=== PATIENT | male | born 1960 | race Caucasian/White ===

== ENCOUNTER 2016-04-23 11:10 | Emergency (ER) | payer MEDICAID ==
[2016-04-23 11:23] VITALS: BP 111/86
[2016-04-23] MEDS ORDERED: IPRATROPIUM/ALBUTEROL 0.5-2.5 MG/3 ML AMPUL NEB ONE (11:26)
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
== END 2016-04-23 12:32 | disposition home or self-care (01) ==
LOC: ER 11:10
DX: T20.34XA Burn of third degree of nose (septum), initial encounter (principal); W40.8XXA Explosion of other specified explosive materials, initial encounter; Y93.89 Activity, other specified; J44.9 Chronic obstructive pulmonary disease, unspecified; F17.200 Nicotine dependence, unspecified, uncomplicated; Z99.81 Dependence on supplemental oxygen; Z91.030 Bee allergy status
CPT/HCPCS: 94640; 99283; 71020; J7620

== ENCOUNTER 2016-06-05 09:08 | Day surgery (SDC) | payer MEDICAID ==
[~2016-06-05 09:08] MED LIST: DIPHENHYDRAMINE HCL 50 MG/ML VIAL ONE; EPINEPHRINE INJ 1 MG/10 ML DISP.SYRIN ONE; FENTANYL CITRATE INJ/PF 100 MCG/2 ML AMPUL ONE; FLUMAZENIL INJ 0.5 MG/5 ML VIAL IV ONE; GLUCAGON,HUMAN RECOMB 1 MG INJ ONE; NALOXONE HCL INJ/PF 0.4 MG/1 ML SDV ONE; ONDANSETRON HCL INJ/PF 4 MG/2 ML SDV ONE
[2016-06-05] MEDS: MIDAZOLAM 2 MG/2 ML INJ ONE ×3 (10:12→10:18)
--- NOTE | 2016-06-05 10:32 | Operative Report ---
Operative Report DATE OF SURGERY: 06/05/16 Operative Report: The risks benefits and alternatives of the procedure explained to the patient in detail and informed consent is obtained that GIF Olympus video scope was inserted into the patient's mouth and hypopharynx the esophagus is identified intubated and insufflated the scope was then advanced through the esophagus stomach and duodenum retroflexion maneuver is done the esophagus stomach and first and second portions of the duodenum examined PREOPERATIVE DIAGNOSIS: Dysphagia POSTOPERATIVE DIAGNOSIS: Schatzki's ring status post breakage. Hiatal hernia. Gastritis. No evidence of burn injury noted in the hypopharynx or. in the vallecula area. No apparent abnormal appearing tissue in the area of the vocal cords OPERATION: EGD with biopsy SURGEON: BERNADETTE COOPER ANESTHESIA: Moderate Sedation - 4 mg of Versed, 50 g of fentanyl. Conscious sedation monitoring time 30 minutes. TISSUE REMOVED OR ALTERED: Gastric mucosal specimen obtained COMPLICATIONS: None. ESTIMATED BLOOD LOSS: none. INTRAOPERATIVE FINDINGS: Schatzki's ring status post biopsy to break. Hiatal hernia. Gastritis PROCEDURE: Patient tolerated the procedure well. No immediate postprocedure complications are noted. Patient is discharged in good condition. Discharge date 06/05/2016. Discharge diet: Regular. Discharge activity: Regular. 2-3 week follow-up to discuss findings. Patient is instructed to call the office or proceed to emergency room should there be any further problems or questions. We'll await on biopsies.
[2016-06-05 11:32] VITALS: BP 109/67
== END 2016-06-05 11:33 | disposition home or self-care (01) ==
LOC: END 09:08
PROVIDERS: ATTEND Internal Medicine Gastroenterology
PROC: 0DB68ZX Excision of Stomach, Via Natural or Artificial Opening Endoscopic, Diagnostic (ICD-10-PCS; principal; 2016-06-05 09:30)
DX: K22.2 Esophageal obstruction (principal); K44.9 Diaphragmatic hernia without obstruction or gangrene; K29.50 Unspecified chronic gastritis without bleeding; R13.10 Dysphagia, unspecified; E78.00 Pure hypercholesterolemia, unspecified; E78.5 Hyperlipidemia, unspecified; F17.210 Nicotine dependence, cigarettes, uncomplicated; E07.9 Disorder of thyroid, unspecified; E66.9 Obesity, unspecified; Z68.35 Body mass index [BMI] 35.0-35.9, adult; Z85.21 Personal history of malignant neoplasm of larynx; Z79.51 Long term (current) use of inhaled steroids; Z79.899 Other long term (current) drug therapy
CPT/HCPCS: 43239; 88342 ×2; 88305 ×2; J2250; J3010; J0171; J1200; J1610; J2310; J2405; J3490

== ENCOUNTER → 2016-07-03 | Outpatient (CLI) | payer MEDICAID | LOC: RAD 08:09 | PROVIDERS: ATTEND Specialist | DX: C32.9 Malignant neoplasm of larynx, unspecified (principal) | CPT/HCPCS: 70491; 82565 ==

== ENCOUNTER → 2017-04-30 | Outpatient (CLI) | payer MEDICAID ==
--- NOTE | 2017-04-30 16:41 | RADIOLOGY REPORT (SQ) ---
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 RADIATION DOSE: NA LIMITATIONS: none FINDINGS: LUNGS AND PLEURA: The previously described chronic appearing biapical pleural and parenchy mal scarring appears stable. No acute consolidations or pleural effusions. No pneumothorax is seen. MEDIASTINUM AND HILAR STRUCTURES: No masses or contour abnormalities. HEART AND VASCULAR STRUCTURES: Heart normal size. No evidence for failure. BONES: No acute findings. HARDWARE: None in the chest. OTHER: No other significant finding. IMPRESSION: No significant interval change. No acute findings. Other findings as noted above TECHNICAL DOCUMENTATION: JOB ID: [id number] [employer]- All Rights Reserved Reading location - IP/workstation name: [facility]
== END ==
LOC: RAD 15:48
PROVIDERS: ATTEND Internal Medicine Hematology & Oncology
DX: C32.9 Malignant neoplasm of larynx, unspecified (principal); R07.9 Chest pain, unspecified
CPT/HCPCS: 71046

== ENCOUNTER 2017-11-15 11:13 | Emergency (ER) | payer MEDICAID ==
[2017-11-15 11:29] VITALS: BP 132/69
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
== END 2017-11-15 14:59 | disposition home or self-care (01) ==
LOC: ER 11:13
DX: J42 Unspecified chronic bronchitis (principal); R06.02 Shortness of breath; I50.9 Heart failure, unspecified; I25.10 Atherosclerotic heart disease of native coronary artery without angina pectoris; Z99.81 Dependence on supplemental oxygen; Z91.030 Bee allergy status
CPT/HCPCS: 99284

== ENCOUNTER 2017-11-18 11:23 | Inpatient (IN) | payer MEDICAID ==
[~2017-11-18 11:23] MED LIST changes: -DIPHENHYDRAMINE HCL 50 MG/ML VIAL ONE; -EPINEPHRINE INJ 1 MG/10 ML DISP.SYRIN ONE; -FENTANYL CITRATE INJ/PF 100 MCG/2 ML AMPUL ONE; -FLUMAZENIL INJ 0.5 MG/5 ML VIAL IV ONE; -GLUCAGON,HUMAN RECOMB 1 MG INJ ONE; -NALOXONE HCL INJ/PF 0.4 MG/1 ML SDV ONE; -ONDANSETRON HCL INJ/PF 4 MG/2 ML SDV ONE; +SUCCINYLCHOLINE CHLORIDE INJ 200 MG/10 ML VIAL ONE
[2017-11-18] MEDS ORDERED: METHYLPREDNISOLONE INJ 125 MG/2 ML SDV IV ONE (11:40)
[2017-11-18] MEDS ORDERED: IPRATROPIUM/ALBUTEROL 0.5-2.5 MG/3 ML AMPUL NEB ONE (11:41)
[2017-11-18 11:44] LABS: HEMATOCRIT 40.1 % (37.9-51.0); HEMOGLOBIN 11.8 g/dL (13.5-17.0); MEAN CORPUSCULAR HEMOGLOBIN 23.7 pg (27.0-33.4); MEAN CORPUSCULAR HGB CONC 29.4 g/dL (32.0-36.0); MEAN CORPUSCULAR VOLUME 81 fl (80-97); PLATELET COUNT 249 10^3/uL (150-450); RED BLOOD COUNT 4.97 10^6/uL (4.35-5.55); RED CELL DISTRIBUTION WIDTH 17.6 % (11.5-14.0); WHITE BLOOD COUNT 11.3 10^3/uL (4.0-10.5)
[2017-11-18 12:01] LABS: ALANINE AMINOTRANSFERASE 36 U/L (21-72); ALBUMIN 3.5 g/dL (3.5-5.0); ALKALINE PHOSPHATASE 106 U/L (38-126); ASPARTATE AMINO TRANSFERASE 26 U/L (17-59); BILIRUBIN,DIRECT 0.6 mg/dL (0.0-0.4); BILIRUBIN,TOTAL 0.7 mg/dL (0.2-1.3); BLOOD UREA NITROGEN 33 mg/dL (7-20); CALCIUM 8.8 mg/dL (8.4-10.2); CHLORIDE 99 mmol/L (98-107); CREATINE KINASE 32 U/L (55-170); GLUCOSE 133 mg/dL (75-110); SODIUM 145.1 mmol/L (137-145); TOTAL PROTEIN 7.6 g/dL (6.3-8.2)
[2017-11-18 12:02] LABS: ABSOLUTE LYMPHOCYTES# (MANUAL) 1.5 10^3/uL (0.5-4.7); ABSOLUTE MONOCYTES # (MANUAL) 0.8 10^3/uL (0.1-1.4); ABSOLUTE NEUTROPHILS# (MANUAL) 8.7 10^3/uL (1.7-8.2); BASOPHILS % (MANUAL) 2 % (0-2); EOSINOPHILS % (MANUAL) 1 % (0-6); LYMPHOCYTES % (MANUAL) 13 % (13-45); MONOCYTES % (MANUAL) 7 % (3-13); NUCLEATED RED BLOOD CELLS 3 /100 WBC (0); SEGMENTED NEUTROPHILS % (MAN) 77 % (42-78); TOTAL CELLS COUNTED 100
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
[2017-11-18 12:04] LABS: ANISOCYTOSIS 1+; HYPOCHROMASIA 1+; PLATELET COMMENT ADEQUATE; PLATELET GIANT PRESENT; POIKILOCYTOSIS 1+; POLYCHROMASIA 1+; STOMATOCYTES 1+
[2017-11-18 12:07] LABS: ANION GAP 7 (5-19)
[2017-11-18 12:09] LABS: ARTERIAL BLOOD BASE EXCESS 15.3 mmol/L; ARTERIAL BLOOD HCO3 51.1 mmol/L (20-24); ARTERIAL BLOOD O2 SATURATION 62.5 % (94-98); ARTERIAL BLOOD PO2 47.1 mmHg (80-100); ARTERIAL BLOOD TOTAL CO2 56.2 mmol/L (23-27)
[2017-11-18 12:11] LABS: CARBON DIOXIDE 39 mmol/L (22-30)
[2017-11-18 12:13] LABS: CREATINE KINASE MB 2.27 ng/mL (<4.55)
[2017-11-18 12:14] LABS: TROPONIN I < 0.012 ng/mL
[2017-11-18 12:16] LABS: ARTERIAL BLOOD FIO2 4L
[2017-11-18 12:17] LABS: ARTERIAL BLOOD PCO2 166.1 mmHg (35-45); ARTERIAL BLOOD PH 7.11 (7.35-7.45)
--- NOTE | 2017-11-18 12:24 | RADIOLOGY REPORT (SQ) ---
EXAM DESCRIPTION: CHEST SINGLE VIEW COMPLETED DATE/TIME: 11/18/2017 11:50 am REASON FOR STUDY: sob COMPARISON: Chest films 04/30/2017, 04/23/2016, 01/31/2016 EXAM PARAMETERS: NUMBER OF VIEWS: One view. TECHNIQUE: Single frontal radiographic view of the chest acquired. RADIATION DOSE: NA LIMITATIONS: None. FINDINGS: LUNGS AND PLEURA: Right apical pleural-parenchymal scarring unchanged. Trace right pleural effusion in the lateral costophrenic sulcus. No left pleural effusion. Mild pulmonary vascular prominence without pulmonary edema MEDIASTINUM AND HILAR STRUCTURES: No masses. Contour normal. HEART AND VASCULAR STRUCTURES: Stable cardiomegaly BONES: Old left clavicle and left lower posterior rib fractures HARDWARE: None in the chest. OTHER: No other significant finding. IMPRESSION: Trace right pleural effusion Cardiomegaly TECHNICAL DOCUMENTATION: JOB ID: [id number] [employer]- All Rights Reserved Reading location - IP/workstation name: [email or web address]
[2017-11-18] MEDS ORDERED: ALBUTEROL SULFATE 0.083% NEB 2.5 MG/3 ML AMPUL NEB ONE (12:40)
[2017-11-18 13:21] LABS: ARTERIAL BLOOD BASE EXCESS 10.8 mmol/L; ARTERIAL BLOOD H2CO3 4.39 mmol/L (1.05-1.35); ARTERIAL BLOOD HCO3 45.5 mmol/L (20-24); ARTERIAL BLOOD O2 SATURATION 99.2 % (94-98); ARTERIAL BLOOD PO2 248.2 mmHg (80-100)
[2017-11-18 13:23] LABS: ARTERIAL BLOOD FIO2 80%; ARTERIAL BLOOD PCO2 145.8 mmHg (35-45); ARTERIAL BLOOD PH 7.11 (7.35-7.45)
--- NOTE | 2017-11-18 13:44 | EKG REPORT ---
SEVERITY:- BORDERLINE ECG - SINUS TACHYCARDIA PROBABLE LEFT ATRIAL ABNORMALITY RIGHT AXIS DEVIATION : Confirmed by: Mia Raza MD 18-Nov-2017 13:43:58
[2017-11-18 14:52] LABS: ARTERIAL BLOOD BASE EXCESS 11.1 mmol/L; ARTERIAL BLOOD H2CO3 3.91 mmol/L (1.05-1.35); ARTERIAL BLOOD HCO3 44.6 mmol/L (20-24); ARTERIAL BLOOD O2 SATURATION 91.2 % (94-98); ARTERIAL BLOOD PO2 81.8 mmHg (80-100); ARTERIAL BLOOD TOTAL CO2 48.6 mmol/L (23-27)
[2017-11-18 14:56] LABS: ARTERIAL BLOOD FIO2 60%; ARTERIAL BLOOD PCO2 129.8 mmHg (35-45); ARTERIAL BLOOD PH 7.15 (7.35-7.45)
[2017-11-18 15:53] LABS: APPEARANCE,URINE CLEAR; BILIRUBIN,URINE NEGATIVE (NEGATIVE); COLOR,URINE YELLOW; GLUCOSE, URINE NEGATIVE (NEGATIVE); KETONES,URINE NEGATIVE (NEGATIVE); LEUKOCYTE ESTERASE,URINE NEGATIVE (NEGATIVE); NITRITE,URINE NEGATIVE (NEGATIVE); PROTEIN,URINE 100 mg/dL (NEGATIVE); URINE SPECIFIC GRAVITY 1.019; UROBILINOGEN,URINE NEGATIVE mg/dL (<2.0)
[2017-11-18] MEDS ORDERED: PROPOFOL INJ 200 MG/20 ML VIAL IV ONE (17:21)
[2017-11-18] MEDS ORDERED: SUCCINYLCHOLINE CHLORIDE INJ 200 MG/10 ML VIAL IV ONE (17:22)
[2017-11-18] MEDS ORDERED: PROPOFOL 1,000 MG/100 ML INFUS..BTL IV ONE (17:42)
[2017-11-18] MEDS ORDERED: FENTANYL CITRATE INJ/PF 100 MCG/2 ML AMPUL ONE ×2 (17:42→17:44)
[2017-11-18] MEDS ORDERED: DEXTROSE 50%-WATER 25 GM/50 ML DISP.SYRIN IV PRN ×2 (17:44)
[2017-11-18] MEDS ORDERED: GLUCAGON,HUMAN RECOMB 1 MG INJ SUBCUT PRN (17:44)
[2017-11-18] MEDS ORDERED: ACETAMINOPHEN 325 MG TABLET PO PRN (17:44)
[2017-11-18] MEDS ORDERED: ONDANSETRON 4 MG TAB.RAPDIS PO PRN (17:44)
[2017-11-18] MEDS ORDERED: DEXTROSE 40% GEL 15 GM TUBE PO PRN ×2 (17:44)
[2017-11-18] MEDS ORDERED: PHARMACY COMMUNICATION ORDER MC NR (17:45)
[2017-11-18] MEDS ORDERED: FENTANYL CITRATE INJ/PF 100 MCG/2 ML AMPUL IV ONE (17:46)
[2017-11-18] MEDS ORDERED: PROPOFOL 1,000 MG/100 ML INFUS..BTL IV PRN (17:47)
[2017-11-18] MEDS ORDERED: IPRATROPIUM/ALBUTEROL 0.5-2.5 MG/3 ML AMPUL NEB PRN (18:06)
[2017-11-18] MEDS ORDERED: LEVALBUTEROL HCL NEB 1.25 MG/3 ML AMPUL NEB PRN (18:06)
[2017-11-18] MEDS ORDERED: FENTANYL CITRATE INJ/PF 100 MCG/2 ML AMPUL IV PRN (18:08)
--- NOTE | 2017-11-18 18:15 | RADIOLOGY REPORT (SQ) ---
EXAM DESCRIPTION: CHEST SINGLE VIEW COMPLETED DATE/TIME: 11/18/2017 6:06 pm REASON FOR STUDY: Intubation COMPARISON: 11/18/2017 EXAM PARAMETERS: NUMBER OF VIEWS: One view. TECHNIQUE: Single frontal radiographic view of the chest acquired. RADIATION DOSE: NA LIMITATIONS: None. FINDINGS: LUNGS AND PLEURA: Mild pulmonary edema is now suggested. MEDIASTINUM AND HILAR STRUCTURES: No masses. Contour normal. HEART AND VASCULAR STRUCTURES: Heart size is borderline. BONES: No acute findings. HARDWARE: Endotracheal tube has its tip 5 cm above the efraín. An NG tube extends toward the stomach . The tip of the tube is not seen. OTHER: No other significant finding. IMPRESSION: Cardiomegaly with mild pulmonary edema. Endotracheal tube placement as described. TECHNICAL DOCUMENTATION: JOB ID: [id number] [employer]- All Rights Reserved Reading location - IP/workstation name: [email or web address]
--- NOTE | 2017-11-18 18:16 | RADIOLOGY REPORT (SQ) ---
EXAM DESCRIPTION: KUB/ABDOMEN (SINGLE VIEW) COMPLETED DATE/TIME: 11/18/2017 6:06 pm REASON FOR STUDY: Check Placement of NG Tube COMPARISON: None. NUMBER OF VIEWS: One view. TECHNIQUE: Supine radiographic image of the abdomen acquired. LIMITATIONS: None. FINDINGS: BOWEL GAS PATTERN: There are some gas-filled loops of small bowel on the left side of the abdomen. These are not markedly distended. CALCIFICATIONS: No suspicious calcifications. SOFT TISSUES: No gross mass or suggestion of organomegaly. HARDWARE: An NG tube extends to the body of the stomach along the greater curvature. BONES: No acute fracture. No worrisome bone lesions. OTHER: No other significant finding. IMPRESSION: NG tube as described. TECHNICAL DOCUMENTATION: JOB ID: [id number] [employer]- All Rights Reserved Reading location - IP/workstation name: [email or web address]
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
[2017-11-18] MEDS: IPRATROPIUM/ALBUTEROL 0.5-2.5 MG/3 ML AMPUL NEB SCH (20:09)
[2017-11-18] MEDS: MIDAZOLAM HCL 50 MG/100 ML RTUINJ IV PRN (20:53)
[2017-11-18] MEDS: PROPOFOL 1,000 MG/100 ML INFUS..BTL IV PRN ×2 (20:54→22:09)
[2017-11-18] MEDS: LEVOFLOXACIN 750 MG/D5W RTU 750 MG/150 ML RTUPB IV SCH (21:34)
[2017-11-18] MEDS ORDERED: METHYLPREDNISOLONE INJ 40 MG/1 ML SDV IV SCH (22:00)
[2017-11-18 22:10] LABS: ARTERIAL BLOOD BASE EXCESS 8.9 mmol/L; ARTERIAL BLOOD H2CO3 2.59 mmol/L (1.05-1.35); ARTERIAL BLOOD HCO3 38.6 mmol/L (20-24); ARTERIAL BLOOD O2 SATURATION 87.8 % (94-98); ARTERIAL BLOOD PH 7.27 (7.35-7.45); ARTERIAL BLOOD PO2 63.4 mmHg (80-100); ARTERIAL BLOOD TOTAL CO2 41.2 mmol/L (23-27)
[2017-11-18 22:15] LABS: ARTERIAL BLOOD FIO2 90%
[2017-11-19] MEDS: PROPOFOL 1,000 MG/100 ML INFUS..BTL IV PRN ×11 (00:22→23:45)
[2017-11-19] MEDS: METHYLPREDNISOLONE INJ 40 MG/1 ML SDV IV SCH ×5 (00:22→23:46)
[2017-11-19 00:46] LABS: ARTERIAL BLOOD BASE EXCESS 15.5 mmol/L; ARTERIAL BLOOD H2CO3 2.42 mmol/L (1.05-1.35); ARTERIAL BLOOD HCO3 44.2 mmol/L (20-24); ARTERIAL BLOOD O2 SATURATION 95.1 % (94-98); ARTERIAL BLOOD PH 7.36 (7.35-7.45); ARTERIAL BLOOD PO2 82.5 mmHg (80-100); ARTERIAL BLOOD TOTAL CO2 46.7 mmol/L (23-27)
[2017-11-19 00:51] LABS: ARTERIAL BLOOD FIO2 90%
[2017-11-19 00:52] LABS: ARTERIAL BLOOD PCO2 80.3 mmHg (35-45)
[2017-11-19] MEDS: IPRATROPIUM/ALBUTEROL 0.5-2.5 MG/3 ML AMPUL NEB SCH ×6 (01:50→20:22)
[2017-11-19 04:49] LABS: HEMATOCRIT 34.7 % (37.9-51.0); HEMOGLOBIN 10.5 g/dL (13.5-17.0); MEAN CORPUSCULAR HEMOGLOBIN 23.8 pg (27.0-33.4); MEAN CORPUSCULAR HGB CONC 30.3 g/dL (32.0-36.0); MEAN CORPUSCULAR VOLUME 78 fl (80-97); PLATELET COUNT 213 10^3/uL (150-450); RED BLOOD COUNT 4.42 10^6/uL (4.35-5.55); RED CELL DISTRIBUTION WIDTH 17.8 % (11.5-14.0); WHITE BLOOD COUNT 9.3 10^3/uL (4.0-10.5)
[2017-11-19 05:24] LABS: ABSOLUTE LYMPHOCYTES# (MANUAL) 0.4 10^3/uL (0.5-4.7); ABSOLUTE MONOCYTES # (MANUAL) 0.4 10^3/uL (0.1-1.4); ABSOLUTE NEUTROPHILS# (MANUAL) 8.6 10^3/uL (1.7-8.2); BAND NEUTROPHILS % (MANUAL) 1 % (3-5); BASOPHILS % (MANUAL) 0 % (0-2); EOSINOPHILS % (MANUAL) 0 % (0-6); LYMPHOCYTES % (MANUAL) 4 % (13-45); MONOCYTES % (MANUAL) 4 % (3-13); NUCLEATED RED BLOOD CELLS 2 /100 WBC (0); SEGMENTED NEUTROPHILS % (MAN) 91 % (42-78); TOTAL CELLS COUNTED 100
[2017-11-19 05:26] LABS: ANISOCYTOSIS 1+; HYPOCHROMASIA SLIGHT; PLATELET COMMENT ADEQUATE; POLYCHROMASIA 1+; TARGET CELLS SLIGHT
[2017-11-19] MEDS: MIDAZOLAM HCL 50 MG/100 ML RTUINJ IV PRN ×2 (06:09→15:08)
--- NOTE | 2017-11-19 07:44 | RADIOLOGY REPORT (SQ) ---
EXAM DESCRIPTION: X-ray single view chest CLINICAL HISTORY: 57 years Male, intubation COMPARISON: Prior chest x-ray performed on 11/18/2017. TECHNIQUE: Single portable view of the chest performed on 11/19/2017 at 6:30 AM FINDINGS: The lungs are well expanded. There is persistent airspace disease in the inferior hemithoraces bilaterally which may be due to edema, atelectasis or pneumonia. There is no evidence of a pneumothorax. The cardiac silhouette is stable and top normal in size. The mediastinal contours are normal. No acute osseous abnormality is identified. There appear to be old left-sided rib fractures. No focal soft tissue abnormalities are seen. The endotracheal tube and feeding tube are grossly stable IMPRESSION: Overall, no significant change when compared to the prior study. There is persistent airspace disease in the inferior hemithoraces which may be due to edema, atelectasis or pneumonia.
[2017-11-19 07:45] LABS: ALANINE AMINOTRANSFERASE 32 U/L (21-72); ALBUMIN 2.8 g/dL (3.5-5.0); ALKALINE PHOSPHATASE 87 U/L (38-126); ASPARTATE AMINO TRANSFERASE 16 U/L (17-59); BILIRUBIN,DIRECT 0.6 mg/dL (0.0-0.4); BILIRUBIN,TOTAL 0.7 mg/dL (0.2-1.3); BLOOD UREA NITROGEN 24 mg/dL (7-20); CALCIUM 8.7 mg/dL (8.4-10.2); CARBON DIOXIDE 39 mmol/L (22-30); CHLORIDE 101 mmol/L (98-107); GLUCOSE 135 mg/dL (75-110); POTASSIUM 4.9 mmol/L (3.6-5.0); SODIUM 142.7 mmol/L (137-145)
[2017-11-19 07:46] LABS: ANION GAP 3 (5-19)
[2017-11-19] MEDS: ENOXAPARIN SODIUM INJ 30 MG/0.3 ML DISP.SYRIN SUBCUT SCH (10:18)
[2017-11-19 13:30] LABS: ARTERIAL BLOOD BASE EXCESS 12.3 mmol/L; ARTERIAL BLOOD HCO3 38.3 mmol/L (20-24); ARTERIAL BLOOD O2 SATURATION 97.9 % (94-98); ARTERIAL BLOOD PCO2 56.5 mmHg (35-45); ARTERIAL BLOOD PH 7.45 (7.35-7.45); ARTERIAL BLOOD PO2 105.2 mmHg (80-100)
[2017-11-19 14:05] LABS: ARTERIAL BLOOD FIO2 90%
[2017-11-19] MEDS: LEVOFLOXACIN 750 MG/D5W RTU 750 MG/150 ML RTUPB IV SCH (17:01)
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
[2017-11-20] MEDS: PROPOFOL 1,000 MG/100 ML INFUS..BTL IV PRN ×9 (00:17→22:32)
[2017-11-20] MEDS: IPRATROPIUM/ALBUTEROL 0.5-2.5 MG/3 ML AMPUL NEB SCH ×6 (00:59→20:23)
[2017-11-20] MEDS: MIDAZOLAM HCL 50 MG/100 ML RTUINJ IV PRN ×2 (01:24→10:15)
[2017-11-20 04:21] LABS: HEMATOCRIT 35.4 % (37.9-51.0); HEMOGLOBIN 10.7 g/dL (13.5-17.0); MEAN CORPUSCULAR HEMOGLOBIN 23.6 pg (27.0-33.4); MEAN CORPUSCULAR HGB CONC 30.2 g/dL (32.0-36.0); MEAN CORPUSCULAR VOLUME 78 fl (80-97); PLATELET COUNT 226 10^3/uL (150-450); RED BLOOD COUNT 4.53 10^6/uL (4.35-5.55); WHITE BLOOD COUNT 14.6 10^3/uL (4.0-10.5)
[2017-11-20 05:12] LABS: ALANINE AMINOTRANSFERASE 27 U/L (21-72); ALBUMIN 2.9 g/dL (3.5-5.0); ALKALINE PHOSPHATASE 84 U/L (38-126); ANION GAP 6 (5-19); ASPARTATE AMINO TRANSFERASE 10 U/L (17-59); BILIRUBIN,DIRECT 0.5 mg/dL (0.0-0.4); BILIRUBIN,TOTAL 0.6 mg/dL (0.2-1.3); BLOOD UREA NITROGEN 23 mg/dL (7-20); CALCIUM 9.1 mg/dL (8.4-10.2); CARBON DIOXIDE 36 mmol/L (22-30); CHLORIDE 100 mmol/L (98-107); GLUCOSE 157 mg/dL (75-110); POTASSIUM 4.2 mmol/L (3.6-5.0); SODIUM 142.2 mmol/L (137-145); TOTAL PROTEIN 6.2 g/dL (6.3-8.2)
[2017-11-20] MEDS: METHYLPREDNISOLONE INJ 40 MG/1 ML SDV IV SCH ×3 (05:13→17:26)
[2017-11-20 06:34] LABS: ARTERIAL BLOOD BASE EXCESS 9.9 mmol/L; ARTERIAL BLOOD H2CO3 1.77 mmol/L (1.05-1.35); ARTERIAL BLOOD HCO3 36.4 mmol/L (20-24); ARTERIAL BLOOD O2 SATURATION 96.4 % (94-98); ARTERIAL BLOOD PCO2 58.7 mmHg (35-45); ARTERIAL BLOOD PH 7.41 (7.35-7.45); ARTERIAL BLOOD PO2 86.4 mmHg (80-100); ARTERIAL BLOOD TOTAL CO2 38.2 mmol/L (23-27)
[2017-11-20 06:37] LABS: ARTERIAL BLOOD FIO2 70%
--- NOTE | 2017-11-20 08:31 | RADIOLOGY REPORT (SQ) ---
EXAM DESCRIPTION: CHEST SINGLE VIEW COMPLETED DATE/TIME: 11/20/2017 6:51 am REASON FOR STUDY: resp failure COMPARISON: CT CHEST 01/31/2016 CHEST FILMS 04/23/2016, 11/18/2017, 11/19/2017 EXAM PARAMETERS: NUMBER OF VIEWS: One view. TECHNIQUE: Single frontal radiographic view of the chest acquired. RADIATION DOSE: NA LIMITATIONS: None. FINDINGS: LUNGS AND PLEURA: Minimal bibasilar atelectasis with trace fluid in the lateral costophren ic sulcus. Lungs are otherwise free of focal infiltrates. Upper lobes are hyperlucent from obstructive disease. No pneumothorax. MEDIASTINUM AND HILAR STRUCTURES: No masses. Contour normal. HEART AND VASCULAR STRUCTURES: Stable cardiomegaly BONES: No acute findings. HARDWARE: Endotracheal tube tip 6 cm above the efraín. Nasogastric tube tip and side port below the hemidiaphragms. OTHER: No other significant finding. IMPRESSION: Endotracheal tube, naso gastric tube in good positioning Bibasilar atelectasis with trace right pleural fluid unchanged TECHNICAL DOCUMENTATION: JOB ID: [id number] [employer]- All Rights Reserved Reading location - IP/workstation name: [email or web address]
[2017-11-20] MEDS: ENOXAPARIN SODIUM INJ 30 MG/0.3 ML DISP.SYRIN SUBCUT SCH (10:06)
[2017-11-20] MEDS: LEVOFLOXACIN 750 MG/D5W RTU 750 MG/150 ML RTUPB IV SCH (17:26)
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
[2017-11-20] MEDS ORDERED: METHYLPREDNISOLONE INJ 40 MG/1 ML SDV ONE (23:59)
[2017-11-21] MEDS: IPRATROPIUM/ALBUTEROL 0.5-2.5 MG/3 ML AMPUL NEB SCH ×6 (00:24→20:11)
[2017-11-21] MEDS: PROPOFOL 1,000 MG/100 ML INFUS..BTL IV PRN ×10 (01:08→22:24)
[2017-11-21] MEDS: METHYLPREDNISOLONE INJ 40 MG/1 ML SDV IV SCH ×4 (01:08→18:14)
[2017-11-21] MEDS: MIDAZOLAM HCL 50 MG/100 ML RTUINJ IV PRN ×2 (02:00→10:50)
[2017-11-21 04:07] LABS: HEMATOCRIT 34.9 % (37.9-51.0); HEMOGLOBIN 10.7 g/dL (13.5-17.0); MEAN CORPUSCULAR HEMOGLOBIN 23.7 pg (27.0-33.4); MEAN CORPUSCULAR HGB CONC 30.6 g/dL (32.0-36.0); MEAN CORPUSCULAR VOLUME 78 fl (80-97); PLATELET COUNT 216 10^3/uL (150-450); RED CELL DISTRIBUTION WIDTH 18.2 % (11.5-14.0); WHITE BLOOD COUNT 13.1 10^3/uL (4.0-10.5)
[2017-11-21 04:24] LABS: ALANINE AMINOTRANSFERASE 25 U/L (21-72); ALBUMIN 2.8 g/dL (3.5-5.0); ASPARTATE AMINO TRANSFERASE 19 U/L (17-59); BILIRUBIN,DIRECT 0.6 mg/dL (0.0-0.4); BILIRUBIN,TOTAL 0.6 mg/dL (0.2-1.3); BLOOD UREA NITROGEN 28 mg/dL (7-20); CALCIUM 8.5 mg/dL (8.4-10.2); GLUCOSE 171 mg/dL (75-110); POTASSIUM 4.6 mmol/L (3.6-5.0)
[2017-11-21 04:29] LABS: CARBON DIOXIDE 38 mmol/L (22-30); CHLORIDE 99 mmol/L (98-107); SODIUM 139.5 mmol/L (137-145)
[2017-11-21 04:32] LABS: ANION GAP 2 (5-19)
[2017-11-21 04:34] LABS: ABSOLUTE LYMPHOCYTES# (MANUAL) 0.3 10^3/uL (0.5-4.7); ABSOLUTE MONOCYTES # (MANUAL) 0.9 10^3/uL (0.1-1.4); ABSOLUTE NEUTROPHILS# (MANUAL) 11.9 10^3/uL (1.7-8.2); BASOPHILS % (MANUAL) 0 % (0-2); EOSINOPHILS % (MANUAL) 0 % (0-6); LYMPHOCYTES % (MANUAL) 2 % (13-45); MONOCYTES % (MANUAL) 7 % (3-13); NUCLEATED RED BLOOD CELLS 2 /100 WBC (0); SEGMENTED NEUTROPHILS % (MAN) 91 % (42-78); TOTAL CELLS COUNTED 100; TOXIC GRANULATION SLIGHT; TOXIC VACUOLATION PRESENT
[2017-11-21 04:35] LABS: ANISOCYTOSIS 1+; PLATELET CLUMPS PRESENT; PLATELET COMMENT ADEQUATE; PLATELET LARGE PRESENT; POIKILOCYTOSIS 1+; POLYCHROMASIA SLIGHT; SCHISTOCYTES 1+; STOMATOCYTES 1+
[2017-11-21 06:05] LABS: ARTERIAL BLOOD BASE EXCESS 7.7 mmol/L; ARTERIAL BLOOD H2CO3 1.68 mmol/L (1.05-1.35); ARTERIAL BLOOD O2 SATURATION 95.7 % (94-98); ARTERIAL BLOOD PCO2 55.7 mmHg (35-45); ARTERIAL BLOOD PO2 80.6 mmHg (80-100); ARTERIAL BLOOD TOTAL CO2 35.7 mmol/L (23-27)
[2017-11-21 06:07] LABS: ARTERIAL BLOOD FIO2 60%
[2017-11-21 06:20] LABS: ALKALINE PHOSPHATASE 65 U/L (38-126)
--- NOTE | 2017-11-21 08:17 | RADIOLOGY REPORT (SQ) ---
EXAM DESCRIPTION: CHEST SINGLE VIEW COMPLETED DATE/TIME: 11/21/2017 7:26 am REASON FOR STUDY: resp failure COMPARISON: 11/20/2017. EXAM PARAMETERS: NUMBER OF VIEWS: One view. TECHNIQUE: Single frontal radiographic view of the chest acquired. RADIATION DOSE: NA LIMITATIONS: None. FINDINGS: LUNGS AND PLEURA: Stable mild basilar atelectasis. No large pleural effusion. No pneumot horax. MEDIASTINUM AND HILAR STRUCTURES: No masses. Contour normal. HEART AND VASCULAR STRUCTURES: Heart normal in size. Normal vasculature. BONES: No acute findings. HARDWARE: Stable endotracheal tube. Distal nasogastric tube difficult to visualize. OTHER: No other significant finding. IMPRESSION: STABLE APPEARANCE OF THE CHEST. THE DISTAL PORTION OF THE NASOGASTRIC TUBE IS DIFFICULT TO VISUALIZE. TECHNICAL DOCUMENTATION: JOB ID: [id number] [employer]- All Rights Reserved Reading location - IP/workstation name: [email or web address]
[2017-11-21] MEDS ORDERED: FUROSEMIDE INJ/PF 40 MG/4 ML SDV IV ONE (08:44)
[2017-11-21] MEDS ORDERED: FUROSEMIDE INJ/PF 40 MG/4 ML SDV ONE (09:23)
[2017-11-21] MEDS: ENOXAPARIN SODIUM INJ 30 MG/0.3 ML DISP.SYRIN SUBCUT SCH (09:26)
[2017-11-21] MEDS ORDERED: GUAIFENESIN 600 MG TABLET.SA PO SCH (10:00)
[2017-11-21] MEDS: BUDESONIDE NEB 0.5 MG/2 ML AMPUL NEB SCH ×2 (12:08→20:11)
[2017-11-21] MEDS ORDERED: DEXTROSE 40% GEL 15 GM TUBE PO PRN (12:36)
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
[2017-11-21] MEDS: LEVOFLOXACIN 750 MG/D5W RTU 750 MG/150 ML RTUPB IV SCH (18:14)
[2017-11-22] MEDS: METHYLPREDNISOLONE INJ 40 MG/1 ML SDV IV SCH ×2 (00:23→06:12)
[2017-11-22] MEDS: IPRATROPIUM/ALBUTEROL 0.5-2.5 MG/3 ML AMPUL NEB SCH ×6 (00:24→20:44)
[2017-11-22] MEDS: PROPOFOL 1,000 MG/100 ML INFUS..BTL IV PRN ×9 (00:39→21:17)
[2017-11-22] MEDS: INSULIN LISPRO 100 UNIT/ML 3 ML VIAL SUBCUT PRN ×5 (00:51→23:49)
[2017-11-22 04:34] LABS: HEMATOCRIT 37.6 % (37.9-51.0); HEMOGLOBIN 11.6 g/dL (13.5-17.0); MEAN CORPUSCULAR HEMOGLOBIN 24.1 pg (27.0-33.4); MEAN CORPUSCULAR HGB CONC 30.8 g/dL (32.0-36.0); MEAN CORPUSCULAR VOLUME 78 fl (80-97); PLATELET COUNT 207 10^3/uL (150-450); RED BLOOD COUNT 4.81 10^6/uL (4.35-5.55); RED CELL DISTRIBUTION WIDTH 18.2 % (11.5-14.0); WHITE BLOOD COUNT 9.1 10^3/uL (4.0-10.5)
[2017-11-22 04:43] LABS: BLOOD UREA NITROGEN 29 mg/dL (7-20); CALCIUM 8.7 mg/dL (8.4-10.2); CHLORIDE 96 mmol/L (98-107); GLUCOSE 185 mg/dL (75-110); PHOSPHORUS 3.8 mg/dL (2.5-4.5); POTASSIUM 4.6 mmol/L (3.6-5.0); SODIUM 140.3 mmol/L (137-145)
[2017-11-22 04:51] LABS: ABSOLUTE LYMPHOCYTES# (MANUAL) 0.3 10^3/uL (0.5-4.7); ABSOLUTE MONOCYTES # (MANUAL) 0.4 10^3/uL (0.1-1.4); ABSOLUTE NEUTROPHILS# (MANUAL) 8.5 10^3/uL (1.7-8.2); BASOPHILS % (MANUAL) 0 % (0-2); EOSINOPHILS % (MANUAL) 0 % (0-6); LYMPHOCYTES % (MANUAL) 3 % (13-45); MONOCYTES % (MANUAL) 4 % (3-13); SEGMENTED NEUTROPHILS % (MAN) 93 % (42-78); TOTAL CELLS COUNTED 100
[2017-11-22 04:52] LABS: ANISOCYTOSIS 2+; PLATELET COMMENT ADEQUATE; POLYCHROMASIA 1+
[2017-11-22 05:08] LABS: ANION GAP 3 (5-19)
[2017-11-22 05:11] LABS: CARBON DIOXIDE 41 mmol/L (22-30)
[2017-11-22 06:20] LABS: ARTERIAL BLOOD BASE EXCESS 12.4 mmol/L; ARTERIAL BLOOD H2CO3 1.94 mmol/L (1.05-1.35); ARTERIAL BLOOD HCO3 39.6 mmol/L (20-24); ARTERIAL BLOOD O2 SATURATION 94.3 % (94-98); ARTERIAL BLOOD PCO2 64.6 mmHg (35-45); ARTERIAL BLOOD PH 7.41 (7.35-7.45); ARTERIAL BLOOD PO2 73.3 mmHg (80-100); ARTERIAL BLOOD TOTAL CO2 41.6 mmol/L (23-27)
[2017-11-22 06:21] LABS: ARTERIAL BLOOD FIO2 60%
[2017-11-22] MEDS: MIDAZOLAM HCL 50 MG/100 ML RTUINJ IV PRN ×2 (07:14→21:11)
[2017-11-22] MEDS: BUDESONIDE NEB 0.5 MG/2 ML AMPUL NEB SCH ×2 (08:21→20:44)
--- NOTE | 2017-11-22 08:57 | RADIOLOGY REPORT (SQ) ---
EXAM DESCRIPTION: CHEST SINGLE VIEW COMPLETED DATE/TIME: 11/22/2017 8:17 am REASON FOR STUDY: resp failure COMPARISON: Chest films 11/21/2017, 11/20/2017, 11/18/2017 EXAM PARAMETERS: NUMBER OF VIEWS: One view. TECHNIQUE: Single frontal radiographic view of the chest acquired. RADIATION DOSE: NA LIMITATIONS: None. FINDINGS: LUNGS AND PLEURA: Persistent bibasilar airspace disease likely atelectasis. No pleural effusion or pneumothorax. MEDIASTINUM AND HILAR STRUCTURES: No masses. Contour normal. HEART AND VASCULAR STRUCTURES: Heart normal in size. Normal vasculature. BONES: Old left clavicle fracture HARDWARE: Endotracheal tube tip 5 cm above the efraín. Nasogastric tube tip and side port in the sto mach. OTHER: No other significant finding. IMPRESSION: Persistent bibasilar airspace disease likely atelectasis TECHNICAL DOCUMENTATION: JOB ID: [id number] [employer]- All Rights Reserved Reading location - IP/workstation name: [email or web address]
[2017-11-22] MEDS ORDERED: ACETAMINOPHEN SOLN 325 MG/10.15 ML UDCUP NG PRN (10:50)
[2017-11-22] MEDS: ENOXAPARIN SODIUM INJ 30 MG/0.3 ML DISP.SYRIN SUBCUT SCH (10:52)
[2017-11-22] MEDS ORDERED: ONDANSETRON 4 MG TAB.RAPDIS PO PRN (11:00)
[2017-11-22] MEDS ORDERED: ONDANSETRON 4 MG TAB.RAPDIS NG PRN (11:00)
[2017-11-22] MEDS ORDERED: DEXTROSE 40% GEL 15 GM TUBE NG PRN ×2 (11:00)
--- NOTE | 2017-11-22 13:07 | RADIOLOGY REPORT (SQ) ---
EXAM DESCRIPTION: CTA CHEST COMPLETED DATE/TIME: 11/22/2017 12:54 pm REASON FOR STUDY: eval for PE intubated, respiratory failure COMPARISON: None. TECHNIQUE: CT scan of the chest performed using helical scanning technique with dynamic intravenous contrast injection. Images reviewed with lung, soft tissue and bone windows. Reconstructed coronal and sagittal MPR images reviewed. Additional 3 dimensional post-processing performed to develop Maximal Intensity Projection images (PR P). All images stored on PACS. All CT scanners at this facility use dose modulation, iterative reconstruction, and/or weight based d osing when appropriate to reduce radiation dose to as low as reasonably achievable (ALARA). [facility]: Dose Right [facility]: CareDose [facility]: Dose Right [facility]: Teradose 4D [facility]: DesignFace IT CONTRAST TYPE AND DOSE: contrast/concentration: Isovue 350.00 mg/ml; Total Contrast Delivered: 84.0 ml; Total Saline Delivered: 89.2 ml Contrast bolus optimized for the pulmonary arteries and thoracic aorta. RENAL FUNCTION: GFR > 60. RADIATION DOSE: CT Rad equipment meets quality standard of care and radiation dose reduction techniq ues were employed. CTDIvol: 26.5 - 31.0 mGy. DLP: 1008 mGy-cm. . LIMITATIONS: None. FINDINGS: LUNGS AND PLEURA: Consolidation in the dependent portion of the right and left lower lobe along the posterior costophrenic sulci. Trace right pleural effusion loculated on axial image 98. Biapical pleuroparenchymal scarring is present. No pneumothorax AORTA AND GREAT VESSELS: No aneurysm. Contrast bolus not optimized for the aorta. HEART: Trace pericardial effusion with moderate cardiomegaly. No significant coronary artery calcifi cations PULMONARY ARTERIES: No emboli visualized in the main pulmonary arteries or the segmental branches. HILAR AND MEDIASTINAL STRUCTURES: No identified masses or abnormal nodes. HARDWARE: Endotracheal tube tip midtrachea. Nasogastric tube tip and side port in the stomach. UPPER ABDOMEN: No significant findings. Limited exam. THYROID AND OTHER SOFT TISSUES: No masses. No adenopathy. BONES: No acute or significant finding. 3D MIPS: Confirm above findings. OTHER: No other significant finding. IMPRESSION: Endotracheal tube, nasogastric tube in good positioning. Dependent consolidation in the right and left lower lobes. Trace loculated right pleural effusion in the posterior costophrenic sulci Cardiomegaly COMMENT: Quality ID # [id number]: Final reports with documentation of one or more dose reduction techniques (e.g., Automated exposure control, adjustment of the mA and/or kV according to patient size, use of iterative reconstruction technique) TECHNICAL DOCUMENTATION: JOB ID: [id number] [employer]- All Rights Reserved Reading location - IP/workstation name: [email or web address]
[2017-11-22] MEDS: NICOTINE 21 MG/24 HR PATCH.TD24 TD SCH (13:18)
[2017-11-22] MEDS: METHYLPREDNISOLONE INJ 125 MG/2 ML SDV IV SCH ×3 (13:19→23:50)
[2017-11-22] MEDS ORDERED: FUROSEMIDE INJ/PF 100 MG/10 ML SDV IV ONE (14:00)
--- NOTE | 2017-11-22 14:27 | PDOC CONSULTATION ---
Consultation Consult Date: 11/19/17 Attending physician:: DERRICK CHOWDARY Consult reason:: Acute respiratory failure History of Present Illness Admission Date/PCP: 11/18/17 15:51 TORSTEN ROSS DO History of Present Illness: MARTY SANTOS is a 57 year old male,Chronically hypoxic and status post laryngeal cancer,seen in the ED approximately 72 hours prior to admission for increasing shortness of breath and subsequently treated and released he returned 3 days later after having increasing shortness of breath however he did not wish to return and subsequently presented emergently hypoxic hypercapnic and acidotic he was intubated and is currently in the ICU Past Medical History Cardiac Medical History: Reports: Hyperlipidema Denies: Congestive Heart Failure, Coronary Artery Disease, Myocardial Infarction, Hypertension Pulmonary Medical History: Reports: Bronchitis, Chronic Obstructive Pulmonary Disease (COPD) - has O2 2.5l at night/doesn't always wear, Pneumonia Denies: Asthma, Tuberculosis Neurological Medical History: Denies: Seizures Malignancy Medical History: Reports: Other - 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 Musculoskeltal Medical History: Denies: Arthritis Hematology: Denies: Anemia Past Surgical History Past Surgical History: Reports: Other - Vocal cord biopsy Denies: Pacemaker Social History Information Source: [facility] Records Lives with: Spouse/Significant other Smoking Status: Current Every Day Smoker Hx Recreational Drug Use: No Hx Prescription Drug Abuse: No - Advance Directive Resuscitation Status: Full Code Family History Family History: CAD, COPD Parental Family History Reviewed: No Children Family History Reviewed: No Sibling(s) Family History Reviewed.: No Medication/Allergy Home Medications: Albuterol Sulfate [Proair HFA Inhalation Aerosol 8.5 gm MDI] 2 puff IH Q6HP PRN 11/18/17 Cetirizine HCl [Zyrtec 10 mg Tablet] 10 mg PO DAILY 11/18/17 Fenofibrate 160 mg PO DAILY 11/18/17 Fluticasone Propionate [Flonase Nasal [place] 50 Mcg/[place] 16 gm] 2 spray NASL DAILY 11/18/17 Levothyroxine Sodium [Synthroid 0.05 mg Tablet] 0.05 mg PO Q6AM 11/18/17 Omeprazole 40 mg PO DAILY 11/18/17 Simvastatin [Zocor 40 mg Tablet] 40 mg PO QPM 11/18/17 Tiotropium Br/Olodaterol HCl [Stiolto Respimat Inhal [place]] 2 puff IH DAILY Allergies/Adverse Reactions: bee stings Allergy (Severe, Uncoded 11/15/17 11:15) swelling Review of Systems ROS unobtainable: Due to endotracheal tube Physical Exam Vital Signs: Temp Pulse Resp BP Pulse Ox 99.0 F 99 26 H 119/64 96 11/19/17 10:21 11/19/17 10:21 11/19/17 10:21 11/19/17 10:21 11/19/17 10:21 Intake & Output 11/18/17 11/19/17 11/20/17 06:59 06:59 06:59 Intake Total 599 200 Output Total 1825 125 Balance -1226 75 Weight 92.3 kg General appearance: PRESENT: no acute distress, disheveled, obese, well- developed, well-nourished Head exam: PRESENT: atraumatic, normocephalic Eye exam: PRESENT: conjunctiva pale. ABSENT: nystagmus, periorbital swelling, scleral icterus Mouth exam: PRESENT: dry mucosa, neck supple, tongue midline, other Throat exam: PRESENT: tonsillar exudate Neck exam: ABSENT: carotid bruit - ET tube in place, JVD, lymphadenopathy, thyromegaly, tracheal deviation Respiratory exam: PRESENT: decreased breath sounds, prolonged expiratory phas, rales, rhonchi, unlabored. ABSENT: retraction, stridor Cardiovascular exam: PRESENT: RRR, +S1, +S2, other - subq mass pacemaker r upper ant chest wall Pulses: PRESENT: normal radial pulses GI/Abdominal exam: PRESENT: hypoactive bowel sounds, soft. ABSENT: tenderness Gentrourinary exam: PRESENT: indwelling catheter Extremities exam: PRESENT: pedal edema. ABSENT: clubbing, tenderness Musculoskeletal exam: ABSENT: ambulatory, deformity, dislocation Neurological exam: ABSENT: awake Skin exam: PRESENT: dry, warm Results Laboratory Results: 11/19/17 04:25 11/19/17 04:25 11/18/17 11/19/17 11/19/17 20:25 00:28 04:25 WBC 9.3 RBC 4.42 Hgb 10.5 L Hct 34.7 L MCV 78 L MCH 23.8 L MCHC 30.3 L RDW 17.8 H Plt Count 213 Seg Neutrophils % Not Reportable Lymphocytes % Not Reportable Monocytes % Not Reportable Eosinophils % Not Reportable Basophils % Not Reportable Absolute Neutrophils Not Reportable Absolute Lymphocytes Not Reportable Absolute Monocytes Not Reportable Absolute Eosinophils Not Reportable Absolute Basophils Not Reportable Carbonic Acid 2.59 H 2.42 H HCO3/H2CO3 Ratio 14:1 18:1 ABG pH 7.27 L 7.36 ABG pCO2 86.0 H* 80.3 H* ABG pO2 63.4 L 82.5 ABG HCO3 38.6 H 44.2 H ABG O2 Saturation 87.8 L 95.1 ABG Base Excess 8.9 15.5 FiO2 90% 90% Sodium Potassium Chloride Carbon Dioxide Anion Gap BUN Creatinine Est GFR ( Amer) Est GFR (Non-Af Amer) Glucose Calcium Total Bilirubin AST ALT Alkaline Phosphatase Total Protein Albumin TSH 11/19/17 11/19/17 04:25 04:25 WBC RBC Hgb Hct MCV MCH MCHC RDW Plt Count Seg Neutrophils % Lymphocytes % Monocytes % Eosinophils % Basophils % Absolute Neutrophils Absolute Lymphocytes Absolute Monocytes Absolute Eosinophils Absolute Basophils Carbonic Acid HCO3/H2CO3 Ratio ABG pH ABG pCO2 ABG pO2 ABG HCO3 ABG O2 Saturation ABG Base Excess FiO2 Sodium 142.7 Potassium 4.9 Chloride 101 Carbon Dioxide 39 H Anion Gap 3 L BUN 24 H Creatinine 0.71 Est GFR ( Amer) > 60 Est GFR (Non-Af Amer) > 60 Glucose 135 H Calcium 8.7 Total Bilirubin 0.7 AST 16 L ALT 32 Alkaline Phosphatase 87 Total Protein 6.0 L Albumin 2.8 L TSH 0.72 11/19/17 04:25 NT-Pro-B Natriuret Pep 1940 H Impressions: KUB X-Ray 11/18/17 17:45 IMPRESSION: NG tube as described. Chest X-Ray 11/19/17 05:00 IMPRESSION: Overall, no significant change when compared to the prior study. There is persistent airspace disease in the inferior hemithoraces which may be due to edema, atelectasis or pneumonia. Assessment & Plan - Diagnosis (1) Respiratory failure with hypoxia and hypercapnia Qualifiers: Chronicity: acute on chronic Qualified Code(s): J96.21 - Acute and chronic respiratory failure with hypoxia; J96.22 - Acute and chronic respiratory failure with hypercapnia; J96.22 - Acute and chronic respiratory failure with hypercapnia; J96.22 - Acute and chronic respiratory failure with hypercapnia Is this a current diagnosis for this admission?: Yes Plan: Requiring very high FiO2's spider P per 10 increase PEEP prolonged nighttime depending on airway pressures transfer text (2) COPD (chronic obstructive pulmonary disease) Qualifiers: COPD type: chronic bronchitis Chronic bronchitis type: unspecified Qualified Code(s): J42 - Unspecified chronic bronchitis Is this a current diagnosis for this admission?: Yes Plan: Short acting beta agonist + long-acting beta agonist + long-acting muscarinic agents + inhaled corticosteroids + systemic corticosteroids - Time Total Critical Time (Minutes): 55
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
[2017-11-22] MEDS: LEVOFLOXACIN 750 MG/D5W RTU 750 MG/150 ML RTUPB IV SCH (18:11)
[2017-11-22] MEDS: FENTANYL CITRATE INJ/PF 100 MCG/2 ML AMPUL IV PRN (21:13)
[2017-11-23] MEDS: PROPOFOL 1,000 MG/100 ML INFUS..BTL IV PRN ×9 (00:03→21:40)
[2017-11-23] MEDS: IPRATROPIUM/ALBUTEROL 0.5-2.5 MG/3 ML AMPUL NEB SCH ×6 (00:12→20:42)
[2017-11-23] MEDS: FENTANYL CITRATE INJ/PF 100 MCG/2 ML AMPUL IV PRN (02:57)
[2017-11-23] MEDS: METHYLPREDNISOLONE INJ 125 MG/2 ML SDV IV SCH (05:32)
[2017-11-23] MEDS: INSULIN LISPRO 100 UNIT/ML 3 ML VIAL SUBCUT PRN ×3 (05:40→17:43)
[2017-11-23 06:15] LABS: ARTERIAL BLOOD BASE EXCESS 15.2 mmol/L; ARTERIAL BLOOD H2CO3 1.92 mmol/L (1.05-1.35); ARTERIAL BLOOD HCO3 42.2 mmol/L (20-24); ARTERIAL BLOOD O2 SATURATION 97.3 % (94-98); ARTERIAL BLOOD PCO2 63.7 mmHg (35-45); ARTERIAL BLOOD PH 7.44 (7.35-7.45); ARTERIAL BLOOD PO2 96.2 mmHg (80-100); ARTERIAL BLOOD TOTAL CO2 44.2 mmol/L (23-27)
[2017-11-23 06:16] LABS: ARTERIAL BLOOD FIO2 70%
[2017-11-23 07:20] LABS: HEMATOCRIT 36.4 % (37.9-51.0); HEMOGLOBIN 11.3 g/dL (13.5-17.0); MEAN CORPUSCULAR HEMOGLOBIN 23.8 pg (27.0-33.4); MEAN CORPUSCULAR HGB CONC 31.1 g/dL (32.0-36.0); MEAN CORPUSCULAR VOLUME 77 fl (80-97); PLATELET COUNT 201 10^3/uL (150-450); RED BLOOD COUNT 4.75 10^6/uL (4.35-5.55); RED CELL DISTRIBUTION WIDTH 17.8 % (11.5-14.0); WHITE BLOOD COUNT 9.3 10^3/uL (4.0-10.5)
[2017-11-23 07:40] LABS: ALANINE AMINOTRANSFERASE 29 U/L (21-72); ALBUMIN 2.9 g/dL (3.5-5.0); ALKALINE PHOSPHATASE 57 U/L (38-126); ASPARTATE AMINO TRANSFERASE 43 U/L (17-59); BILIRUBIN,DIRECT 0.6 mg/dL (0.0-0.4); BILIRUBIN,TOTAL 0.7 mg/dL (0.2-1.3); BLOOD UREA NITROGEN 34 mg/dL (7-20); CALCIUM 8.9 mg/dL (8.4-10.2); CHLORIDE 94 mmol/L (98-107); GLUCOSE 232 mg/dL (75-110); POTASSIUM 4.5 mmol/L (3.6-5.0); SODIUM 137.7 mmol/L (137-145); TOTAL PROTEIN 5.9 g/dL (6.3-8.2)
[2017-11-23 07:50] LABS: ANION GAP 2 (5-19); CARBON DIOXIDE 42 mmol/L (22-30)
[2017-11-23] MEDS: BUDESONIDE NEB 0.5 MG/2 ML AMPUL NEB SCH ×2 (08:16→20:42)
[2017-11-23] MEDS ORDERED: CETIRIZINE 10 MG TABLET PO SCH (10:00)
[2017-11-23] MEDS ORDERED: METHYLPREDNISOLONE INJ 125 MG/2 ML SDV IV SCH (10:00)
[2017-11-23] MEDS: NICOTINE 21 MG/24 HR PATCH.TD24 TD SCH (10:44)
[2017-11-23] MEDS: ENOXAPARIN SODIUM INJ 30 MG/0.3 ML DISP.SYRIN SUBCUT SCH (10:44)
[2017-11-23] MEDS: PANTOPRAZOLE SODIUM 40 MG VIAL IV SCH (10:45)
[2017-11-23] MEDS: FLUTICASONE NASAL SPRAY 50 MCG/SPRY 120 SPRAY/16 GM NASL SCH (10:53)
[2017-11-23] MEDS: METHYLPREDNISOLONE INJ 40 MG/1 ML SDV IV SCH ×2 (12:59→17:34)
--- NOTE | 2017-11-23 14:44 | PDOC PROGRESS REPORT ---
Subjective Progress Note for:: 11/20/17 Subjective:: Remains intubated and sedated Reason For Visit: COPD EXACERBATION,ACUTE RESPIRATORY FAILURE Physical Exam Vital Signs: Temp Pulse Resp BP Pulse Ox 100.2 F 98 18 104/55 L 94 11/20/17 08:00 11/20/17 08:35 11/20/17 08:40 11/20/17 08:40 11/20/17 08:40 Intake & Output 11/19/17 11/20/17 11/21/17 06:59 06:59 06:59 Intake Total 599 1324 288 Output Total 1825 960 47 Balance -1226 364 241 Weight 92.3 kg 91.2 kg General appearance: PRESENT: no acute distress, disheveled, well-developed, well -nourished Head exam: PRESENT: atraumatic, normocephalic Eye exam: PRESENT: conjunctiva pale. ABSENT: nystagmus, periorbital swelling, scleral icterus Mouth exam: PRESENT: dry mucosa, neck supple, tongue midline, other - Et tube Neck exam: ABSENT: carotid bruit, JVD, lymphadenopathy, thyromegaly, tracheal deviation, tracheostomy Respiratory exam: PRESENT: decreased breath sounds, prolonged expiratory phas, rales, rhonchi, unlabored. ABSENT: retraction, stridor Cardiovascular exam: PRESENT: RRR, +S1, +S2, tachycardia Pulses: PRESENT: normal radial pulses GI/Abdominal exam: PRESENT: hypoactive bowel sounds, soft. ABSENT: tenderness Gentrourinary exam: PRESENT: indwelling catheter Extremities exam: PRESENT: pedal edema. ABSENT: calf tenderness, clubbing, tenderness, +1 edema, +2 edema Musculoskeletal exam: ABSENT: ambulatory, deformity, dislocation Neurological exam: ABSENT: awake Skin exam: PRESENT: dry, warm Results Laboratory Results: 11/20/17 03:58 11/20/17 03:58 11/19/17 11/20/17 11/20/17 13:11 03:58 03:58 WBC 14.6 H RBC 4.53 Hgb 10.7 L Hct 35.4 L MCV 78 L MCH 23.6 L MCHC 30.2 L RDW 18.0 H Plt Count 226 Carbonic Acid 1.70 H HCO3/H2CO3 Ratio 22:1 ABG pH 7.45 ABG pCO2 56.5 H ABG pO2 105.2 H ABG HCO3 38.3 H ABG O2 Saturation 97.9 ABG Base Excess 12.3 FiO2 90% Sodium 142.2 Potassium 4.2 Chloride 100 Carbon Dioxide 36 H Anion Gap 6 BUN 23 H Creatinine 0.73 Est GFR ( Amer) > 60 Est GFR (Non-Af Amer) > 60 Glucose 157 H Calcium 9.1 Magnesium 1.6 Total Bilirubin 0.6 AST 10 L ALT 27 Alkaline Phosphatase 84 Total Protein 6.2 L Albumin 2.9 L Triglycerides 11/20/17 11/20/17 03:58 05:22 WBC RBC Hgb Hct MCV MCH MCHC RDW Plt Count Carbonic Acid 1.77 H HCO3/H2CO3 Ratio 20:1 ABG pH 7.41 ABG pCO2 58.7 H ABG pO2 86.4 ABG HCO3 36.4 H ABG O2 Saturation 96.4 ABG Base Excess 9.9 FiO2 70% Sodium Potassium Chloride Carbon Dioxide Anion Gap BUN Creatinine Est GFR ( Amer) Est GFR (Non-Af Amer) Glucose Calcium Magnesium Total Bilirubin AST ALT Alkaline Phosphatase Total Protein Albumin Triglycerides 212 H 11/19/17 04:25 NT-Pro-B Natriuret Pep 1940 H Impressions: KUB X-Ray 11/18/17 17:45 IMPRESSION: NG tube as described. Chest X-Ray 11/20/17 06:00 IMPRESSION: Endotracheal tube, naso gastric tube in good positioning Bibasilar atelectasis with trace right pleural fluid unchanged Assessment & Plan - Diagnosis (1) COPD with acute exacerbation Is this a current diagnosis for this admission?: Yes (2) Protein calorie malnutrition Qualifiers: Protein-calorie malnutrition severity: moderate Qualified Code(s): E44.0 - Moderate protein-calorie malnutrition Is this a current diagnosis for this admission?: Yes (3) Respiratory failure with hypoxia and hypercapnia Qualifiers: Chronicity: acute on chronic Qualified Code(s): J96.21 - Acute and chronic respiratory failure with hypoxia; J96.22 - Acute and chronic respiratory failure with hypercapnia; J96.22 - Acute and chronic respiratory failure with hypercapnia; J96.22 - Acute and chronic respiratory failure with hypercapnia Is this a current diagnosis for this admission?: Yes Plan: Requiring very high FiO2's spider P per 10 increase PEEP prolonged nighttime depending on airway pressures transfer text (4) Vocal cord dysfunction Is this a current diagnosis for this admission?: Yes
--- NOTE | 2017-11-23 15:15 | PDOC PROGRESS REPORT ---
Subjective Progress Note for:: 11/21/17 Subjective:: Unchanged continues to require high FiO2's Reason For Visit: COPD EXACERBATION,ACUTE RESPIRATORY FAILURE Physical Exam Vital Signs: Temp Pulse Resp BP Pulse Ox 99.0 F 80 18 115/61 93 11/21/17 08:00 11/21/17 08:22 11/21/17 08:22 11/21/17 08:02 11/21/17 08:22 Intake & Output 11/20/17 11/21/17 11/22/17 06:59 06:59 06:59 Intake Total 1324 1510 74 Output Total 960 1347 125 Balance 364 163 -51 Weight 91.2 kg 89.1 kg Results Laboratory Results: 11/21/17 03:53 11/21/17 03:53 11/21/17 11/21/17 11/21/17 03:53 03:53 05:46 WBC 13.1 H RBC 4.50 Hgb 10.7 L Hct 34.9 L MCV 78 L MCH 23.7 L MCHC 30.6 L RDW 18.2 H Plt Count 216 Seg Neutrophils % Not Reportable Lymphocytes % Not Reportable Monocytes % Not Reportable Eosinophils % Not Reportable Basophils % Not Reportable Absolute Neutrophils Not Reportable Absolute Lymphocytes Not Reportable Absolute Monocytes Not Reportable Absolute Eosinophils Not Reportable Absolute Basophils Not Reportable Carbonic Acid 1.68 H HCO3/H2CO3 Ratio 20:1 ABG pH 7.40 ABG pCO2 55.7 H ABG pO2 80.6 ABG HCO3 34.0 H ABG O2 Saturation 95.7 ABG Base Excess 7.7 FiO2 60% Sodium 139.5 Potassium 4.6 Chloride 99 Carbon Dioxide 38 H Anion Gap 2 L BUN 28 H Creatinine 0.70 Est GFR ( Amer) > 60 Est GFR (Non-Af Amer) > 60 Glucose 171 H Calcium 8.5 Magnesium 1.8 Total Bilirubin 0.6 AST 19 ALT 25 Alkaline Phosphatase 65 Total Protein 6.0 L Albumin 2.8 L 11/19/17 04:25 NT-Pro-B Natriuret Pep 1940 H Impressions: KUB X-Ray 11/18/17 17:45 IMPRESSION: NG tube as described. Chest X-Ray 11/21/17 06:00 IMPRESSION: STABLE APPEARANCE OF THE CHEST. THE DISTAL PORTION OF THE NASOGASTRIC TUBE IS DIFFICULT TO VISUALIZE. Assessment & Plan - Diagnosis (1) COPD with acute exacerbation Is this a current diagnosis for this admission?: Yes Plan: Unchanged (2) Protein calorie malnutrition Qualifiers: Protein-calorie malnutrition severity: moderate Qualified Code(s): E44.0 - Moderate protein-calorie malnutrition Is this a current diagnosis for this admission?: Yes (3) Respiratory failure with hypoxia and hypercapnia Qualifiers: Chronicity: acute on chronic Qualified Code(s): J96.21 - Acute and chronic respiratory failure with hypoxia; J96.22 - Acute and chronic respiratory failure with hypercapnia; J96.22 - Acute and chronic respiratory failure with hypercapnia; J96.22 - Acute and chronic respiratory failure with hypercapnia Is this a current diagnosis for this admission?: Yes Plan: Requiring very high FiO2's spider P per 10 increase PEEP prolonged nighttime depending on airway pressures transfer text - Time Total Critical Time (Minutes): 50
[2017-11-23] MEDS: LEVOFLOXACIN 750 MG/D5W RTU 750 MG/150 ML RTUPB IV SCH (17:34)
[2017-11-23] MEDS ORDERED: SIMVASTATIN 40 MG TABLET PO SCH (18:00)
--- NOTE | 2017-11-23 19:09 | PDOC PROGRESS REPORT ---
Subjective Progress Note for:: 11/23/17 Subjective:: MARTY SANTOS is a 57 year old male with a PMH of COPD on home O2, vocal cord cancer (S/P radiation), polycythemia, 57-57-npqg-year smoking history. The patient presents to [facility] ED for respiratory distress stemming from a COPD exacerbation, ultimately requiring intubation. The patient was seen on morning rounds. He was found resting in bed in the ICU ; found to be alert, awake, responsive to yes or no questions. However, he remains intubated. During the day he is successfully weaned to CPAP settings, but overnight was switched to SIMV and required increased FiO2 to 70%. He denies fever, chills, headache, chest pain, palpitations, abdominal pain, nausea. He does nod yes to back pain and throat discomfort related to ET tube. Unfortunately, no family members were present at this time. No concerns per nursing. Case discussed with Dr. Brunson; pulmonary and ventilator management per his expertise. Reason For Visit: COPD EXACERBATION,ACUTE RESPIRATORY FAILURE Physical Exam Vital Signs: Temp Pulse Resp BP Pulse Ox 97.7 F 71 18 127/70 H 93 11/23/17 18:00 11/23/17 18:00 11/23/17 18:03 11/23/17 18:03 11/23/17 18:03 Intake & Output 11/22/17 11/23/17 11/24/17 06:59 06:59 06:59 Intake Total 2496 2512 1106 Output Total 3480 4115 2135 Balance -984 -1603 -1029 Weight 90.4 kg 88.1 kg General appearance: PRESENT: well-developed, well-nourished Head exam: PRESENT: atraumatic, normocephalic Eye exam: PRESENT: conjunctiva pink, EOMI, PERRLA. ABSENT: scleral icterus Ear exam: PRESENT: normal external ear exam Mouth exam: PRESENT: moist, tongue midline Teeth exam: PRESENT: poor dentation Neck exam: ABSENT: carotid bruit, JVD, lymphadenopathy, thyromegaly Respiratory exam: PRESENT: rhonchi, symmetrical, other - Intubated/Mechanically ventilated. ABSENT: rales, wheezes Cardiovascular exam: PRESENT: RRR. ABSENT: diastolic murmur, rubs, systolic murmur Pulses: PRESENT: normal dorsalis pedis pul Vascular exam: PRESENT: normal capillary refill GI/Abdominal exam: PRESENT: normal bowel sounds, soft, other - OG tube for enteral feedings.. ABSENT: distended, guarding, mass, organolmegaly, rebound, tenderness Rectal exam: PRESENT: deferred Gentrourinary exam: PRESENT: indwelling catheter Extremities exam: PRESENT: pedal edema - trace, other - soft limb restraints. ABSENT: calf tenderness, clubbing Neurological exam: PRESENT: alert, awake, oriented to person, CN II-XII grossly intact, other - Patient is alert and awake; nods head yes or no appropriately to questions. Appears to be fully oriented to place and situation.. ABSENT: motor sensory deficit Skin exam: PRESENT: dry, intact, warm. ABSENT: cyanosis, rash Results Laboratory Results: 11/23/17 07:10 11/23/17 07:10 11/23/17 11/23/17 11/23/17 06:01 07:10 07:10 WBC 9.3 RBC 4.75 Hgb 11.3 L Hct 36.4 L MCV 77 L MCH 23.8 L MCHC 31.1 L RDW 17.8 H Plt Count 201 Carbonic Acid 1.92 H HCO3/H2CO3 Ratio 21:1 ABG pH 7.44 ABG pCO2 63.7 H ABG pO2 96.2 ABG HCO3 42.2 H ABG O2 Saturation 97.3 ABG Base Excess 15.2 FiO2 70% Sodium Potassium Chloride Carbon Dioxide Anion Gap BUN Creatinine Est GFR ( Amer) Est GFR (Non-Af Amer) Glucose Calcium Magnesium Total Bilirubin AST ALT Alkaline Phosphatase Total Protein Albumin Triglycerides 216 H 11/23/17 07:10 WBC RBC Hgb Hct MCV MCH MCHC RDW Plt Count Carbonic Acid HCO3/H2CO3 Ratio ABG pH ABG pCO2 ABG pO2 ABG HCO3 ABG O2 Saturation ABG Base Excess FiO2 Sodium 137.7 Potassium 4.5 Chloride 94 L Carbon Dioxide 42 H* Anion Gap 2 L BUN 34 H Creatinine 0.65 Est GFR ( Amer) > 60 Est GFR (Non-Af Amer) > 60 Glucose 232 H Calcium 8.9 Magnesium 2.1 Total Bilirubin 0.7 AST 43 ALT 29 Alkaline Phosphatase 57 Total Protein 5.9 L Albumin 2.9 L Triglycerides 11/19/17 04:25 NT-Pro-B Natriuret Pep 1940 H Impressions: KUB X-Ray 11/18/17 17:45 IMPRESSION: NG tube as described. Chest/Abdomen CTA 11/22/17 00:00 IMPRESSION: Endotracheal tube, nasogastric tube in good positioning. Dependent consolidation in the right and left lower lobes. Trace loculated right pleural effusion in the posterior costophrenic sulci Cardiomegaly Chest X-Ray 11/22/17 06:00 IMPRESSION: Persistent bibasilar airspace disease likely atelectasis Assessment & Plan - Diagnosis (1) Respiratory failure with hypoxia and hypercapnia Qualifiers: Chronicity: acute on chronic Qualified Code(s): J96.21 - Acute and chronic respiratory failure with hypoxia; J96.22 - Acute and chronic respiratory failure with hypercapnia; J96.22 - Acute and chronic respiratory failure with hypercapnia; J96.22 - Acute and chronic respiratory failure with hypercapnia Is this a current diagnosis for this admission?: Yes Plan: Secondary to COPD exacerbation and ultimately resulting in intubation and mechanical ventilation. Initial ABG showed compensated respiratory acidosis with a PH 7.36, CO2 of 80.3 , Bicarb 44.2. PH 7.36. ABGs have been trended daily; gradual improvement; this morning noted to have a pH of 7.44, PCO2 63.7, and bicarb of 44.2. CXR (11/22/17) demonstrated bibasilar airspace disease; likely atelectasis CTA chest (11/22/17) demonstrated dependent consolidation of right and left lower lobes, and a loculated right pleural effusion The patient has been admitted to the ICU. He is currently intubated and mechanically ventilated; successfully weaned to CPAP during the a.m. He does require SIMV overnight; FiO2 was increased to 70% yesterday. Pulmonary consulted for vent management; discussed with Dr. Brunson today. Low suspicion for infectious process. Pleural effusions are minimal and loculated, likely to be minimal benefit from continued diuresis. Continue scheduled and PRN Duonebs and PRN Xopenex Continue scheduled Solumedrol IV Empiric antibiotic treatment with IV levaquin (day 5) in the setting of severe COPD Mechanical ventilator weaning per ICU protocol. (2) COPD with acute exacerbation Is this a current diagnosis for this admission?: Yes Plan: The patient has a history of home O2 dependent COPD; typically utilizes 2.5 LPM. Continues to smoke daily. Blood cultures have no growth at 5 days. He has been empirically placed on Levaquin for bronchitis in the setting of severe COPD exacerbation. Scheduled DuoNeb and Pulmicort, as needed Xopenex. Scheduled IV Solu-Medrol. Scheduled Robitussin per OG in lieu of Mucinex. Resume home dose Zyrtec and Flonase. Pulmonology consultation. Protonix for PUD prophylaxis. Lovenox for DVT prophylaxis. (3) Protein calorie malnutrition Qualifiers: Protein-calorie malnutrition severity: moderate Qualified Code(s): E44.0 - Moderate protein-calorie malnutrition Is this a current diagnosis for this admission?: Yes Plan: Secondary to intubation. Carton Filling Machine Operator was consulted for TF recommendations: Oxepa 1.5 with a goal of 25mL/hr. START at 15 mL and increase by 10 mL every 12 hour until goal rate is reached. If diprivan rate is decreased then feeding rate will need adjusting also. Two packets of Beneprotein 4 times a day mixed with 100 mL water. (4) Vocal cord dysfunction Is this a current diagnosis for this admission?: Yes Plan: History of vocal cord cancer; s/p radiation therapy >3 years ago. (5) Tobacco dependence Is this a current diagnosis for this admission?: Yes Plan: Continued daily tobacco use. Nicotine replacement therapies have been provided. (6) Hyperlipidemia Is this a current diagnosis for this admission?: Yes Plan: Continue home dose statin therapy. (7) Hypothyroidism Is this a current diagnosis for this admission?: Yes Plan: TSH is acceptable; continue home dose of levothyroxine. - Time Time Spent with patient: 35 or more minutes Medications reviewed and adjusted accordingly: Yes
[2017-11-23 20:20] LABS: APPEARANCE,URINE CLEAR; BILIRUBIN,URINE NEGATIVE (NEGATIVE); COLOR,URINE YELLOW; GLUCOSE, URINE NEGATIVE (NEGATIVE); KETONES,URINE NEGATIVE (NEGATIVE); LEUKOCYTE ESTERASE,URINE NEGATIVE (NEGATIVE); NITRITE,URINE NEGATIVE (NEGATIVE); PROTEIN,URINE NEGATIVE (NEGATIVE)
[2017-11-23] MEDS: GUAIFENESIN SYRP 200 MG/10 ML UDC NG SCH (21:51)
[2017-11-23] MEDS: MIDAZOLAM HCL 50 MG/100 ML RTUINJ IV PRN (21:51)
[2017-11-24] MEDS: PROPOFOL 1,000 MG/100 ML INFUS..BTL IV PRN ×10 (00:06→22:06)
[2017-11-24] MEDS: IPRATROPIUM/ALBUTEROL 0.5-2.5 MG/3 ML AMPUL NEB SCH ×6 (00:20→20:09)
[2017-11-24] MEDS: INSULIN LISPRO 100 UNIT/ML 3 ML VIAL SUBCUT PRN ×4 (01:22→17:23)
[2017-11-24] MEDS: METHYLPREDNISOLONE INJ 40 MG/1 ML SDV IV SCH ×4 (01:22→17:22)
[2017-11-24 04:41] LABS: ABSOLUTE LYMPHOCYTES (AUTO) 0.6 10^3/uL (0.5-4.7); ABSOLUTE MONOCYTES (AUTO) 1.1 10^3/uL (0.1-1.4); ABSOLUTE NEUT (AUTO) 10.9 10^3/uL (1.7-8.2); BASOPHILS % (AUTO) 0.3 % (0-2); EOSINOPHILS % (AUTO) 0.1 % (0-6); HEMATOCRIT 38.1 % (37.9-51.0); HEMOGLOBIN 11.5 g/dL (13.5-17.0); MEAN CORPUSCULAR HEMOGLOBIN 23.2 pg (27.0-33.4); MEAN CORPUSCULAR HGB CONC 30.3 g/dL (32.0-36.0); MEAN CORPUSCULAR VOLUME 77 fl (80-97); MONOCYTES % (AUTO) 8.8 % (3-13); PLATELET COUNT 207 10^3/uL (150-450); RED BLOOD COUNT 4.97 10^6/uL (4.35-5.55); RED CELL DISTRIBUTION WIDTH 18.2 % (11.5-14.0); SEGMENTED NEUTROPHILS % (AUTO) 85.8 % (42-78); TOTAL CELLS COUNTED % (AUTO) 100 %; WHITE BLOOD COUNT 12.7 10^3/uL (4.0-10.5)
[2017-11-24 04:52] LABS: ARTERIAL BLOOD BASE EXCESS 10.8 mmol/L; ARTERIAL BLOOD H2CO3 1.74 mmol/L (1.05-1.35); ARTERIAL BLOOD HCO3 37.2 mmol/L (20-24); ARTERIAL BLOOD PCO2 57.8 mmHg (35-45); ARTERIAL BLOOD PH 7.43 (7.35-7.45); ARTERIAL BLOOD PO2 62.9 mmHg (80-100); ARTERIAL BLOOD TOTAL CO2 38.9 mmol/L (23-27)
[2017-11-24 04:53] LABS: ARTERIAL BLOOD FIO2 60%
[2017-11-24 05:00] LABS: BLOOD UREA NITROGEN 34 mg/dL (7-20); CALCIUM 9.4 mg/dL (8.4-10.2); CARBON DIOXIDE 39 mmol/L (22-30); CHLORIDE 96 mmol/L (98-107); GLUCOSE 160 mg/dL (75-110); POTASSIUM 4.5 mmol/L (3.6-5.0); SODIUM 139.3 mmol/L (137-145)
[2017-11-24 05:01] LABS: ANION GAP 4 (5-19)
[2017-11-24] MEDS: LEVOTHYROXINE SODIUM 0.05 MG TABLET NG SCH (06:20)
--- NOTE | 2017-11-24 06:40 | RADIOLOGY REPORT (SQ) ---
EXAM DESCRIPTION: XR CHEST 1 VIEW COMPLETED DATE/TME: 11/24/2017 06:00 CLINICAL HISTORY: 57 years Male, resp failure COMPARISON: 2 days prior. NUMBER OF VIEWS/TECHNIQUE: 1/AP FINDINGS: Prominent interstitium, mild hazy opacity-effusion of the right lower hemithorax, small left lower retrocardiac opacity, adequate appearing endotracheal tube tip is 6.6 images from the efraín, adequate appearing enteric tube. No pneumothorax. Stable bony thorax. IMPRESSION: No significant change.
[2017-11-24] MEDS: BUDESONIDE NEB 0.5 MG/2 ML AMPUL NEB SCH ×2 (08:06→20:09)
[2017-11-24] MEDS: NICOTINE 21 MG/24 HR PATCH.TD24 TD SCH (09:53)
[2017-11-24] MEDS: CETIRIZINE 10 MG TABLET NG SCH (09:55)
[2017-11-24] MEDS: PANTOPRAZOLE SODIUM 40 MG VIAL IV SCH (09:55)
[2017-11-24] MEDS: ENOXAPARIN SODIUM INJ 30 MG/0.3 ML DISP.SYRIN SUBCUT SCH (09:55)
[2017-11-24] MEDS: GUAIFENESIN SYRP 200 MG/10 ML UDC NG SCH ×4 (09:55→22:11)
[2017-11-24] MEDS: FLUTICASONE NASAL SPRAY 50 MCG/SPRY 120 SPRAY/16 GM NASL SCH (10:00)
[2017-11-24] MEDS: MIDAZOLAM HCL 50 MG/100 ML RTUINJ IV PRN (10:12)
[2017-11-24] MEDS: SIMVASTATIN 40 MG TABLET NG SCH (17:23)
[2017-11-24] MEDS: LEVOFLOXACIN 750 MG/D5W RTU 750 MG/150 ML RTUPB IV SCH (17:24)
--- NOTE | 2017-11-24 18:46 | PDOC PROGRESS REPORT ---
Subjective Progress Note for:: 11/24/17 Subjective:: MARTY SANTOS is a 57 year old male with a PMH of COPD on home O2, vocal cord cancer (S/P radiation), polycythemia, 17-88-gxag-year smoking history. The patient presents to [facility] ED for respiratory distress stemming from a COPD exacerbation, ultimately requiring intubation. The patient was seen on morning rounds; he remains intubated and mechanically ventilated. His sedation has been weaned this morning and he is again alert, awake, and responsive to yes or no questions. Nursing/RT was able to wean his FiO2 slightly yesterday to 55%. ABG demonstrates a mixed respiratory acidosis, metabolic alkalosis today. Remaining labs are unremarkable. He denies fever, chills, headache, chest pain, palpitations, abdominal pain, nausea. Unfortunately, no family members were present at this time. No concerns per nursing. Case discussed with Dr. Brunson again this morning; pulmonary and ventilator management per his expertise. Reason For Visit: COPD EXACERBATION,ACUTE RESPIRATORY FAILURE Physical Exam Vital Signs: Temp Pulse Resp BP Pulse Ox 98.4 F 79 14 110/63 90 L 11/24/17 14:00 11/24/17 17:09 11/24/17 18:03 11/24/17 18:03 11/24/17 18:03 Intake & Output 11/23/17 11/24/17 11/25/17 06:59 06:59 06:59 Intake Total 2512 2497 1210 Output Total 4115 3285 1195 Balance -1603 -788 15 Weight 88.1 kg 88.1 kg General appearance: PRESENT: no acute distress, well-developed, well-nourished Head exam: PRESENT: atraumatic, normocephalic Eye exam: PRESENT: conjunctiva pink, EOMI, PERRLA. ABSENT: scleral icterus Ear exam: PRESENT: normal external ear exam Mouth exam: PRESENT: moist, tongue midline Teeth exam: PRESENT: poor dentation Neck exam: ABSENT: carotid bruit, JVD, lymphadenopathy, thyromegaly Respiratory exam: PRESENT: decreased breath sounds, rhonchi - Improved, symmetrical, other - Intubated/mechanically ventilated. ABSENT: rales, wheezes Cardiovascular exam: PRESENT: RRR. ABSENT: diastolic murmur, rubs, systolic murmur Pulses: PRESENT: normal dorsalis pedis pul Vascular exam: PRESENT: normal capillary refill GI/Abdominal exam: PRESENT: normal bowel sounds, soft. ABSENT: distended, guarding, mass, organolmegaly, rebound, tenderness Rectal exam: PRESENT: deferred Extremities exam: PRESENT: other - Soft limb restraints. ABSENT: calf tenderness, clubbing, pedal edema Neurological exam: PRESENT: alert, awake, oriented to person, CN II-XII grossly intact, other - Contact, nods yes or no appropriately to questions. ABSENT: motor sensory deficit Psychiatric exam: PRESENT: appropriate affect, normal mood. ABSENT: homicidal ideation, suicidal ideation Skin exam: PRESENT: dry, intact, warm. ABSENT: cyanosis, rash Results Laboratory Results: 11/24/17 04:20 11/24/17 04:20 11/23/17 11/24/17 11/24/17 19:15 04:20 04:20 WBC 12.7 H RBC 4.97 Hgb 11.5 L Hct 38.1 MCV 77 L MCH 23.2 L MCHC 30.3 L RDW 18.2 H Plt Count 207 Seg Neutrophils % 85.8 H Lymphocytes % 5.0 L Monocytes % 8.8 Eosinophils % 0.1 Basophils % 0.3 Absolute Neutrophils 10.9 H Absolute Lymphocytes 0.6 Absolute Monocytes 1.1 Absolute Eosinophils 0.0 Absolute Basophils 0.0 Carbonic Acid HCO3/H2CO3 Ratio ABG pH ABG pCO2 ABG pO2 ABG HCO3 ABG O2 Saturation ABG Base Excess FiO2 Sodium 139.3 Potassium 4.5 Chloride 96 L Carbon Dioxide 39 H Anion Gap 4 L BUN 34 H Creatinine 0.67 Est GFR ( Amer) > 60 Est GFR (Non-Af Amer) > 60 Glucose 160 H Calcium 9.4 Magnesium 2.2 Urine Color YELLOW Urine Appearance CLEAR Urine pH 8.0 Ur Specific [place] 1.020 Urine Protein NEGATIVE Urine Glucose (UA) NEGATIVE Urine Ketones NEGATIVE Urine Blood NEGATIVE Urine Nitrite NEGATIVE Ur Leukocyte Esterase NEGATIVE Urine WBC (Auto) 1 Urine RBC (Auto) 1 11/24/17 04:23 WBC RBC Hgb Hct MCV MCH MCHC RDW Plt Count Seg Neutrophils % Lymphocytes % Monocytes % Eosinophils % Basophils % Absolute Neutrophils Absolute Lymphocytes Absolute Monocytes Absolute Eosinophils Absolute Basophils Carbonic Acid 1.74 H HCO3/H2CO3 Ratio 21:1 ABG pH 7.43 ABG pCO2 57.8 H ABG pO2 62.9 L ABG HCO3 37.2 H ABG O2 Saturation 92.0 L ABG Base Excess 10.8 FiO2 60% Sodium Potassium Chloride Carbon Dioxide Anion Gap BUN Creatinine Est GFR ( Amer) Est GFR (Non-Af Amer) Glucose Calcium Magnesium Urine Color Urine Appearance Urine pH Ur Specific [place] Urine Protein Urine Glucose (UA) Urine Ketones Urine Blood Urine Nitrite Ur Leukocyte Esterase Urine WBC (Auto) Urine RBC (Auto) 11/19/17 04:25 NT-Pro-B Natriuret Pep 1940 H Impressions: KUB X-Ray 11/18/17 17:45 IMPRESSION: NG tube as described. Chest/Abdomen CTA 11/22/17 00:00 IMPRESSION: Endotracheal tube, nasogastric tube in good positioning. Dependent consolidation in the right and left lower lobes. Trace loculated right pleural effusion in the posterior costophrenic sulci Cardiomegaly Chest X-Ray 11/24/17 06:00 IMPRESSION: No significant change. Assessment & Plan - Diagnosis (1) Respiratory failure with hypoxia and hypercapnia Qualifiers: Chronicity: acute on chronic Qualified Code(s): J96.21 - Acute and chronic respiratory failure with hypoxia; J96.22 - Acute and chronic respiratory failure with hypercapnia; J96.22 - Acute and chronic respiratory failure with hypercapnia; J96.22 - Acute and chronic respiratory failure with hypercapnia Is this a current diagnosis for this admission?: Yes Plan: Minimal improvement. Secondary to COPD exacerbation and ultimately resulting in intubation and mechanical ventilation. Initial ABG showed compensated respiratory acidosis with a PH 7.36, CO2 of 80.3 , Bicarb 44.2. PH 7.36. ABGs have been trended daily; gradual improvement; this morning noted to have a pH of 7.43, PCO2 57.8, and bicarb of 37.2. CXR (11/22/17) demonstrated bibasilar airspace disease; likely atelectasis Repeat chest x-ray is essentially unchanged. CTA chest (11/22/17) demonstrated dependent consolidation of right and left lower lobes, and a loculated right pleural effusion The patient has been admitted to the ICU. He is currently intubated and mechanically ventilated; successfully weaned to CPAP during the a.m. He does require SIMV overnight; FiO2 has been decreased to 55%. Pulmonary consulted for vent management; discussed with Dr. Curseen today. Low suspicion for infectious process. Pleural effusions are minimal and loculated, likely to be minimal benefit from continued diuresis. We will obtain echocardiogram to assess for CHF is contributing factor. Continue scheduled and PRN Duonebs and PRN Xopenex Continue scheduled Solumedrol IV Empiric antibiotic treatment with IV levaquin (day 6) in the setting of severe COPD Mechanical ventilator weaning per ICU protocol. Protonix for PUD prophylaxis. Lovenox for DVT prophylaxis. (2) COPD with acute exacerbation Is this a current diagnosis for this admission?: Yes Plan: The patient has a history of home O2 dependent COPD; typically utilizes 2.5 LPM. Continues to smoke daily. Blood cultures have no growth at 5 days. He has been empirically placed on Levaquin for bronchitis in the setting of severe COPD exacerbation. Scheduled DuoNeb and Pulmicort, as needed Xopenex. Scheduled IV Solu-Medrol. Scheduled Robitussin per OG in lieu of Mucinex. Resume home dose Zyrtec and Flonase. Pulmonology consultation. (3) Protein calorie malnutrition Qualifiers: Protein-calorie malnutrition severity: moderate Qualified Code(s): E44.0 - Moderate protein-calorie malnutrition Is this a current diagnosis for this admission?: Yes Plan: Secondary to intubation. Oil Spreader Operator was consulted for TF recommendations: Oxepa 1.5 with a goal of 25mL/hr. START at 15 mL and increase by 10 mL every 12 hour until goal rate is reached. If diprivan rate is decreased then feeding rate will need adjusting also. Two packets of Beneprotein 4 times a day mixed with 100 mL water. (4) Vocal cord dysfunction Is this a current diagnosis for this admission?: Yes Plan: History of vocal cord cancer; s/p radiation therapy >3 years ago. (5) Tobacco dependence Is this a current diagnosis for this admission?: Yes Plan: Continued daily tobacco use. Nicotine replacement therapies have been provided. (6) Hyperlipidemia Is this a current diagnosis for this admission?: Yes Plan: Continue home dose statin therapy. (7) Hypothyroidism Is this a current diagnosis for this admission?: Yes Plan: TSH is acceptable; continue home dose of levothyroxine. (8) Anemia Qualifiers: Anemia type: unspecified type Qualified Code(s): D64.9 - Anemia, unspecified Is this a current diagnosis for this admission?: Yes Plan: Microcytic, hypochromic anemia; hemoglobin is stable and trending upwards. We will obtain anemia panel. Will add folate and thiamine supplement; although there is no confirmed EtOH abuse. Will add MVI with iron. - Time Time Spent with patient: 25-34 minutes Medications reviewed and adjusted accordingly: Yes
[2017-11-25] MEDS: INSULIN LISPRO 100 UNIT/ML 3 ML VIAL SUBCUT PRN ×4 (00:07→23:47)
[2017-11-25] MEDS: METHYLPREDNISOLONE INJ 40 MG/1 ML SDV IV SCH ×5 (00:08→23:47)
[2017-11-25] MEDS: IPRATROPIUM/ALBUTEROL 0.5-2.5 MG/3 ML AMPUL NEB SCH ×7 (00:33→23:30)
[2017-11-25] MEDS: PROPOFOL 1,000 MG/100 ML INFUS..BTL IV PRN ×10 (00:53→22:48)
[2017-11-25 05:08] LABS: HEMATOCRIT 38.9 % (37.9-51.0); HEMOGLOBIN 11.9 g/dL (13.5-17.0); MEAN CORPUSCULAR HEMOGLOBIN 23.2 pg (27.0-33.4); MEAN CORPUSCULAR HGB CONC 30.5 g/dL (32.0-36.0); MEAN CORPUSCULAR VOLUME 76 fl (80-97); PLATELET COUNT 194 10^3/uL (150-450); RED BLOOD COUNT 5.11 10^6/uL (4.35-5.55); RED CELL DISTRIBUTION WIDTH 18.6 % (11.5-14.0); RETICULOCYTE COUNT (AUTO) 0.59 % (0.66-2.85); WHITE BLOOD COUNT 11.9 10^3/uL (4.0-10.5)
[2017-11-25 05:21] LABS: ALANINE AMINOTRANSFERASE 41 U/L (21-72); ALKALINE PHOSPHATASE 63 U/L (38-126); ASPARTATE AMINO TRANSFERASE 41 U/L (17-59); BILIRUBIN,DIRECT 0.7 mg/dL (0.0-0.4); BILIRUBIN,TOTAL 0.8 mg/dL (0.2-1.3); BLOOD UREA NITROGEN 37 mg/dL (7-20); GLUCOSE 188 mg/dL (75-110); IRON(TIBC) 119.2 ug/dL (49-181); POTASSIUM 4.4 mmol/L (3.6-5.0)
[2017-11-25 05:27] LABS: CARBON DIOXIDE 37 mmol/L (22-30)
[2017-11-25 05:31] LABS: ABSOLUTE LYMPHOCYTES# (MANUAL) 0.6 10^3/uL (0.5-4.7); ABSOLUTE NEUTROPHILS# (MANUAL) 10.4 10^3/uL (1.7-8.2); ANION GAP 5 (5-19); BASOPHILS % (MANUAL) 0 % (0-2); CHLORIDE 97 mmol/L (98-107); EOSINOPHILS % (MANUAL) 0 % (0-6); LYMPHOCYTES % (MANUAL) 5 % (13-45); MONOCYTES % (MANUAL) 8 % (3-13); SEGMENTED NEUTROPHILS % (MAN) 87 % (42-78); SODIUM 138.5 mmol/L (137-145); TOTAL CELLS COUNTED 100
[2017-11-25 05:32] LABS: ANISOCYTOSIS 2+; PLATELET COMMENT ADEQUATE; PLATELET LARGE PRESENT
[2017-11-25] MEDS: LEVOTHYROXINE SODIUM 0.05 MG TABLET NG SCH (05:56)
[2017-11-25 05:57] LABS: ARTERIAL BLOOD FIO2 60%; ARTERIAL BLOOD PH 7.41 (7.35-7.45); ARTERIAL BLOOD PO2 70.3 mmHg (80-100); ARTERIAL BLOOD TOTAL CO2 34.6 mmol/L (23-27)
[2017-11-25 06:28] LABS: FOLATE 7.14 ng/mL (>2.76)
--- NOTE | 2017-11-25 07:12 | RADIOLOGY REPORT (SQ) ---
EXAM DESCRIPTION: XR CHEST 1 VIEW COMPLETED DATE/TME: 11/25/2017 06:00 CLINICAL HISTORY: 57 years, Male, resp failure COMPARISON: 11/24/2017 NUMBER OF VIEWS: One TECHNIQUE: AP view the chest LIMITATIONS: None. FINDINGS: There are right basilar interstitial opacities. The heart is normal in size. There is no pneumothorax or pleural effusion. The endotracheal and nasogastric tubes remain in place. IMPRESSION: Right basilar interstitial opacities, which may represent atelectasis or pneumonia 2010 [employer]- All Rights Reserved
[2017-11-25] MEDS: BUDESONIDE NEB 0.5 MG/2 ML AMPUL NEB SCH ×2 (08:59→20:26)
[2017-11-25] MEDS: NICOTINE 21 MG/24 HR PATCH.TD24 TD SCH (10:39)
[2017-11-25] MEDS: MIDAZOLAM HCL 50 MG/100 ML RTUINJ IV PRN (10:40)
[2017-11-25] MEDS: GUAIFENESIN SYRP 200 MG/10 ML UDC NG SCH ×4 (10:41→21:47)
[2017-11-25] MEDS: THIAMINE HCL 100 MG TABLET PO SCH (10:42)
[2017-11-25] MEDS: PANTOPRAZOLE SODIUM 40 MG VIAL IV SCH (10:42)
[2017-11-25] MEDS: ENOXAPARIN SODIUM INJ 30 MG/0.3 ML DISP.SYRIN SUBCUT SCH (10:42)
[2017-11-25] MEDS: CETIRIZINE 10 MG TABLET NG SCH (10:42)
[2017-11-25] MEDS: FOLIC ACID 1 MG TABLET PO SCH (10:42)
[2017-11-25] MEDS: FLUTICASONE NASAL SPRAY 50 MCG/SPRY 120 SPRAY/16 GM NASL SCH (11:15)
[2017-11-25] MEDS: MULTIVITAMINS W-IRON TABLET, CHEWABLE PO SCH (11:16)
--- NOTE | 2017-11-25 12:58 | PDOC PROGRESS REPORT ---
Subjective Progress Note for:: 11/25/17 Subjective:: MARTY SANTOS is a 57 year old male with a PMH of COPD on home O2, vocal cord cancer (S/P radiation), polycythemia, 01-26-jclw-year smoking history. The patient presents to [facility] ED for respiratory distress stemming from a COPD exacerbation, ultimately requiring intubation. The patient was seen on morning rounds; he remains intubated and mechanically ventilated. His sedation has been weaned this morning and he is again alert, awake, and responsive to yes or no questions. His ventilator settings remain unchanged; ABG slightly improved but continues to demonstrate a mixed respiratory acidosis, metabolic alkalosis today. Remaining labs are unremarkable. He denies fever, chills, headache, chest pain, palpitations, abdominal pain, nausea. No concerns per nursing. Case discussed with Dr. Brunson this morning; pulmonary and ventilator management per his expertise. Tentatively plans to have patient remain on ventilator over the weekend with extubation Wednesday morning. Possibly bronchoscopy early next week. Reason For Visit: COPD EXACERBATION,ACUTE RESPIRATORY FAILURE Physical Exam Vital Signs: Temp Pulse Resp BP Pulse Ox 98.1 F 80 20 107/64 89 L 11/25/17 05:52 11/25/17 08:59 11/25/17 11:04 11/25/17 11:04 11/25/17 11:04 Intake & Output 11/24/17 11/25/17 11/26/17 06:59 06:59 06:59 Intake Total 2497 2562 364 Output Total 3285 3045 400 Balance -788 -483 -36 Weight 88.1 kg 85.7 kg General appearance: PRESENT: cooperative, well-developed, well-nourished, other - Intubated and mechanically ventilated. Head exam: PRESENT: atraumatic, normocephalic Eye exam: PRESENT: conjunctiva pink, EOMI, PERRLA. ABSENT: scleral icterus Ear exam: PRESENT: normal external ear exam Mouth exam: PRESENT: moist, tongue midline Teeth exam: PRESENT: poor dentation Neck exam: ABSENT: carotid bruit, JVD, lymphadenopathy, thyromegaly Respiratory exam: PRESENT: rhonchi, symmetrical, wheezes, other - Intubated and ventilated. ABSENT: rales Cardiovascular exam: PRESENT: RRR, +S1, +S2. ABSENT: diastolic murmur, rubs, systolic murmur Pulses: PRESENT: normal dorsalis pedis pul Vascular exam: PRESENT: normal capillary refill GI/Abdominal exam: PRESENT: normal bowel sounds, soft. ABSENT: distended, guarding, mass, organolmegaly, rebound, tenderness Rectal exam: PRESENT: deferred Extremities exam: PRESENT: other - Soft restraints. ABSENT: calf tenderness, clubbing, pedal edema, +1 edema Neurological exam: PRESENT: alert, awake, oriented to person, CN II-XII grossly intact, other - Awake, nods yes or no appropriately to questions. Appears to be fully oriented.. ABSENT: motor sensory deficit Psychiatric exam: PRESENT: appropriate affect, normal mood. ABSENT: homicidal ideation, suicidal ideation Skin exam: PRESENT: dry, intact, warm. ABSENT: cyanosis, rash Results Laboratory Results: 11/25/17 04:50 11/25/17 04:50 11/25/17 11/25/17 11/25/17 04:50 04:50 05:45 WBC 11.9 H RBC 5.11 Hgb 11.9 L Hct 38.9 MCV 76 L MCH 23.2 L MCHC 30.5 L RDW 18.6 H Plt Count 194 Seg Neutrophils % Not Reportable Lymphocytes % Not Reportable Monocytes % Not Reportable Eosinophils % Not Reportable Basophils % Not Reportable Absolute Neutrophils Not Reportable Absolute Lymphocytes Not Reportable Absolute Monocytes Not Reportable Absolute Eosinophils Not Reportable Absolute Basophils Not Reportable Retic Count (auto) 0.59 L Absolute Retic 0.030 Carbonic Acid 1.60 H HCO3/H2CO3 Ratio 20:1 ABG pH 7.41 ABG pCO2 53.0 H ABG pO2 70.3 L ABG HCO3 33.0 H ABG O2 Saturation 94.0 ABG Base Excess 7.0 FiO2 60% Sodium 138.5 Potassium 4.4 Chloride 97 L Carbon Dioxide 37 H Anion Gap 5 BUN 37 H Creatinine 0.66 Est GFR ( Amer) > 60 Est GFR (Non-Af Amer) > 60 Glucose 188 H Calcium 9.0 Magnesium 2.3 Iron 119.2 TIBC 372 % Saturation 32 Ferritin 98.10 Total Bilirubin 0.8 AST 41 ALT 41 Alkaline Phosphatase 63 Total Protein 6.0 L Albumin 3.0 L Vitamin B12 434.0 Folate 7.14 11/19/17 11/25/17 04:25 04:50 NT-Pro-B Natriuret Pep 1940 H 335 Impressions: KUB X-Ray 11/18/17 17:45 IMPRESSION: NG tube as described. Chest/Abdomen CTA 11/22/17 00:00 IMPRESSION: Endotracheal tube, nasogastric tube in good positioning. Dependent consolidation in the right and left lower lobes. Trace loculated right pleural effusion in the posterior costophrenic sulci Cardiomegaly Chest X-Ray 11/25/17 06:00 IMPRESSION: Right basilar interstitial opacities, which may represent atelectasis or pneumonia 2010 [employer]- All Rights Reserved Assessment & Plan - Diagnosis (1) Respiratory failure with hypoxia and hypercapnia Qualifiers: Chronicity: acute on chronic Qualified Code(s): J96.21 - Acute and chronic respiratory failure with hypoxia; J96.22 - Acute and chronic respiratory failure with hypercapnia; J96.22 - Acute and chronic respiratory failure with hypercapnia; J96.22 - Acute and chronic respiratory failure with hypercapnia Is this a current diagnosis for this admission?: Yes Plan: Minimal improvement. Secondary to COPD exacerbation and ultimately resulting in intubation and mechanical ventilation. Initial ABG showed compensated respiratory acidosis with a PH 7.36, CO2 of 80.3 , Bicarb 44.2. PH 7.36. ABGs have been trended daily; gradual improvement; this morning noted to have a pH of 7.41, PCO2 53.0, and bicarb of 33.0. CXR (11/22/17) demonstrated bibasilar airspace disease; likely atelectasis Repeat chest x-ray is remains unchanged. CTA chest (11/22/17) demonstrated dependent consolidation of right and left lower lobes, and a loculated right pleural effusion The patient has been admitted to the ICU. He is currently intubated and mechanically ventilated; successfully weaned to CPAP during the a.m. He does require SIMV overnight; FiO2 has been decreased to 55%. Pulmonary consulted for vent management; discussed with Dr. Brunson today. Low suspicion for infectious process; although some possibility of herpetic bronchitis. Therefore, will obtain daily sputum cultures x3 and evaluate HSV PCR. If positive, will empirically begin acyclovir. Pleural effusions are minimal and loculated, likely to be minimal benefit from continued diuresis, therefore has been discontinued. Echocardiogram has been obtained; report pending. Continue scheduled and PRN Duonebs and PRN Xopenex Continue scheduled Solumedrol IV Empiric antibiotic treatment with IV levaquin (day 7) in the setting of severe COPD. We will obtain sputum cultures and repeat blood culture. Mechanical ventilator weaning per ICU protocol. Protonix for PUD prophylaxis. Lovenox for DVT prophylaxis. (2) COPD with acute exacerbation Is this a current diagnosis for this admission?: Yes Plan: The patient has a history of home O2 dependent COPD; typically utilizes 2.5 LPM. Continues to smoke daily. Blood cultures have no growth at 5 days. He has been empirically placed on Levaquin for bronchitis in the setting of severe COPD exacerbation. Scheduled DuoNeb and Pulmicort, as needed Xopenex. Scheduled IV Solu-Medrol. Scheduled Robitussin per OG in lieu of Mucinex. Resume home dose Zyrtec and Flonase. Pulmonology consultation. Remaining plan as above. (3) Protein calorie malnutrition Qualifiers: Protein-calorie malnutrition severity: moderate Qualified Code(s): E44.0 - Moderate protein-calorie malnutrition Is this a current diagnosis for this admission?: Yes Plan: Secondary to intubation. Albumin is gradually trending up. Datastage Consultant was consulted for TF recommendations: Oxepa 1.5 with a goal of 25mL/hr. START at 15 mL and increase by 10 mL every 12 hour until goal rate is reached. If diprivan rate is decreased then feeding rate will need adjusting also. Two packets of Beneprotein 4 times a day mixed with 100 mL water. (4) Vocal cord dysfunction Is this a current diagnosis for this admission?: Yes Plan: History of vocal cord cancer; s/p radiation therapy >3 years ago. (5) Tobacco dependence Is this a current diagnosis for this admission?: Yes Plan: Continued daily tobacco use. Nicotine replacement therapies have been provided. (6) Hyperlipidemia Is this a current diagnosis for this admission?: Yes Plan: Continue home dose statin therapy. (7) Hypothyroidism Is this a current diagnosis for this admission?: Yes Plan: TSH is acceptable; continue home dose of levothyroxine. (8) Anemia Qualifiers: Anemia type: unspecified type Qualified Code(s): D64.9 - Anemia, unspecified Is this a current diagnosis for this admission?: Yes Plan: Microcytic, hypochromic anemia; hemoglobin is stable and trending upwards. Anemia panel is negative; anemia likely secondary to IV fluid resuscitation. Continue folate and thiamine supplement; although there is no confirmed EtOH abuse. Continue MVI with iron. - Time Time Spent with patient: 25-34 minutes Medications reviewed and adjusted accordingly: Yes
--- NOTE | 2017-11-25 17:34 | XCELERA REPORT ---
[address] [address] Transthoracic Echocardiogram Report Name: MARTY SANTOS Age: 57 yrs Gender: Male : 1960 Patient Status: Inpatient Patient Location: ICU^609^A Study Date: 11/25/2017 09:16 AM Height: 67 in Weight: 194 lb BSA: 2.0 m2 Procedure: A two-dimensional transthoracic echocardiogram with color flow and Doppler was performed. Study Quality: Fair. Reason For Study: hypoxia resp failure History: hypoxia resp failure. Ordering Physician: ALYSHA CARLOS Performed By: Arely Bojorquez Interpretation Summary The left ventricle is normal in size. There is normal left ventricular wall thickness. LV EF is > than 65% Left ventricular systolic function is normal. Doppler measurements suggest impaired left ventricular relaxation, which is associated with grade I/IV or mild diastolic dysfunction The left ventricular wall motion is normal. There is no thrombus. The right ventricle is mildly dilated. There is mild right ventricular hypertrophy. The right ventricular systolic function is normal. The left atrial size is normal. There is no evidence of mitral valve prolapse. There is no mitral valve stenosis. No aortic regurgitation is present. There is no tricuspid stenosis. There is mild pulmonary hypertension by echo RVSP is 36 to 41 mm of Hg , with RA mean of 5 to 10. There is no pulmonic valvular regurgitation. There is no pulmonic valvular stenosis. The inferior vena cava appeared normal and decreased > 50% with respiration (RAP 5-10 mmHg) Small pericardial effusion. There are no echocardiographic or Doppler indications for cardiac tamponade MMode/2D Measurements & Calculations RVDd: 3.8 cm LVIDd: 5.2 cm FS: 33.3 % Ao root diam: 2.7 cm IVSd: 1.1 cm LVIDs: 3.5 cm EDV(Teich): 131.4 ml Ao root area: 5.6 cm2 LVPWd: 1.1 cm ESV(Teich): 50.5 ml EF(Teich): 61.6 % Doppler Measurements & Calculations MV E max todd: MV dec slope: Ao V2 max: LV V1 max P.4 cm/sec 449.7 cm/sec2 188.0 cm/sec 9.9 mmHg MV A max todd: MV dec time: 0.22 secAo max PG: LV V1 max: 108.4 cm/sec 14.1 mmHg 157.4 cm/sec MV E/A: 0.93 PA V2 max: TR max todd: 122.1 cm/sec 278.1 cm/sec PA max P.0 mmHg TR max P.9 mmHg Left Ventricle The left ventricle is normal in size. There is normal left ventricular wall thickness. LV EF is > than 65%. Left ventricular systolic function is normal. Doppler measurements suggest impaired left ventricular relaxation, which is associated with grade I/IV or mild diastolic dysfunction. The left ventricular wall motion is normal. There is no thrombus. There is no ventricular septal defect visualized. Right Ventricle The right ventricle is mildly dilated. There is mild right ventricular hypertrophy. The right ventricular systolic function is normal. Atria The right atrium is normal in size. The left atrial size is normal. The interatrial septum is intact with no evidence for an atrial septal defect. Mitral Valve There is no evidence of mitral valve prolapse. There is no vegetation seen on the mitral valve. There is no mitral valve stenosis. There is no mitral regurgitation noted. Aortic Valve There is no aortic valvular vegetation. There is no aortic valve stenosis. No aortic regurgitation is present. Tricuspid Valve There is no tricuspid stenosis. There is a mild amount of tricuspid regurgitation. There is mild pulmonary hypertension by echo. RVSP is 36 to 41 mm of Hg , with RA mean of 5 to 10. Pulmonic Valve There is no pulmonic valvular stenosis. There is no pulmonic valvular regurgitation. Great Vessels The aortic root is normal size. The inferior vena cava appeared normal and decreased > 50% with respiration (RAP 5-10 mmHg). Effusions Small pericardial effusion. There are no echocardiographic or Doppler indications for cardiac tamponade. : ALYSHA CARLOS > Mia Raza
[2017-11-25] MEDS: SIMVASTATIN 40 MG TABLET NG SCH (17:50)
[2017-11-26] MEDS: PROPOFOL 1,000 MG/100 ML INFUS..BTL IV PRN ×3 (01:30→06:09)
[2017-11-26] MEDS: IPRATROPIUM/ALBUTEROL 0.5-2.5 MG/3 ML AMPUL NEB SCH ×5 (04:20→20:29)
[2017-11-26 04:31] LABS: HEMATOCRIT 38.6 % (37.9-51.0); HEMOGLOBIN 11.7 g/dL (13.5-17.0); MEAN CORPUSCULAR HEMOGLOBIN 23.2 pg (27.0-33.4); MEAN CORPUSCULAR HGB CONC 30.3 g/dL (32.0-36.0); MEAN CORPUSCULAR VOLUME 77 fl (80-97); PLATELET COUNT 190 10^3/uL (150-450); RED BLOOD COUNT 5.03 10^6/uL (4.35-5.55); RED CELL DISTRIBUTION WIDTH 18.5 % (11.5-14.0); WHITE BLOOD COUNT 15.5 10^3/uL (4.0-10.5)
[2017-11-26 04:49] LABS: ALANINE AMINOTRANSFERASE 45 U/L (21-72); ALBUMIN 2.9 g/dL (3.5-5.0); ALKALINE PHOSPHATASE 60 U/L (38-126); ANION GAP 7 (5-19); ASPARTATE AMINO TRANSFERASE 28 U/L (17-59); BILIRUBIN,DIRECT 0.5 mg/dL (0.0-0.4); BILIRUBIN,TOTAL 0.8 mg/dL (0.2-1.3); BLOOD UREA NITROGEN 38 mg/dL (7-20); CALCIUM 9.1 mg/dL (8.4-10.2); CARBON DIOXIDE 34 mmol/L (22-30); CHLORIDE 99 mmol/L (98-107); GLUCOSE 173 mg/dL (75-110); PHOSPHORUS 3.9 mg/dL (2.5-4.5); POTASSIUM 4.6 mmol/L (3.6-5.0); TOTAL PROTEIN 5.9 g/dL (6.3-8.2)
[2017-11-26 05:00] LABS: ABSOLUTE LYMPHOCYTES# (MANUAL) 0.8 10^3/uL (0.5-4.7); ABSOLUTE MONOCYTES # (MANUAL) 0.5 10^3/uL (0.1-1.4); ABSOLUTE NEUTROPHILS# (MANUAL) 14.3 10^3/uL (1.7-8.2); BASOPHILS % (MANUAL) 0 % (0-2); EOSINOPHILS % (MANUAL) 0 % (0-6); LYMPHOCYTES % (MANUAL) 5 % (13-45); MONOCYTES % (MANUAL) 3 % (3-13); SEGMENTED NEUTROPHILS % (MAN) 92 % (42-78); TOTAL CELLS COUNTED 100
[2017-11-26 05:02] LABS: ANISOCYTOSIS 1+; PLATELET COMMENT ADEQUATE; POIKILOCYTOSIS 2+; STOMATOCYTES 2+; TEAR DROP CELLS SLIGHT
[2017-11-26] MEDS: METHYLPREDNISOLONE INJ 40 MG/1 ML SDV IV SCH ×4 (06:06→23:25)
[2017-11-26] MEDS: INSULIN LISPRO 100 UNIT/ML 3 ML VIAL SUBCUT PRN ×2 (06:06→12:47)
[2017-11-26] MEDS: LEVOTHYROXINE SODIUM 0.05 MG TABLET NG SCH (06:06)
[2017-11-26] MEDS ORDERED: DEXAMETHASONE SOD PHOSPHATE INJ 4 MG/1 ML VIAL IV ONE (09:01)
[2017-11-26] MEDS ORDERED: DEXAMETHASONE SOD PHOSPHATE INJ 4 MG/1 ML VIAL ONE (09:02)
[2017-11-26] MEDS: BUDESONIDE NEB 0.5 MG/2 ML AMPUL NEB SCH ×2 (09:14→20:29)
[2017-11-26] MEDS: CETIRIZINE 10 MG TABLET NG SCH (09:27)
[2017-11-26] MEDS: GUAIFENESIN SYRP 200 MG/10 ML UDC NG SCH ×4 (09:27→23:22)
[2017-11-26] MEDS: NICOTINE 21 MG/24 HR PATCH.TD24 TD SCH (09:27)
[2017-11-26] MEDS: FOLIC ACID 1 MG TABLET PO SCH (09:27)
[2017-11-26] MEDS: FLUTICASONE NASAL SPRAY 50 MCG/SPRY 120 SPRAY/16 GM NASL SCH (09:27)
[2017-11-26] MEDS: ENOXAPARIN SODIUM INJ 30 MG/0.3 ML DISP.SYRIN SUBCUT SCH (09:28)
[2017-11-26] MEDS: MULTIVITAMINS W-IRON TABLET, CHEWABLE PO SCH (09:28)
[2017-11-26] MEDS: THIAMINE HCL 100 MG TABLET PO SCH (09:31)
[2017-11-26] MEDS ORDERED: DEXAMETHASONE SOD PHOS INJ 10 MG/1 ML VIAL IV ONE (10:00)
[2017-11-26 11:25] LABS: ARTERIAL BLOOD BASE EXCESS 8.6 mmol/L; ARTERIAL BLOOD H2CO3 1.69 mmol/L (1.05-1.35); ARTERIAL BLOOD O2 SATURATION 98.6 % (94-98); ARTERIAL BLOOD PCO2 56.1 mmHg (35-45); ARTERIAL BLOOD PH 7.41 (7.35-7.45); ARTERIAL BLOOD PO2 132.5 mmHg (80-100); ARTERIAL BLOOD TOTAL CO2 36.7 mmol/L (23-27)
[2017-11-26 11:26] LABS: ARTERIAL BLOOD FIO2 80%
[2017-11-26] MEDS: SIMVASTATIN 40 MG TABLET NG SCH (17:24)
--- NOTE | 2017-11-26 18:14 | PDOC PROGRESS REPORT ---
Subjective Progress Note for:: 11/26/17 Subjective:: MARTY SANTOS is a 57 year old male with a PMH of COPD on home O2, vocal cord cancer (S/P radiation), polycythemia, 63-55-fify-year smoking history. The patient presents to [facility] ED for respiratory distress stemming from a COPD exacerbation, ultimately requiring intubation. The patient was seen on morning rounds; he remains intubated and mechanically ventilated. His sedation has been again weaned this morning and he is again alert, awake, and responsive to yes or no questions. He denies fever, chills, headache, chest pain, palpitations, abdominal pain, nausea. No concerns per nursing. Case discussed with Dr. Brunson this morning; plans to extubate today directly to BiPAP. Reason For Visit: COPD EXACERBATION,ACUTE RESPIRATORY FAILURE Physical Exam Vital Signs: Temp Pulse Resp BP Pulse Ox 98.1 F 91 17 124/69 96 11/26/17 06:00 11/26/17 12:58 11/26/17 15:04 11/26/17 15:04 11/26/17 15:04 Intake & Output 11/25/17 11/26/17 11/27/17 06:59 06:59 06:59 Intake Total 2562 2430 299 Output Total 3045 2475 750 Balance -483 -45 -451 Weight 85.7 kg 88.1 kg General appearance: PRESENT: no acute distress, cooperative, well-developed, well-nourished, other - Intubated and mechanically ventilated Head exam: PRESENT: atraumatic, normocephalic Eye exam: PRESENT: conjunctiva pink, EOMI, PERRLA. ABSENT: scleral icterus Ear exam: PRESENT: normal external ear exam Mouth exam: PRESENT: moist, tongue midline Teeth exam: PRESENT: poor dentation Neck exam: ABSENT: carotid bruit, JVD, lymphadenopathy, thyromegaly Respiratory exam: PRESENT: prolonged expiratory phas, rhonchi, symmetrical, other - Intubated and mechanically ventilated. ABSENT: rales, wheezes Cardiovascular exam: PRESENT: RRR, +S1, +S2. ABSENT: diastolic murmur, rubs, systolic murmur Pulses: PRESENT: normal dorsalis pedis pul Vascular exam: PRESENT: normal capillary refill GI/Abdominal exam: PRESENT: normal bowel sounds, soft, other - OG tube. ABSENT : distended, guarding, mass, organolmegaly, rebound, tenderness Rectal exam: PRESENT: deferred Gentrourinary exam: PRESENT: indwelling catheter Extremities exam: PRESENT: other - Soft limb restraints. ABSENT: calf tenderness, clubbing, pedal edema Neurological exam: PRESENT: alert, awake, oriented to person, CN II-XII grossly intact, other - Is awake, nods yes or no appropriately to questions. Appears to be fully oriented. ABSENT: motor sensory deficit Psychiatric exam: PRESENT: appropriate affect, normal mood. ABSENT: homicidal ideation, suicidal ideation Skin exam: PRESENT: dry, intact, warm. ABSENT: cyanosis, rash Results Laboratory Results: 11/26/17 04:17 11/26/17 04:17 11/26/17 11/26/17 11/26/17 04:17 04:17 04:17 WBC 15.5 H RBC 5.03 Hgb 11.7 L Hct 38.6 MCV 77 L MCH 23.2 L MCHC 30.3 L RDW 18.5 H Plt Count 190 Seg Neutrophils % Not Reportable Lymphocytes % Not Reportable Monocytes % Not Reportable Eosinophils % Not Reportable Basophils % Not Reportable Absolute Neutrophils Not Reportable Absolute Lymphocytes Not Reportable Absolute Monocytes Not Reportable Absolute Eosinophils Not Reportable Absolute Basophils Not Reportable Carbonic Acid HCO3/H2CO3 Ratio ABG pH ABG pCO2 ABG pO2 ABG HCO3 ABG O2 Saturation ABG Base Excess FiO2 Sodium 140.0 Potassium 4.6 Chloride 99 Carbon Dioxide 34 H Anion Gap 7 BUN 38 H Creatinine 0.59 Est GFR ( Amer) > 60 Est GFR (Non-Af Amer) > 60 Glucose 173 H Calcium 9.1 Phosphorus 3.9 Magnesium 2.2 Total Bilirubin 0.8 AST 28 ALT 45 Alkaline Phosphatase 60 Total Protein 5.9 L Albumin 2.9 L Triglycerides 213 H 11/26/17 10:50 WBC RBC Hgb Hct MCV MCH MCHC RDW Plt Count Seg Neutrophils % Lymphocytes % Monocytes % Eosinophils % Basophils % Absolute Neutrophils Absolute Lymphocytes Absolute Monocytes Absolute Eosinophils Absolute Basophils Carbonic Acid 1.69 H HCO3/H2CO3 Ratio 20:1 ABG pH 7.41 ABG pCO2 56.1 H ABG pO2 132.5 H ABG HCO3 35.0 H ABG O2 Saturation 98.6 H ABG Base Excess 8.6 FiO2 80% Sodium Potassium Chloride Carbon Dioxide Anion Gap BUN Creatinine Est GFR ( Amer) Est GFR (Non-Af Amer) Glucose Calcium Phosphorus Magnesium Total Bilirubin AST ALT Alkaline Phosphatase Total Protein Albumin Triglycerides 11/19/17 11/25/17 04:25 04:50 NT-Pro-B Natriuret Pep 1940 H 335 Impressions: KUB X-Ray 11/18/17 17:45 IMPRESSION: NG tube as described. Chest/Abdomen CTA 11/22/17 00:00 IMPRESSION: Endotracheal tube, nasogastric tube in good positioning. Dependent consolidation in the right and left lower lobes. Trace loculated right pleural effusion in the posterior costophrenic sulci Cardiomegaly Chest X-Ray 11/25/17 06:00 IMPRESSION: Right basilar interstitial opacities, which may represent atelectasis or pneumonia 2010 [employer]- All Rights Reserved Assessment & Plan - Diagnosis (1) Respiratory failure with hypoxia and hypercapnia Qualifiers: Chronicity: acute on chronic Qualified Code(s): J96.21 - Acute and chronic respiratory failure with hypoxia; J96.22 - Acute and chronic respiratory failure with hypercapnia; J96.22 - Acute and chronic respiratory failure with hypercapnia; J96.22 - Acute and chronic respiratory failure with hypercapnia Is this a current diagnosis for this admission?: Yes Plan: Minimal improvement. Secondary to COPD exacerbation and ultimately resulting in intubation and mechanical ventilation. Initial ABG showed compensated respiratory acidosis with a PH 7.36, CO2 of 80.3 , Bicarb 44.2. PH 7.36. ABGs have been trended daily; gradual improvement; this morning noted to have a pH of 7.41, PCO2 53.0, and bicarb of 33.0. CXR (11/22/17) demonstrated bibasilar airspace disease; likely atelectasis Repeat chest x-ray is remains unchanged. CTA chest (11/22/17) demonstrated dependent consolidation of right and left lower lobes, and a loculated right pleural effusion Will obtain daily sputum cultures x3 and evaluate HSV PCR. If positive, will empirically begin acyclovir. Echocardiogram reveals LVEF greater than 65%, LV systolic function normal, mild diastolic LV dysfunction, mild pulmonary hypertension. The patient has been admitted to the ICU. He is currently intubated and mechanically ventilated; successfully weaned to CPAP during the a.m. He does require SIMV overnight. Pulmonary consulted for vent management; discussed with Dr. Brunson today. Plan to attempt extubation today. Pleural effusions are minimal and loculated, likely to be minimal benefit from continued diuresis, therefore has been discontinued. Continue scheduled and PRN Duonebs and PRN Xopenex Continue scheduled Solumedrol IV Mechanical ventilator weaning per ICU protocol. Protonix for PUD prophylaxis. Lovenox for DVT prophylaxis. (2) COPD with acute exacerbation Is this a current diagnosis for this admission?: Yes Plan: The patient has a history of home O2 dependent COPD; typically utilizes 2.5 LPM. Continues to smoke daily. Blood cultures have no growth at 5 days. He has been empirically placed on Levaquin for bronchitis in the setting of severe COPD exacerbation; has completed full course of therapy. Scheduled DuoNeb and Pulmicort, as needed Xopenex. Scheduled IV Solu-Medrol. Scheduled Robitussin per OG in lieu of Mucinex. Resume home dose Zyrtec and Flonase. Pulmonology consultation. Remaining plan as above. (3) Protein calorie malnutrition Qualifiers: Protein-calorie malnutrition severity: moderate Qualified Code(s): E44.0 - Moderate protein-calorie malnutrition Is this a current diagnosis for this admission?: Yes Plan: Secondary to intubation. Albumin is gradually trending up. Sales Floor Associate was consulted for TF recommendations: Oxepa 1.5 with a goal of 25mL/hr. START at 15 mL and increase by 10 mL every 12 hour until goal rate is reached. If diprivan rate is decreased then feeding rate will need adjusting also. Two packets of Beneprotein 4 times a day mixed with 100 mL water. (4) Vocal cord dysfunction Is this a current diagnosis for this admission?: Yes Plan: History of vocal cord cancer; s/p radiation therapy >3 years ago. (5) Tobacco dependence Is this a current diagnosis for this admission?: Yes Plan: Continued daily tobacco use. Nicotine replacement therapies have been provided. (6) Hyperlipidemia Is this a current diagnosis for this admission?: Yes Plan: Continue home dose statin therapy. (7) Hypothyroidism Is this a current diagnosis for this admission?: Yes Plan: TSH is acceptable; continue home dose of levothyroxine. (8) Anemia Qualifiers: Anemia type: unspecified type Qualified Code(s): D64.9 - Anemia, unspecified Is this a current diagnosis for this admission?: Yes Plan: Microcytic, hypochromic anemia; hemoglobin is stable and trending upwards. Anemia panel is negative; anemia likely secondary to IV fluid resuscitation. Continue folate and thiamine supplement; although there is no confirmed EtOH abuse. Continue MVI with iron. - Time Time Spent with patient: 25-34 minutes Medications reviewed and adjusted accordingly: Yes
[2017-11-27] MEDS ORDERED: IPRATROPIUM/ALBUTEROL 0.5-2.5 MG/3 ML AMPUL NEB ONE (00:03)
[2017-11-27] MEDS: IPRATROPIUM/ALBUTEROL 0.5-2.5 MG/3 ML AMPUL NEB SCH ×6 (00:16→20:23)
[2017-11-27 04:11] LABS: ARTERIAL BLOOD BASE EXCESS 6.6 mmol/L; ARTERIAL BLOOD H2CO3 1.76 mmol/L (1.05-1.35); ARTERIAL BLOOD HCO3 33.5 mmol/L (20-24); ARTERIAL BLOOD O2 SATURATION 95.5 % (94-98); ARTERIAL BLOOD PCO2 58.5 mmHg (35-45); ARTERIAL BLOOD PH 7.38 (7.35-7.45); ARTERIAL BLOOD PO2 81.3 mmHg (80-100); ARTERIAL BLOOD TOTAL CO2 35.3 mmol/L (23-27)
[2017-11-27 04:19] LABS: HEMATOCRIT 39.9 % (37.9-51.0); MEAN CORPUSCULAR HEMOGLOBIN 23.2 pg (27.0-33.4); MEAN CORPUSCULAR HGB CONC 30.1 g/dL (32.0-36.0); MEAN CORPUSCULAR VOLUME 77 fl (80-97); PLATELET COUNT 209 10^3/uL (150-450); RED BLOOD COUNT 5.19 10^6/uL (4.35-5.55); WHITE BLOOD COUNT 14.7 10^3/uL (4.0-10.5)
[2017-11-27 04:42] LABS: ABSOLUTE LYMPHOCYTES# (MANUAL) 0.7 10^3/uL (0.5-4.7); ABSOLUTE MONOCYTES # (MANUAL) 0.1 10^3/uL (0.1-1.4); ABSOLUTE NEUTROPHILS# (MANUAL) 13.8 10^3/uL (1.7-8.2); BASOPHILS % (MANUAL) 0 % (0-2); EOSINOPHILS % (MANUAL) 0 % (0-6); LYMPHOCYTES % (MANUAL) 5 % (13-45); MONOCYTES % (MANUAL) 1 % (3-13); SEGMENTED NEUTROPHILS % (MAN) 94 % (42-78); TOTAL CELLS COUNTED 100; TOXIC GRANULATION SLIGHT
[2017-11-27 04:43] LABS: ANISOCYTOSIS 2+; PLATELET COMMENT ADEQUATE; PLATELET LARGE PRESENT; POIKILOCYTOSIS SLIGHT; SCHISTOCYTES SLIGHT; TEAR DROP CELLS SLIGHT
[2017-11-27 04:49] LABS: ANION GAP 6 (5-19); BLOOD UREA NITROGEN 38 mg/dL (7-20); CALCIUM 8.9 mg/dL (8.4-10.2); CARBON DIOXIDE 36 mmol/L (22-30); CHLORIDE 98 mmol/L (98-107); GLUCOSE 152 mg/dL (75-110); POTASSIUM 4.5 mmol/L (3.6-5.0); SODIUM 139.6 mmol/L (137-145)
[2017-11-27] MEDS: METHYLPREDNISOLONE INJ 40 MG/1 ML SDV IV SCH ×4 (06:20→23:25)
[2017-11-27] MEDS: LEVOTHYROXINE SODIUM 0.05 MG TABLET NG SCH (06:20)
[2017-11-27] MEDS: BUDESONIDE NEB 0.5 MG/2 ML AMPUL NEB SCH ×2 (08:08→20:23)
--- NOTE | 2017-11-27 08:19 | RADIOLOGY REPORT (SQ) ---
EXAM DESCRIPTION: CHEST SINGLE VIEW COMPLETED DATE/TIME: 11/27/2017 7:12 am REASON FOR STUDY: resp failure COMPARISON: 11/25/2017. FINDINGS: Single-view chest AP portable upright at approximately 0610 hours. Extubated. No persistent lines or tubes. Minimal areas of suspected subsegmental atelectasis, aeration in the right base looks improved. Gene rally stable appearance of the chest otherwise. TECHNICAL DOCUMENTATION: JOB ID: [id number] Reading location - IP/workstation name: [email or web address]
[2017-11-27] MEDS: MULTIVITAMINS W-IRON TABLET, CHEWABLE PO SCH (10:25)
[2017-11-27] MEDS: NICOTINE 21 MG/24 HR PATCH.TD24 TD SCH (10:25)
[2017-11-27] MEDS: FLUTICASONE NASAL SPRAY 50 MCG/SPRY 120 SPRAY/16 GM NASL SCH (10:25)
[2017-11-27] MEDS: ENOXAPARIN SODIUM INJ 30 MG/0.3 ML DISP.SYRIN SUBCUT SCH (10:25)
[2017-11-27] MEDS: THIAMINE HCL 100 MG TABLET PO SCH (10:26)
[2017-11-27] MEDS: CETIRIZINE 10 MG TABLET NG SCH (10:26)
[2017-11-27] MEDS: GUAIFENESIN SYRP 200 MG/10 ML UDC NG SCH ×4 (10:26→22:44)
[2017-11-27] MEDS: FOLIC ACID 1 MG TABLET PO SCH (10:27)
--- NOTE | 2017-11-27 16:51 | PDOC PROGRESS REPORT ---
Subjective Progress Note for:: 11/27/17 Subjective:: MARTY SANTOS is a 57 year old male with a PMH of COPD on home O2, vocal cord cancer (S/P radiation), polycythemia, 49-27-soth-year smoking history. The patient presents to [facility] for respiratory distress stemming from a COPD exacerbation, ultimately requiring intubation. The patient was seen on morning rounds; he nursing reports that on nasal cannula at 6 L while eating breakfast he did desat very quickly into the low 80s. He tolerates being off BiPAP for only short periods of The patient states that he is feeling much better and is happy to no longer be on the ventilator; does not remember much of the previous days. He fever, chills, headache, chest pain, palpitations, abdominal pain, nausea. He does endorse dyspnea and orthopnea, however, does state that the nurses "seem to worry about my numbers before I really start feeling it." He asks to have his Chowdhury catheter discontinued, but otherwise, has no questions or concerns. No concerns per nursing. Reason For Visit: COPD EXACERBATION,ACUTE RESPIRATORY FAILURE Physical Exam Vital Signs: Temp Pulse Resp BP Pulse Ox 98.8 F 93 16 116/76 89 L 11/27/17 16:00 11/27/17 11:58 11/27/17 16:00 11/27/17 16:00 11/27/17 16:00 Intake & Output 11/26/17 11/27/17 11/28/17 06:59 06:59 06:59 Intake Total 2430 399 600 Output Total 2475 2028 650 Balance -45 -1629 -50 Weight 88.1 kg 84.7 kg General appearance: PRESENT: no acute distress, cooperative, well-developed, well-nourished - Overweight Head exam: PRESENT: atraumatic, normocephalic Eye exam: PRESENT: conjunctiva pink, EOMI, PERRLA. ABSENT: scleral icterus Ear exam: PRESENT: normal external ear exam Mouth exam: PRESENT: moist, tongue midline Teeth exam: PRESENT: poor dentation Neck exam: ABSENT: carotid bruit, JVD, lymphadenopathy, thyromegaly Respiratory exam: PRESENT: prolonged expiratory phas, rhonchi, symmetrical, unlabored, wheezes. ABSENT: rales Cardiovascular exam: PRESENT: RRR, +S1, +S2. ABSENT: diastolic murmur, rubs, systolic murmur Pulses: PRESENT: normal dorsalis pedis pul Vascular exam: PRESENT: normal capillary refill GI/Abdominal exam: PRESENT: normal bowel sounds, soft. ABSENT: distended, guarding, mass, organolmegaly, rebound, tenderness Rectal exam: PRESENT: deferred Extremities exam: PRESENT: full ROM. ABSENT: calf tenderness, clubbing, pedal edema Neurological exam: PRESENT: alert, awake, oriented to person, oriented to place , oriented to time, oriented to situation, CN II-XII grossly intact. ABSENT: motor sensory deficit Psychiatric exam: PRESENT: appropriate affect, normal mood. ABSENT: homicidal ideation, suicidal ideation Skin exam: PRESENT: dry, intact, warm. ABSENT: cyanosis, rash Results Laboratory Results: 11/27/17 04:00 11/27/17 04:00 11/27/17 11/27/17 11/27/17 04:00 04:00 04:00 WBC 14.7 H RBC 5.19 Hgb 12.0 L Hct 39.9 MCV 77 L MCH 23.2 L MCHC 30.1 L RDW 18.0 H Plt Count 209 Seg Neutrophils % Not Reportable Lymphocytes % Not Reportable Monocytes % Not Reportable Eosinophils % Not Reportable Basophils % Not Reportable Absolute Neutrophils Not Reportable Absolute Lymphocytes Not Reportable Absolute Monocytes Not Reportable Absolute Eosinophils Not Reportable Absolute Basophils Not Reportable Carbonic Acid 1.76 H HCO3/H2CO3 Ratio 19:1 ABG pH 7.38 ABG pCO2 58.5 H ABG pO2 81.3 ABG HCO3 33.5 H ABG O2 Saturation 95.5 ABG Base Excess 6.6 FiO2 55% Sodium 139.6 Potassium 4.5 Chloride 98 Carbon Dioxide 36 H Anion Gap 6 BUN 38 H Creatinine 0.62 Est GFR ( Amer) > 60 Est GFR (Non-Af Amer) > 60 Glucose 152 H Calcium 8.9 Magnesium 2.3 11/25/17 16:55 Tracheal Aspirate Gram Stain - Final 11/25/17 16:55 Tracheal Aspirate Sputum Culture - Final NORMAL [facility] 11/19/17 11/25/17 04:25 04:50 NT-Pro-B Natriuret Pep 1940 H 335 Impressions: KUB X-Ray 11/18/17 17:45 IMPRESSION: NG tube as described. Chest/Abdomen CTA 11/22/17 00:00 IMPRESSION: Endotracheal tube, nasogastric tube in good positioning. Dependent consolidation in the right and left lower lobes. Trace loculated right pleural effusion in the posterior costophrenic sulci Cardiomegaly Assessment & Plan - Diagnosis (1) Respiratory failure with hypoxia and hypercapnia Qualifiers: Chronicity: acute on chronic Qualified Code(s): J96.21 - Acute and chronic respiratory failure with hypoxia; J96.22 - Acute and chronic respiratory failure with hypercapnia; J96.22 - Acute and chronic respiratory failure with hypercapnia; J96.22 - Acute and chronic respiratory failure with hypercapnia Is this a current diagnosis for this admission?: Yes Plan: Improved: Now extubated. Remains BiPAP dependent. Secondary to COPD exacerbation and ultimately resulting in intubation and mechanical ventilation. Initial ABG showed compensated respiratory acidosis with a PH 7.36, CO2 of 80.3 , Bicarb 44.2. PH 7.36. ABGs have been trended daily; this morning noted to have a pH of 7.38, PCO2 58.5 , and bicarb of 33.5. Increased hypercapnia is expected following extubation. CXR (11/22/17) demonstrated bibasilar airspace disease; likely atelectasis Repeat chest x-ray today shows minimal improvement in the right base. CTA chest (11/22/17) demonstrated dependent consolidation of right and left lower lobes, and a loculated right pleural effusion Will obtain daily sputum cultures x3 and evaluate HSV PCR. Initial sputum culture revealed normal sinai. If positive, will empirically begin acyclovir. Echocardiogram reveals LVEF greater than 65%, LV systolic function normal, mild diastolic LV dysfunction, mild pulmonary hypertension. The patient has been admitted to the ICU. Continue supplemental oxygen and BiPAP as needed to maintain oxygen saturations. Pulmonary consulted; appreciate Dr. Brunson's expert assistance. Pleural effusions are minimal and loculated, likely to be minimal benefit from continued diuresis, therefore has been discontinued. Continue scheduled and PRN Duonebs and PRN Xopenex Continue scheduled Solumedrol IV Protonix for PUD prophylaxis. Lovenox for DVT prophylaxis. (2) COPD with acute exacerbation Is this a current diagnosis for this admission?: Yes Plan: The patient has a history of home O2 dependent COPD; typically utilizes 2.5 LPM. Continues to smoke daily. Blood cultures have no growth at 5 days. He has been empirically placed on Levaquin for bronchitis in the setting of severe COPD exacerbation; has completed full course of therapy. Scheduled DuoNeb and Pulmicort, as needed Xopenex. Scheduled IV Solu-Medrol. Scheduled Robitussin per OG in lieu of Mucinex. Resume home dose Zyrtec and Flonase. Pulmonology consultation. Remaining plan as above. (3) Protein calorie malnutrition Qualifiers: Protein-calorie malnutrition severity: moderate Qualified Code(s): E44.0 - Moderate protein-calorie malnutrition Is this a current diagnosis for this admission?: Yes Plan: Secondary to intubation. Albumin is gradually trending up. Stator Tester was consulted for recommendations. Patient has now been extubated; has been placed on a mechanical soft diet. (4) Vocal cord dysfunction Is this a current diagnosis for this admission?: Yes Plan: History of vocal cord cancer; s/p radiation therapy >3 years ago. (5) Tobacco dependence Is this a current diagnosis for this admission?: Yes Plan: Continued daily tobacco use. Nicotine replacement therapies have been provided. (6) Hyperlipidemia Is this a current diagnosis for this admission?: Yes Plan: Continue home dose statin therapy. (7) Hypothyroidism Is this a current diagnosis for this admission?: Yes Plan: TSH is acceptable; continue home dose of levothyroxine. (8) Anemia Qualifiers: Anemia type: unspecified type Qualified Code(s): D64.9 - Anemia, unspecified Is this a current diagnosis for this admission?: Yes Plan: Microcytic, hypochromic anemia; hemoglobin is stable and continues trending upwards. Anemia panel is negative; anemia likely secondary to IV fluid resuscitation. Continue folate and thiamine supplement; although there is no confirmed EtOH abuse. Continue MVI with iron. (9) Leukocytosis Qualifiers: Leukocytosis type: unspecified Qualified Code(s): D72.829 - Elevated white blood cell count, unspecified Is this a current diagnosis for this admission?: Yes Plan: Patient's WBCs are trending up; likely secondary to IV steroid use. The patient did get a one-time dose of Decadron in addition to his scheduled Solu- Medrol yesterday prior to extubation. He remains afebrile and without indications of worsening infectious process. He has completed a 7-day course of Levaquin; no evidence of consolidation on chest x-ray, low suspicion for recurrent/continued pneumonia. Therefore will hold on additional antibiotics at this time. - Time Time Spent with patient: 25-34 minutes Medications reviewed and adjusted accordingly: Yes
--- NOTE | 2017-11-27 16:53 | PDOC PROGRESS REPORT ---
Subjective Progress Note for:: 11/26/17 Subjective:: Unchanged continues to require high FiO2's Reason For Visit: COPD EXACERBATION,ACUTE RESPIRATORY FAILURE Physical Exam Vital Signs: Temp Pulse Resp BP Pulse Ox 98.1 F 83 18 110/66 91 L 11/26/17 06:00 11/26/17 04:21 11/26/17 08:04 11/26/17 08:04 11/26/17 08:04 Intake & Output 11/25/17 11/26/17 11/27/17 06:59 06:59 06:59 Intake Total 2562 2430 Output Total 3045 8985 Balance -483 -45 Weight 85.7 kg 88.1 kg General appearance: PRESENT: no acute distress, disheveled Head exam: PRESENT: atraumatic, normocephalic Eye exam: PRESENT: conjunctiva pale, EOMI. ABSENT: nystagmus, scleral icterus Mouth exam: PRESENT: tongue midline, other - ET tube intact Neck exam: ABSENT: carotid bruit, JVD, lymphadenopathy, thyromegaly, tracheal deviation, tracheostomy Respiratory exam: PRESENT: decreased breath sounds, prolonged expiratory phas, rales, rhonchi. ABSENT: retraction, stridor, unlabored Cardiovascular exam: PRESENT: RRR, +S1, +S2 Pulses: PRESENT: normal radial pulses GI/Abdominal exam: PRESENT: hypoactive bowel sounds, soft. ABSENT: tenderness Gentrourinary exam: PRESENT: indwelling catheter Extremities exam: PRESENT: pedal edema. ABSENT: calf tenderness, clubbing Musculoskeletal exam: ABSENT: ambulatory, deformity, dislocation Neurological exam: PRESENT: awake, oriented to person. ABSENT: oriented to place, oriented to time Skin exam: PRESENT: dry, warm Results Laboratory Results: 11/26/17 04:17 11/26/17 04:17 11/26/17 11/26/17 11/26/17 04:17 04:17 04:17 WBC 15.5 H RBC 5.03 Hgb 11.7 L Hct 38.6 MCV 77 L MCH 23.2 L MCHC 30.3 L RDW 18.5 H Plt Count 190 Seg Neutrophils % Not Reportable Lymphocytes % Not Reportable Monocytes % Not Reportable Eosinophils % Not Reportable Basophils % Not Reportable Absolute Neutrophils Not Reportable Absolute Lymphocytes Not Reportable Absolute Monocytes Not Reportable Absolute Eosinophils Not Reportable Absolute Basophils Not Reportable Sodium 140.0 Potassium 4.6 Chloride 99 Carbon Dioxide 34 H Anion Gap 7 BUN 38 H Creatinine 0.59 Est GFR ( Amer) > 60 Est GFR (Non-Af Amer) > 60 Glucose 173 H Calcium 9.1 Phosphorus 3.9 Magnesium 2.2 Total Bilirubin 0.8 AST 28 ALT 45 Alkaline Phosphatase 60 Total Protein 5.9 L Albumin 2.9 L Triglycerides 213 H 11/19/17 11/25/17 04:25 04:50 NT-Pro-B Natriuret Pep 1940 H 335 Impressions: KUB X-Ray 11/18/17 17:45 IMPRESSION: NG tube as described. Chest/Abdomen CTA 11/22/17 00:00 IMPRESSION: Endotracheal tube, nasogastric tube in good positioning. Dependent consolidation in the right and left lower lobes. Trace loculated right pleural effusion in the posterior costophrenic sulci Cardiomegaly Chest X-Ray 11/25/17 06:00 IMPRESSION: Right basilar interstitial opacities, which may represent atelectasis or pneumonia 2010 [employer]- All Rights Reserved Assessment & Plan - Diagnosis (1) COPD with acute exacerbation Is this a current diagnosis for this admission?: Yes Plan: Requires high FiO2's (2) Protein calorie malnutrition Qualifiers: Protein-calorie malnutrition severity: moderate Qualified Code(s): E44.0 - Moderate protein-calorie malnutrition Is this a current diagnosis for this admission?: Yes Plan: Nutrition per NGT (3) Respiratory failure with hypoxia and hypercapnia Qualifiers: Chronicity: acute on chronic Qualified Code(s): J96.21 - Acute and chronic respiratory failure with hypoxia; J96.22 - Acute and chronic respiratory failure with hypercapnia; J96.22 - Acute and chronic respiratory failure with hypercapnia; J96.22 - Acute and chronic respiratory failure with hypercapnia Is this a current diagnosis for this admission?: Yes Plan: CTA to rule out PE FiO2 remains very high - Time Total Critical Time (Minutes): 45
--- NOTE | 2017-11-27 16:56 | PDOC PROGRESS REPORT ---
Subjective Progress Note for:: 11/25/17 Subjective:: Unchanged continues to require high FiO2's Reason For Visit: COPD EXACERBATION,ACUTE RESPIRATORY FAILURE Physical Exam Vital Signs: Temp Pulse Resp BP Pulse Ox 98.1 F 88 17 116/62 89 L 11/25/17 05:52 11/25/17 06:00 11/25/17 06:03 11/25/17 06:03 11/25/17 06:03 Intake & Output 11/24/17 11/25/17 11/26/17 06:59 06:59 06:59 Intake Total 2497 2412 100 Output Total 3285 3045 Balance -553 -586 100 Weight 88.1 kg 85.7 kg General appearance: PRESENT: no acute distress, cooperative, disheveled Head exam: PRESENT: atraumatic, normocephalic Eye exam: PRESENT: conjunctiva pale, EOMI Mouth exam: PRESENT: dry mucosa, tongue midline, other - ET tube in place Neck exam: PRESENT: tracheal deviation, tracheostomy. ABSENT: carotid bruit, JVD, lymphadenopathy, thyromegaly Respiratory exam: PRESENT: decreased breath sounds, prolonged expiratory phas, rales, rhonchi, unlabored. ABSENT: retraction, stridor Cardiovascular exam: PRESENT: RRR, +S1, +S2 Pulses: PRESENT: normal radial pulses GI/Abdominal exam: PRESENT: hypoactive bowel sounds, soft. ABSENT: tenderness Gentrourinary exam: PRESENT: indwelling catheter Extremities exam: PRESENT: pedal edema. ABSENT: calf tenderness, clubbing, tenderness Musculoskeletal exam: ABSENT: ambulatory, deformity, dislocation Neurological exam: PRESENT: awake Psychiatric exam: PRESENT: flat affect Skin exam: PRESENT: dry, warm Results Laboratory Results: 11/25/17 04:50 11/25/17 04:50 11/25/17 11/25/17 11/25/17 04:50 04:50 05:45 WBC 11.9 H RBC 5.11 Hgb 11.9 L Hct 38.9 MCV 76 L MCH 23.2 L MCHC 30.5 L RDW 18.6 H Plt Count 194 Seg Neutrophils % Not Reportable Lymphocytes % Not Reportable Monocytes % Not Reportable Eosinophils % Not Reportable Basophils % Not Reportable Absolute Neutrophils Not Reportable Absolute Lymphocytes Not Reportable Absolute Monocytes Not Reportable Absolute Eosinophils Not Reportable Absolute Basophils Not Reportable Retic Count (auto) 0.59 L Absolute Retic 0.030 Carbonic Acid 1.60 H HCO3/H2CO3 Ratio 20:1 ABG pH 7.41 ABG pCO2 53.0 H ABG pO2 70.3 L ABG HCO3 33.0 H ABG O2 Saturation 94.0 ABG Base Excess 7.0 FiO2 60% Sodium 138.5 Potassium 4.4 Chloride 97 L Carbon Dioxide 37 H Anion Gap 5 BUN 37 H Creatinine 0.66 Est GFR ( Amer) > 60 Est GFR (Non-Af Amer) > 60 Glucose 188 H Calcium 9.0 Magnesium 2.3 Iron 119.2 TIBC 372 % Saturation 32 Ferritin 98.10 Total Bilirubin 0.8 AST 41 ALT 41 Alkaline Phosphatase 63 Total Protein 6.0 L Albumin 3.0 L Vitamin B12 434.0 Folate 7.14 11/19/17 11/25/17 04:25 04:50 NT-Pro-B Natriuret Pep 1940 H 335 Impressions: KUB X-Ray 11/18/17 17:45 IMPRESSION: NG tube as described. Chest/Abdomen CTA 11/22/17 00:00 IMPRESSION: Endotracheal tube, nasogastric tube in good positioning. Dependent consolidation in the right and left lower lobes. Trace loculated right pleural effusion in the posterior costophrenic sulci Cardiomegaly Chest X-Ray 11/25/17 06:00 IMPRESSION: Right basilar interstitial opacities, which may represent atelectasis or pneumonia 2010 [email or web address]- All Rights Reserved Assessment & Plan - Diagnosis (1) COPD with acute exacerbation Is this a current diagnosis for this admission?: Yes Plan: Requires high FiO2's,Minute volume, respiratory rate and airway pressures are acceptable (2) Protein calorie malnutrition Qualifiers: Protein-calorie malnutrition severity: moderate Qualified Code(s): E44.0 - Moderate protein-calorie malnutrition Is this a current diagnosis for this admission?: Yes Plan: Nutrition per NGT (3) Respiratory failure with hypoxia and hypercapnia Qualifiers: Chronicity: acute on chronic Qualified Code(s): J96.21 - Acute and chronic respiratory failure with hypoxia; J96.22 - Acute and chronic respiratory failure with hypercapnia; J96.22 - Acute and chronic respiratory failure with hypercapnia; J96.22 - Acute and chronic respiratory failure with hypercapnia Is this a current diagnosis for this admission?: Yes Plan: CTA to rule out PE FiO2 remains very high - Time Total Critical Time (Minutes): 45
--- NOTE | 2017-11-27 16:58 | PDOC PROGRESS REPORT ---
Subjective Progress Note for:: 11/22/17 Subjective:: Unchanged continues to require high FiO2's Reason For Visit: COPD EXACERBATION,ACUTE RESPIRATORY FAILURE Physical Exam Vital Signs: Temp Pulse Resp BP Pulse Ox 97.7 F 78 10 L 119/81 91 L 11/22/17 05:45 11/22/17 08:23 11/22/17 08:23 11/22/17 06:02 11/22/17 08:23 Intake & Output 11/21/17 11/22/17 11/23/17 06:59 06:59 06:59 Intake Total 1510 1806 98 Output Total 1347 3480 Balance 163 -1674 98 Weight 89.1 kg 90.4 kg General appearance: PRESENT: no acute distress, cooperative, disheveled Head exam: PRESENT: atraumatic, normocephalic Eye exam: PRESENT: conjunctiva pale, EOMI, PERRLA Mouth exam: PRESENT: dry mucosa, neck supple, tongue midline, other - ET tube in place Neck exam: ABSENT: carotid bruit, JVD, lymphadenopathy, thyromegaly, tracheal deviation, tracheostomy Respiratory exam: PRESENT: decreased breath sounds, prolonged expiratory phas, rales, rhonchi, unlabored Cardiovascular exam: PRESENT: RRR, +S1, +S2 Pulses: PRESENT: normal radial pulses GI/Abdominal exam: PRESENT: hypoactive bowel sounds, soft. ABSENT: tenderness Extremities exam: PRESENT: pedal edema. ABSENT: calf tenderness, clubbing, tenderness Musculoskeletal exam: ABSENT: ambulatory, deformity, dislocation Neurological exam: PRESENT: awake Psychiatric exam: PRESENT: flat affect Skin exam: PRESENT: dry, warm Results Laboratory Results: 11/22/17 04:09 11/22/17 04:09 11/22/17 11/22/17 11/22/17 04:09 04:09 05:59 WBC 9.1 RBC 4.81 Hgb 11.6 L Hct 37.6 L MCV 78 L MCH 24.1 L MCHC 30.8 L RDW 18.2 H Plt Count 207 Seg Neutrophils % Not Reportable Lymphocytes % Not Reportable Monocytes % Not Reportable Eosinophils % Not Reportable Basophils % Not Reportable Absolute Neutrophils Not Reportable Absolute Lymphocytes Not Reportable Absolute Monocytes Not Reportable Absolute Eosinophils Not Reportable Absolute Basophils Not Reportable Carbonic Acid 1.94 H HCO3/H2CO3 Ratio 20:1 ABG pH 7.41 ABG pCO2 64.6 H ABG pO2 73.3 L ABG HCO3 39.6 H ABG O2 Saturation 94.3 ABG Base Excess 12.4 FiO2 60% Sodium 140.3 Potassium 4.6 Chloride 96 L Carbon Dioxide 41 H* Anion Gap 3 L BUN 29 H Creatinine 0.74 Est GFR ( Amer) > 60 Est GFR (Non-Af Amer) > 60 Glucose 185 H Calcium 8.7 Phosphorus 3.8 Magnesium 2.0 11/19/17 04:25 NT-Pro-B Natriuret Pep 1940 H Impressions: KUB X-Ray 11/18/17 17:45 IMPRESSION: NG tube as described. Assessment & Plan - Diagnosis (1) COPD with acute exacerbation Is this a current diagnosis for this admission?: Yes Plan: Requires high FiO2's,Minute volume, respiratory rate and airway pressures are acceptable (2) Protein calorie malnutrition Qualifiers: Protein-calorie malnutrition severity: moderate Qualified Code(s): E44.0 - Moderate protein-calorie malnutrition Is this a current diagnosis for this admission?: Yes Plan: Nutrition per NGT (3) Respiratory failure with hypoxia and hypercapnia Qualifiers: Chronicity: acute on chronic Qualified Code(s): J96.21 - Acute and chronic respiratory failure with hypoxia; J96.22 - Acute and chronic respiratory failure with hypercapnia; J96.22 - Acute and chronic respiratory failure with hypercapnia; J96.22 - Acute and chronic respiratory failure with hypercapnia Is this a current diagnosis for this admission?: Yes Plan: CTA to rule out PE FiO2 remains very high - Time Total Critical Time (Minutes): 40
--- NOTE | 2017-11-27 17:00 | PDOC PROGRESS REPORT ---
Subjective Progress Note for:: 11/23/17 Subjective:: Unchanged continues to require high FiO2's Reason For Visit: COPD EXACERBATION,ACUTE RESPIRATORY FAILURE Physical Exam Vital Signs: Temp Pulse Resp BP Pulse Ox 97.9 F 88 12 125/68 90 L 11/23/17 08:00 11/23/17 08:17 11/23/17 08:17 11/23/17 08:03 11/23/17 08:17 Intake & Output 11/22/17 11/23/17 11/24/17 06:59 06:59 06:59 Intake Total 2496 2362 246 Output Total 3480 4115 140 Balance -584 -3463 106 Weight 90.4 kg 88.1 kg General appearance: PRESENT: no acute distress, cooperative, disheveled Head exam: PRESENT: atraumatic, normocephalic Eye exam: PRESENT: conjunctiva pale, EOMI Mouth exam: PRESENT: dry mucosa, neck supple, tongue midline, other - ET tube in place Neck exam: ABSENT: carotid bruit, JVD, lymphadenopathy, thyromegaly, tracheal deviation, tracheostomy Respiratory exam: PRESENT: decreased breath sounds, prolonged expiratory phas, rales, rhonchi. ABSENT: retraction, stridor Cardiovascular exam: PRESENT: RRR, +S1, +S2 GI/Abdominal exam: PRESENT: hypoactive bowel sounds, soft. ABSENT: tenderness Gentrourinary exam: PRESENT: indwelling catheter Extremities exam: PRESENT: pedal edema. ABSENT: calf tenderness, clubbing Musculoskeletal exam: ABSENT: ambulatory, deformity, dislocation Neurological exam: PRESENT: awake Skin exam: PRESENT: dry, warm Results Laboratory Results: 11/23/17 07:10 11/23/17 07:10 11/23/17 11/23/17 11/23/17 06:01 07:10 07:10 WBC 9.3 RBC 4.75 Hgb 11.3 L Hct 36.4 L MCV 77 L MCH 23.8 L MCHC 31.1 L RDW 17.8 H Plt Count 201 Carbonic Acid 1.92 H HCO3/H2CO3 Ratio 21:1 ABG pH 7.44 ABG pCO2 63.7 H ABG pO2 96.2 ABG HCO3 42.2 H ABG O2 Saturation 97.3 ABG Base Excess 15.2 FiO2 70% Sodium Potassium Chloride Carbon Dioxide Anion Gap BUN Creatinine Est GFR ( Amer) Est GFR (Non-Af Amer) Glucose Calcium Magnesium Total Bilirubin AST ALT Alkaline Phosphatase Total Protein Albumin Triglycerides 216 H 11/23/17 07:10 WBC RBC Hgb Hct MCV MCH MCHC RDW Plt Count Carbonic Acid HCO3/H2CO3 Ratio ABG pH ABG pCO2 ABG pO2 ABG HCO3 ABG O2 Saturation ABG Base Excess FiO2 Sodium 137.7 Potassium 4.5 Chloride 94 L Carbon Dioxide 42 H* Anion Gap 2 L BUN 34 H Creatinine 0.65 Est GFR ( Amer) > 60 Est GFR (Non-Af Amer) > 60 Glucose 232 H Calcium 8.9 Magnesium 2.1 Total Bilirubin 0.7 AST 43 ALT 29 Alkaline Phosphatase 57 Total Protein 5.9 L Albumin 2.9 L Triglycerides 11/19/17 04:25 NT-Pro-B Natriuret Pep 1940 H Impressions: KUB X-Ray 11/18/17 17:45 IMPRESSION: NG tube as described. Chest/Abdomen CTA 11/22/17 00:00 IMPRESSION: Endotracheal tube, nasogastric tube in good positioning. Dependent consolidation in the right and left lower lobes. Trace loculated right pleural effusion in the posterior costophrenic sulci Cardiomegaly Chest X-Ray 11/22/17 06:00 IMPRESSION: Persistent bibasilar airspace disease likely atelectasis Assessment & Plan - Diagnosis (1) Respiratory failure with hypoxia and hypercapnia Qualifiers: Chronicity: acute on chronic Qualified Code(s): J96.21 - Acute and chronic respiratory failure with hypoxia; J96.22 - Acute and chronic respiratory failure with hypercapnia; J96.22 - Acute and chronic respiratory failure with hypercapnia; J96.22 - Acute and chronic respiratory failure with hypercapnia Is this a current diagnosis for this admission?: Yes Plan: CTA to rule out PE FiO2 remains very high (2) COPD (chronic obstructive pulmonary disease) Qualifiers: COPD type: chronic bronchitis Chronic bronchitis type: unspecified Qualified Code(s): J42 - Unspecified chronic bronchitis Is this a current diagnosis for this admission?: Yes Plan: Short acting beta agonist + long-acting beta agonist + long-acting muscarinic agents + inhaled corticosteroids + systemic corticosteroids
--- NOTE | 2017-11-27 17:02 | PDOC PROGRESS REPORT ---
Subjective Progress Note for:: 11/24/17 Subjective:: Unchanged continues to require high FiO2's Reason For Visit: COPD EXACERBATION,ACUTE RESPIRATORY FAILURE Physical Exam Vital Signs: Temp Pulse Resp BP Pulse Ox 98.8 F 83 23 H 104/55 L 92 11/24/17 05:52 11/24/17 08:06 11/24/17 08:06 11/24/17 06:03 11/24/17 08:17 Intake & Output 11/23/17 11/24/17 11/25/17 06:59 06:59 06:59 Intake Total 2512 2347 100 Output Total 4115 3285 Balance -7825 -151 100 Weight 88.1 kg 88.1 kg General appearance: PRESENT: no acute distress, cooperative, disheveled Head exam: PRESENT: atraumatic, normocephalic Eye exam: PRESENT: conjunctiva pale, EOMI, PERRLA Mouth exam: PRESENT: dry mucosa, neck supple, tongue midline, other - ET tube in place Neck exam: ABSENT: carotid bruit, JVD, lymphadenopathy, thyromegaly, tracheal deviation, tracheostomy Respiratory exam: PRESENT: decreased breath sounds, prolonged expiratory phas, rales, rhonchi, unlabored, other. ABSENT: retraction, stridor Cardiovascular exam: PRESENT: RRR, +S1 Pulses: PRESENT: normal radial pulses GI/Abdominal exam: PRESENT: hypoactive bowel sounds, soft. ABSENT: tenderness Gentrourinary exam: PRESENT: indwelling catheter Extremities exam: PRESENT: pedal edema. ABSENT: calf tenderness, clubbing Musculoskeletal exam: ABSENT: ambulatory, deformity, dislocation Neurological exam: PRESENT: awake Skin exam: PRESENT: dry, warm Results Laboratory Results: 11/24/17 04:20 11/24/17 04:20 11/23/17 11/24/17 11/24/17 19:15 04:20 04:20 WBC 12.7 H RBC 4.97 Hgb 11.5 L Hct 38.1 MCV 77 L MCH 23.2 L MCHC 30.3 L RDW 18.2 H Plt Count 207 Seg Neutrophils % 85.8 H Lymphocytes % 5.0 L Monocytes % 8.8 Eosinophils % 0.1 Basophils % 0.3 Absolute Neutrophils 10.9 H Absolute Lymphocytes 0.6 Absolute Monocytes 1.1 Absolute Eosinophils 0.0 Absolute Basophils 0.0 Carbonic Acid HCO3/H2CO3 Ratio ABG pH ABG pCO2 ABG pO2 ABG HCO3 ABG O2 Saturation ABG Base Excess FiO2 Sodium 139.3 Potassium 4.5 Chloride 96 L Carbon Dioxide 39 H Anion Gap 4 L BUN 34 H Creatinine 0.67 Est GFR ( Amer) > 60 Est GFR (Non-Af Amer) > 60 Glucose 160 H Calcium 9.4 Magnesium 2.2 Urine Color YELLOW Urine Appearance CLEAR Urine pH 8.0 Ur Specific [place] 1.020 Urine Protein NEGATIVE Urine Glucose (UA) NEGATIVE Urine Ketones NEGATIVE Urine Blood NEGATIVE Urine Nitrite NEGATIVE Ur Leukocyte Esterase NEGATIVE Urine WBC (Auto) 1 Urine RBC (Auto) 1 11/24/17 04:23 WBC RBC Hgb Hct MCV MCH MCHC RDW Plt Count Seg Neutrophils % Lymphocytes % Monocytes % Eosinophils % Basophils % Absolute Neutrophils Absolute Lymphocytes Absolute Monocytes Absolute Eosinophils Absolute Basophils Carbonic Acid 1.74 H HCO3/H2CO3 Ratio 21:1 ABG pH 7.43 ABG pCO2 57.8 H ABG pO2 62.9 L ABG HCO3 37.2 H ABG O2 Saturation 92.0 L ABG Base Excess 10.8 FiO2 60% Sodium Potassium Chloride Carbon Dioxide Anion Gap BUN Creatinine Est GFR ( Amer) Est GFR (Non-Af Amer) Glucose Calcium Magnesium Urine Color Urine Appearance Urine pH Ur Specific [place] Urine Protein Urine Glucose (UA) Urine Ketones Urine Blood Urine Nitrite Ur Leukocyte Esterase Urine WBC (Auto) Urine RBC (Auto) 11/19/17 04:25 NT-Pro-B Natriuret Pep 1940 H Impressions: KUB X-Ray 11/18/17 17:45 IMPRESSION: NG tube as described. Chest/Abdomen CTA 11/22/17 00:00 IMPRESSION: Endotracheal tube, nasogastric tube in good positioning. Dependent consolidation in the right and left lower lobes. Trace loculated right pleural effusion in the posterior costophrenic sulci Cardiomegaly Chest X-Ray 11/24/17 06:00 IMPRESSION: No significant change. Assessment & Plan - Diagnosis (1) COPD with acute exacerbation Is this a current diagnosis for this admission?: Yes Plan: Requires high FiO2's,Minute volume, respiratory rate and airway pressures are acceptable (2) Protein calorie malnutrition Qualifiers: Protein-calorie malnutrition severity: moderate Qualified Code(s): E44.0 - Moderate protein-calorie malnutrition Is this a current diagnosis for this admission?: Yes Plan: Nutrition per NGT (3) Respiratory failure with hypoxia and hypercapnia Qualifiers: Chronicity: acute on chronic Qualified Code(s): J96.21 - Acute and chronic respiratory failure with hypoxia; J96.22 - Acute and chronic respiratory failure with hypercapnia; J96.22 - Acute and chronic respiratory failure with hypercapnia; J96.22 - Acute and chronic respiratory failure with hypercapnia Is this a current diagnosis for this admission?: Yes Plan: CTA to rule out PE FiO2 remains very high - Time Total Critical Time (Minutes): 45
[2017-11-27] MEDS: SIMVASTATIN 40 MG TABLET NG SCH (17:06)
[2017-11-28] MEDS: IPRATROPIUM/ALBUTEROL 0.5-2.5 MG/3 ML AMPUL NEB SCH ×3 (00:39→08:32)
[2017-11-28 03:36] LABS: HSV I DNA Negative (Negative)
[2017-11-28 03:54] LABS: HEMOGLOBIN 12.5 g/dL (13.5-17.0); MEAN CORPUSCULAR HGB CONC 30.4 g/dL (32.0-36.0); MEAN CORPUSCULAR VOLUME 76 fl (80-97); PLATELET COUNT 198 10^3/uL (150-450); RED BLOOD COUNT 5.42 10^6/uL (4.35-5.55); RED CELL DISTRIBUTION WIDTH 18.3 % (11.5-14.0); WHITE BLOOD COUNT 13.6 10^3/uL (4.0-10.5)
[2017-11-28 04:14] LABS: BLOOD UREA NITROGEN 37 mg/dL (7-20); CALCIUM 8.9 mg/dL (8.4-10.2); GLUCOSE 145 mg/dL (75-110); POTASSIUM 4.8 mmol/L (3.6-5.0)
[2017-11-28 04:19] LABS: CARBON DIOXIDE 39 mmol/L (22-30); CHLORIDE 97 mmol/L (98-107); SODIUM 137.9 mmol/L (137-145)
[2017-11-28 04:29] LABS: ANION GAP 2 (5-19)
[2017-11-28] MEDS: METHYLPREDNISOLONE INJ 40 MG/1 ML SDV IV SCH ×3 (05:31→17:50)
[2017-11-28] MEDS: LEVOTHYROXINE SODIUM 0.05 MG TABLET NG SCH (05:31)
[2017-11-28 06:19] LABS: HSV II DNA Negative (Negative)
[2017-11-28] MEDS: BUDESONIDE NEB 0.5 MG/2 ML AMPUL NEB SCH ×2 (08:33→20:35)
[2017-11-28] MEDS: NICOTINE 21 MG/24 HR PATCH.TD24 TD SCH (09:14)
[2017-11-28] MEDS: ENOXAPARIN SODIUM INJ 30 MG/0.3 ML DISP.SYRIN SUBCUT SCH (09:16)
[2017-11-28] MEDS: MULTIVITAMINS W-IRON TABLET, CHEWABLE PO SCH (09:17)
[2017-11-28] MEDS: CETIRIZINE 10 MG TABLET NG SCH (09:17)
[2017-11-28] MEDS: THIAMINE HCL 100 MG TABLET PO SCH (09:17)
[2017-11-28] MEDS: FLUTICASONE NASAL SPRAY 50 MCG/SPRY 120 SPRAY/16 GM NASL SCH (09:18)
[2017-11-28] MEDS: FOLIC ACID 1 MG TABLET PO SCH (09:18)
[2017-11-28] MEDS: GUAIFENESIN SYRP 200 MG/10 ML UDC NG SCH ×2 (09:18→13:00)
[2017-11-28 10:03] LABS: ARTERIAL BLOOD BASE EXCESS 9.2 mmol/L; ARTERIAL BLOOD H2CO3 1.78 mmol/L (1.05-1.35); ARTERIAL BLOOD HCO3 36.2 mmol/L (20-24); ARTERIAL BLOOD PCO2 59.2 mmHg (35-45); ARTERIAL BLOOD PO2 76.4 mmHg (80-100)
[2017-11-28 10:09] LABS: ARTERIAL BLOOD FIO2 65%
[2017-11-28] MEDS: IPRATROPIUM BROMIDE 0.02% NEB 0.5 MG/2.5 ML AMPUL NEB SCH ×2 (13:56→20:35)
[2017-11-28] MEDS: LEVALBUTEROL HCL NEB 1.25 MG/3 ML AMPUL NEB SCH ×2 (13:56→20:35)
--- NOTE | 2017-11-28 17:01 | PDOC PROGRESS REPORT ---
Subjective Progress Note for:: 11/28/17 Subjective:: MARTY SANTOS is a 57 year old male with a PMH of COPD on home O2, vocal cord cancer (S/P radiation), polycythemia, 88-48-jcaw-year smoking history. The [facility] for respiratory distress stemming from a COPD exacerbation, ultimately requiring intubation. The patient was seen on morning rounds; he is found resting in bed on BiPAP. He is sleeping when I enter the room but does wake easily. He tells me that he is feeling fatigued and short of breath today. He denies any other complaints, including chest pain and cough; he quickly falls back to sleep. Per nursing, the patient was unable to tolerate coming off BiPAP for breakfast this morning. She is discussed with respiratory; did have to increase FiO2 this morning. Nursing and respiratory have recommended adjustments to his nebulizer schedule. Otherwise they remain very guarded that he may be seen fatigue and impending failure requiring intubation. Reason For Visit: COPD EXACERBATION,ACUTE RESPIRATORY FAILURE Physical Exam Vital Signs: Temp Pulse Resp BP Pulse Ox 97.8 F 85 24 H 122/85 93 11/28/17 14:00 11/28/17 14:00 11/28/17 16:26 11/28/17 16:04 11/28/17 16:26 Intake & Output 11/27/17 11/28/17 11/29/17 06:59 06:59 06:59 Intake Total 399 720 360 Output Total 8 1600 675 Balance -1629 -880 -315 Weight 84.7 kg 83.2 kg General appearance: PRESENT: mild distress, well-developed, well-nourished - Overweight Head exam: PRESENT: atraumatic, normocephalic Eye exam: PRESENT: conjunctiva pink, EOMI, PERRLA. ABSENT: scleral icterus Ear exam: PRESENT: normal external ear exam Mouth exam: PRESENT: moist, tongue midline Teeth exam: PRESENT: poor dentation Neck exam: ABSENT: carotid bruit, JVD, lymphadenopathy, thyromegaly Respiratory exam: PRESENT: decreased breath sounds - Bibasilar, prolonged expiratory phas, rhonchi, symmetrical, tachypnea, other - BiPAP dependent. ABSENT: rales, wheezes Cardiovascular exam: PRESENT: RRR, +S1, +S2. ABSENT: diastolic murmur, rubs, systolic murmur Pulses: PRESENT: normal dorsalis pedis pul Vascular exam: PRESENT: normal capillary refill GI/Abdominal exam: PRESENT: normal bowel sounds, soft. ABSENT: distended, guarding, mass, organolmegaly, rebound, tenderness Rectal exam: PRESENT: deferred Extremities exam: PRESENT: full ROM. ABSENT: calf tenderness, clubbing, pedal edema Neurological exam: PRESENT: alert, awake, oriented to person, oriented to place , oriented to time, oriented to situation, CN II-XII grossly intact. ABSENT: motor sensory deficit Psychiatric exam: PRESENT: appropriate affect, normal mood. ABSENT: homicidal ideation, suicidal ideation Skin exam: PRESENT: dry, intact, warm. ABSENT: cyanosis, rash Results Laboratory Results: 11/28/17 03:47 11/28/17 03:47 11/28/17 11/28/17 11/28/17 03:47 03:47 09:43 WBC 13.6 H RBC 5.42 Hgb 12.5 L Hct 41.0 MCV 76 L MCH 23.0 L MCHC 30.4 L RDW 18.3 H Plt Count 198 Carbonic Acid 1.78 H HCO3/H2CO3 Ratio 20:1 ABG pH 7.40 ABG pCO2 59.2 H ABG pO2 76.4 L ABG HCO3 36.2 H ABG O2 Saturation 95.0 ABG Base Excess 9.2 FiO2 65% Sodium 137.9 Potassium 4.8 Chloride 97 L Carbon Dioxide 39 H Anion Gap 2 L BUN 37 H Creatinine 0.51 L Est GFR ( Amer) > 60 Est GFR (Non-Af Amer) > 60 Glucose 145 H Calcium 8.9 11/26/17 08:30 Sputum Gram Stain - Final 11/26/17 08:30 Sputum Sputum Culture - Final NORMAL [facility] 11/19/17 11/25/17 04:25 04:50 NT-Pro-B Natriuret Pep 1940 H 335 Impressions: KUB X-Ray 11/18/17 17:45 IMPRESSION: NG tube as described. Chest/Abdomen CTA 11/22/17 00:00 IMPRESSION: Endotracheal tube, nasogastric tube in good positioning. Dependent consolidation in the right and left lower lobes. Trace loculated right pleural effusion in the posterior costophrenic sulci Cardiomegaly Assessment & Plan - Diagnosis (1) Respiratory failure with hypoxia and hypercapnia Qualifiers: Chronicity: acute on chronic Qualified Code(s): J96.21 - Acute and chronic respiratory failure with hypoxia; J96.22 - Acute and chronic respiratory failure with hypercapnia; J96.22 - Acute and chronic respiratory failure with hypercapnia; J96.22 - Acute and chronic respiratory failure with hypercapnia Is this a current diagnosis for this admission?: Yes Plan: Guarded. Now extubated, but remains BiPAP dependent on continuous use. Secondary to COPD exacerbation and ultimately resulting in intubation and mechanical ventilation. Initial ABG showed compensated respiratory acidosis with a PH 7.36, CO2 of 80.3 , Bicarb 44.2. PH 7.36. ABGs have been trended daily; this morning is worsened from yesterday. pH of 7.40, PCO2 59.2, PO2 76.4 and bicarb of 36.2. CXR (11/22/17) demonstrated bibasilar airspace disease; likely atelectasis Repeat chest x-ray today shows minimal improvement in the right base. CTA chest (11/22/17) demonstrated dependent consolidation of right and left lower lobes, and a loculated right pleural effusion First and second sputum cultures demonstrating normal respiratory sinai, third sputum culture pending. Echocardiogram reveals LVEF greater than 65%, LV systolic function normal, mild diastolic LV dysfunction, mild pulmonary hypertension. The patient has been admitted to the ICU. Continue supplemental oxygen and BiPAP as needed to maintain oxygen saturations. Pulmonary consulted; appreciate Dr. Brunson's expert assistance. Continue scheduled and PRN Duonebs and PRN Xopenex Continue scheduled Solumedrol IV Protonix for PUD prophylaxis. Lovenox for DVT prophylaxis. (2) COPD with acute exacerbation Is this a current diagnosis for this admission?: Yes Plan: The patient has a history of home O2 dependent COPD; typically utilizes 2.5 LPM. Continues to smoke daily. Blood cultures have no growth at 5 days. First and second sputum cultures with normal sinai. There is sputum culture is pending. Replete blood cultures with gram-positive cocci in 1 set; no longer on antibiotics. Will obtain additional blood cultures to confirm bacteremia. He was empirically placed on Levaquin for bronchitis in the setting of severe COPD exacerbation; has completed full course of therapy. Scheduled DuoNeb and Pulmicort, as needed Xopenex. Scheduled IV Solu-Medrol. Mucinex twice daily Resume home dose Zyrtec and Flonase. Pulmonology consultation. Remaining plan as above. (3) Protein calorie malnutrition Qualifiers: Protein-calorie malnutrition severity: moderate Qualified Code(s): E44.0 - Moderate protein-calorie malnutrition Is this a current diagnosis for this admission?: Yes Plan: Secondary to intubation. Albumin is gradually trending up. Window [facility]er was consulted for recommendations. Patient has now been extubated; has been placed on a mechanical soft diet. (4) Vocal cord dysfunction Is this a current diagnosis for this admission?: Yes Plan: History of vocal cord cancer; s/p radiation therapy >3 years ago. (5) Tobacco dependence Is this a current diagnosis for this admission?: Yes Plan: Continued daily tobacco use. Nicotine replacement therapies have been provided. (6) Hyperlipidemia Is this a current diagnosis for this admission?: Yes Plan: Continue home dose statin therapy. (7) Hypothyroidism Is this a current diagnosis for this admission?: Yes Plan: TSH is acceptable; continue home dose of levothyroxine. (8) Anemia Qualifiers: Anemia type: unspecified type Qualified Code(s): D64.9 - Anemia, unspecified Is this a current diagnosis for this admission?: Yes Plan: Microcytic, hypochromic anemia; hemoglobin is stable and continues trending upwards. Anemia panel is negative; anemia likely secondary to IV fluid resuscitation. Continue folate and thiamine supplement; although there is no confirmed EtOH abuse. Continue MVI with iron. (9) Leukocytosis Qualifiers: Leukocytosis type: unspecified Qualified Code(s): D72.829 - Elevated white blood cell count, unspecified Is this a current diagnosis for this admission?: Yes Plan: Patient's WBCs are trending up; likely secondary to IV steroid use. The patient did get a one-time dose of Decadron in addition to his scheduled Solu- Medrol yesterday prior to extubation. He remains afebrile and without indications of worsening infectious process. Blood cultures have no growth at 5 days. First and second sputum cultures with normal sinai. There is sputum culture is pending. Replete blood cultures with gram-positive cocci in 1 set; likely contaminant. He has completed a 7-day course of Levaquin; no evidence of consolidation on chest x-ray, low suspicion for recurrent/continued pneumonia. Will hold on additional antibiotics at this time. Will obtain additional blood cultures to confirm bacteremia and initiate antibiotics if indicated. - Time Time Spent with patient: 25-34 minutes Medications reviewed and adjusted accordingly: Yes
[2017-11-28] MEDS: SIMVASTATIN 40 MG TABLET NG SCH (17:50)
[2017-11-28] MEDS: GUAIFENESIN 600 MG TABLET.SA PO SCH (21:09)
[2017-11-29] MEDS: METHYLPREDNISOLONE INJ 40 MG/1 ML SDV IV SCH ×4 (00:02→17:41)
[2017-11-29] MEDS: IPRATROPIUM BROMIDE 0.02% NEB 0.5 MG/2.5 ML AMPUL NEB SCH ×4 (03:05→21:07)
[2017-11-29] MEDS: LEVALBUTEROL HCL NEB 1.25 MG/3 ML AMPUL NEB SCH ×4 (03:05→21:08)
[2017-11-29 03:57] LABS: HEMOGLOBIN 12.4 g/dL (13.5-17.0); MEAN CORPUSCULAR HEMOGLOBIN 23.4 pg (27.0-33.4); MEAN CORPUSCULAR HGB CONC 31.1 g/dL (32.0-36.0); MEAN CORPUSCULAR VOLUME 75 fl (80-97); PLATELET COUNT 190 10^3/uL (150-450); RED BLOOD COUNT 5.31 10^6/uL (4.35-5.55); RED CELL DISTRIBUTION WIDTH 18.5 % (11.5-14.0); WHITE BLOOD COUNT 16.3 10^3/uL (4.0-10.5)
[2017-11-29 04:19] LABS: ALANINE AMINOTRANSFERASE 97 U/L (21-72); ALBUMIN 2.9 g/dL (3.5-5.0); ALKALINE PHOSPHATASE 61 U/L (38-126); ASPARTATE AMINO TRANSFERASE 48 U/L (17-59); BILIRUBIN,DIRECT 0.5 mg/dL (0.0-0.4); BILIRUBIN,TOTAL 0.8 mg/dL (0.2-1.3); BLOOD UREA NITROGEN 31 mg/dL (7-20); CALCIUM 8.9 mg/dL (8.4-10.2); CARBON DIOXIDE 37 mmol/L (22-30); CHLORIDE 96 mmol/L (98-107); GLUCOSE 142 mg/dL (75-110); PHOSPHORUS 3.8 mg/dL (2.5-4.5); POTASSIUM 4.9 mmol/L (3.6-5.0); TOTAL PROTEIN 5.9 g/dL (6.3-8.2)
[2017-11-29 04:24] LABS: SODIUM 136.1 mmol/L (137-145)
[2017-11-29 04:32] LABS: ARTERIAL BLOOD BASE EXCESS 10.4 mmol/L; ARTERIAL BLOOD H2CO3 1.98 mmol/L (1.05-1.35); ARTERIAL BLOOD HCO3 38.1 mmol/L (20-24); ARTERIAL BLOOD O2 SATURATION 98.9 % (94-98); ARTERIAL BLOOD PCO2 65.9 mmHg (35-45); ARTERIAL BLOOD PH 7.38 (7.35-7.45); ARTERIAL BLOOD PO2 158.3 mmHg (80-100); ARTERIAL BLOOD TOTAL CO2 40.1 mmol/L (23-27)
[2017-11-29 04:35] LABS: ARTERIAL BLOOD FIO2 65%
[2017-11-29 04:52] LABS: ANION GAP 3 (5-19)
[2017-11-29] MEDS: LEVOTHYROXINE SODIUM 0.05 MG TABLET NG SCH (06:50)
--- NOTE | 2017-11-29 06:58 | RADIOLOGY REPORT (SQ) ---
EXAM DESCRIPTION: XR CHEST 1 VIEW COMPLETED DATE/TME: 11/29/2017 07:00 CLINICAL HISTORY: 57 years Male, dyspnea, hypoxia COMPARISON: 2 days prior. NUMBER OF VIEWS/TECHNIQUE: 1/AP FINDINGS: Small left lateral basilar opacity-effusion, normal cardiac silhouette, deformity of the left clavicular shaft. No pneumothorax. Stable bony thorax. IMPRESSION: No significant change.
[2017-11-29] MEDS: BUDESONIDE NEB 0.5 MG/2 ML AMPUL NEB SCH ×2 (08:21→21:07)
[2017-11-29] MEDS ORDERED: NORMAL SALINE 1000 ML 1,000 ML IV PRN (08:51)
[2017-11-29 10:20] LABS: BILIRUBIN,URINE NEGATIVE (NEGATIVE); COLOR,URINE YELLOW; GLUCOSE, URINE NEGATIVE (NEGATIVE); KETONES,URINE NEGATIVE (NEGATIVE); LEUKOCYTE ESTERASE,URINE NEGATIVE (NEGATIVE); NITRITE,URINE NEGATIVE (NEGATIVE); PROTEIN,URINE NEGATIVE (NEGATIVE); URINE SPECIFIC GRAVITY 1.025; UROBILINOGEN,URINE NEGATIVE mg/dL (<2.0)
[2017-11-29 10:26] LABS: APPEARANCE,URINE CLEAR
--- NOTE | 2017-11-29 10:36 | PDOC PROGRESS REPORT ---
Subjective Progress Note for:: 11/27/17 Subjective:: Unchanged continues to require high FiO2's Reason For Visit: COPD EXACERBATION,ACUTE RESPIRATORY FAILURE Physical Exam Vital Signs: Temp Pulse Resp BP Pulse Ox 97.7 F 92 19 115/59 L 90 L 11/29/17 08:00 11/29/17 08:21 11/29/17 09:04 11/29/17 09:04 11/29/17 09:04 Intake & Output 11/28/17 11/29/17 11/30/17 06:59 06:59 06:59 Intake Total 720 520 600 Output Total 1600 1775 175 Balance -880 1257 425 Weight 83.2 kg 81.1 kg General appearance: PRESENT: no acute distress, cooperative, disheveled Head exam: PRESENT: atraumatic, normocephalic Eye exam: PRESENT: conjunctiva pale, EOMI. ABSENT: nystagmus, scleral icterus Mouth exam: PRESENT: dry mucosa, neck supple, tongue midline Neck exam: ABSENT: carotid bruit, JVD, lymphadenopathy, thyromegaly, tracheal deviation Respiratory exam: PRESENT: decreased breath sounds, prolonged expiratory phas, rales, rhonchi, unlabored. ABSENT: retraction, stridor Cardiovascular exam: PRESENT: RRR, +S1, +S2 Pulses: PRESENT: normal radial pulses GI/Abdominal exam: PRESENT: soft. ABSENT: tenderness Extremities exam: PRESENT: pedal edema. ABSENT: calf tenderness, clubbing, joint swelling Musculoskeletal exam: ABSENT: deformity, dislocation Neurological exam: PRESENT: alert, awake Psychiatric exam: PRESENT: normal mood Skin exam: PRESENT: dry, warm Results Laboratory Results: 11/29/17 03:44 11/29/17 03:44 11/29/17 11/29/17 11/29/17 03:44 03:44 03:44 WBC 16.3 H RBC 5.31 Hgb 12.4 L Hct 40.0 MCV 75 L MCH 23.4 L MCHC 31.1 L RDW 18.5 H Plt Count 190 Carbonic Acid Cancelled HCO3/H2CO3 Ratio Cancelled ABG pH Cancelled ABG pCO2 Cancelled ABG pO2 Cancelled ABG HCO3 Cancelled ABG O2 Saturation Cancelled ABG Base Excess Cancelled FiO2 Cancelled Sodium 136.1 L Potassium 4.9 Chloride 96 L Carbon Dioxide 37 H Anion Gap 3 L BUN 31 H Creatinine 0.51 L Est GFR ( Amer) > 60 Est GFR (Non-Af Amer) > 60 Glucose 142 H Calcium 8.9 Phosphorus 3.8 Magnesium 2.1 Total Bilirubin 0.8 AST 48 ALT 97 H Alkaline Phosphatase 61 Total Protein 5.9 L Albumin 2.9 L Urine Color Urine Appearance Urine pH Ur Specific [place] Urine Protein Urine Glucose (UA) Urine Ketones Urine Blood Urine Nitrite Ur Leukocyte Esterase Urine WBC (Auto) Urine RBC (Auto) 11/29/17 11/29/17 04:10 09:20 WBC RBC Hgb Hct MCV MCH MCHC RDW Plt Count Carbonic Acid 1.98 H HCO3/H2CO3 Ratio 19:1 ABG pH 7.38 ABG pCO2 65.9 H ABG pO2 158.3 H ABG HCO3 38.1 H ABG O2 Saturation 98.9 H ABG Base Excess 10.4 FiO2 65% Sodium Potassium Chloride Carbon Dioxide Anion Gap BUN Creatinine Est GFR ( Amer) Est GFR (Non-Af Amer) Glucose Calcium Phosphorus Magnesium Total Bilirubin AST ALT Alkaline Phosphatase Total Protein Albumin Urine Color YELLOW Urine Appearance CLEAR Urine pH 5.0 Ur Specific [place] 1.025 Urine Protein NEGATIVE Urine Glucose (UA) NEGATIVE Urine Ketones NEGATIVE Urine Blood NEGATIVE Urine Nitrite NEGATIVE Ur Leukocyte Esterase NEGATIVE Urine WBC (Auto) 1 Urine RBC (Auto) 1 11/27/17 08:40 Sputum Gram Stain - Final 11/27/17 08:40 Sputum Sputum Culture - Final NORMAL [facility] 11/26/17 08:30 Sputum Gram Stain - Final 11/26/17 08:30 Sputum Sputum Culture - Final NORMAL [facility] 11/19/17 11/25/17 11/29/17 04:25 04:50 03:44 NT-Pro-B Natriuret Pep 1940 H 335 200 Impressions: KUB X-Ray 11/18/17 17:45 IMPRESSION: NG tube as described. Chest/Abdomen CTA 11/22/17 00:00 IMPRESSION: Endotracheal tube, nasogastric tube in good positioning. Dependent consolidation in the right and left lower lobes. Trace loculated right pleural effusion in the posterior costophrenic sulci Cardiomegaly Chest X-Ray 11/29/17 07:00 IMPRESSION: No significant change. Assessment & Plan - Diagnosis (1) COPD with acute exacerbation Is this a current diagnosis for this admission?: Yes Plan: Status post extubation stable on BiPAP (2) Protein calorie malnutrition Qualifiers: Protein-calorie malnutrition severity: moderate Qualified Code(s): E44.0 - Moderate protein-calorie malnutrition Is this a current diagnosis for this admission?: Yes Plan: Nutrition per NGT (3) Respiratory failure with hypoxia and hypercapnia Qualifiers: Chronicity: acute on chronic Qualified Code(s): J96.21 - Acute and chronic respiratory failure with hypoxia; J96.22 - Acute and chronic respiratory failure with hypercapnia; J96.22 - Acute and chronic respiratory failure with hypercapnia; J96.22 - Acute and chronic respiratory failure with hypercapnia Is this a current diagnosis for this admission?: Yes Plan: Tolerating BiPAP well - Time Total Critical Time (Minutes): 45
--- NOTE | 2017-11-29 10:38 | PDOC PROGRESS REPORT ---
Subjective Progress Note for:: 11/29/17 Subjective:: Improving Reason For Visit: COPD EXACERBATION,ACUTE RESPIRATORY FAILURE Physical Exam Vital Signs: Temp Pulse Resp BP Pulse Ox 97.7 F 92 20 122/71 96 11/29/17 04:00 11/29/17 08:21 11/29/17 08:21 11/29/17 06:03 11/29/17 08:21 Intake & Output 11/28/17 11/29/17 11/30/17 06:59 06:59 06:59 Intake Total 720 520 Output Total 1600 1775 Balance -880 -1255 Weight 83.2 kg 81.1 kg General appearance: PRESENT: no acute distress, cooperative, disheveled Head exam: PRESENT: atraumatic, normocephalic Eye exam: PRESENT: conjunctiva pale, EOMI. ABSENT: nystagmus, scleral icterus Mouth exam: PRESENT: dry mucosa, neck supple, tongue midline Neck exam: ABSENT: carotid bruit, JVD, lymphadenopathy, thyromegaly, tracheal deviation, tracheostomy Respiratory exam: PRESENT: decreased breath sounds, prolonged expiratory phas, rhonchi, unlabored. ABSENT: rales, retraction, stridor, tachypnea Cardiovascular exam: PRESENT: RRR, +S1, +S2 Pulses: PRESENT: normal radial pulses GI/Abdominal exam: PRESENT: soft. ABSENT: tenderness Gentrourinary exam: PRESENT: indwelling catheter Extremities exam: PRESENT: pedal edema. ABSENT: calf tenderness, clubbing, joint swelling Musculoskeletal exam: ABSENT: ambulatory, deformity, dislocation Neurological exam: PRESENT: alert, awake Psychiatric exam: PRESENT: normal mood Skin exam: PRESENT: dry, warm Results Laboratory Results: 11/29/17 03:44 11/29/17 03:44 11/28/17 11/29/17 11/29/17 09:43 03:44 03:44 WBC 16.3 H RBC 5.31 Hgb 12.4 L Hct 40.0 MCV 75 L MCH 23.4 L MCHC 31.1 L RDW 18.5 H Plt Count 190 Carbonic Acid 1.78 H HCO3/H2CO3 Ratio 20:1 ABG pH 7.40 ABG pCO2 59.2 H ABG pO2 76.4 L ABG HCO3 36.2 H ABG O2 Saturation 95.0 ABG Base Excess 9.2 FiO2 65% Sodium 136.1 L Potassium 4.9 Chloride 96 L Carbon Dioxide 37 H Anion Gap 3 L BUN 31 H Creatinine 0.51 L Est GFR ( Amer) > 60 Est GFR (Non-Af Amer) > 60 Glucose 142 H Calcium 8.9 Phosphorus 3.8 Magnesium 2.1 Total Bilirubin 0.8 AST 48 ALT 97 H Alkaline Phosphatase 61 Total Protein 5.9 L Albumin 2.9 L 11/29/17 11/29/17 03:44 04:10 WBC RBC Hgb Hct MCV MCH MCHC RDW Plt Count Carbonic Acid Cancelled 1.98 H HCO3/H2CO3 Ratio Cancelled 19:1 ABG pH Cancelled 7.38 ABG pCO2 Cancelled 65.9 H ABG pO2 Cancelled 158.3 H ABG HCO3 Cancelled 38.1 H ABG O2 Saturation Cancelled 98.9 H ABG Base Excess Cancelled 10.4 FiO2 Cancelled 65% Sodium Potassium Chloride Carbon Dioxide Anion Gap BUN Creatinine Est GFR ( Amer) Est GFR (Non-Af Amer) Glucose Calcium Phosphorus Magnesium Total Bilirubin AST ALT Alkaline Phosphatase Total Protein Albumin 11/26/17 08:30 Sputum Gram Stain - Final 11/26/17 08:30 Sputum Sputum Culture - Final NORMAL PAM 11/19/17 11/25/17 11/29/17 04:25 04:50 03:44 NT-Pro-B Natriuret Pep 1940 H 335 200 Impressions: KUB X-Ray 11/18/17 17:45 IMPRESSION: NG tube as described. Chest/Abdomen CTA 11/22/17 00:00 IMPRESSION: Endotracheal tube, nasogastric tube in good positioning. Dependent consolidation in the right and left lower lobes. Trace loculated right pleural effusion in the posterior costophrenic sulci Cardiomegaly Chest X-Ray 11/29/17 07:00 IMPRESSION: No significant change. Assessment & Plan - Diagnosis (1) COPD with acute exacerbation Is this a current diagnosis for this admission?: Yes Plan: Continues to be stable on BiPAP (2) Protein calorie malnutrition Qualifiers: Protein-calorie malnutrition severity: moderate Qualified Code(s): E44.0 - Moderate protein-calorie malnutrition Is this a current diagnosis for this admission?: Yes (3) Respiratory failure with hypoxia and hypercapnia Qualifiers: Chronicity: acute on chronic Qualified Code(s): J96.21 - Acute and chronic respiratory failure with hypoxia; J96.22 - Acute and chronic respiratory failure with hypercapnia; J96.22 - Acute and chronic respiratory failure with hypercapnia; J96.22 - Acute and chronic respiratory failure with hypercapnia Is this a current diagnosis for this admission?: Yes Plan: Tolerating BiPAP well - Time Total Critical Time (Minutes): 40
[2017-11-29] MEDS: ENOXAPARIN SODIUM INJ 30 MG/0.3 ML DISP.SYRIN SUBCUT SCH (10:40)
[2017-11-29] MEDS: GUAIFENESIN 600 MG TABLET.SA PO SCH ×2 (10:40→21:16)
[2017-11-29] MEDS: NICOTINE 21 MG/24 HR PATCH.TD24 TD SCH (10:41)
[2017-11-29] MEDS: FOLIC ACID 1 MG TABLET PO SCH (10:41)
[2017-11-29] MEDS: CETIRIZINE 10 MG TABLET NG SCH (10:41)
[2017-11-29] MEDS: THIAMINE HCL 100 MG TABLET PO SCH (10:41)
[2017-11-29] MEDS: MULTIVITAMINS W-IRON TABLET, CHEWABLE PO SCH (10:42)
[2017-11-29] MEDS: FLUTICASONE NASAL SPRAY 50 MCG/SPRY 120 SPRAY/16 GM NASL SCH (10:43)
--- NOTE | 2017-11-29 13:58 | PDOC PROGRESS REPORT ---
Subjective Progress Note for:: 11/29/17 Subjective:: MARTY SANTOS is a 57 year old male with a PMH of COPD on home O2, vocal cord cancer (S/P radiation), polycythemia, 24-27-dwbv-year smoking history. The patient presents to [facility] ED for respiratory distress stemming from a COPD exacerbation, ultimately requiring intubation. The patient was seen on morning rounds; he is found sitting up in bed comfortably on nasal cannula at 6 L/min. He is eating his breakfast and is conversational. He does not appear to be in discomfort; no tachypnea, speaks full sentences, no cough. Per nursing, he does desat quickly with minimal activity and generally desats into the low 80s after 15-20 minutes on the nasal cannula. They have been successful in weaning FiO2 on BiPAP to 45-55% ( improved from 65%). The patient denies fever, chills, chest pain, palpitations, abdominal pain, nausea and vomiting. He does endorse dyspnea, orthopnea, and a slight nonproductive cough. He has no questions at this time. No specific concerns per nursing. Reason For Visit: COPD EXACERBATION,ACUTE RESPIRATORY FAILURE Physical Exam Vital Signs: Temp Pulse Resp BP Pulse Ox 97.7 F 92 19 115/59 L 90 L 11/29/17 04:00 11/29/17 08:21 11/29/17 09:04 11/29/17 09:04 11/29/17 09:04 Intake & Output 11/28/17 11/29/17 11/30/17 06:59 06:59 06:59 Intake Total 720 520 600 Output Total 1600 1775 Balance -880 -1255 600 Weight 83.2 kg 81.1 kg General appearance: PRESENT: no acute distress, well-developed, well-nourished - Overweight Head exam: PRESENT: atraumatic, normocephalic Eye exam: PRESENT: conjunctiva pink, EOMI, PERRLA. ABSENT: scleral icterus Ear exam: PRESENT: normal external ear exam Mouth exam: PRESENT: moist, tongue midline Neck exam: ABSENT: carotid bruit, JVD, lymphadenopathy, thyromegaly Respiratory exam: PRESENT: prolonged expiratory phas, rhonchi - Throughout, symmetrical, wheezes - Occasional expiratory wheeze. ABSENT: rales Cardiovascular exam: PRESENT: RRR, +S1, +S2. ABSENT: diastolic murmur, rubs, systolic murmur Pulses: PRESENT: normal dorsalis pedis pul Vascular exam: PRESENT: normal capillary refill GI/Abdominal exam: PRESENT: normal bowel sounds, soft. ABSENT: distended, guarding, mass, organolmegaly, rebound, tenderness Rectal exam: PRESENT: deferred Extremities exam: PRESENT: full ROM. ABSENT: calf tenderness, clubbing, pedal edema Neurological exam: PRESENT: alert, awake, oriented to person, oriented to place , oriented to time, oriented to situation, CN II-XII grossly intact. ABSENT: motor sensory deficit Psychiatric exam: PRESENT: appropriate affect, normal mood. ABSENT: homicidal ideation, suicidal ideation Skin exam: PRESENT: dry, intact, warm. ABSENT: cyanosis, rash Results Laboratory Results: 11/29/17 03:44 11/29/17 03:44 11/28/17 11/29/17 11/29/17 09:43 03:44 03:44 WBC 16.3 H RBC 5.31 Hgb 12.4 L Hct 40.0 MCV 75 L MCH 23.4 L MCHC 31.1 L RDW 18.5 H Plt Count 190 Carbonic Acid 1.78 H HCO3/H2CO3 Ratio 20:1 ABG pH 7.40 ABG pCO2 59.2 H ABG pO2 76.4 L ABG HCO3 36.2 H ABG O2 Saturation 95.0 ABG Base Excess 9.2 FiO2 65% Sodium 136.1 L Potassium 4.9 Chloride 96 L Carbon Dioxide 37 H Anion Gap 3 L BUN 31 H Creatinine 0.51 L Est GFR ( Amer) > 60 Est GFR (Non-Af Amer) > 60 Glucose 142 H Calcium 8.9 Phosphorus 3.8 Magnesium 2.1 Total Bilirubin 0.8 AST 48 ALT 97 H Alkaline Phosphatase 61 Total Protein 5.9 L Albumin 2.9 L 11/29/17 11/29/17 03:44 04:10 WBC RBC Hgb Hct MCV MCH MCHC RDW Plt Count Carbonic Acid Cancelled 1.98 H HCO3/H2CO3 Ratio Cancelled 19:1 ABG pH Cancelled 7.38 ABG pCO2 Cancelled 65.9 H ABG pO2 Cancelled 158.3 H ABG HCO3 Cancelled 38.1 H ABG O2 Saturation Cancelled 98.9 H ABG Base Excess Cancelled 10.4 FiO2 Cancelled 65% Sodium Potassium Chloride Carbon Dioxide Anion Gap BUN Creatinine Est GFR ( Amer) Est GFR (Non-Af Amer) Glucose Calcium Phosphorus Magnesium Total Bilirubin AST ALT Alkaline Phosphatase Total Protein Albumin 11/26/17 08:30 Sputum Gram Stain - Final 11/26/17 08:30 Sputum Sputum Culture - Final NORMAL [facility] 11/19/17 11/25/17 11/29/17 04:25 04:50 03:44 NT-Pro-B Natriuret Pep 1940 H 335 200 Impressions: KUB X-Ray 11/18/17 17:45 IMPRESSION: NG tube as described. Chest/Abdomen CTA 11/22/17 00:00 IMPRESSION: Endotracheal tube, nasogastric tube in good positioning. Dependent consolidation in the right and left lower lobes. Trace loculated right pleural effusion in the posterior costophrenic sulci Cardiomegaly Chest X-Ray 11/29/17 07:00 IMPRESSION: No significant change. Assessment & Plan - Diagnosis (1) Respiratory failure with hypoxia and hypercapnia Qualifiers: Chronicity: acute on chronic Qualified Code(s): J96.21 - Acute and chronic respiratory failure with hypoxia; J96.22 - Acute and chronic respiratory failure with hypercapnia; J96.22 - Acute and chronic respiratory failure with hypercapnia; J96.22 - Acute and chronic respiratory failure with hypercapnia Is this a current diagnosis for this admission?: Yes Plan: Guarded; slight improvement today. Now extubated, but remains BiPAP dependent on continuous use. Secondary to COPD exacerbation and ultimately resulting in intubation and mechanical ventilation. Initial ABG showed compensated respiratory acidosis with a PH 7.36, CO2 of 80.3 , Bicarb 44.2. PH 7.36. ABGs have been trended daily; this morning shows worsening hypercapnia. CXR (11/22/17) demonstrated bibasilar airspace disease; likely atelectasis Repeat chest x-ray today is unchanged from previously. CTA chest (11/22/17) demonstrated dependent consolidation of right and left lower lobes, and a loculated right pleural effusion First and second sputum cultures demonstrating normal respiratory sinai, third sputum culture pending. Echocardiogram reveals LVEF greater than 65%, LV systolic function normal, mild diastolic LV dysfunction, mild pulmonary hypertension. The patient has been admitted to the ICU. Continue supplemental oxygen and BiPAP as needed to maintain oxygen saturations. Pulmonary consulted; appreciate Dr. Brunson's expert assistance. Continue scheduled and PRN Duonebs and PRN Xopenex Continue scheduled Solumedrol IV Protonix for PUD prophylaxis. Lovenox for DVT prophylaxis. (2) COPD with acute exacerbation Is this a current diagnosis for this admission?: Yes Plan: The patient has a history of home O2 dependent COPD; typically utilizes 2.5 LPM. Continues to smoke daily. Blood cultures have no growth at 5 days. First and second sputum cultures with normal sinai. There is sputum culture is pending. Repeat blood cultures with staph auricularis in one set; no longer on antibiotics. Will obtain additional blood cultures to confirm bacteremia. He was empirically placed on Levaquin for bronchitis in the setting of severe COPD exacerbation; has completed full course of therapy. Scheduled DuoNeb and Pulmicort, as needed Xopenex. Scheduled IV Solu-Medrol. Mucinex twice daily Resume home dose Zyrtec and Flonase. Pulmonology consultation. Remaining plan as above. (3) Protein calorie malnutrition Qualifiers: Protein-calorie malnutrition severity: moderate Qualified Code(s): E44.0 - Moderate protein-calorie malnutrition Is this a current diagnosis for this admission?: Yes Plan: Secondary to intubation. Albumin is gradually trending up. Lines Tender was consulted for recommendations. Patient has now been extubated; has been placed on a mechanical soft diet. (4) Vocal cord dysfunction Is this a current diagnosis for this admission?: Yes Plan: History of vocal cord cancer; s/p radiation therapy >3 years ago. (5) Tobacco dependence Is this a current diagnosis for this admission?: Yes Plan: Continued daily tobacco use. Nicotine replacement therapies have been provided. (6) Hyperlipidemia Is this a current diagnosis for this admission?: Yes Plan: Continue home dose statin therapy. (7) Hypothyroidism Is this a current diagnosis for this admission?: Yes Plan: TSH is acceptable; continue home dose of levothyroxine. (8) Anemia Qualifiers: Anemia type: unspecified type Qualified Code(s): D64.9 - Anemia, unspecified Is this a current diagnosis for this admission?: Yes Plan: Microcytic, hypochromic anemia; hemoglobin is stable and continues trending upwards. Anemia panel is negative; anemia likely secondary to IV fluid resuscitation. Continue folate and thiamine supplement; although there is no confirmed EtOH abuse. Continue MVI with iron. (9) Leukocytosis Qualifiers: Leukocytosis type: unspecified Qualified Code(s): D72.829 - Elevated white blood cell count, unspecified Is this a current diagnosis for this admission?: Yes Plan: Patient's WBCs are trending up; likely secondary to IV steroid use. The patient did get a one-time dose of Decadron in addition to his scheduled Solu- Medrol prior to extubation. He remains afebrile and without indications of worsening infectious process. First and second sputum cultures with normal sinai. There is sputum culture is pending. Second set of blood cultures with staph auricularis in one set; no longer on antibiotics. Will obtain additional blood cultures to confirm bacteremia. Urinalysis is negative for UTI. Repeat blood cultures to confirm bacteremia are pending. He has completed a 7-day course of Levaquin; no evidence of consolidation on chest x-ray, low suspicion for recurrent/continued pneumonia. Will hold on additional antibiotics at this time. (10) Bacteremia Is this a current diagnosis for this admission?: Yes Plan: Second set of blood cultures (11/25/17) with staph auricularis (2 of 4 bottles). The patient does have an increasing WBC; 16.3 today. He remains afebrile. Respiratory status is stable; continues to have rhonchi and a slightly productive cough, however improved per patient report. Chest x-ray is stable. Urinalysis is negative. Have repeated blood cultures; pending. If repeat blood cultures confirm bacteremia will start the patient on antibiotics. Otherwise, positive cultures are considered contaminant at this time. - Time Time Spent with patient: 25-34 minutes Medications reviewed and adjusted accordingly: Yes
[2017-11-29] MEDS: SIMVASTATIN 40 MG TABLET NG SCH (17:41)
[2017-11-30] MEDS: METHYLPREDNISOLONE INJ 40 MG/1 ML SDV IV SCH ×4 (00:59→17:17)
[2017-11-30] MEDS: LEVALBUTEROL HCL NEB 1.25 MG/3 ML AMPUL NEB SCH ×4 (02:05→20:55)
[2017-11-30] MEDS: IPRATROPIUM BROMIDE 0.02% NEB 0.5 MG/2.5 ML AMPUL NEB SCH ×4 (02:05→20:55)
[2017-11-30 04:21] LABS: HEMATOCRIT 40.1 % (37.9-51.0); HEMOGLOBIN 12.2 g/dL (13.5-17.0); MEAN CORPUSCULAR HEMOGLOBIN 23.3 pg (27.0-33.4); MEAN CORPUSCULAR HGB CONC 30.6 g/dL (32.0-36.0); MEAN CORPUSCULAR VOLUME 76 fl (80-97); PLATELET COUNT 190 10^3/uL (150-450); RED BLOOD COUNT 5.27 10^6/uL (4.35-5.55); RED CELL DISTRIBUTION WIDTH 18.3 % (11.5-14.0); WHITE BLOOD COUNT 15.9 10^3/uL (4.0-10.5)
[2017-11-30 04:26] LABS: BLOOD UREA NITROGEN 28 mg/dL (7-20); GLUCOSE 143 mg/dL (75-110); POTASSIUM 4.7 mmol/L (3.6-5.0)
[2017-11-30 04:31] LABS: CARBON DIOXIDE 39 mmol/L (22-30); CHLORIDE 94 mmol/L (98-107); SODIUM 135.7 mmol/L (137-145)
[2017-11-30 04:33] LABS: ANION GAP 3 (5-19)
[2017-11-30] MEDS: LEVOTHYROXINE SODIUM 0.05 MG TABLET NG SCH (06:44)
[2017-11-30 07:13] LABS: ARTERIAL BLOOD H2CO3 1.91 mmol/L (1.05-1.35); ARTERIAL BLOOD HCO3 36.4 mmol/L (20-24); ARTERIAL BLOOD O2 SATURATION 94.2 % (94-98); ARTERIAL BLOOD PCO2 63.3 mmHg (35-45); ARTERIAL BLOOD PH 7.38 (7.35-7.45); ARTERIAL BLOOD PO2 74.1 mmHg (80-100); ARTERIAL BLOOD TOTAL CO2 38.4 mmol/L (23-27)
[2017-11-30 07:16] LABS: ARTERIAL BLOOD FIO2 40%
--- NOTE | 2017-11-30 07:36 | RADIOLOGY REPORT (SQ) ---
EXAM DESCRIPTION: X-ray single view chest. CLINICAL HISTORY: 57 years Male, resp failure COMPARISON: Prior chest x-ray performed on 11/29/2017 and 11/27/2017 TECHNIQUE: Single portable view of the chest performed on 11/30/2017 at 6:22 AM. FINDINGS: The lungs are well-expanded. There is persistent blunting of the left lateral costophrenic sulcus which may be due to atelectasis or inflammatory changes. A small effusion is not excluded. There is no evidence of a pneumothorax. The cardiac silhouette is normal in size and configuration. The mediastinal contours are normal. No acute osseous abnormality is identified. There is chronic deformity of the mid left clavicle. No focal soft tissue abnormalities are seen. Lines and tubes: None. IMPRESSION: Persistent blunting of the left lateral costophrenic sulcus which may be due to a combination of pleural fluid, atelectasis or inflammatory changes.
[2017-11-30] MEDS: BUDESONIDE NEB 0.5 MG/2 ML AMPUL NEB SCH ×2 (08:20→20:55)
[2017-11-30] MEDS: MULTIVITAMINS W-IRON TABLET, CHEWABLE PO SCH (10:49)
[2017-11-30] MEDS: FLUTICASONE NASAL SPRAY 50 MCG/SPRY 120 SPRAY/16 GM NASL SCH (10:50)
[2017-11-30] MEDS: CETIRIZINE 10 MG TABLET NG SCH (10:50)
[2017-11-30] MEDS: ENOXAPARIN SODIUM INJ 30 MG/0.3 ML DISP.SYRIN SUBCUT SCH (10:50)
[2017-11-30] MEDS: NICOTINE 21 MG/24 HR PATCH.TD24 TD SCH (10:51)
[2017-11-30] MEDS: THIAMINE HCL 100 MG TABLET PO SCH (10:51)
[2017-11-30] MEDS: FOLIC ACID 1 MG TABLET PO SCH (10:51)
[2017-11-30] MEDS: GUAIFENESIN 600 MG TABLET.SA PO SCH (10:51)
--- NOTE | 2017-11-30 15:03 | PDOC PROGRESS REPORT ---
Subjective Progress Note for:: 11/30/17 Subjective:: Improving Reason For Visit: COPD EXACERBATION,ACUTE RESPIRATORY FAILURE Physical Exam Vital Signs: Temp Pulse Resp BP Pulse Ox 96.7 F L 96 20 132/67 H 86 L 11/30/17 08:00 11/30/17 08:00 11/30/17 08:05 11/30/17 08:05 11/30/17 08:05 Intake & Output 11/29/17 11/30/17 12/01/17 06:59 06:59 06:59 Intake Total 520 1080 360 Output Total 1775 1500 Balance -1255 -420 360 Weight 81.1 kg 81.1 kg General appearance: PRESENT: no acute distress, cooperative, disheveled Head exam: PRESENT: atraumatic, normocephalic Eye exam: PRESENT: conjunctiva pale, EOMI. ABSENT: nystagmus, scleral icterus Mouth exam: PRESENT: moist, neck supple, tongue midline Neck exam: ABSENT: carotid bruit, JVD, lymphadenopathy, thyromegaly, tracheal deviation, tracheostomy Respiratory exam: PRESENT: decreased breath sounds, prolonged expiratory phas, rales, rhonchi, unlabored. ABSENT: retraction, stridor Cardiovascular exam: PRESENT: RRR, +S1, +S2 Pulses: PRESENT: normal radial pulses GI/Abdominal exam: PRESENT: soft. ABSENT: tenderness Extremities exam: ABSENT: calf tenderness, clubbing, joint swelling Musculoskeletal exam: ABSENT: deformity, dislocation Neurological exam: PRESENT: alert, awake Psychiatric exam: PRESENT: normal mood Skin exam: PRESENT: dry, warm Results Laboratory Results: 11/30/17 03:58 11/30/17 03:58 11/29/17 11/30/17 11/30/17 09:20 03:58 03:58 WBC 15.9 H RBC 5.27 Hgb 12.2 L Hct 40.1 MCV 76 L MCH 23.3 L MCHC 30.6 L RDW 18.3 H Plt Count 190 Carbonic Acid HCO3/H2CO3 Ratio ABG pH ABG pCO2 ABG pO2 ABG HCO3 ABG O2 Saturation ABG Base Excess FiO2 Sodium 135.7 L Potassium 4.7 Chloride 94 L Carbon Dioxide 39 H Anion Gap 3 L BUN 28 H Creatinine 0.48 L Est GFR ( Amer) > 60 Est GFR (Non-Af Amer) > 60 Glucose 143 H Calcium 9.0 Magnesium 2.0 Urine Color YELLOW Urine Appearance CLEAR Urine pH 5.0 Ur Specific [place] 1.025 Urine Protein NEGATIVE Urine Glucose (UA) NEGATIVE Urine Ketones NEGATIVE Urine Blood NEGATIVE Urine Nitrite NEGATIVE Ur Leukocyte Esterase NEGATIVE Urine WBC (Auto) 1 Urine RBC (Auto) 1 11/30/17 06:58 WBC RBC Hgb Hct MCV MCH MCHC RDW Plt Count Carbonic Acid 1.91 H HCO3/H2CO3 Ratio 19:1 ABG pH 7.38 ABG pCO2 63.3 H ABG pO2 74.1 L ABG HCO3 36.4 H ABG O2 Saturation 94.2 ABG Base Excess 9.0 FiO2 40% Sodium Potassium Chloride Carbon Dioxide Anion Gap BUN Creatinine Est GFR ( Amer) Est GFR (Non-Af Amer) Glucose Calcium Magnesium Urine Color Urine Appearance Urine pH Ur Specific [place] Urine Protein Urine Glucose (UA) Urine Ketones Urine Blood Urine Nitrite Ur Leukocyte Esterase Urine WBC (Auto) Urine RBC (Auto) 11/25/17 14:04 Blood Blood Culture - Final Staphylococcus Auricularis 11/27/17 08:40 Sputum Gram Stain - Final 11/27/17 08:40 Sputum Sputum Culture - Final NORMAL [facility] 11/19/17 11/25/17 11/29/17 04:25 04:50 03:44 NT-Pro-B Natriuret Pep 1940 H 335 200 Impressions: KUB X-Ray 11/18/17 17:45 IMPRESSION: NG tube as described. Chest/Abdomen CTA 11/22/17 00:00 IMPRESSION: Endotracheal tube, nasogastric tube in good positioning. Dependent consolidation in the right and left lower lobes. Trace loculated right pleural effusion in the posterior costophrenic sulci Cardiomegaly Chest X-Ray 11/30/17 06:00 IMPRESSION: Persistent blunting of the left lateral costophrenic sulcus which may be due to a combination of pleural fluid, atelectasis or inflammatory changes. Assessment & Plan - Diagnosis (1) COPD with acute exacerbation Is this a current diagnosis for this admission?: Yes Plan: Continues to be stable on BiPAP (2) Protein calorie malnutrition Qualifiers: Protein-calorie malnutrition severity: moderate Qualified Code(s): E44.0 - Moderate protein-calorie malnutrition Is this a current diagnosis for this admission?: Yes (3) Respiratory failure with hypoxia and hypercapnia Qualifiers: Chronicity: acute on chronic Qualified Code(s): J96.21 - Acute and chronic respiratory failure with hypoxia; J96.22 - Acute and chronic respiratory failure with hypercapnia; J96.22 - Acute and chronic respiratory failure with hypercapnia; J96.22 - Acute and chronic respiratory failure with hypercapnia Is this a current diagnosis for this admission?: Yes Plan: Tolerating BiPAP well - Time Total Critical Time (Minutes): 40
--- NOTE | 2017-11-30 15:39 | PDOC PROGRESS REPORT ---
Subjective Progress Note for:: 11/30/17 Subjective:: MARTY SANTOS is a 57 year old male with a PMH of COPD on home O2, vocal cord cancer (S/P radiation), polycythemia, 10-49-wsjc-year smoking history. The patient presents to [facility] ED for respiratory distress stemming from a COPD exacerbation, ultimately requiring intubation. Reason For Visit: COPD EXACERBATION,ACUTE RESPIRATORY FAILURE Physical Exam Vital Signs: Temp Pulse Resp BP Pulse Ox 97.4 F 91 19 122/78 96 11/30/17 14:00 11/30/17 14:07 11/30/17 14:07 11/30/17 14:00 11/30/17 14:07 Intake & Output 11/29/17 11/30/17 12/01/17 06:59 06:59 06:59 Intake Total 520 1080 720 Output Total 1775 1500 300 Balance -1255 -420 420 Weight 81.1 kg 81.1 kg General appearance: PRESENT: no acute distress, well-developed, well-nourished Head exam: PRESENT: atraumatic Eye exam: PRESENT: conjunctiva pink, PERRLA Mouth exam: PRESENT: moist Neck exam: PRESENT: full ROM Respiratory exam: PRESENT: clear to auscultation maximus, symmetrical, unlabored, other - requiring BIPAP. ABSENT: accessory muscle use, prolonged expiratory phas Cardiovascular exam: PRESENT: +S1, +S2, tachycardia Pulses: PRESENT: normal radial pulses, normal dorsalis pedis pul GI/Abdominal exam: PRESENT: normal bowel sounds, soft. ABSENT: distended, tenderness Rectal exam: PRESENT: deferred Extremities exam: PRESENT: full ROM. ABSENT: joint swelling, pedal edema Musculoskeletal exam: PRESENT: full ROM Neurological exam: PRESENT: alert, awake, oriented to person, oriented to place , oriented to time, oriented to situation Psychiatric exam: PRESENT: appropriate affect Skin exam: PRESENT: dry, intact, normal color Results Laboratory Results: 11/30/17 03:58 11/30/17 03:58 11/30/17 11/30/17 11/30/17 03:58 03:58 06:58 WBC 15.9 H RBC 5.27 Hgb 12.2 L Hct 40.1 MCV 76 L MCH 23.3 L MCHC 30.6 L RDW 18.3 H Plt Count 190 Carbonic Acid 1.91 H HCO3/H2CO3 Ratio 19:1 ABG pH 7.38 ABG pCO2 63.3 H ABG pO2 74.1 L ABG HCO3 36.4 H ABG O2 Saturation 94.2 ABG Base Excess 9.0 FiO2 40% Sodium 135.7 L Potassium 4.7 Chloride 94 L Carbon Dioxide 39 H Anion Gap 3 L BUN 28 H Creatinine 0.48 L Est GFR ( Amer) > 60 Est GFR (Non-Af Amer) > 60 Glucose 143 H Calcium 9.0 Magnesium 2.0 11/25/17 15:00 Blood Blood Culture - Final NO GROWTH IN 5 DAYS 11/25/17 14:04 Blood Blood Culture - Final Staphylococcus Auricularis 11/19/17 11/25/17 11/29/17 04:25 04:50 03:44 NT-Pro-B Natriuret Pep 1940 H 335 200 Impressions: KUB X-Ray 11/18/17 17:45 IMPRESSION: NG tube as described. Chest/Abdomen CTA 11/22/17 00:00 IMPRESSION: Endotracheal tube, nasogastric tube in good positioning. Dependent consolidation in the right and left lower lobes. Trace loculated right pleural effusion in the posterior costophrenic sulci Cardiomegaly Chest X-Ray 11/30/17 06:00 IMPRESSION: Persistent blunting of the left lateral costophrenic sulcus which may be due to a combination of pleural fluid, atelectasis or inflammatory changes. Status: Imported from PACS Assessment & Plan - Diagnosis (1) Respiratory failure with hypoxia and hypercapnia Qualifiers: Chronicity: acute on chronic Qualified Code(s): J96.21 - Acute and chronic respiratory failure with hypoxia; J96.22 - Acute and chronic respiratory failure with hypercapnia; J96.22 - Acute and chronic respiratory failure with hypercapnia; J96.22 - Acute and chronic respiratory failure with hypercapnia Is this a current diagnosis for this admission?: Yes Plan: Now extubated, but remains BiPAP dependent on continuous use. Secondary to COPD exacerbation and ultimately resulting in intubation and mechanical ventilation. Initial ABG showed compensated respiratory acidosis with a PH 7.36, CO2 of 80.3 , Bicarb 44.2. PH 7.36. ABGs have been trended daily; this morning shows slight improvement with hypercapnia. CXR (11/22/17) demonstrated bibasilar airspace disease; likely atelectasis Repeat chest x-ray today is unchanged from previously. CTA chest (11/22/17) demonstrated dependent consolidation of right and left lower lobes, and a loculated right pleural effusion Three separate sputum cultures demonstrating normal respiratory sinai Echocardiogram reveals LVEF greater than 65%, LV systolic function normal, mild diastolic LV dysfunction, mild pulmonary hypertension. The patient has been admitted to the ICU. Continue supplemental oxygen and BiPAP as needed to maintain oxygen saturations. Pulmonary consulted; appreciate Dr. Brunson's expert assistance. Continue scheduled and PRN Duonebs and PRN Xopenex Continue scheduled Solumedrol IV Protonix for PUD prophylaxis. Lovenox for DVT prophylaxis. (2) COPD with acute exacerbation Is this a current diagnosis for this admission?: Yes Plan: The patient has a history of home O2 dependent COPD; typically utilizes 2.5 LPM. Continues to smoke daily. Blood cultures have no growth Three separate sputum cultures with normal sinai. 11/25 blood cultures with staph auricularis in one set; no longer on antibiotics. Repeat blood cultures from 11/28 show no growth He was empirically placed on Levaquin for bronchitis in the setting of severe COPD exacerbation; has completed full course of therapy Scheduled DuoNeb and Pulmicort, as needed Xopenex. Scheduled IV Solu-Medrol. Mucinex twice daily Resume home dose Zyrtec and Flonase. Pulmonology consultation. Remaining plan as above. (3) Vocal cord dysfunction Is this a current diagnosis for this admission?: Yes Plan: History of vocal cord cancer; s/p radiation therapy >3 years ago. (4) Protein calorie malnutrition Qualifiers: Protein-calorie malnutrition severity: moderate Qualified Code(s): E44.0 - Moderate protein-calorie malnutrition Is this a current diagnosis for this admission?: Yes Plan: Secondary to intubation. Albumin is gradually trending up. Authorization Nurse was consulted for recommendations. Patient has now been extubated; has been placed on a mechanical soft diet. (5) Anemia Qualifiers: Anemia type: unspecified type Qualified Code(s): D64.9 - Anemia, unspecified Is this a current diagnosis for this admission?: Yes Plan: Microcytic, hypochromic anemia; hemoglobin is stable and continues trending upwards. Anemia panel is negative; anemia likely secondary to IV fluid resuscitation. Continue folate and thiamine supplement; although there is no confirmed EtOH abuse. Continue MVI with iron. (6) Bacteremia Is this a current diagnosis for this admission?: Yes Plan: Second set of blood cultures (11/25/17) with staph auricularis (2 of 4 bottles). The patient does have an increasing WBC; 15.9 today. He remains afebrile. Respiratory status is stable; Chest x-ray is stable. Urinalysis is negative. 11/28 repeat blood cultures negative. 11/25 positive cultures are considered contaminant at this time. (7) Leukocytosis Qualifiers: Leukocytosis type: unspecified Qualified Code(s): D72.829 - Elevated white blood cell count, unspecified Is this a current diagnosis for this admission?: Yes Plan: Improving. Patient's WBCs slightly improving but remain > 15; likely secondary to IV steroid use. He remains afebrile and without indications of worsening infectious process. All three sputum cultures with normal sinai. Second set of blood cultures with staph auricularis in one set; no longer on antibiotics. Repeat blood cultures negative. Urinalysis is negative for UTI. He has completed a 7-day course of Levaquin; no evidence of consolidation on chest x-ray, low suspicion for recurrent/continued pneumonia. Will hold on additional antibiotics at this time. (8) Hyperlipidemia Is this a current diagnosis for this admission?: Yes Plan: Continue home dose statin therapy. (9) Hypothyroidism Is this a current diagnosis for this admission?: Yes Plan: TSH is acceptable; continue home dose of levothyroxine. (10) Tobacco dependence Is this a current diagnosis for this admission?: Yes Plan: Continued daily tobacco use. Nicotine replacement therapies have been provided. - Time Time Spent with patient: 25-34 minutes Medications reviewed and adjusted accordingly: Yes Anticipated discharge: Home - Inpatient Certification Based on my medical assessment, after consideration of the patient's comorbidities, presenting symptoms, or acuity I expect that the services needed warrant INPATIENT care.: Yes I certify that my determination is in accordance with my understanding of Medicare's requirements for reasonable and necessary INPATIENT services [42 CFR 412.3e].: Yes Medical Necessity: Need Close Monitoring Due to Risk of Patient Decompensation, Need for Nebulizer Therapy and Monitoring of Response, Risk of Complication if Not Cared For in Hospital
[2017-11-30] MEDS: BENZOCAINE 20% AEROSOL SPRAY 60 GM TP PRN ×2 (17:14→19:42)
[2017-11-30] MEDS: SIMVASTATIN 40 MG TABLET NG SCH (17:17)
[2017-12-01] MEDS: METHYLPREDNISOLONE INJ 40 MG/1 ML SDV IV SCH ×4 (00:41→17:19)
[2017-12-01] MEDS: GUAIFENESIN 600 MG TABLET.SA PO SCH ×3 (00:42→21:51)
[2017-12-01] MEDS: LEVALBUTEROL HCL NEB 1.25 MG/3 ML AMPUL NEB SCH ×4 (02:13→20:09)
[2017-12-01] MEDS: IPRATROPIUM BROMIDE 0.02% NEB 0.5 MG/2.5 ML AMPUL NEB SCH ×4 (02:14→20:09)
[2017-12-01 04:15] LABS: HEMOGLOBIN 12.1 g/dL (13.5-17.0); MEAN CORPUSCULAR HEMOGLOBIN 23.2 pg (27.0-33.4); MEAN CORPUSCULAR HGB CONC 30.3 g/dL (32.0-36.0); MEAN CORPUSCULAR VOLUME 77 fl (80-97); PLATELET COUNT 214 10^3/uL (150-450); RED BLOOD COUNT 5.21 10^6/uL (4.35-5.55); RED CELL DISTRIBUTION WIDTH 18.4 % (11.5-14.0); WHITE BLOOD COUNT 24.8 10^3/uL (4.0-10.5)
[2017-12-01 04:37] LABS: BLOOD UREA NITROGEN 23 mg/dL (7-20); CALCIUM 9.2 mg/dL (8.4-10.2); GLUCOSE 146 mg/dL (75-110); PHOSPHORUS 3.4 mg/dL (2.5-4.5); POTASSIUM 4.7 mmol/L (3.6-5.0)
[2017-12-01 04:42] LABS: CARBON DIOXIDE 38 mmol/L (22-30); CHLORIDE 95 mmol/L (98-107); SODIUM 135.3 mmol/L (137-145)
[2017-12-01 04:45] LABS: ANION GAP 2 (5-19)
[2017-12-01] MEDS: LEVOTHYROXINE SODIUM 0.05 MG TABLET NG SCH (06:16)
[2017-12-01] MEDS: BENZOCAINE 20% AEROSOL SPRAY 60 GM TP PRN ×3 (06:16→20:10)
[2017-12-01] MEDS: BUDESONIDE NEB 0.5 MG/2 ML AMPUL NEB SCH ×2 (09:18→20:09)
[2017-12-01] MEDS ORDERED: ROFLUMILAST 500 MCG TABLET PO ONE (09:30)
[2017-12-01] MEDS: FOLIC ACID 1 MG TABLET PO SCH (11:58)
[2017-12-01] MEDS: CETIRIZINE 10 MG TABLET NG SCH (11:58)
[2017-12-01] MEDS: ENOXAPARIN SODIUM INJ 30 MG/0.3 ML DISP.SYRIN SUBCUT SCH (11:58)
[2017-12-01] MEDS: THIAMINE HCL 100 MG TABLET PO SCH (11:58)
[2017-12-01] MEDS: NICOTINE 21 MG/24 HR PATCH.TD24 TD SCH (11:59)
[2017-12-01] MEDS: MULTIVITAMINS W-IRON TABLET, CHEWABLE PO SCH (11:59)
[2017-12-01] MEDS: FLUTICASONE NASAL SPRAY 50 MCG/SPRY 120 SPRAY/16 GM NASL SCH (11:59)
--- NOTE | 2017-12-01 14:00 | PDOC PROGRESS REPORT ---
Subjective Progress Note for:: 12/01/17 Subjective:: Improving Reason For Visit: COPD EXACERBATION,ACUTE RESPIRATORY FAILURE Physical Exam Vital Signs: Temp Pulse Resp BP Pulse Ox 98.2 F 73 18 110/67 95 12/01/17 04:00 12/01/17 02:14 12/01/17 05:05 12/01/17 05:05 12/01/17 05:05 Intake & Output 11/30/17 12/01/17 12/02/17 06:59 06:59 06:59 Intake Total 1080 1200 Output Total 1500 1225 Balance -420 -25 Weight 81.1 kg 80.5 kg General appearance: PRESENT: no acute distress, cooperative, disheveled, well- developed, well-nourished Head exam: PRESENT: atraumatic, normocephalic Eye exam: PRESENT: conjunctiva pale, EOMI. ABSENT: nystagmus, scleral icterus Mouth exam: PRESENT: dry mucosa, neck supple, tongue midline Neck exam: ABSENT: carotid bruit, JVD, lymphadenopathy, thyromegaly, tracheal deviation, tracheostomy Respiratory exam: PRESENT: decreased breath sounds, prolonged expiratory phas, rales, rhonchi, unlabored. ABSENT: retraction, stridor Cardiovascular exam: PRESENT: RRR, +S1, +S2 Pulses: PRESENT: normal radial pulses GI/Abdominal exam: PRESENT: soft. ABSENT: tenderness Extremities exam: PRESENT: pedal edema. ABSENT: calf tenderness, clubbing, joint swelling Musculoskeletal exam: ABSENT: deformity, dislocation Neurological exam: PRESENT: alert, awake Psychiatric exam: PRESENT: flat affect Skin exam: PRESENT: dry, warm Results Laboratory Results: 12/01/17 03:58 12/01/17 03:58 12/01/17 12/01/17 03:58 03:58 WBC 24.8 H RBC 5.21 Hgb 12.1 L Hct 40.0 MCV 77 L MCH 23.2 L MCHC 30.3 L RDW 18.4 H Plt Count 214 Sodium 135.3 L Potassium 4.7 Chloride 95 L Carbon Dioxide 38 H Anion Gap 2 L BUN 23 H Creatinine 0.45 L Est GFR ( Amer) > 60 Est GFR (Non-Af Amer) > 60 Glucose 146 H Calcium 9.2 Phosphorus 3.4 Magnesium 2.0 11/25/17 15:00 Blood Blood Culture - Final NO GROWTH IN 5 DAYS 11/19/17 11/25/17 11/29/17 04:25 04:50 03:44 NT-Pro-B Natriuret Pep 1940 H 335 200 Impressions: KUB X-Ray 11/18/17 17:45 IMPRESSION: NG tube as described. Chest/Abdomen CTA 11/22/17 00:00 IMPRESSION: Endotracheal tube, nasogastric tube in good positioning. Dependent consolidation in the right and left lower lobes. Trace loculated right pleural effusion in the posterior costophrenic sulci Cardiomegaly Chest X-Ray 11/30/17 06:00 IMPRESSION: Persistent blunting of the left lateral costophrenic sulcus which may be due to a combination of pleural fluid, atelectasis or inflammatory changes. Assessment & Plan - Diagnosis (1) COPD with acute exacerbation Is this a current diagnosis for this admission?: Yes Plan: Continues to be stable on BiPAP (2) Protein calorie malnutrition Qualifiers: Protein-calorie malnutrition severity: moderate Qualified Code(s): E44.0 - Moderate protein-calorie malnutrition Is this a current diagnosis for this admission?: Yes Plan: Nutrition per NGT (3) Respiratory failure with hypoxia and hypercapnia Qualifiers: Chronicity: acute on chronic Qualified Code(s): J96.21 - Acute and chronic respiratory failure with hypoxia; J96.22 - Acute and chronic respiratory failure with hypercapnia; J96.22 - Acute and chronic respiratory failure with hypercapnia; J96.22 - Acute and chronic respiratory failure with hypercapnia Is this a current diagnosis for this admission?: Yes Plan: Tolerating BiPAP well - Time Total Critical Time (Minutes): 40
[2017-12-01] MEDS: SIMVASTATIN 40 MG TABLET NG SCH (17:16)
--- NOTE | 2017-12-01 21:11 | PDOC PROGRESS REPORT ---
Subjective Progress Note for:: 12/01/17 Subjective:: MARTY SANTOS is a 57 year old male with a PMH of COPD on home O2, vocal cord cancer (S/P radiation), polycythemia, 13-65-yyut-year smoking history. The patient presents to [facility] ED for respiratory distress stemming from a COPD exacerbation, ultimately requiring intubation. The patient was seen this morning on rounds. He is resting comfortably in bed on BIPAP (AVAPS 10/5 Fi02 40%). Nursing staff reports the patient is able to tolerate 10-15minute breaks from BIPAP while eating his meals. He is not able to tolerate much longer than that before his SPO2 beings to drop to the 80s %. The patient states he is comfortable on BIPAP, denies SOB. His only complaint is a sore throat, made worse when eating. Lungs are clear to auscultation. No peripheral or central cyanosis. The patient is able to speak in phrases ( limited by BIPAP) without dropping SPO2. Discussed plan of care with Director Of Donor Relations, Dr. Brunson. The patient will likely require a prolonged wean from BIPAP before returning home. The best placement for this patient would be an LTAC. Discharge planning was made aware. Appreciate their assistance in finding appropriate placement. Reason For Visit: COPD EXACERBATION,ACUTE RESPIRATORY FAILURE Physical Exam Vital Signs: Temp Pulse Resp BP Pulse Ox 98.2 F 96 24 H 103/63 93 12/01/17 20:00 12/01/17 14:02 12/01/17 18:07 12/01/17 18:07 12/01/17 18:07 Intake & Output 11/30/17 12/01/17 12/02/17 06:59 06:59 06:59 Intake Total 1080 1200 960 Output Total 1500 1225 750 Balance -420 -25 210 Weight 81.1 kg 80.5 kg General appearance: PRESENT: no acute distress, well-developed, well-nourished Head exam: PRESENT: atraumatic Eye exam: PRESENT: conjunctiva pink, PERRLA Mouth exam: PRESENT: moist, tongue midline Neck exam: PRESENT: full ROM Respiratory exam: PRESENT: clear to auscultation maximus, symmetrical, unlabored, other - AVAPS: FIO2 40% 10/5 TIDAL VOLUMES 500-700 Cardiovascular exam: PRESENT: RRR, +S1, +S2 Pulses: PRESENT: normal radial pulses, normal dorsalis pedis pul Vascular exam: PRESENT: normal capillary refill GI/Abdominal exam: PRESENT: normal bowel sounds, soft. ABSENT: distended, tenderness Rectal exam: PRESENT: deferred Extremities exam: PRESENT: full ROM. ABSENT: pedal edema Musculoskeletal exam: PRESENT: full ROM, normal inspection Neurological exam: PRESENT: alert, awake, oriented to person, oriented to place , oriented to time, oriented to situation Psychiatric exam: PRESENT: appropriate affect Skin exam: PRESENT: dry, intact, normal color, warm Results Laboratory Results: 12/01/17 03:58 12/01/17 03:58 12/01/17 12/01/17 03:58 03:58 WBC 24.8 H RBC 5.21 Hgb 12.1 L Hct 40.0 MCV 77 L MCH 23.2 L MCHC 30.3 L RDW 18.4 H Plt Count 214 Sodium 135.3 L Potassium 4.7 Chloride 95 L Carbon Dioxide 38 H Anion Gap 2 L BUN 23 H Creatinine 0.45 L Est GFR ( Amer) > 60 Est GFR (Non-Af Amer) > 60 Glucose 146 H Calcium 9.2 Phosphorus 3.4 Magnesium 2.0 11/19/17 11/25/17 11/29/17 04:25 04:50 03:44 NT-Pro-B Natriuret Pep 1940 H 335 200 Impressions: KUB X-Ray 11/18/17 17:45 IMPRESSION: NG tube as described. Chest/Abdomen CTA 11/22/17 00:00 IMPRESSION: Endotracheal tube, nasogastric tube in good positioning. Dependent consolidation in the right and left lower lobes. Trace loculated right pleural effusion in the posterior costophrenic sulci Cardiomegaly Chest X-Ray 11/30/17 06:00 IMPRESSION: Persistent blunting of the left lateral costophrenic sulcus which may be due to a combination of pleural fluid, atelectasis or inflammatory changes. Status: Imported from PACS Assessment & Plan - Diagnosis (1) Respiratory failure with hypoxia and hypercapnia Qualifiers: Chronicity: acute on chronic Qualified Code(s): J96.21 - Acute and chronic respiratory failure with hypoxia; J96.22 - Acute and chronic respiratory failure with hypercapnia; J96.22 - Acute and chronic respiratory failure with hypercapnia; J96.22 - Acute and chronic respiratory failure with hypercapnia Is this a current diagnosis for this admission?: Yes Plan: Now extubated, but remains BiPAP dependent on continuous use. Secondary to COPD exacerbation and ultimately resulting in intubation and mechanical ventilation. Initial ABG showed compensated respiratory acidosis with a PH 7.36, CO2 of 80.3 , Bicarb 44.2. No longer trending daily ABGs; most recent shows slight improvement with hypercapnia, resolved acidosis CXR (11/22/17) demonstrated bibasilar airspace disease; likely atelectasis Repeat chest x-ray today is unchanged from previously. CTA chest (11/22/17) demonstrated dependent consolidation of right and left lower lobes, and a loculated right pleural effusion Three separate sputum cultures demonstrating normal respiratory sinai Echocardiogram reveals LVEF greater than 65%, LV systolic function normal, mild diastolic LV dysfunction, mild pulmonary hypertension. The patient has been admitted to the ICU. Continue supplemental oxygen and BiPAP as needed to maintain oxygen saturations. Pulmonary consulted; appreciate Dr. Brunson's expert assistance. Continue scheduled and PRN Duonebs and PRN Xopenex Continue scheduled Solumedrol IV Initiate Darliresp Protonix for PUD prophylaxis. Lovenox for DVT prophylaxis. Plan for transfer to LTAC due to continued need for BIPAP and very slow weaning (2) COPD with acute exacerbation Is this a current diagnosis for this admission?: Yes Plan: The patient has a history of home O2 dependent COPD; typically utilizes 2.5 LPM. Continues to smoke 1-2 packs cigarettes daily. Blood cultures have no growth Three separate sputum cultures with normal sinai. 11/25 blood cultures with staph auricularis in one set; likely a contaminant. No longer on empiric antibiotics. Repeat blood cultures from 11/28 show no growth He was empirically placed on Levaquin for bronchitis in the setting of severe COPD exacerbation; has completed full course of therapy Scheduled DuoNeb and Pulmicort, as needed Xopenex. Scheduled IV Solu-Medrol. Mucinex twice daily Resume home dose Zyrtec and Flonase. Pulmonology consultation. Remaining plan as above. (3) Vocal cord dysfunction Is this a current diagnosis for this admission?: Yes Plan: History of vocal cord cancer; s/p radiation therapy >3 years ago. (4) Protein calorie malnutrition Qualifiers: Protein-calorie malnutrition severity: moderate Qualified Code(s): E44.0 - Moderate protein-calorie malnutrition Is this a current diagnosis for this admission?: Yes Plan: Secondary to intubation. Albumin is gradually trending up. Acid Dipper was consulted for recommendations. Patient has now been extubated; has been placed on a mechanical soft diet - tolerating well. (5) Anemia Qualifiers: Anemia type: unspecified type Qualified Code(s): D64.9 - Anemia, unspecified Is this a current diagnosis for this admission?: Yes Plan: Microcytic, hypochromic anemia; hemoglobin is stable and continues trending upwards. Anemia panel is negative; anemia likely secondary to IV fluid resuscitation. Continue folate and thiamine supplement; although there is no confirmed EtOH abuse. Continue MVI with iron. (6) Bacteremia Is this a current diagnosis for this admission?: Yes Plan: Second set of blood cultures (11/25/17) with staph auricularis (2 of 4 bottles). The patient does have an increasing WBC; 15.9 today. He remains afebrile. Respiratory status is stable; Chest x-ray is stable. Urinalysis is negative. 11/28 repeat blood cultures negative. 11/25 positive cultures are considered contaminant at this time. (7) Leukocytosis Qualifiers: Leukocytosis type: unspecified Qualified Code(s): D72.829 - Elevated white blood cell count, unspecified Is this a current diagnosis for this admission?: Yes Plan: Improving. Patient's WBCs slightly improving but remain > 15; likely secondary to IV steroid use. He remains afebrile and without indications of worsening infectious process. All three sputum cultures with normal sinai. Second set of blood cultures with staph auricularis in one set; no longer on antibiotics. Repeat blood cultures negative. Urinalysis is negative for UTI. He has completed a 7-day course of Levaquin; no evidence of consolidation on chest x-ray, low suspicion for recurrent/continued pneumonia. Will hold on additional antibiotics at this time. (8) Hyperlipidemia Is this a current diagnosis for this admission?: Yes Plan: Continue home dose statin therapy. (9) Hypothyroidism Is this a current diagnosis for this admission?: Yes Plan: TSH is acceptable; continue home dose of levothyroxine. (10) Tobacco dependence Is this a current diagnosis for this admission?: Yes Plan: Continued daily tobacco use. Nicotine replacement therapies have been provided. - Time Time Spent with patient: 15-24 minutes Medications reviewed and adjusted accordingly: Yes Anticipated discharge: Other - discharge to LTAC - Inpatient Certification Based on my medical assessment, after consideration of the patient's comorbidities, presenting symptoms, or acuity I expect that the services needed warrant INPATIENT care.: Yes I certify that my determination is in accordance with my understanding of Medicare's requirements for reasonable and necessary INPATIENT services [42 CFR 412.3e].: Yes Medical Necessity: Need for Nebulizer Therapy and Monitoring of Response, Risk of Complication if Not Cared For in Hospital
[2017-12-02] MEDS: METHYLPREDNISOLONE INJ 40 MG/1 ML SDV IV SCH ×4 (00:59→17:38)
[2017-12-02] MEDS: IPRATROPIUM BROMIDE 0.02% NEB 0.5 MG/2.5 ML AMPUL NEB SCH ×2 (03:03→08:13)
[2017-12-02] MEDS: LEVALBUTEROL HCL NEB 1.25 MG/3 ML AMPUL NEB SCH ×2 (03:03→08:13)
[2017-12-02 04:15] LABS: HEMATOCRIT 38.7 % (37.9-51.0); HEMOGLOBIN 11.8 g/dL (13.5-17.0); MEAN CORPUSCULAR HEMOGLOBIN 23.2 pg (27.0-33.4); MEAN CORPUSCULAR HGB CONC 30.4 g/dL (32.0-36.0); MEAN CORPUSCULAR VOLUME 77 fl (80-97); PLATELET COUNT 203 10^3/uL (150-450); RED BLOOD COUNT 5.06 10^6/uL (4.35-5.55); RED CELL DISTRIBUTION WIDTH 18.8 % (11.5-14.0); WHITE BLOOD COUNT 27.6 10^3/uL (4.0-10.5)
[2017-12-02 04:35] LABS: ANION GAP 7 (5-19); BLOOD UREA NITROGEN 25 mg/dL (7-20); CALCIUM 9.3 mg/dL (8.4-10.2); CARBON DIOXIDE 36 mmol/L (22-30); CHLORIDE 95 mmol/L (98-107); GLUCOSE 142 mg/dL (75-110); PHOSPHORUS 3.3 mg/dL (2.5-4.5); POTASSIUM 5.1 mmol/L (3.6-5.0); SODIUM 137.8 mmol/L (137-145)
[2017-12-02] MEDS: LEVOTHYROXINE SODIUM 0.05 MG TABLET NG SCH (06:58)
[2017-12-02] MEDS: BUDESONIDE NEB 0.5 MG/2 ML AMPUL NEB SCH ×2 (08:13→20:43)
[2017-12-02] MEDS: BENZOCAINE 20% AEROSOL SPRAY 60 GM TP PRN ×2 (09:02→17:38)
[2017-12-02] MEDS: CETIRIZINE 10 MG TABLET NG SCH (09:04)
[2017-12-02] MEDS: FOLIC ACID 1 MG TABLET PO SCH (09:04)
[2017-12-02] MEDS: THIAMINE HCL 100 MG TABLET PO SCH (09:04)
[2017-12-02] MEDS: GUAIFENESIN 600 MG TABLET.SA PO SCH ×2 (09:04→21:25)
[2017-12-02] MEDS: MULTIVITAMINS W-IRON TABLET, CHEWABLE PO SCH (09:05)
[2017-12-02] MEDS: NICOTINE 21 MG/24 HR PATCH.TD24 TD SCH (09:05)
[2017-12-02] MEDS: ENOXAPARIN SODIUM INJ 30 MG/0.3 ML DISP.SYRIN SUBCUT SCH (09:05)
[2017-12-02] MEDS: FLUTICASONE NASAL SPRAY 50 MCG/SPRY 120 SPRAY/16 GM NASL SCH (09:05)
[2017-12-02] MEDS ORDERED: LEVALBUTEROL HCL NEB 1.25 MG/3 ML AMPUL NEB PRN (09:30)
--- NOTE | 2017-12-02 10:41 | RADIOLOGY REPORT (SQ) ---
EXAM DESCRIPTION: CHEST SINGLE VIEW COMPLETED DATE/TIME: 12/02/2017 9:06 am REASON FOR STUDY: RHONCI. LEUKOCYTOSIS. EVAL FOR PNA COMPARISON: 11/30/2017. EXAM PARAMETERS: NUMBER OF VIEWS: One view. TECHNIQUE: Single frontal radiographic view of the chest acquired. RADIATION DOSE: NA LIMITATIONS: None. FINDINGS: LUNGS AND PLEURA: Hyperinflation. Persistent infiltrate left costophrenic angle with pleu ral thickening. MEDIASTINUM AND HILAR STRUCTURES: No masses. Contour normal. HEART AND VASCULAR STRUCTURES: The heart is normal. The pulmonary vasculature is normal. BONES: No acute findings. HARDWARE: None in the chest. OTHER: No other significant finding. IMPRESSION: NO SIGNIFICANT INTERVAL CHANGE. TECHNICAL DOCUMENTATION: JOB ID: [id number] [employer]- All Rights Reserved Reading location - IP/workstation name: [email or web address]
--- NOTE | 2017-12-02 13:19 | PDOC PROGRESS REPORT ---
Subjective Progress Note for:: 12/02/17 Subjective:: Unchanged Reason For Visit: COPD EXACERBATION,ACUTE RESPIRATORY FAILURE Physical Exam Vital Signs: Temp Pulse Resp BP Pulse Ox 97.9 F 90 18 123/75 91 L 12/02/17 08:00 12/02/17 03:03 12/02/17 08:00 12/02/17 07:05 12/02/17 08:00 Intake & Output 12/01/17 12/02/17 12/03/17 06:59 06:59 06:59 Intake Total 1200 960 Output Total 1225 1050 250 Balance -25 -90 -250 Weight 80.5 kg 77.7 kg Results Laboratory Results: 12/02/17 04:04 12/02/17 04:04 12/02/17 12/02/17 04:04 04:04 WBC 27.6 H RBC 5.06 Hgb 11.8 L Hct 38.7 MCV 77 L MCH 23.2 L MCHC 30.4 L RDW 18.8 H Plt Count 203 Sodium 137.8 Potassium 5.1 H Chloride 95 L Carbon Dioxide 36 H Anion Gap 7 BUN 25 H Creatinine 0.48 L Est GFR ( Amer) > 60 Est GFR (Non-Af Amer) > 60 Glucose 142 H Calcium 9.3 Phosphorus 3.3 Magnesium 2.1 11/19/17 11/25/17 11/29/17 04:25 04:50 03:44 NT-Pro-B Natriuret Pep 1940 H 335 200 Impressions: KUB X-Ray 11/18/17 17:45 IMPRESSION: NG tube as described. Chest/Abdomen CTA 11/22/17 00:00 IMPRESSION: Endotracheal tube, nasogastric tube in good positioning. Dependent consolidation in the right and left lower lobes. Trace loculated right pleural effusion in the posterior costophrenic sulci Cardiomegaly Chest X-Ray 11/30/17 06:00 IMPRESSION: Persistent blunting of the left lateral costophrenic sulcus which may be due to a combination of pleural fluid, atelectasis or inflammatory changes. Assessment & Plan - Diagnosis (1) COPD with acute exacerbation Is this a current diagnosis for this admission?: Yes Plan: Minimal improvement (2) Protein calorie malnutrition Qualifiers: Protein-calorie malnutrition severity: moderate Qualified Code(s): E44.0 - Moderate protein-calorie malnutrition Is this a current diagnosis for this admission?: Yes Plan: Nutrition per NGT (3) Respiratory failure with hypoxia and hypercapnia Qualifiers: Chronicity: acute on chronic Qualified Code(s): J96.21 - Acute and chronic respiratory failure with hypoxia; J96.22 - Acute and chronic respiratory failure with hypercapnia; J96.22 - Acute and chronic respiratory failure with hypercapnia; J96.22 - Acute and chronic respiratory failure with hypercapnia Is this a current diagnosis for this admission?: Yes Plan: The above patient has failed BiPAP. This patient would benefit from noninvasive mechanical ventilation via the trilogy AVAPS/AE and faster responding AVAPS rates. The trilogy is able to provide a target tidal volume and also adjusting the EPAP pressures to maintain a patent airway as well as an oral backup rate this machine will help improve PaCO2 levels. The severity of the patient's condition will lead to future hospitalizations and readmissions as well as life-threatening situations without the use of this device trilogy home vent needed for hypercapnic respiratory failure. Family Medical or [facility] to follow for trilogy set up.
[2017-12-02] MEDS: IPRATROPIUM/ALBUTEROL 0.5-2.5 MG/3 ML AMPUL NEB SCH ×2 (13:40→20:42)
[2017-12-02] MEDS: SIMVASTATIN 40 MG TABLET NG SCH (17:38)
[2017-12-02] MEDS ORDERED: BISACODYL 5 MG TABEC PO PRN (20:40)
[2017-12-02] MEDS: CALCIUM CARBONATE 500 MG TAB.CHEW PO PRN (21:25)
--- NOTE | 2017-12-02 22:58 | PDOC PROGRESS REPORT ---
Subjective Progress Note for:: 12/02/17 Subjective:: MARTY SANTOS is a 57 year old male with a PMH of COPD on home O2, vocal cord cancer (S/P radiation), polycythemia, 97-42-gfcd-year smoking history. The patient presents to [facility] ED for respiratory distress stemming from a COPD exacerbation, ultimately requiring intubation. The patient was extubated 2017 to BIPAP. He has been on [id number]-pospi BIPAP since them, slowly weaning to nasal cannula. The patient was seen this morning on rounds. He is resting comfortably in bed on supplemental oxygen via nasal cannula. Nursing staff reports the patient is able to tolerate 15-30 minute breaks from BIPAP while eating his meals ( improvement from yesterday when he could only tolerate 10-15 minutes). His SPO2 beings to drop to the 80s % shortly thereafter. No peripheral or central cyanosis. The patient is able to speak in complete sentences. WBC remains elevated (15->25->27). +Wet sounding cough. Rhonci auscultated in RLL. Patient is afebrile, nontoxic appearing. In fact, his clinical picture is improving. Repeat CXR today does not show new infiltrates. The patient has already completed 7 days of empiric IV levaquin for severe COPD exacerbation during this hospitalization. No plan to restart antibiotics at this time. Discussed plan of care with Reclamation Furnace Operator, Dr. Brunson. The patient will likely require a prolonged wean from BIPAP before returning home. Unfortunately, the patient is not eligible for an LTAC, due to insurance reasons. Will need to complete BIPAP wean here at [facility] then likely send to SNF. Discharge planning is aware. Appreciate their assistance in finding appropriate placement. Reason For Visit: COPD EXACERBATION,ACUTE RESPIRATORY FAILURE Physical Exam Vital Signs: Temp Pulse Resp BP Pulse Ox 98.3 F 90 17 123/75 92 12/02/17 04:00 12/02/17 03:03 12/02/17 07:05 12/02/17 07:05 12/02/17 07:05 Intake & Output 12/01/17 12/02/17 12/03/17 06:59 06:59 06:59 Intake Total 1200 960 Output Total 1225 1050 Balance -25 -90 Weight 80.5 kg 77.7 kg General appearance: PRESENT: no acute distress, well-developed, well-nourished Head exam: PRESENT: atraumatic Eye exam: PRESENT: conjunctiva pink, PERRLA Mouth exam: PRESENT: moist, tongue midline Neck exam: PRESENT: full ROM. ABSENT: JVD Respiratory exam: PRESENT: clear to auscultation maximus - in all lung jenkins but RLL, rhonchi - RLL, symmetrical, unlabored Cardiovascular exam: PRESENT: +S1, +S2, tachycardia Pulses: PRESENT: normal radial pulses, normal dorsalis pedis pul Vascular exam: PRESENT: normal capillary refill GI/Abdominal exam: PRESENT: soft, other - tolerating PO diet. ABSENT: distended , tenderness Rectal exam: PRESENT: deferred Extremities exam: PRESENT: full ROM. ABSENT: pedal edema Musculoskeletal exam: PRESENT: ambulatory, full ROM, normal inspection Neurological exam: PRESENT: alert, awake, oriented to person, oriented to place , oriented to time, oriented to situation Skin exam: PRESENT: dry, intact, normal color Results Laboratory Results: 12/02/17 04:04 12/02/17 04:04 12/02/17 12/02/17 04:04 04:04 WBC 27.6 H RBC 5.06 Hgb 11.8 L Hct 38.7 MCV 77 L MCH 23.2 L MCHC 30.4 L RDW 18.8 H Plt Count 203 Sodium 137.8 Potassium 5.1 H Chloride 95 L Carbon Dioxide 36 H Anion Gap 7 BUN 25 H Creatinine 0.48 L Est GFR ( Amer) > 60 Est GFR (Non-Af Amer) > 60 Glucose 142 H Calcium 9.3 Phosphorus 3.3 Magnesium 2.1 11/19/17 11/25/17 11/29/17 04:25 04:50 03:44 NT-Pro-B Natriuret Pep 1940 H 335 200 Impressions: KUB X-Ray 11/18/17 17:45 IMPRESSION: NG tube as described. Chest/Abdomen CTA 11/22/17 00:00 IMPRESSION: Endotracheal tube, nasogastric tube in good positioning. Dependent consolidation in the right and left lower lobes. Trace loculated right pleural effusion in the posterior costophrenic sulci Cardiomegaly Chest X-Ray 11/30/17 06:00 IMPRESSION: Persistent blunting of the left lateral costophrenic sulcus which may be due to a combination of pleural fluid, atelectasis or inflammatory changes. Status: Imported from PACS Assessment & Plan - Diagnosis (1) Respiratory failure with hypoxia and hypercapnia Qualifiers: Chronicity: acute on chronic Qualified Code(s): J96.21 - Acute and chronic respiratory failure with hypoxia; J96.22 - Acute and chronic respiratory failure with hypercapnia; J96.22 - Acute and chronic respiratory failure with hypercapnia; J96.22 - Acute and chronic respiratory failure with hypercapnia Is this a current diagnosis for this admission?: Yes Plan: Now extubated, but remains BiPAP dependent on continuous use. Secondary to COPD exacerbation and ultimately resulting in intubation and mechanical ventilation. Initial ABG showed compensated respiratory acidosis with a PH 7.36, CO2 of 80.3 , Bicarb 44.2. Most recent shows slight improvement with hypercapnia, resolved acidosis; No longer trending daily ABGs CXR (11/22/17) demonstrated bibasilar airspace disease; likely atelectasis Repeat chest x-ray today (12/02) is unchanged from previously. CTA chest (11/22/17) demonstrated dependent consolidation of right and left lower lobes, and a loculated right pleural effusion Three separate sputum cultures demonstrating normal respiratory sinai Echocardiogram reveals LVEF greater than 65%, LV systolic function normal, mild diastolic LV dysfunction, mild pulmonary hypertension. The patient has been admitted to the ICU. Continue supplemental oxygen and BiPAP as needed to maintain oxygen saturations. Pulmonary consulted; appreciate Dr. Brunson's expert assistance. Continue scheduled and PRN Duonebs and PRN Xopenex Continue scheduled Solumedrol IV Initiate Darliresp Protonix for PUD prophylaxis. Lovenox for DVT prophylaxis. Plan for transfer to LTAC due to continued need for BIPAP and very slow weaning (2) COPD with acute exacerbation Is this a current diagnosis for this admission?: Yes Plan: The patient has a history of home O2 dependent COPD; typically utilizes 2.5 LPM. Continues to smoke 1-2 packs cigarettes daily. Blood cultures have no growth Three separate sputum cultures with normal sinai. 11/25 blood cultures with staph auricularis in one set; likely a contaminant. No longer on empiric antibiotics. Repeat blood cultures from 11/28 show no growth He was empirically placed on Levaquin for bronchitis in the setting of severe COPD exacerbation; has completed full course of therapy Scheduled DuoNeb and Pulmicort, as needed Xopenex. Scheduled IV Solu-Medrol. Mucinex twice daily Resume home dose Zyrtec and Flonase. Pulmonology consultation. Remaining plan as above. (3) Vocal cord dysfunction Is this a current diagnosis for this admission?: Yes Plan: History of vocal cord cancer; s/p radiation therapy >3 years ago. (4) Protein calorie malnutrition Qualifiers: Protein-calorie malnutrition severity: moderate Qualified Code(s): E44.0 - Moderate protein-calorie malnutrition Is this a current diagnosis for this admission?: Yes Plan: Secondary to intubation. Albumin is gradually trending up. Extruder was consulted for recommendations. Patient has been extubated since 11/26; On a mechanical soft diet - tolerating well. (5) Anemia Qualifiers: Anemia type: unspecified type Qualified Code(s): D64.9 - Anemia, unspecified Is this a current diagnosis for this admission?: Yes Plan: Microcytic, hypochromic anemia; hemoglobin is stable and continues trending upwards. Anemia panel is negative; anemia likely secondary to IV fluid resuscitation. Continue folate and thiamine supplement; although there is no confirmed EtOH abuse. Continue MVI with iron. (6) Bacteremia Is this a current diagnosis for this admission?: Yes Plan: Second set of blood cultures (11/25/17) with staph auricularis (2 of 4 bottles). The patient does have an increasing WBC; 27 today. He remains afebrile. Respiratory status is stable; Chest x-ray is stable. Urinalysis is negative. 11/28 repeat blood cultures negative. 11/25 positive cultures are considered contaminant at this time. (7) Leukocytosis Qualifiers: Leukocytosis type: unspecified Qualified Code(s): D72.829 - Elevated white blood cell count, unspecified Is this a current diagnosis for this admission?: Yes Plan: Worsening. 15-->24-->27 He remains afebrile and without indications of worsening infectious process. Likely secondary to IV steroid use. Repeat CXR today does not show new infiltrates All three sputum cultures with normal sinai. Second set of blood cultures with staph auricularis in one set; no longer on antibiotics. Repeat blood cultures negative. Urinalysis is negative for UTI. He has completed a 7-day course of Levaquin; no evidence of consolidation on chest x-ray, low suspicion for recurrent/continued pneumonia. Will hold on additional antibiotics at this time. (8) Hyperlipidemia Is this a current diagnosis for this admission?: Yes Plan: Continue home dose statin therapy. (9) Hypothyroidism Is this a current diagnosis for this admission?: Yes Plan: TSH is acceptable; continue home dose of levothyroxine. (10) Tobacco dependence Is this a current diagnosis for this admission?: Yes Plan: Continued daily tobacco use. Nicotine replacement therapies have been provided. - Time Time Spent with patient: 15-24 minutes Medications reviewed and adjusted accordingly: Yes Anticipated discharge: Home - Inpatient Certification Based on my medical assessment, after consideration of the patient's comorbidities, presenting symptoms, or acuity I expect that the services needed warrant INPATIENT care.: Yes I certify that my determination is in accordance with my understanding of Medicare's requirements for reasonable and necessary INPATIENT services [42 CFR 412.3e].: Yes Medical Necessity: Risk of Complication if Not Cared For in Hospital - Plan Summary Plan Summary: DOWNGRADE TO IMCU. CONTINUE BIPAP AM/PM WITH BREAKS AT MEALTIME. MONITOR CLOSELY FOR FEVER OR SIGNS OF INFECTION GIVEN WORSENING LEUKOCYTOSIS.
[2017-12-03] MEDS: METHYLPREDNISOLONE INJ 40 MG/1 ML SDV IV SCH ×4 (00:56→17:38)
[2017-12-03] MEDS: IPRATROPIUM/ALBUTEROL 0.5-2.5 MG/3 ML AMPUL NEB SCH ×4 (01:55→19:48)
[2017-12-03 04:14] LABS: HEMATOCRIT 38.3 % (37.9-51.0); HEMOGLOBIN 11.8 g/dL (13.5-17.0); MEAN CORPUSCULAR HEMOGLOBIN 23.4 pg (27.0-33.4); MEAN CORPUSCULAR HGB CONC 30.9 g/dL (32.0-36.0); MEAN CORPUSCULAR VOLUME 76 fl (80-97); PLATELET COUNT 203 10^3/uL (150-450); RED BLOOD COUNT 5.05 10^6/uL (4.35-5.55); RED CELL DISTRIBUTION WIDTH 18.4 % (11.5-14.0)
[2017-12-03 04:21] LABS: ANION GAP 6 (5-19); BLOOD UREA NITROGEN 25 mg/dL (7-20); CALCIUM 9.6 mg/dL (8.4-10.2); CARBON DIOXIDE 36 mmol/L (22-30); CHLORIDE 94 mmol/L (98-107); GLUCOSE 177 mg/dL (75-110); PHOSPHORUS 3.4 mg/dL (2.5-4.5); POTASSIUM 5.2 mmol/L (3.6-5.0)
[2017-12-03] MEDS: LEVOTHYROXINE SODIUM 0.05 MG TABLET NG SCH (06:12)
--- NOTE | 2017-12-03 06:26 | RADIOLOGY REPORT (SQ) ---
EXAM DESCRIPTION: X-ray single view chest. CLINICAL HISTORY: 57 years Male, resp failure COMPARISON: 12/02/2017. TECHNIQUE: Single portable view of the chest performed on 12/03/2017 at 6:09 AM FINDINGS: The lungs are well-expanded. There is increasing volume loss in the left lung base which may be due to pneumonia, atelectasis or aspiration. There is no evidence of a pneumothorax. The cardiac silhouette is normal in size and configuration. The mediastinal contours are normal. No acute osseous abnormality is identified. There is an old healed fracture of the mid left clavicle. No focal soft tissue abnormalities are seen. Lines and tubes: None. IMPRESSION: Increasing volume loss in the left lung base possibly due to pneumonia, atelectasis or aspiration.
[2017-12-03 06:53] LABS: ARTERIAL BLOOD BASE EXCESS 10.3 mmol/L; ARTERIAL BLOOD H2CO3 1.73 mmol/L (1.05-1.35); ARTERIAL BLOOD HCO3 36.7 mmol/L (20-24); ARTERIAL BLOOD O2 SATURATION 94.2 % (94-98); ARTERIAL BLOOD PCO2 57.5 mmHg (35-45); ARTERIAL BLOOD PH 7.42 (7.35-7.45); ARTERIAL BLOOD PO2 70.7 mmHg (80-100); ARTERIAL BLOOD TOTAL CO2 38.5 mmol/L (23-27)
[2017-12-03 06:57] LABS: ARTERIAL BLOOD FIO2 40%
[2017-12-03] MEDS: BENZOCAINE 20% AEROSOL SPRAY 60 GM TP PRN (08:00)
[2017-12-03] MEDS: BUDESONIDE NEB 0.5 MG/2 ML AMPUL NEB SCH ×2 (08:35→19:48)
[2017-12-03] MEDS: GUAIFENESIN 600 MG TABLET.SA PO SCH ×2 (10:56→21:10)
[2017-12-03] MEDS: MULTIVITAMINS W-IRON TABLET, CHEWABLE PO SCH (10:56)
[2017-12-03] MEDS: FOLIC ACID 1 MG TABLET PO SCH (10:56)
[2017-12-03] MEDS: ENOXAPARIN SODIUM INJ 30 MG/0.3 ML DISP.SYRIN SUBCUT SCH (10:56)
[2017-12-03] MEDS: THIAMINE HCL 100 MG TABLET PO SCH (10:56)
[2017-12-03] MEDS: CETIRIZINE 10 MG TABLET NG SCH (10:56)
[2017-12-03] MEDS: NICOTINE 21 MG/24 HR PATCH.TD24 TD SCH (10:56)
[2017-12-03] MEDS: FLUTICASONE NASAL SPRAY 50 MCG/SPRY 120 SPRAY/16 GM NASL SCH (10:57)
--- NOTE | 2017-12-03 17:06 | PDOC PROGRESS REPORT ---
Subjective Progress Note for:: 12/03/17 Subjective:: MARTY SANTOS is a 57 year old male with a PMH of COPD on home O2, vocal cord cancer (S/P radiation), polycythemia, 90-38-pcpz-year smoking history. The patient presents to [facility] ED for respiratory distress stemming from a COPD exacerbation, ultimately requiring intubation. The patient was extubated 2017 to BIPAP. He has been on [id number] BIPAP since them, slowly weaning to nasal cannula. The patient was seen this morning on rounds. He is resting comfortably in bed on AVAPS via Trilogy. Nursing staff reports the patient is able to tolerate 60+ minute breaks from BIPAP while eating his meals (improvement from yesterday when he could only tolerate 30 minutes). His SPO2 beings to drop to the 80s % shortly thereafter. No peripheral or central cyanosis. The patient is able to speak in complete sentences. WBC remains elevated (15->25->27->26). +Wet sounding cough. Patient is afebrile , nontoxic appearing. In fact, his clinical picture continues to improve everyday. Repeat CXR today does not show new infiltrates. The patient has already completed 7 days of empiric IV levaquin for severe COPD exacerbation during this hospitalization. No plan to restart antibiotics at this time. Discussed plan of care with Exterminator, Dr. Brnuson. The patient has failed BiPAP, so he was started on noninvasive mechanical ventilation via the trilogy AVAPS/AE. Unfortunately, the only facility that will accept trilogy is an LTAC , which is not covered under the patient's medical insurance. Additionally, the patient is refusing to transfer to SNF because he would have to surrender his disability paycheck. Discussed in great length the risk of continuing his current treatment plan at home with lack of oversight from a medical provider. Reason For Visit: COPD EXACERBATION,ACUTE RESPIRATORY FAILURE Physical Exam Vital Signs: Temp Pulse Resp BP Pulse Ox 97.7 F 113 H 18 123/74 93 12/03/17 12:00 12/03/17 14:32 12/03/17 14:32 12/03/17 12:06 12/03/17 14:32 Pulse Oximeter Continuous Start: 12/02/17 08: 04 Freq: RTQ4 Status: Hold Document 12/02/17 20:48 LRO (Rec: 12/02/17 20:53 LRO [id number]) Pulse Oximetry Assessment Oxygen Saturation (92-100) 95 Oxygen Delivery Method AVAP Fraction of Inspired Oxygen (FIO2) 40 Equipment Usage Equipment Standby Continuous SpO2 Machine # [id number] Intake & Output 12/02/17 12/03/17 12/04/17 06:59 06:59 06:59 Intake Total 960 100 600 Output Total 1050 1030 300 Balance -90 -930 300 Weight 77.7 kg 78.6 kg General appearance: PRESENT: well-developed, well-nourished Eye exam: PRESENT: conjunctiva pink, PERRLA Mouth exam: PRESENT: moist, tongue midline Teeth exam: PRESENT: poor dentation Neck exam: PRESENT: full ROM Respiratory exam: PRESENT: clear to auscultation maximus, symmetrical, unlabored, other - REQUIRING AVAPS OR NASAL CANNULA AT ALL TIMES Cardiovascular exam: PRESENT: +S1, +S2, tachycardia Pulses: PRESENT: normal radial pulses, normal dorsalis pedis pul Vascular exam: PRESENT: normal capillary refill GI/Abdominal exam: PRESENT: soft. ABSENT: distended, tenderness Rectal exam: PRESENT: deferred Extremities exam: PRESENT: full ROM. ABSENT: pedal edema Musculoskeletal exam: PRESENT: ambulatory, full ROM, normal inspection Neurological exam: PRESENT: alert, awake, oriented to person, oriented to place , oriented to time, oriented to situation Psychiatric exam: PRESENT: appropriate affect Skin exam: PRESENT: dry, intact, normal color Results Laboratory Results: 12/03/17 03:55 12/03/17 03:55 12/03/17 12/03/17 12/03/17 03:55 03:55 06:38 WBC 26.0 H RBC 5.05 Hgb 11.8 L Hct 38.3 MCV 76 L MCH 23.4 L MCHC 30.9 L RDW 18.4 H Plt Count 203 Carbonic Acid 1.73 H HCO3/H2CO3 Ratio 21:1 ABG pH 7.42 ABG pCO2 57.5 H ABG pO2 70.7 L ABG HCO3 36.7 H ABG O2 Saturation 94.2 ABG Base Excess 10.3 FiO2 40% Sodium 136.0 L Potassium 5.2 H Chloride 94 L Carbon Dioxide 36 H Anion Gap 6 BUN 25 H Creatinine 0.48 L Est GFR ( Amer) > 60 Est GFR (Non-Af Amer) > 60 Glucose 177 H Calcium 9.6 Phosphorus 3.4 Magnesium 1.9 11/19/17 11/25/17 11/29/17 04:25 04:50 03:44 NT-Pro-B Natriuret Pep 1940 H 335 200 Impressions: KUB X-Ray 11/18/17 17:45 IMPRESSION: NG tube as described. Chest/Abdomen CTA 11/22/17 00:00 IMPRESSION: Endotracheal tube, nasogastric tube in good positioning. Dependent consolidation in the right and left lower lobes. Trace loculated right pleural effusion in the posterior costophrenic sulci Cardiomegaly Chest X-Ray 12/03/17 06:00 IMPRESSION: Increasing volume loss in the left lung base possibly due to pneumonia, atelectasis or aspiration. Status: Imported from PACS Assessment & Plan - Diagnosis (1) Respiratory failure with hypoxia and hypercapnia Qualifiers: Chronicity: acute on chronic Qualified Code(s): J96.21 - Acute and chronic respiratory failure with hypoxia; J96.22 - Acute and chronic respiratory failure with hypercapnia; J96.22 - Acute and chronic respiratory failure with hypercapnia; J96.22 - Acute and chronic respiratory failure with hypercapnia Is this a current diagnosis for this admission?: Yes Plan: Now extubated, but remains BiPAP dependent on continuous use. Secondary to COPD exacerbation and ultimately resulting in intubation and mechanical ventilation. Initial ABG showed compensated respiratory acidosis with a PH 7.36, CO2 of 80.3 , Bicarb 44.2. Most recent shows slight improvement with hypercapnia, resolved acidosis; No longer trending daily ABGs CXR (11/22/17) demonstrated bibasilar airspace disease; likely atelectasis. Multiple repeat CXR are relatively unchanged. CTA chest (11/22/17) demonstrated dependent consolidation of right and left lower lobes, and a loculated right pleural effusion Three separate sputum cultures demonstrating normal respiratory sinai Echocardiogram reveals LVEF greater than 65%, LV systolic function normal, mild diastolic LV dysfunction, mild pulmonary hypertension. The patient has been admitted to the ICU. Continue supplemental oxygen and BiPAP as needed to maintain oxygen saturations. Pulmonary consulted; appreciate Dr. Brunson's expert assistance. Continue scheduled and PRN Duonebs and PRN Xopenex Continue scheduled Solumedrol IV Continue Darliresp Protonix for PUD prophylaxis. Lovenox for DVT prophylaxis. Requiring Trilogy AVAPS/AE around the clock, with the exception of mealtime when the patient is able to tolerate approximately 60 minutes on nasal cannula. (2) COPD with acute exacerbation Is this a current diagnosis for this admission?: Yes Plan: The patient has a history of home O2 dependent COPD; typically utilizes 2.5 LPM. Continues to smoke 1-2 packs cigarettes daily. Blood cultures have no growth Three separate sputum cultures with normal sinai. 11/25 blood cultures with staph auricularis in one set; likely a contaminant. No longer on empiric antibiotics. Repeat blood cultures from 11/28 show no growth He was empirically placed on Levaquin for bronchitis in the setting of severe COPD exacerbation; has completed full course of therapy Scheduled DuoNeb and Pulmicort, as needed Xopenex. Scheduled IV Solu-Medrol. Mucinex twice daily home dose Zyrtec and Flonase. Pulmonology consultation. Continues to require around the clock supplemental O2 with Trilogy or nasal cannula Remaining plan as above. (3) Vocal cord dysfunction Is this a current diagnosis for this admission?: Yes Plan: History of vocal cord cancer; s/p radiation therapy >3 years ago. (4) Protein calorie malnutrition Qualifiers: Protein-calorie malnutrition severity: moderate Qualified Code(s): E44.0 - Moderate protein-calorie malnutrition Is this a current diagnosis for this admission?: Yes Plan: Secondary to intubation. Plant Taxonomist was consulted for recommendations. Patient has been extubated since 11/26; On a mechanical soft diet - tolerating well. (5) Anemia Qualifiers: Anemia type: unspecified type Qualified Code(s): D64.9 - Anemia, unspecified Is this a current diagnosis for this admission?: Yes Plan: Microcytic, hypochromic anemia; hemoglobin is stable and continues trending upwards. Anemia panel is negative; anemia likely secondary to IV fluid resuscitation. Continue folate and thiamine supplement; although there is no confirmed EtOH abuse. Continue MVI with iron. (6) Bacteremia Is this a current diagnosis for this admission?: Yes Plan: Second set of blood cultures (11/25/17) with staph auricularis (2 of 4 bottles). The patient does have an increasing WBC; 27 today. He remains afebrile. Respiratory status is stable; Chest x-ray is stable. Urinalysis is negative. 11/28 repeat blood cultures negative. 11/25 positive cultures are considered contaminant at this time. (7) Leukocytosis Qualifiers: Leukocytosis type: unspecified Qualified Code(s): D72.829 - Elevated white blood cell count, unspecified Is this a current diagnosis for this admission?: Yes Plan: Unchanged 15-->24-->27-->26 He remains afebrile and without indications of worsening infectious process. Likely secondary to IV steroid use. Repeat CXR today does not show new infiltrates All three sputum cultures with normal sinai. Second set of blood cultures with staph auricularis in one set; no longer on antibiotics. Repeat blood cultures negative. Urinalysis is negative for UTI. He has completed a 7-day course of Levaquin; no evidence of consolidation on chest x-ray, low suspicion for recurrent/continued pneumonia. Will hold on additional antibiotics at this time. (8) Hyperlipidemia Is this a current diagnosis for this admission?: Yes Plan: Continue home dose statin therapy. (9) Hypothyroidism Is this a current diagnosis for this admission?: Yes Plan: TSH is acceptable; continue home dose of levothyroxine. (10) Tobacco dependence Is this a current diagnosis for this admission?: Yes Plan: Continued daily tobacco use. Nicotine replacement therapies have been provided. - Time Time Spent with patient: 15-24 minutes Medications reviewed and adjusted accordingly: Yes Anticipated discharge: Home - Inpatient Certification Based on my medical assessment, after consideration of the patient's comorbidities, presenting symptoms, or acuity I expect that the services needed warrant INPATIENT care.: Yes I certify that my determination is in accordance with my understanding of Medicare's requirements for reasonable and necessary INPATIENT services [42 CFR 412.3e].: Yes Medical Necessity: Need For Continuous Telemetry Monitoring, Need for Nebulizer Therapy and Monitoring of Response, Risk of Complication if Not Cared For in Hospital
[2017-12-03] MEDS: CALCIUM CARBONATE 500 MG TAB.CHEW PO PRN (17:38)
[2017-12-03] MEDS: SIMVASTATIN 40 MG TABLET NG SCH (17:39)
[2017-12-04] MEDS: METHYLPREDNISOLONE INJ 40 MG/1 ML SDV IV SCH ×4 (00:17→17:17)
[2017-12-04] MEDS: IPRATROPIUM/ALBUTEROL 0.5-2.5 MG/3 ML AMPUL NEB SCH ×4 (02:15→20:03)
[2017-12-04] MEDS: LEVOTHYROXINE SODIUM 0.05 MG TABLET NG SCH (05:39)
[2017-12-04 05:40] LABS: ARTERIAL BLOOD BASE EXCESS 10.6 mmol/L; ARTERIAL BLOOD FIO2 6L; ARTERIAL BLOOD H2CO3 1.67 mmol/L (1.05-1.35); ARTERIAL BLOOD HCO3 36.6 mmol/L (20-24); ARTERIAL BLOOD O2 SATURATION 91.9 % (94-98); ARTERIAL BLOOD PCO2 55.6 mmHg (35-45); ARTERIAL BLOOD PH 7.44 (7.35-7.45); ARTERIAL BLOOD PO2 61.8 mmHg (80-100); ARTERIAL BLOOD TOTAL CO2 38.3 mmol/L (23-27)
[2017-12-04 06:02] LABS: HEMATOCRIT 35.7 % (37.9-51.0); HEMOGLOBIN 10.8 g/dL (13.5-17.0); MEAN CORPUSCULAR HGB CONC 30.2 g/dL (32.0-36.0); MEAN CORPUSCULAR VOLUME 76 fl (80-97); PLATELET COUNT 196 10^3/uL (150-450); RED BLOOD COUNT 4.69 10^6/uL (4.35-5.55); RED CELL DISTRIBUTION WIDTH 18.7 % (11.5-14.0); WHITE BLOOD COUNT 26.6 10^3/uL (4.0-10.5)
[2017-12-04 06:22] LABS: ANION GAP 7 (5-19); BLOOD UREA NITROGEN 33 mg/dL (7-20); CALCIUM 9.1 mg/dL (8.4-10.2); CARBON DIOXIDE 35 mmol/L (22-30); CHLORIDE 91 mmol/L (98-107); GLUCOSE 196 mg/dL (75-110); POTASSIUM 4.9 mmol/L (3.6-5.0); SODIUM 133.2 mmol/L (137-145)
[2017-12-04 06:29] LABS: ABSOLUTE LYMPHOCYTES# (MANUAL) 0.3 10^3/uL (0.5-4.7); ABSOLUTE MONOCYTES # (MANUAL) 0.8 10^3/uL (0.1-1.4); ABSOLUTE NEUTROPHILS# (MANUAL) 25.5 10^3/uL (1.7-8.2); BAND NEUTROPHILS % (MANUAL) 3 % (3-5); BASOPHILS % (MANUAL) 0 % (0-2); EOSINOPHILS % (MANUAL) 0 % (0-6); LYMPHOCYTES % (MANUAL) 0 % (13-45); MONOCYTES % (MANUAL) 3 % (3-13); SEGMENTED NEUTROPHILS % (MAN) 93 % (42-78); TOTAL CELLS COUNTED 100
[2017-12-04 06:30] LABS: ANISOCYTOSIS 2+; PLATELET COMMENT ADEQUATE
[2017-12-04 06:31] LABS: POIKILOCYTOSIS SLIGHT
[2017-12-04 06:32] LABS: TEAR DROP CELLS SLIGHT
[2017-12-04] MEDS: BUDESONIDE NEB 0.5 MG/2 ML AMPUL NEB SCH ×2 (08:18→20:03)
--- NOTE | 2017-12-04 09:25 | RADIOLOGY REPORT (SQ) ---
EXAM DESCRIPTION: CHEST SINGLE VIEW COMPLETED DATE/TIME: 12/04/2017 8:03 am REASON FOR STUDY: resp failure/pna COMPARISON: 12/03/2017. EXAM PARAMETERS: NUMBER OF VIEWS: One view. TECHNIQUE: Single frontal radiographic view of the chest acquired. RADIATION DOSE: NA LIMITATIONS: None. FINDINGS: LUNGS AND PLEURA: Persistent Left basilar infiltrate and pleural thickening or effusion ag ain noted. Hyperinflation of the lungs. Right apical pleural thickening. MEDIASTINUM AND HILAR STRUCTURES: No masses. Contour normal. HEART AND VASCULAR STRUCTURES: Normal heart and pulmonary vasculature. . BONES: Old healed mid left clavicle. HARDWARE: None in the chest. OTHER: No other significant finding. IMPRESSION: Left basilar infiltrate and pleural thickening. TECHNICAL DOCUMENTATION: JOB ID: [id number] [employer]- All Rights Reserved Reading location - IP/workstation name: [email or web address]
[2017-12-04] MEDS: MULTIVITAMINS W-IRON TABLET, CHEWABLE PO SCH (09:34)
[2017-12-04] MEDS: BENZOCAINE 20% AEROSOL SPRAY 60 GM TP PRN (09:34)
[2017-12-04] MEDS: FLUTICASONE NASAL SPRAY 50 MCG/SPRY 120 SPRAY/16 GM NASL SCH (09:34)
[2017-12-04] MEDS: NICOTINE 21 MG/24 HR PATCH.TD24 TD SCH (09:35)
[2017-12-04] MEDS: ENOXAPARIN SODIUM INJ 30 MG/0.3 ML DISP.SYRIN SUBCUT SCH (09:35)
[2017-12-04] MEDS: FOLIC ACID 1 MG TABLET PO SCH (09:35)
[2017-12-04] MEDS: THIAMINE HCL 100 MG TABLET PO SCH (09:35)
[2017-12-04] MEDS: GUAIFENESIN 600 MG TABLET.SA PO SCH ×2 (09:35→22:44)
[2017-12-04] MEDS: CETIRIZINE 10 MG TABLET NG SCH (09:35)
--- NOTE | 2017-12-04 16:40 | PDOC PROGRESS REPORT ---
Subjective Progress Note for:: 12/04/17 Subjective:: MARTY SANTOS is a 57 year old male with a PMH of COPD on home O2, vocal cord cancer (S/P radiation), polycythemia, 13-89-vloy-year smoking history. The patient presents to [facility] ED for respiratory distress stemming from a COPD exacerbation, ultimately requiring intubation. The patient was extubated 2017 to BIPAP. He has been on BIPAP-->Trilogy since them, slowly weaning to nasal cannula. The patient was seen this morning on rounds. He is resting comfortably in bed on nasal cannula. Nursing staff reports the patient wears AVAPS/Trilogy at night and during daytime naps. Has been tolerating nasal cannula during the day. This is a significant improvement from yesterday when he could only tolerate 60 minutes off of the Trilogy at mealtime. His SPO2 remains above 88% on nasal cannula as long as he is awake. No peripheral or central cyanosis noted. The patient is able to speak in complete sentences. WBC remains elevated (15->25->27->26). +Wet sounding/non-productive cough. Patient is afebrile, nontoxic appearing. In fact, his clinical picture continues to improve everyday. The patient has already completed 7 days of empiric IV levaquin for severe COPD exacerbation during this hospitalization. No plan to restart antibiotics at this time. The plan remains to send the patient home on noninvasive mechanical ventilation via the trilogy AVAPS/AE. Dr. Nannette falcon. Discharge planning has been consulted to help obtain Trilogy for home. Reason For Visit: COPD EXACERBATION,ACUTE RESPIRATORY FAILURE Physical Exam Vital Signs: Temp Pulse Resp BP Pulse Ox 97.6 F 114 H 20 103/61 91 L 12/04/17 11:21 12/04/17 14:00 12/04/17 11:21 12/04/17 11:21 12/04/17 14:45 Pulse Oximeter Continuous Start: 12/02/17 08: 04 Freq: RTQ4 Status: Hold Document 12/02/17 20:48 LRO (Rec: 12/02/17 20:53 LRO [id number]) Pulse Oximetry Assessment Oxygen Saturation (92-100) 95 Oxygen Delivery Method AVAP Fraction of Inspired Oxygen (FIO2) 40 Equipment Usage Equipment Standby Continuous SpO2 Machine # [id number] Intake & Output 10/05/18 10/06/18 10/07/18 06:59 06:59 06:59 Intake Total 100 600 250 Output Total 1030 1125 150 Balance -930 -525 100 Weight 78.6 kg 78.9 kg General appearance: PRESENT: no acute distress, well-developed, well-nourished Head exam: PRESENT: atraumatic Eye exam: PRESENT: conjunctiva pink, PERRLA Mouth exam: PRESENT: neck supple, tongue midline Neck exam: PRESENT: full ROM Respiratory exam: PRESENT: clear to auscultation maximus, symmetrical, unlabored Cardiovascular exam: PRESENT: +S1, +S2 Pulses: PRESENT: normal radial pulses, normal dorsalis pedis pul Vascular exam: PRESENT: normal capillary refill GI/Abdominal exam: PRESENT: normal bowel sounds, soft. ABSENT: distended, tenderness Rectal exam: PRESENT: deferred Extremities exam: PRESENT: full ROM. ABSENT: pedal edema Musculoskeletal exam: PRESENT: ambulatory - without assistance, full ROM, normal inspection Neurological exam: PRESENT: alert, awake, oriented to person, oriented to place , oriented to time, oriented to situation Psychiatric exam: PRESENT: appropriate affect Skin exam: PRESENT: dry, intact, normal color, warm Results Laboratory Results: 12/04/17 04:39 12/04/17 04:39 12/04/17 12/04/17 12/04/17 04:39 04:39 05:17 WBC 26.6 H RBC 4.69 Hgb 10.8 L Hct 35.7 L MCV 76 L MCH 23.0 L MCHC 30.2 L RDW 18.7 H Plt Count 196 Seg Neutrophils % Not Reportable Lymphocytes % Not Reportable Monocytes % Not Reportable Eosinophils % Not Reportable Basophils % Not Reportable Absolute Neutrophils Not Reportable Absolute Lymphocytes Not Reportable Absolute Monocytes Not Reportable Absolute Eosinophils Not Reportable Absolute Basophils Not Reportable Carbonic Acid 1.67 H HCO3/H2CO3 Ratio 21:1 ABG pH 7.44 ABG pCO2 55.6 H ABG pO2 61.8 L ABG HCO3 36.6 H ABG O2 Saturation 91.9 L ABG Base Excess 10.6 FiO2 6L Sodium 133.2 L Potassium 4.9 Chloride 91 L Carbon Dioxide 35 H Anion Gap 7 BUN 33 H Creatinine 0.47 L Est GFR ( Amer) > 60 Est GFR (Non-Af Amer) > 60 Glucose 196 H Calcium 9.1 Magnesium 1.9 11/28/17 17:40 Blood Blood Culture - Final NO GROWTH IN 5 DAYS 11/28/17 17:17 Blood Blood Culture - Final NO GROWTH IN 5 DAYS 11/19/17 11/25/17 11/29/17 04:25 04:50 03:44 NT-Pro-B Natriuret Pep 1940 H 335 200 Impressions: KUB X-Ray 11/18/17 17:45 IMPRESSION: NG tube as described. Chest/Abdomen CTA 11/22/17 00:00 IMPRESSION: Endotracheal tube, nasogastric tube in good positioning. Dependent consolidation in the right and left lower lobes. Trace loculated right pleural effusion in the posterior costophrenic sulci Cardiomegaly Chest X-Ray 12/04/17 06:00 IMPRESSION: Left basilar infiltrate and pleural thickening. Status: Imported from PACS Assessment & Plan - Diagnosis (1) Respiratory failure with hypoxia and hypercapnia Qualifiers: Chronicity: acute on chronic Qualified Code(s): J96.21 - Acute and chronic respiratory failure with hypoxia; J96.22 - Acute and chronic respiratory failure with hypercapnia; J96.22 - Acute and chronic respiratory failure with hypercapnia; J96.22 - Acute and chronic respiratory failure with hypercapnia Is this a current diagnosis for this admission?: Yes Plan: Now extubated, but remains oxygen dependent - Trilogy QHS and daytime naps and nasal cannula when awake. Secondary to COPD exacerbation and ultimately resulting in intubation and mechanical ventilation. Initial ABG showed compensated respiratory acidosis with a PH 7.36, CO2 of 80.3 , Bicarb 44.2. Most recent shows slight improvement with hypercapnia, resolved acidosis; No longer trending daily ABGs CXR (11/22/17) demonstrated bibasilar airspace disease; likely atelectasis. Multiple repeat CXR are relatively unchanged. CTA chest (11/22/17) demonstrated dependent consolidation of right and left lower lobes, and a loculated right pleural effusion Three separate sputum cultures demonstrating normal respiratory sinai Echocardiogram reveals LVEF greater than 65%, LV systolic function normal, mild diastolic LV dysfunction, mild pulmonary hypertension. The patient was admitted to the ICU, has since been downgraded to IMCU Continue supplemental oxygen Trilogy/nasal cannula as needed to maintain oxygen saturations. Pulmonary consulted; appreciate Dr. Brunson's expert assistance. Continue scheduled and PRN Duonebs and PRN Xopenex Continue scheduled Solumedrol IV Continue Darliresp Protonix for PUD prophylaxis. Lovenox for DVT prophylaxis. Requiring Trilogy AVAPS/AE QHS and daytime naps and nasal cannula when awake. (2) COPD with acute exacerbation Is this a current diagnosis for this admission?: Yes Plan: The patient has a history of home O2 dependent COPD; typically utilizes 2.5 LPM. Continues to smoke 1-2 packs cigarettes daily. Blood cultures have no growth Three separate sputum cultures with normal sinai. 11/25 blood cultures with staph auricularis in one set; likely a contaminant. No longer on empiric antibiotics. Repeat blood cultures from 11/28 show no growth He was empirically placed on Levaquin for bronchitis in the setting of severe COPD exacerbation; has completed full course of therapy Scheduled DuoNeb and Pulmicort, as needed Xopenex. Scheduled IV Solu-Medrol. Mucinex twice daily home dose Zyrtec and Flonase. Pulmonology consultation. Continues to require around the supplemental O2 with Trilogy at night and daytime naps or nasal cannula when awake Remaining plan as above. (3) Vocal cord dysfunction Is this a current diagnosis for this admission?: Yes Plan: History of vocal cord cancer; s/p radiation therapy >3 years ago. (4) Protein calorie malnutrition Qualifiers: Protein-calorie malnutrition severity: moderate Qualified Code(s): E44.0 - Moderate protein-calorie malnutrition Is this a current diagnosis for this admission?: Yes Plan: Secondary to intubation. Curing Supervisor was consulted for recommendations. Patient has been extubated since 11/26; On a mechanical soft diet - tolerating well. Advance to regular diet today (5) Anemia Qualifiers: Anemia type: unspecified type Qualified Code(s): D64.9 - Anemia, unspecified Is this a current diagnosis for this admission?: Yes Plan: Microcytic, hypochromic anemia; hemoglobin is stable and continues trending upwards. Anemia panel is negative; anemia likely secondary to IV fluid resuscitation. Continue folate and thiamine supplement; although there is no confirmed EtOH abuse. Continue MVI with iron. (6) Bacteremia Is this a current diagnosis for this admission?: Yes Plan: Second set of blood cultures (9/27/18) with staph auricularis (2 of 4 bottles). The patient does have an increasing WBC; 27 today. He remains afebrile. Respiratory status is stable; Chest x-ray is stable. Urinalysis is negative. 11/28 repeat blood cultures negative. 11/25 positive cultures are considered contaminant at this time. (7) Leukocytosis Qualifiers: Leukocytosis type: unspecified Qualified Code(s): D72.829 - Elevated white blood cell count, unspecified Is this a current diagnosis for this admission?: Yes Plan: Unchanged 15-->24-->27-->26 He remains afebrile and without indications of worsening infectious process. Likely secondary to IV steroid use. Repeat CXR today does not show new infiltrates All three sputum cultures with normal sinai. Second set of blood cultures with staph auricularis in one set; no longer on antibiotics. Repeat blood cultures negative. Urinalysis is negative for UTI. He has completed a 7-day course of Levaquin; no evidence of consolidation on chest x-ray, low suspicion for recurrent/continued pneumonia. Will hold on additional antibiotics at this time. (8) Hyperlipidemia Is this a current diagnosis for this admission?: Yes Plan: Continue home dose statin therapy. (9) Hypothyroidism Is this a current diagnosis for this admission?: Yes Plan: TSH is acceptable; continue home dose of levothyroxine. (10) Tobacco dependence Is this a current diagnosis for this admission?: Yes Plan: Continued daily tobacco use. Nicotine replacement therapies have been provided. - Time Time Spent with patient: 15-24 minutes Medications reviewed and adjusted accordingly: Yes Anticipated discharge: Home Within: within 72 hours - Inpatient Certification Based on my medical assessment, after consideration of the patient's comorbidities, presenting symptoms, or acuity I expect that the services needed warrant INPATIENT care.: Yes I certify that my determination is in accordance with my understanding of Medicare's requirements for reasonable and necessary INPATIENT services [42 CFR 412.3e].: Yes Medical Necessity: Need for Nebulizer Therapy and Monitoring of Response, Risk of Complication if Not Cared For in Hospital - Plan Summary Plan Summary: CONTINUE WEANING SUPPLEMENTAL OXYGEN. PATIENT REQUIRING 5-8L NC, CAN START USING OXIMYZER
[2017-12-04] MEDS: SIMVASTATIN 40 MG TABLET NG SCH (17:17)
[2017-12-05] MEDS: METHYLPREDNISOLONE INJ 40 MG/1 ML SDV IV SCH ×3 (00:16→11:29)
[2017-12-05] MEDS: IPRATROPIUM/ALBUTEROL 0.5-2.5 MG/3 ML AMPUL NEB SCH ×4 (02:31→20:10)
[2017-12-05] MEDS: LEVOTHYROXINE SODIUM 0.05 MG TABLET NG SCH (06:03)
[2017-12-05] MEDS: BUDESONIDE NEB 0.5 MG/2 ML AMPUL NEB SCH ×2 (08:37→20:10)
[2017-12-05] MEDS: BENZOCAINE 20% AEROSOL SPRAY 60 GM TP PRN (09:28)
[2017-12-05] MEDS: FLUTICASONE NASAL SPRAY 50 MCG/SPRY 120 SPRAY/16 GM NASL SCH (09:28)
[2017-12-05] MEDS: GUAIFENESIN 600 MG TABLET.SA PO SCH ×2 (09:29→22:06)
[2017-12-05] MEDS: NICOTINE 21 MG/24 HR PATCH.TD24 TD SCH (09:29)
[2017-12-05] MEDS: FOLIC ACID 1 MG TABLET PO SCH (09:29)
[2017-12-05] MEDS: MULTIVITAMINS W-IRON TABLET, CHEWABLE PO SCH (09:29)
[2017-12-05] MEDS: CETIRIZINE 10 MG TABLET NG SCH (09:29)
[2017-12-05] MEDS: ENOXAPARIN SODIUM INJ 30 MG/0.3 ML DISP.SYRIN SUBCUT SCH (09:29)
[2017-12-05] MEDS: THIAMINE HCL 100 MG TABLET PO SCH (09:36)
--- NOTE | 2017-12-05 11:52 | PDOC PROGRESS REPORT ---
Subjective Progress Note for:: 12/05/17 Subjective:: MARTY SANTOS is a 57 year old male with a PMH of COPD on home O2, vocal cord cancer (S/P radiation), polycythemia, 14-35-ancx-year smoking history. The patient presents to [facility] ED for respiratory distress stemming from a COPD exacerbation, ultimately requiring intubation. The patient was extubated 2017 to BIPAP. He has been on BIPAP-->Trilogy since them, slowly weaning to nasal cannula. The patient was seen this morning on rounds. He is resting comfortably in bed on the oxymizer. Nursing staff reports the patient wears AVAPS/Trilogy at night and during daytime naps. Has been tolerating the oxymizer during the day. His SPO2 remains above 88% on 4L oxymizer as long as he is awake. No peripheral or central cyanosis noted. The patient is able to speak in complete sentences. The plan remains to send the patient home on noninvasive mechanical ventilation via the trilogy AVAPS/AE. Dr. Nannette falcon. Discharge planning has been consulted to help obtain portable O2 tank for home. Likely discharge home tomorrow. Reason For Visit: COPD EXACERBATION,ACUTE RESPIRATORY FAILURE Physical Exam Vital Signs: Temp Pulse Resp BP Pulse Ox 97.6 F 107 H 20 125/70 95 12/05/17 11:23 12/05/17 11:23 12/05/17 11:23 12/05/17 11:23 12/05/17 11:23 Pulse Oximeter Continuous Start: 12/02/17 08: 04 Freq: RTQ4 Status: Hold Document 12/05/17 08:37 HCR (Rec: 12/05/17 10:59 HCR [id number]) Pulse Oximetry Assessment Oxygen Saturation (92-100) 91 Oxygen Flow Rate (L/min) 4 Oxygen Delivery Method Oxymizer Oxygen Conserving Device Equipment Usage Equipment Standby Continuous SpO2 Machine # XX Intake & Output 12/04/17 12/05/17 12/06/17 06:59 06:59 06:59 Intake Total 600 1262 Output Total 8056 9835 Balance -525 -113 Weight 78.9 kg 78.5 kg General appearance: PRESENT: no acute distress, well-developed, well-nourished Eye exam: PRESENT: conjunctiva pink, PERRLA Mouth exam: PRESENT: moist, tongue midline Teeth exam: PRESENT: poor dentation Neck exam: PRESENT: full ROM Respiratory exam: PRESENT: clear to auscultation maximus, symmetrical, unlabored. ABSENT: crackles, rhonchi, wheezes Cardiovascular exam: PRESENT: RRR, +S1, +S2 Pulses: PRESENT: normal radial pulses, normal dorsalis pedis pul Vascular exam: PRESENT: normal capillary refill GI/Abdominal exam: PRESENT: normal bowel sounds, soft. ABSENT: tenderness Rectal exam: PRESENT: deferred Extremities exam: PRESENT: full ROM. ABSENT: joint swelling, pedal edema Musculoskeletal exam: PRESENT: ambulatory, full ROM Neurological exam: PRESENT: alert, awake, oriented to person, oriented to place , oriented to time, oriented to situation Skin exam: PRESENT: dry, intact, normal color Results Laboratory Results: 12/04/17 04:39 12/04/17 04:39 11/19/17 11/25/17 11/29/17 04:25 04:50 03:44 NT-Pro-B Natriuret Pep 1940 H 335 200 Impressions: KUB X-Ray 11/18/17 17:45 IMPRESSION: NG tube as described. Chest/Abdomen CTA 11/22/17 00:00 IMPRESSION: Endotracheal tube, nasogastric tube in good positioning. Dependent consolidation in the right and left lower lobes. Trace loculated right pleural effusion in the posterior costophrenic sulci Cardiomegaly Chest X-Ray 12/04/17 06:00 IMPRESSION: Left basilar infiltrate and pleural thickening. Status: Imported from PACS Assessment & Plan - Diagnosis (1) Respiratory failure with hypoxia and hypercapnia Qualifiers: Chronicity: acute on chronic Qualified Code(s): J96.21 - Acute and chronic respiratory failure with hypoxia; J96.22 - Acute and chronic respiratory failure with hypercapnia; J96.22 - Acute and chronic respiratory failure with hypercapnia; J96.22 - Acute and chronic respiratory failure with hypercapnia Is this a current diagnosis for this admission?: Yes Plan: Now extubated, but remains oxygen dependent - Trilogy Q and daytime naps and nasal cannula when awake. Secondary to COPD exacerbation - ultimately resulting in intubation and mechanical ventilation. Initial ABG showed compensated respiratory acidosis with a PH 7.36, CO2 of 80.3 , Bicarb 44.2. Most recent shows slight improvement with hypercapnia, resolved acidosis; No longer trending daily ABGs CXR (11/22/17) demonstrated bibasilar airspace disease; likely atelectasis. Multiple repeat CXR are relatively unchanged. CTA chest (11/22/17) demonstrated dependent consolidation of right and left lower lobes, and a loculated right pleural effusion Three separate sputum cultures demonstrating normal respiratory sinai Echocardiogram reveals LVEF greater than 65%, LV systolic function normal, mild diastolic LV dysfunction, mild pulmonary hypertension. The patient was admitted to the ICU, has since been downgraded to IMCU Continue supplemental oxygen Trilogy/oxymizer as needed to maintain oxygen saturations. Pulmonary consulted; appreciate Dr. Brunson's expert assistance. Continue scheduled and PRN Duonebs and PRN Xopenex Wean from Solumedrol IV to PO prednisone Continue Darliresp Protonix for PUD prophylaxis. Lovenox for DVT prophylaxis. Requiring Trilogy AVAPS/AE QHS and daytime naps and nasal cannula when awake. (2) COPD with acute exacerbation Is this a current diagnosis for this admission?: Yes Plan: The patient has a history of home O2 dependent COPD; typically utilizes 2.5 LPM. Continues to smoke 1-2 packs cigarettes daily. Blood cultures have no growth Three separate sputum cultures with normal sinai. 11/25 blood cultures with staph auricularis in one set; likely a contaminant. No longer on empiric antibiotics. Repeat blood cultures from 11/28 show no growth He was empirically placed on Levaquin for bronchitis in the setting of severe COPD exacerbation; has completed full course of therapy Scheduled DuoNeb and Pulmicort, as needed Xopenex. Wean IV solu-Medrol to PO prednisone Mucinex twice daily home dose Zyrtec and Flonase. Pulmonology consultation. Continues to require around the supplemental O2 with Trilogy at night and daytime naps or oxymizer when awake Remaining plan as above. (3) Vocal cord dysfunction Is this a current diagnosis for this admission?: Yes Plan: History of vocal cord cancer; s/p radiation therapy >3 years ago. (4) Protein calorie malnutrition Qualifiers: Protein-calorie malnutrition severity: moderate Qualified Code(s): E44.0 - Moderate protein-calorie malnutrition Is this a current diagnosis for this admission?: Yes Plan: Secondary to intubation. Mortgage Or Loan Underwriter was consulted for recommendations. Patient has been extubated since 11/26; Tolerating regular diet (5) Anemia Qualifiers: Anemia type: unspecified type Qualified Code(s): D64.9 - Anemia, unspecified Is this a current diagnosis for this admission?: Yes Plan: Microcytic, hypochromic anemia; hemoglobin is stable and continues trending upwards. Anemia panel is negative; anemia likely secondary to IV fluid resuscitation. Continue folate and thiamine supplement; although there is no confirmed EtOH abuse. Continue MVI with iron. (6) Bacteremia Is this a current diagnosis for this admission?: Yes Plan: Second set of blood cultures (11/25/17) with staph auricularis (2 of 4 bottles). The patient does have an increasing WBC; 27 today. He remains afebrile. Respiratory status is stable; Chest x-ray is stable. Urinalysis is negative. 11/28 repeat blood cultures negative. 11/25 positive cultures are considered contaminant at this time. (7) Leukocytosis Qualifiers: Leukocytosis type: unspecified Qualified Code(s): D72.829 - Elevated white blood cell count, unspecified Is this a current diagnosis for this admission?: Yes Plan: Unchanged 15-->24-->27-->26 He remains afebrile and without indications of worsening infectious process. Likely secondary to IV steroid use. Repeat CXR today does not show new infiltrates All three sputum cultures with normal sinai. Second set of blood cultures with staph auricularis in one set; no longer on antibiotics. Repeat blood cultures negative. Urinalysis is negative for UTI. He has completed a 7-day course of Levaquin; no evidence of consolidation on chest x-ray, low suspicion for recurrent/continued pneumonia. Will hold on additional antibiotics at this time. (8) Hyperlipidemia Is this a current diagnosis for this admission?: Yes Plan: Continue home dose statin therapy. (9) Hypothyroidism Is this a current diagnosis for this admission?: Yes Plan: TSH is acceptable; continue home dose of levothyroxine. (10) Tobacco dependence Is this a current diagnosis for this admission?: Yes Plan: Continued daily tobacco use - patient admits to 2 PPD habit. Nicotine replacement therapies have been provided. Extensive counseling about the importance of quitting and the need for his domestic partner to quit or smoke outside of the home - Time Time Spent with patient: 15-24 minutes Medications reviewed and adjusted accordingly: Yes Anticipated discharge: Home Within: within 24 hours - Inpatient Certification Based on my medical assessment, after consideration of the patient's comorbidities, presenting symptoms, or acuity I expect that the services needed warrant INPATIENT care.: Yes I certify that my determination is in accordance with my understanding of Medicare's requirements for reasonable and necessary INPATIENT services [42 CFR 412.3e].: Yes Medical Necessity: Need for Nebulizer Therapy and Monitoring of Response, Risk of Complication if Not Cared For in Hospital - Plan Summary Plan Summary: CONTINUE OXYMIZER DURING THE DAY. AVAPS/TRILOGY DURING DAYTIME NAPS AND AT NIGHT. WILL NEED PORTABLE O2 TANK PRIOR TO DISCHARGE. LIKELY SEND HOME TOMORROW.
[2017-12-05 12:05] LABS: HEMATOCRIT 36.1 % (37.9-51.0); HEMOGLOBIN 11.1 g/dL (13.5-17.0); MEAN CORPUSCULAR HEMOGLOBIN 23.1 pg (27.0-33.4); MEAN CORPUSCULAR HGB CONC 30.9 g/dL (32.0-36.0); MEAN CORPUSCULAR VOLUME 75 fl (80-97); PLATELET COUNT 232 10^3/uL (150-450); RED BLOOD COUNT 4.83 10^6/uL (4.35-5.55); RED CELL DISTRIBUTION WIDTH 18.7 % (11.5-14.0)
[2017-12-05 12:24] LABS: ALANINE AMINOTRANSFERASE 152 U/L (21-72); ALBUMIN 2.9 g/dL (3.5-5.0); ALKALINE PHOSPHATASE 81 U/L (38-126); ANION GAP 9 (5-19); ASPARTATE AMINO TRANSFERASE 43 U/L (17-59); BILIRUBIN,DIRECT 0.3 mg/dL (0.0-0.4); BILIRUBIN,TOTAL 0.6 mg/dL (0.2-1.3); BLOOD UREA NITROGEN 30 mg/dL (7-20); CALCIUM 9.9 mg/dL (8.4-10.2); CARBON DIOXIDE 34 mmol/L (22-30); CHLORIDE 94 mmol/L (98-107); GLUCOSE 206 mg/dL (75-110); POTASSIUM 5.3 mmol/L (3.6-5.0); SODIUM 136.5 mmol/L (137-145); TOTAL PROTEIN 5.9 g/dL (6.3-8.2)
[2017-12-05 12:55] LABS: WHITE BLOOD COUNT 35.3 10^3/uL (4.0-10.5)
[2017-12-05] MEDS: SIMVASTATIN 40 MG TABLET NG SCH (17:47)
[2017-12-05] MEDS: PREDNISONE 20 MG TABLET PO SCH (17:47)
[2017-12-06] MEDS: IPRATROPIUM/ALBUTEROL 0.5-2.5 MG/3 ML AMPUL NEB SCH ×3 (02:11→13:48)
[2017-12-06] MEDS: LEVOTHYROXINE SODIUM 0.05 MG TABLET NG SCH (05:43)
[2017-12-06 05:54] LABS: ABSOLUTE RETICS # 0.047 10^6/uL (0.028-0.122); HEMATOCRIT 32.6 % (37.9-51.0); MEAN CORPUSCULAR HEMOGLOBIN 23.1 pg (27.0-33.4); MEAN CORPUSCULAR HGB CONC 30.6 g/dL (32.0-36.0); MEAN CORPUSCULAR VOLUME 76 fl (80-97); PLATELET COUNT 224 10^3/uL (150-450); RED BLOOD COUNT 4.31 10^6/uL (4.35-5.55); RED CELL DISTRIBUTION WIDTH 19.1 % (11.5-14.0); RETICULOCYTE COUNT (AUTO) 1.09 % (0.66-2.85); WHITE BLOOD COUNT 28.1 10^3/uL (4.0-10.5)
[2017-12-06 06:49] LABS: ABSOLUTE LYMPHOCYTES# (MANUAL) 1.4 10^3/uL (0.5-4.7); ABSOLUTE MONOCYTES # (MANUAL) 0.6 10^3/uL (0.1-1.4); ABSOLUTE NEUTROPHILS# (MANUAL) 26.1 10^3/uL (1.7-8.2); BAND NEUTROPHILS % (MANUAL) 1 % (3-5); BASOPHILS % (MANUAL) 0 % (0-2); EOSINOPHILS % (MANUAL) 0 % (0-6); LYMPHOCYTES % (MANUAL) 5 % (13-45); MONOCYTES % (MANUAL) 2 % (3-13); SEGMENTED NEUTROPHILS % (MAN) 92 % (42-78); TOTAL CELLS COUNTED 100
[2017-12-06 06:52] LABS: ANISOCYTOSIS 2+; OVALOCYTES 2+; POIKILOCYTOSIS 2+; STOMATOCYTES 2+; TOXIC GRANULATION SLIGHT; TOXIC VACUOLATION PRESENT
[2017-12-06 06:53] LABS: PLATELET COMMENT ADEQUATE
[2017-12-06 07:27] LABS: IRON(TIBC) 18.1 ug/dL (49-181)
[2017-12-06] MEDS: BUDESONIDE NEB 0.5 MG/2 ML AMPUL NEB SCH (08:11)
--- NOTE | 2017-12-06 08:32 | PDOC CONSULTATION ---
Consultation Consult Date: 12/06/17 Consult reason:: Hematology Oncology consultation was requested for patient with history of vocal cord cancer and elevated WBC count. History of Present Illness Admission Date/PCP: 11/18/17 15:51 TORSTEN ROSS DO History of Present Illness: MARTY SANTOS is a 57 year old male who was diagnosed with a Stage I Squamous Cell Laryngeal cancer in 06/2014. He was treated with Radiation only and has had no evidence of disease since completing treatment in June 2014. He has also been followed by the undersigned for secondary erythrocytosis as well as heterozygous hemochromatosis gene mutation. He was admitted to the hospital with acute respiratory failure and was on Bipap and ventilation. He has also been on steroids for the breathing. His WBC count has been normal to elevated with mainly neutrophils. Today, he states that his breathing is better, but he is very weak in the legs. He has not been able to get out of bed much to walk. However, he is anxious to possibly be going home today. Past Medical History Cardiac Medical History: Reports: Hyperlipidema Denies: Congestive Heart Failure, Coronary Artery Disease, Myocardial Infarction, Hypertension Pulmonary Medical History: Reports: Bronchitis, Chronic Obstructive Pulmonary Disease (COPD) - has O2 2.5l at night/doesn't always wear, Pneumonia Denies: Asthma, Tuberculosis Neurological Medical History: Denies: Seizures Malignancy Medical History: Reports: Other - Vocal cord cancer treated with radiation therapy in 2014 Musculoskeltal Medical History: Denies: Arthritis Hematology: Denies: Anemia Past Surgical History Past Surgical History: Reports: Other - Vocal cord biopsy Denies: Pacemaker Social History Lives with: Spouse/Significant other Smoking Status: Current Every Day Smoker Frequency of Alcohol Use: Occasional Hx Recreational Drug Use: No Hx Prescription Drug Abuse: No Past Social History 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 Father with CAD. Children Family History Reviewed: NA Sibling(s) Family History Reviewed.: Yes - 2 sisters alive without significant medical problems. Medication/Allergy Home Medications: Albuterol Sulfate [Proair HFA Inhalation Aerosol 8.5 gm MDI] 2 puff IH Q6HP PRN 11/18/17 Cetirizine HCl [Zyrtec 10 mg Tablet] 10 mg PO DAILY 11/18/17 Fenofibrate 160 mg PO DAILY 11/18/17 Fluticasone Propionate [Flonase Nasal [place] 50 Mcg/[place] 16 gm] 2 spray NASL DAILY 11/18/17 Levothyroxine Sodium [Synthroid 0.05 mg Tablet] 0.05 mg PO Q6AM 11/18/17 Omeprazole 40 mg PO DAILY 11/18/17 Simvastatin [Zocor 40 mg Tablet] 40 mg PO QPM 11/18/17 Tiotropium Br/Olodaterol HCl [Stiolto Respimat Inhal [place]] 2 puff IH DAILY Allergies/Adverse Reactions: bee stings Allergy (Severe, Uncoded 11/15/17 11:15) swelling Review of Systems Constitutional: ABSENT: fever(s), headache(s) Eyes: ABSENT: visual disturbances Ears: ABSENT: hearing changes Nose, Mouth, and Throat: ABSENT: sore throat Cardiovascular: ABSENT: chest pain Respiratory: PRESENT: cough, dyspnea Gastrointestinal: ABSENT: diarrhea, nausea Genitourinary: ABSENT: dysuria Musculoskeletal: PRESENT: back pain Integumentary: ABSENT: pruritus, rash Neurological: PRESENT: weakness Physical Exam Vital Signs: Temp Pulse Resp BP Pulse Ox 97.4 F 85 18 93/47 L 99 12/06/17 03:14 12/06/17 03:14 12/06/17 03:14 12/06/17 03:14 12/06/17 03:14 Pulse Oximeter Continuous Start: 12/02/17 08: 04 Freq: RTQ4 Status: Complete Document 12/05/17 08:37 HCR (Rec: 12/05/17 10:59 HCR [id number]) Pulse Oximetry Assessment Oxygen Saturation (92-100) 91 Oxygen Flow Rate (L/min) 4 Oxygen Delivery Method Oxymizer Oxygen Conserving Device Equipment Usage Equipment Standby Continuous SpO2 Machine # XX Intake & Output 12/05/17 12/06/17 12/07/17 06:59 06:59 06:59 Intake Total 1262 1646 Output Total 9515 0436 Balance -113 -879 Weight 78.5 kg 78.4 kg General appearance: PRESENT: obese Exam: 57 year old male. Sitting on side of bead with mild respiratory distress. Wearing oxygen. Head exam: PRESENT: normocephalic Eye exam: PRESENT: conjunctiva pink Mouth exam: PRESENT: tongue midline Neck exam: ABSENT: lymphadenopathy, tenderness Respiratory exam: PRESENT: decreased breath sounds Cardiovascular exam: PRESENT: RRR Pulses: PRESENT: normal dorsalis pedis pul Extremities exam: ABSENT: pedal edema Musculoskeletal exam: PRESENT: normal inspection Neurological exam: PRESENT: alert, awake, oriented to person, oriented to place , oriented to time, oriented to situation Psychiatric exam: PRESENT: appropriate affect Focused psych exam: ABSENT: pressured speech, restlessness Skin exam: PRESENT: normal color Results Laboratory Results: 12/06/17 05:36 12/05/17 11:46 12/05/17 12/05/17 12/06/17 11:46 11:46 05:36 WBC 35.3 H* 28.1 H RBC 4.83 4.31 L Hgb 11.1 L 10.0 L Hct 36.1 L 32.6 L MCV 75 L 76 L MCH 23.1 L 23.1 L MCHC 30.9 L 30.6 L RDW 18.7 H 19.1 H Plt Count 232 224 Seg Neutrophils % Not Reportable Lymphocytes % Not Reportable Monocytes % Not Reportable Eosinophils % Not Reportable Basophils % Not Reportable Absolute Neutrophils Not Reportable Absolute Lymphocytes Not Reportable Absolute Monocytes Not Reportable Absolute Eosinophils Not Reportable Absolute Basophils Not Reportable Retic Count (auto) 1.09 Absolute Retic 0.047 Sodium 136.5 L Potassium 5.3 H Chloride 94 L Carbon Dioxide 34 H Anion Gap 9 BUN 30 H Creatinine 0.53 Est GFR ( Amer) > 60 Est GFR (Non-Af Amer) > 60 Glucose 206 H Calcium 9.9 Magnesium 1.8 Total Bilirubin 0.6 AST 43 ALT 152 H Alkaline Phosphatase 81 Total Protein 5.9 L Albumin 2.9 L 11/19/17 11/25/17 11/29/17 04:25 04:50 03:44 NT-Pro-B Natriuret Pep 1940 H 335 200 Impressions: KUB X-Ray 11/18/17 17:45 IMPRESSION: NG tube as described. Chest/Abdomen CTA 11/22/17 00:00 IMPRESSION: Endotracheal tube, nasogastric tube in good positioning. Dependent consolidation in the right and left lower lobes. Trace loculated right pleural effusion in the posterior costophrenic sulci Cardiomegaly Chest X-Ray 12/04/17 06:00 IMPRESSION: Left basilar infiltrate and pleural thickening. Status: Image reviewed by me Assessment & Plan - Diagnosis (1) Anemia Qualifiers: Other causes of anemia: chronic disease, other Is this a current diagnosis for this admission?: Yes Plan: He did have elevated HGB. Iron studies, B12, Folate, TSH, Cr all unremarkable. Most likely anemia of chronic disease/inflammation. I certainly would not consider giving him iron with his history of hemochromatosis gene mutation, although it is only heterozygous. It is currently very mild and stable. I would continue to monitor this. (2) Leukocytosis Qualifiers: Leukocytosis type: leukemoid reaction Qualified Code(s): D72.823 - Leukemoid reaction Is this a current diagnosis for this admission?: Yes Plan: All neutrophils with left shift which appears to be reactive. Baseline WBC was 10-12 earlier this year. He has been on steroids, but elevation occurred prior to steroid use. I will continue to monitor this as an outpatient and consider bone marrow biopsy in 1-2 weeks if not resolved. (3) Vocal cord dysfunction Is this a current diagnosis for this admission?: Yes Plan: After treatment for cancer. Recent CT chest did not show any evidence of recurrence or new cancer process. I will continue to follow him as outpatient for this. - Plan Summary Plan Summary: Thank you for this consultation. Please feel free to call me with any concerns or questions.
[2017-12-06] MEDS: PREDNISONE 20 MG TABLET PO SCH (09:48)
[2017-12-06] MEDS: MULTIVITAMINS W-IRON TABLET, CHEWABLE PO SCH (09:48)
[2017-12-06] MEDS: NICOTINE 21 MG/24 HR PATCH.TD24 TD SCH (09:49)
[2017-12-06] MEDS: CETIRIZINE 10 MG TABLET NG SCH (09:49)
[2017-12-06] MEDS: FOLIC ACID 1 MG TABLET PO SCH (09:49)
[2017-12-06] MEDS: GUAIFENESIN 600 MG TABLET.SA PO SCH (09:49)
[2017-12-06] MEDS: ENOXAPARIN SODIUM INJ 30 MG/0.3 ML DISP.SYRIN SUBCUT SCH (09:50)
[2017-12-06] MEDS: THIAMINE HCL 100 MG TABLET PO SCH (10:05)
[2017-12-06] MEDS: FLUTICASONE NASAL SPRAY 50 MCG/SPRY 120 SPRAY/16 GM NASL SCH (10:06)
[2017-12-06 11:14] LABS: FOLATE 7.74 ng/mL (>2.76)
--- NOTE | 2017-12-06 13:18 | PDOC PROGRESS REPORT ---
Subjective Progress Note for:: 12/06/17 Subjective:: Feel better Reason For Visit: COPD EXACERBATION,ACUTE RESPIRATORY FAILURE Physical Exam Vital Signs: Temp Pulse Resp BP Pulse Ox 97.9 F 89 18 130/59 H 94 12/06/17 07:20 12/06/17 08:14 12/06/17 08:14 12/06/17 07:20 12/06/17 08:14 Pulse Oximeter Continuous Start: 12/02/17 08: 04 Freq: RTQ4 Status: Complete Document 12/05/17 08:37 HCR (Rec: 12/05/17 10:59 HCR [id number]) Pulse Oximetry Assessment Oxygen Saturation (92-100) 91 Oxygen Flow Rate (L/min) 4 Oxygen Delivery Method Oxymizer Oxygen Conserving Device Equipment Usage Equipment Standby Continuous SpO2 Machine # XX Intake & Output 12/05/17 12/06/17 12/07/17 06:59 06:59 06:59 Intake Total 1262 1646 Output Total 1375 2525 Balance -113 -879 Weight 78.5 kg 78.4 kg General appearance: PRESENT: no acute distress, cooperative, disheveled Head exam: PRESENT: atraumatic, normocephalic Eye exam: PRESENT: conjunctiva pale, EOMI. ABSENT: nystagmus, scleral icterus Mouth exam: PRESENT: dry mucosa, neck supple, tongue midline Neck exam: ABSENT: carotid bruit, JVD, lymphadenopathy, thyromegaly, tracheal deviation, tracheostomy Respiratory exam: PRESENT: decreased breath sounds, prolonged expiratory phas, rales, rhonchi, unlabored. ABSENT: retraction, stridor Pulses: PRESENT: normal radial pulses GI/Abdominal exam: PRESENT: soft. ABSENT: tenderness Extremities exam: PRESENT: pedal edema. ABSENT: calf tenderness, clubbing, joint swelling Musculoskeletal exam: ABSENT: deformity, dislocation Neurological exam: PRESENT: awake Psychiatric exam: PRESENT: appropriate affect Skin exam: PRESENT: dry, warm Results Laboratory Results: 12/06/17 05:36 12/05/17 11:46 12/05/17 12/05/17 12/06/17 11:46 11:46 05:36 WBC 35.3 H* 28.1 H RBC 4.83 4.31 L Hgb 11.1 L 10.0 L Hct 36.1 L 32.6 L MCV 75 L 76 L MCH 23.1 L 23.1 L MCHC 30.9 L 30.6 L RDW 18.7 H 19.1 H Plt Count 232 224 Seg Neutrophils % Not Reportable Lymphocytes % Not Reportable Monocytes % Not Reportable Eosinophils % Not Reportable Basophils % Not Reportable Absolute Neutrophils Not Reportable Absolute Lymphocytes Not Reportable Absolute Monocytes Not Reportable Absolute Eosinophils Not Reportable Absolute Basophils Not Reportable Retic Count (auto) 1.09 Absolute Retic 0.047 Sodium 136.5 L Potassium 5.3 H Chloride 94 L Carbon Dioxide 34 H Anion Gap 9 BUN 30 H Creatinine 0.53 Est GFR ( Amer) > 60 Est GFR (Non-Af Amer) > 60 Glucose 206 H Calcium 9.9 Magnesium 1.8 Total Bilirubin 0.6 AST 43 ALT 152 H Alkaline Phosphatase 81 Total Protein 5.9 L Albumin 2.9 L 11/19/17 11/25/17 11/29/17 04:25 04:50 03:44 NT-Pro-B Natriuret Pep 1940 H 335 200 Impressions: KUB X-Ray 11/18/17 17:45 IMPRESSION: NG tube as described. Chest/Abdomen CTA 11/22/17 00:00 IMPRESSION: Endotracheal tube, nasogastric tube in good positioning. Dependent consolidation in the right and left lower lobes. Trace loculated right pleural effusion in the posterior costophrenic sulci Cardiomegaly Chest X-Ray 12/04/17 06:00 IMPRESSION: Left basilar infiltrate and pleural thickening. Assessment & Plan - Diagnosis (1) COPD with acute exacerbation Is this a current diagnosis for this admission?: Yes Plan: Continued improvement (2) Protein calorie malnutrition Qualifiers: Protein-calorie malnutrition severity: moderate Qualified Code(s): E44.0 - Moderate protein-calorie malnutrition Is this a current diagnosis for this admission?: Yes (3) Respiratory failure with hypoxia and hypercapnia Qualifiers: Chronicity: acute on chronic Qualified Code(s): J96.21 - Acute and chronic respiratory failure with hypoxia; J96.22 - Acute and chronic respiratory failure with hypercapnia; J96.22 - Acute and chronic respiratory failure with hypercapnia; J96.22 - Acute and chronic respiratory failure with hypercapnia Is this a current diagnosis for this admission?: Yes Plan: The above patient has failed BiPAP. This patient would benefit from noninvasive mechanical ventilation via the trilogy AVAPS/AE and faster responding AVAPS rates. The trilogy is able to provide a target tidal volume and also adjusting the EPAP pressures to maintain a patent airway as well as an oral backup rate this machine will help improve PaCO2 levels. The severity of the patient's condition will lead to future hospitalizations and readmissions as well as life-threatening situations without the use of this device trilogy home vent needed for hypercapnic respiratory failure. [facility] or [facility] [place] to follow for trilogy set up.
[2017-12-06 14:18] LABS: PATH REVIEW PATHOLOGIST REVIEWED
[2017-12-06] MEDS ORDERED: ACETAMINOPHEN 325 MG TABLET PO PRN (14:41)
[2017-12-06] MEDS ORDERED: ONDANSETRON 4 MG TAB.RAPDIS PO PRN (15:00)
[2017-12-06 15:48] VITALS: BP 110/50
[2017-12-06] MEDS ORDERED: POLYETHYLENE GLYCOL 3350 POWDER 17 GM/1 PACKET PO ONE (16:30)
[2017-12-06] MEDS ORDERED: SIMVASTATIN 40 MG TABLET PO SCH (18:00)
[2017-12-07] MEDS ORDERED: LEVOTHYROXINE SODIUM 0.05 MG TABLET PO SCH (06:00)
[2017-12-07] MEDS ORDERED: CETIRIZINE 10 MG TABLET PO SCH (10:00)
--- NOTE | 2017-12-09 14:52 | PDOC PROGRESS REPORT ---
Subjective Progress Note for:: 12/03/17 Subjective:: Feel better Reason For Visit: COPD EXACERBATION,ACUTE RESPIRATORY FAILURE Physical Exam Vital Signs: Temp Pulse Resp BP Pulse Ox 98 F 84 20 114/80 91 L 12/03/17 07:36 12/03/17 01:55 12/03/17 07:00 12/03/17 04:06 12/03/17 07:00 Pulse Oximeter Continuous Start: 12/02/17 08: 04 Freq: RTQ4 Status: Hold Document 12/02/17 20:48 LRO (Rec: 12/02/17 20:53 LRO [id number]) Pulse Oximetry Assessment Oxygen Saturation (92-100) 95 Oxygen Delivery Method AVAP Fraction of Inspired Oxygen (FIO2) 40 Equipment Usage Equipment Standby Continuous SpO2 Machine # icu Intake & Output 12/02/17 12/03/17 12/04/17 06:59 06:59 06:59 Intake Total 960 100 Output Total 1050 1030 200 Balance -90 -930 -200 Weight 77.7 kg 78.6 kg General appearance: PRESENT: no acute distress, cooperative. ABSENT: disheveled Head exam: PRESENT: atraumatic, normocephalic Eye exam: PRESENT: conjunctiva pale, EOMI. ABSENT: nystagmus, periorbital swelling, scleral icterus Mouth exam: PRESENT: dry mucosa, neck supple, tongue midline Neck exam: ABSENT: carotid bruit, JVD, lymphadenopathy, thyromegaly, tracheal deviation, tracheostomy Respiratory exam: PRESENT: decreased breath sounds, prolonged expiratory phas, rhonchi, unlabored. ABSENT: retraction, stridor Cardiovascular exam: PRESENT: RRR, +S1, +S2 Pulses: PRESENT: normal radial pulses GI/Abdominal exam: PRESENT: soft. ABSENT: tenderness Musculoskeletal exam: ABSENT: deformity, dislocation Neurological exam: PRESENT: alert, awake Psychiatric exam: PRESENT: flat affect Skin exam: PRESENT: dry, warm Results Laboratory Results: 12/03/17 03:55 12/03/17 03:55 12/03/17 12/03/17 12/03/17 03:55 03:55 06:38 WBC 26.0 H RBC 5.05 Hgb 11.8 L Hct 38.3 MCV 76 L MCH 23.4 L MCHC 30.9 L RDW 18.4 H Plt Count 203 Carbonic Acid 1.73 H HCO3/H2CO3 Ratio 21:1 ABG pH 7.42 ABG pCO2 57.5 H ABG pO2 70.7 L ABG HCO3 36.7 H ABG O2 Saturation 94.2 ABG Base Excess 10.3 FiO2 40% Sodium 136.0 L Potassium 5.2 H Chloride 94 L Carbon Dioxide 36 H Anion Gap 6 BUN 25 H Creatinine 0.48 L Est GFR ( Amer) > 60 Est GFR (Non-Af Amer) > 60 Glucose 177 H Calcium 9.6 Phosphorus 3.4 Magnesium 1.9 11/19/17 11/25/17 11/29/17 04:25 04:50 03:44 NT-Pro-B Natriuret Pep 1940 H 335 200 Impressions: KUB X-Ray 11/18/17 17:45 IMPRESSION: NG tube as described. Chest/Abdomen CTA 11/22/17 00:00 IMPRESSION: Endotracheal tube, nasogastric tube in good positioning. Dependent consolidation in the right and left lower lobes. Trace loculated right pleural effusion in the posterior costophrenic sulci Cardiomegaly Chest X-Ray 12/03/17 06:00 IMPRESSION: Increasing volume loss in the left lung base possibly due to pneumonia, atelectasis or aspiration. Assessment & Plan - Diagnosis (1) COPD with acute exacerbation Is this a current diagnosis for this admission?: Yes Plan: Continued improvement (2) Protein calorie malnutrition Qualifiers: Protein-calorie malnutrition severity: moderate Qualified Code(s): E44.0 - Moderate protein-calorie malnutrition Is this a current diagnosis for this admission?: Yes Plan: Nutrition per NGT (3) Respiratory failure with hypoxia and hypercapnia Qualifiers: Chronicity: acute on chronic Qualified Code(s): J96.21 - Acute and chronic respiratory failure with hypoxia; J96.22 - Acute and chronic respiratory failure with hypercapnia; J96.22 - Acute and chronic respiratory failure with hypercapnia; J96.22 - Acute and chronic respiratory failure with hypercapnia Is this a current diagnosis for this admission?: Yes Plan: The above patient has failed BiPAP. This patient would benefit from noninvasive mechanical ventilation via the trilogy AVAPS/AE and faster responding AVAPS rates. The trilogy is able to provide a target tidal volume and also adjusting the EPAP pressures to maintain a patent airway as well as an oral backup rate this machine will help improve PaCO2 levels. The severity of the patient's condition will lead to future hospitalizations and readmissions as well as life-threatening situations without the use of this device trilogy home vent needed for hypercapnic respiratory failure. Family Medical or [facility] [place] to follow for trilogy set up.
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
== END 2017-12-06 18:23 | disposition home health service (06) | DRG 207 ==
LOC: ER 11:23 → EH 15:51 → ICU 19:24 → 3N 12-03 19:39 → 3S 12-04 18:40
PROVIDERS: ADMIT Emergency Medicine; ATTEND Emergency Medicine
PROC: 5A1955Z Respiratory Ventilation, Greater than 96 Consecutive Hours (ICD-10-PCS; principal; 2017-11-18)
PROC: 5A09357 Assistance with Respiratory Ventilation, Less than 24 Consecutive Hours, Continuous Positive Airway Pressure (ICD-10-PCS; 2017-11-18)
PROC: 0BH17EZ Insertion of Endotracheal Airway into Trachea, Via Natural or Artificial Opening (ICD-10-PCS; 2017-11-18)
PROC: 3E0F73Z Introduction of Anti-inflammatory into Respiratory Tract, Via Natural or Artificial Opening (ICD-10-PCS; 2017-11-18)
PROC: 3E02340 Introduction of Influenza Vaccine into Muscle, Percutaneous Approach (ICD-10-PCS; 2017-12-06)
DX: J96.21 Acute and chronic respiratory failure with hypoxia (principal); J44.1 Chronic obstructive pulmonary disease with (acute) exacerbation; E87.0 Hyperosmolality and hypernatremia; E44.0 Moderate protein-calorie malnutrition; R78.81 Bacteremia; J96.22 Acute and chronic respiratory failure with hypercapnia; E78.00 Pure hypercholesterolemia, unspecified; D72.823 Leukemoid reaction; D63.8 Anemia in other chronic diseases classified elsewhere; E66.9 Obesity, unspecified; D75.1 Secondary polycythemia; Z68.27 Body mass index [BMI] 27.0-27.9, adult; E03.9 Hypothyroidism, unspecified; I27.20 Pulmonary hypertension, unspecified; R00.0 Tachycardia, unspecified; Z53.20 Procedure and treatment not carried out because of patient's decision for unspecified reasons; F17.210 Nicotine dependence, cigarettes, uncomplicated; Z99.81 Dependence on supplemental oxygen; Z78.1 Physical restraint status; Z23 Encounter for immunization; Z85.21 Personal history of malignant neoplasm of larynx; Z92.3 Personal history of irradiation; Z91.030 Bee allergy status; Z79.899 Other long term (current) drug therapy; Z82.49 Family history of ischemic heart disease and other diseases of the circulatory system; Z83.6 Family history of other diseases of the respiratory system; Z83.3 Family history of diabetes mellitus
CPT/HCPCS: 31500; 36415; 51702; 71045; 71275; 74018; 80048; 80053; 81001; 82550; 82553; 82607; 82728; 82746; 82803; 82962; 83036; 83540; 83550; 83605; 83735; 83880; 84100; 84443; 84478; 84484; 85025; 85027; 85045; 87040; 87070; 87077; 87186; 87205; 87493; 87529; 90686; 93005; 93010; 93306; 94002; 94003; 94640; 94660; 94799; 96374; 99291; G8978-GP; G8979-GP; J0330; J1100; J1650; J1815; J1940; J1956; J2250; J2704; J2920; J2930; J3010; J3490; J7512; J7620; S0119; S0164

== ENCOUNTER 2018-01-14 00:27 | Inpatient (IN) | payer MEDICAID ==
[2018-01-14] MEDS ORDERED: NORMAL SALINE 1000 ML 1,000 ML IV ONE (00:34)
[2018-01-14] MEDS ORDERED: ALBUTEROL SULFATE 0.083% NEB 2.5 MG/3 ML AMPUL NEB ONE (00:34)
--- NOTE | 2018-01-14 00:37 | ER Document Report ---
ED General - General Stated Complaint: DIFFICULTY BREATHING Time Seen by Provider: 01/14/18 00:31 Cannot obtain history due to: Unstable vital signs, Other - Unable to speak Notes: Patient is a 57-year-old male with an extensive past medical history that includes COPD with baseline oxygen dependence, recent hospitalization requiring intubation for COPD exacerbation, prior laryngeal cancer, who presents in respiratory distress. Patient was apparently found saturating 70% on his home BiPAP machine, tachypneic and labored in breathing. Patient was transferred to the hospital, given multiple nebulizers and steroids in route due to his work of breathing. At time of presentation patient continues to be labored in his work of breathing history is otherwise limited secondary to the acuity of the patient's presentation. TRAVEL OUTSIDE OF THE [place] IN LAST 30 DAYS: No - Related Data Allergies/Adverse Reactions: bee stings Allergy (Severe, Uncoded 11/15/17 11:15) swelling Past Medical History - General Information source: Emergency Med Personnel Cannot obtain history due to: Unstable vital signs - Social History Smoking Status: Current Every Day Smoker Frequency of alcohol use: None Drug Abuse: None Lives with: Spouse/Significant other Family History: Reviewed & Not Pertinent, CAD, COPD - Past Medical History Cardiac Medical History: Reports: Hx Hypercholesterolemia Denies: Hx Congestive Heart Failure, Hx Coronary Artery Disease, Hx Heart Attack, Hx Hypertension Pulmonary Medical History: Reports: Hx Bronchitis, Hx COPD - has O2 2.5l at night/doesn't always wear, Hx Pneumonia Denies: Hx Asthma, Hx Tuberculosis Neurological Medical History: Denies: Hx Cerebrovascular Accident, Hx Seizures Renal/ Medical History: Denies: Hx Peritoneal Dialysis Musculoskeletal Medical History: Denies Hx Arthritis Traumatic Medical History: Reports: Hx Fractures - left collar bone Past Surgical History: Reports: Hx Oral Surgery, Other - Vocal cord biopsy. Denies: Hx Pacemaker - Immunizations Hx Diphtheria, Pertussis, Tetanus Vaccination: - not sure Hx Pneumococcal Vaccination: 10/23/11 Review of Systems - Review of Systems Notes: Constitutional: Negative for fever. HENT: Negative for sore throat. Eyes: Negative for visual changes. Cardiovascular: Negative for chest pain. Respiratory: Positive for shortness of breath Gastrointestinal: Negative for abdominal pain, vomiting or diarrhea. Genitourinary: Negative for dysuria. Musculoskeletal: Negative for back pain. Skin: Negative for rash. Neurological: Negative for headaches, weakness or numbness. 10 point ROS negative except as marked above and in HPI. Physical Exam - Vital signs Vitals: Resp Pulse Ox 26 H 85 L 01/14/18 00:33 01/14/18 00:33 Interpretation: Hypoxic, Tachypneic Notes: PHYSICAL EXAMINATION: GENERAL: Appears much older than stated age, ill and in moderate respiratory distress HEAD: Atraumatic, normocephalic. EYES: Pupils equal round and reactive to light, extraocular movements intact, sclera anicteric, conjunctiva are normal. ENT: nares patent, oropharynx clear without exudates. Moderately dry mucous membranes. NECK: Normal range of motion, supple without lymphadenopathy LUNGS: Moderate tachypnea, supraclavicular and intercostal retractions. Poor air movement in all lung jenkins. Coarse expiratory wheezing in all lung jenkins. HEART: Regular tachycardia without murmurs ABDOMEN: Soft, nontender, normoactive bowel sounds. No guarding, no rebound. No masses appreciated. EXTREMITIES: Normal range of motion, no pitting or edema. No cyanosis. NEUROLOGICAL: No focal neurological deficits. Moves all extremities spontaneously and on command. PSYCH: Moderately anxious SKIN: Warm, Dry, normal turgor, no rashes or lesions noted. Course - Re-evaluation Re-evalutation: 01/14/18 00:35 Patient presents in moderate respiratory distress, appears much older than stated age noted to be tachycardic, tachypneic, and hypoxic on nasal cannula. Patient is unable to provide significant meaningful history due to vocal cord dysfunction. His previous hospitalization has been reviewed extensively. It appears that at time of discharge the patient was able to be on nasal cannula during the day was not BiPAP dependent at all times. Likewise his blood pressure was not as low as it has been reported by EMS to be into the 90s nor was he tachycardic into the 120s. Patient is noted to be unstable based on his vitals at time of presentation. He was immediately assessed. He has been placed on BiPAP, continuous in-line albuterol nebs have been started. The patient has coarse wheezing and rhonchi in all lung jenkins. A liter of normal saline has been initiated as patient is moderate hypotensive into the 90 systolic. He is also notably tachycardic although has received albuterol nebulizers prior to presentation. His blood pressure is too low to allow for magnesium infusion. Patient will require frequent and regular reassessments given his degree of illness at time of presentation and risk for respiratory decompensation as well as hemodynamic decompensation. 01/14/18 01:22 Patient's work of breathing continues to be much improved on BiPAP with continuous in-line nebs. Chest x-ray she appears to show advancing and progressively worsening infection despite patient being on outpatient antibiotics. Venous blood gas shows chronic CO2 retention without acute acidosis. Patient's heart rate remains quite elevated at 126 bpm currently. Respiratory rate has improved somewhat into the mid 20s. Saturating 95% on 60% FiO2 on BiPAP. Labs continue to be pending. Will continue to monitor and reassess. 01/14/18 01:53 Patient's work of breathing continues to stabilize. He is tachypneic but is no longer in distress. I have emphasized with the patient and his significant other at this point that his condition seems to have rapidly deteriorated over 6 weeks based on labs and review of discharge summary. I have emphasized with the patient that particularly in the context of him continuing to smoke at least 2 packs/day he likely is terminal at this point and hospice referral should be considered. I have discussed with the hospitalist Dr. Sandy for admission given his ongoing need for positive pressure ventilation. - Vital Signs Vital signs: Temp Pulse Resp BP Pulse Ox 30 H 106/70 92 01/14/18 01:32 01/14/18 01:32 01/14/18 01:32 - Laboratory Result Diagrams: 01/14/18 00:35 01/14/18 00:35 Laboratory results interpreted by me: 01/14/18 01/14/18 01/14/18 00:35 00:35 00:35 WBC 25.4 H RBC 3.62 L Hgb 8.7 L Hct 29.4 L MCH 23.9 L MCHC 29.5 L RDW 21.0 H Seg Neuts % (Manual) 81 H Abs Neuts (Manual) 20.6 H Abs Monocytes (Manual) 1.5 H VBG pCO2 83.3 H* VBG HCO3 47.4 H Chloride 89 L Carbon Dioxide 46 H* Glucose 136 H Direct Bilirubin 0.5 H ALT 15 L Albumin 2.6 L - Diagnostic Test Radiology reviewed: Reports reviewed Critical Care Note - Critical Care Note Total time excluding time spent on procedures (mins): 40 Comments: Critical care time spent obtaining history from patient or surrogate, discussions with consultants, development of treatment plan with patient or surrogate, evaluation of patient's response to treatment, examination of patient , ordering and performing treatments and interventions, ordering and review of laboratory studies, re-evaluation of patient's condition, ordering and review of radiographic studies and review of old charts Discharge - Discharge Clinical Impression: COPD with acute exacerbation, Tobacco dependence, Respiratory distress Condition: Fair Disposition: ADMITTED INPATIENT Admitting Provider: Hospitalist Unit Admitted: IMCU Referrals: TORSTEN ROSS DO [Primary Care Provider] - Follow up as needed
[2018-01-14 00:48] LABS: VENOUS BLOOD HCO3 47.4 mmol/L (20-32); VENOUS BLOOD PH 7.37 (7.30-7.42)
[2018-01-14 00:59] LABS: HEMATOCRIT 29.4 % (37.9-51.0); HEMOGLOBIN 8.7 g/dL (13.5-17.0); MEAN CORPUSCULAR HEMOGLOBIN 23.9 pg (27.0-33.4); MEAN CORPUSCULAR HGB CONC 29.5 g/dL (32.0-36.0); MEAN CORPUSCULAR VOLUME 81 fl (80-97); PLATELET COUNT 438 10^3/uL (150-450); RED BLOOD COUNT 3.62 10^6/uL (4.35-5.55); WHITE BLOOD COUNT 25.4 10^3/uL (4.0-10.5)
[2018-01-14 01:06] LABS: VENOUS BLOOD PCO2 83.3 mmHg (35-63)
[2018-01-14 01:07] LABS: ALANINE AMINOTRANSFERASE 15 U/L (21-72); ALBUMIN 2.6 g/dL (3.5-5.0); ALKALINE PHOSPHATASE 110 U/L (38-126); ASPARTATE AMINO TRANSFERASE 53 U/L (17-59); BILIRUBIN,DIRECT 0.5 mg/dL (0.0-0.4); BILIRUBIN,TOTAL 0.7 mg/dL (0.2-1.3); BLOOD UREA NITROGEN 17 mg/dL (7-20); CALCIUM 9.1 mg/dL (8.4-10.2); CHLORIDE 89 mmol/L (98-107); GLUCOSE 136 mg/dL (75-110); SODIUM 142.5 mmol/L (137-145); TOTAL PROTEIN 6.9 g/dL (6.3-8.2)
--- NOTE | 2018-01-14 01:15 | RADIOLOGY REPORT (SQ) ---
EXAM DESCRIPTION: XR CHEST 1 VIEW COMPLETED DATE/TME: 01/14/2018 00:34 CLINICAL HISTORY: 57 years, Male, cough, sob COMPARISON: 12/04/2017 chest x-ray NUMBER OF VIEWS: 2 TECHNIQUE: Frontal views of the chest LIMITATIONS: None. FINDINGS: Heart size is normal. Underlying emphysema with right apical pleural thickening and nodularity. Fullness in the right hilar region for which adenopathy is not excluded. Osteopenia. No pneumothorax. IMPRESSION: Right apical pleural thickening and nodularity. Fullness in the right hilum suspicious for adenopathy. Underlying emphysema. Findings have progressed from the prior. 2010 [employer]- All Rights Reserved
[2018-01-14 01:16] LABS: ANION GAP 8 (5-19)
[2018-01-14 01:17] LABS: CARBON DIOXIDE 46 mmol/L (22-30)
[2018-01-14] MEDS ORDERED: PIPERACILLIN/TAZOBACTAM 3.375 GM VIAL IV ONE (01:19)
[2018-01-14] MEDS ORDERED: VANCOMYCIN HCL INJ 1000 MG VIAL IV ONE (01:19)
[2018-01-14] MEDS ORDERED: AZITHROMYCIN 250 MG TABLET PO ONE (01:20)
[2018-01-14 01:22] LABS: ABSOLUTE LYMPHOCYTES# (MANUAL) 3.3 10^3/uL (0.5-4.7); ABSOLUTE MONOCYTES # (MANUAL) 1.5 10^3/uL (0.1-1.4); ABSOLUTE NEUTROPHILS# (MANUAL) 20.6 10^3/uL (1.7-8.2); BASOPHILS % (MANUAL) 0 % (0-2); EOSINOPHILS % (MANUAL) 0 % (0-6); LYMPHOCYTES % (MANUAL) 13 % (13-45); MONOCYTES % (MANUAL) 6 % (3-13); NUCLEATED RED BLOOD CELLS 3 /100 WBC (0); SEGMENTED NEUTROPHILS % (MAN) 81 % (42-78); TOTAL CELLS COUNTED 100
[2018-01-14 01:25] LABS: ANISOCYTOSIS 3+; OVALOCYTES 3+; POIKILOCYTOSIS 3+; POLYCHROMASIA 1+; STOMATOCYTES 2+; TOXIC GRANULATION SLIGHT; TOXIC VACUOLATION PRESENT
[2018-01-14 01:26] LABS: PLATELET COMMENT ADEQUATE
[2018-01-14 01:38] LABS: A TYPE INFLUENZA AG NEGATIVE (NEGATIVE); B INFLUENZA AG NEGATIVE (NEGATIVE)
[2018-01-14 02:42] LABS: ARTERIAL BLOOD BASE EXCESS 16.1 mmol/L; ARTERIAL BLOOD H2CO3 2.28 mmol/L (1.05-1.35); ARTERIAL BLOOD HCO3 44.1 mmol/L (20-24); ARTERIAL BLOOD O2 SATURATION 91.6 % (94-98); ARTERIAL BLOOD PH 7.38 (7.35-7.45); ARTERIAL BLOOD PO2 65.6 mmHg (80-100); ARTERIAL BLOOD TOTAL CO2 46.4 mmol/L (23-27)
[2018-01-14 02:43] LABS: ARTERIAL BLOOD FIO2 40%; ARTERIAL BLOOD PCO2 75.7 mmHg (35-45)
[2018-01-14] MEDS ORDERED: ACETAMINOPHEN 325 MG TABLET PO PRN (02:49)
[2018-01-14] MEDS ORDERED: LEVALBUTEROL HCL NEB 1.25 MG/3 ML AMPUL NEB PRN (02:49)
[2018-01-14] MEDS ORDERED: MAG HYDROX/AL HYDROX/SIMETH SUSP 30 ML UDCUP PO PRN (02:49)
[2018-01-14] MEDS ORDERED: PROMETHAZINE HCL 25 MG TABLET PO PRN (02:49)
[2018-01-14] MEDS ORDERED: PROMETHAZINE HCL INJ 25 MG/1 ML VIAL IV PRN (02:49)
[2018-01-14] MEDS ORDERED: VANCOMYCIN HCL 0 MG in DEXTROSE 5%-WATER 250 ML IV NR (03:00)
--- NOTE | 2018-01-14 03:29 | PDOC H&P ---
History of Present Illness Admission Date/PCP: 01/14/18 01:57 TORSTEN ROSS DO Patient complains of: Shortness of breath History of Present Illness: MARTY SANTOS is a 57 year old male with medical history remarkable for chronic respiratory failure secondary to COPD on home oxygen, 4 L at rest and 6 L when ambulating, vocal cord cancer status post radiation, polycythemia, actively smoker of 3 packs/day. Presented to the emergency department complaining of respiratory distress. The patient has been discharged from our facility on December 06 after being hospitalized for several days, that time patient was intubated and placed on mechanical ventilator. He was sent home with oxygen and a trilogy. His common-law is at the bedside and tells me that initially he was doing well but after few days he started worsening again, he cannot is live with a trilogy but he is using this most of the time during the day, he uses oxygen 4 L when he is a sleeping, unfortunately he is a still is smoking 3 packs /day and, denies sore throat or runny nose. Denies fever, chills, chest pain, abdominal pain, changes in his bowel or urine. Today when his came back from work he was sitting on the couch after taking a nap laying his body to the right side with the oxygen on his hand gasping for air, partner call EMS, upon arrival patient was saturating 70% on his home BiPAP machine, was tachypneic with a labored breathing. In route given nebulizer treatments and steroids. At the time of arrival to the ED was a still with labored breathing and was continue on BiPAP. His oxygen saturation is usually 88-90% on 4 L oxygen Chest x-ray notable for possible right lower lobe infiltrates and has been a started on broad-spectrum antibiotics. Past Medical History Cardiac Medical History: Reports: Hyperlipidema Denies: Congestive Heart Failure, Coronary Artery Disease, Myocardial Infarction, Hypertension Pulmonary Medical History: Reports: Bronchitis, Chronic Obstructive Pulmonary Disease (COPD) - has O2 4l at night/6 L ambulating, Intubation, Pneumonia Denies: Asthma, Tuberculosis Neurological Medical History: Denies: Seizures Malignancy Medical History: Reports: Other - Laryngeal cancer Musculoskeltal Medical History: Denies: Arthritis Hematology: Denies: Anemia Past Surgical History Past Surgical History: Reports: Other - Vocal cord biopsy Denies: Pacemaker Social History Lives with: Spouse/Significant other Smoking Status: Current Every Day Smoker - 3 packs/day Frequency of Alcohol Use: Occasional Hx Recreational Drug Use: No Hx Prescription Drug Abuse: No Family History Family History: Reviewed & Not Pertinent, CAD, COPD Parental Family History Reviewed: Yes - As above Children Family History Reviewed: NA Sibling(s) Family History Reviewed.: NA Medication/Allergy Home Medications: Albuterol Sulfate [Proair HFA Inhalation Aerosol 8.5 gm MDI] 2 puff IH Q6HP PRN 11/18/17 Cetirizine HCl [Zyrtec 10 mg Tablet] 10 mg PO DAILY 11/18/17 Fenofibrate 160 mg PO DAILY 11/18/17 Fluticasone Propionate [Flonase Nasal [place] 50 Mcg/[place] 16 gm] 2 spray NASL DAILY 11/18/17 Levothyroxine Sodium [Synthroid 0.05 mg Tablet] 0.05 mg PO Q6AM 11/18/17 Omeprazole 40 mg PO DAILY 11/18/17 Simvastatin [Zocor 40 mg Tablet] 40 mg PO QPM 11/18/17 Tiotropium Br/Olodaterol HCl [Stiolto Respimat Inhal [place]] 2 puff IH DAILY Budesonide [Pulmicort Neb 0.5 mg/2 ml Ampul] 0.5 mg NEB RTQ12 #5 ampul.neb 12/06 Ipratropium/Albuterol Sulfate [Duoneb 3 ml Ampul] 3 ml NEB RTQ6 #5 vial.neb 10/16 Nicotine [Nicoderm 21 mg/24 Hr Transderm Patch] 1 each TD DAILY #30 patch.td24 12/06/17 Prednisone [Deltasone 20 mg Tablet] 60 mg PO BID #15 tablet 12/06/17 Allergies/Adverse Reactions: bee stings Allergy (Severe, Uncoded 11/15/17 11:15) swelling Review of Systems Review of Systems: As outlined in the HPI, others negative Physical Exam Vital Signs: Temp Pulse Resp BP Pulse Ox 28 H 119/73 93 01/14/18 02:31 01/14/18 02:31 01/14/18 02:31 Intake & Output 01/12/18 01/13/18 01/14/18 06:59 06:59 06:59 Intake Total 1000 Balance 1000 Additional comments: General appearance: Disheveled, decondition, tire, alert and cooperative, and appears to be in mild respiratory distress. Wearing BiPAP. Head: Normocephalic Eyes: PEERL, EOMI, vision is grossly intact. Ears: External auditory canal and tympanic membranes clear, hearing grossly intact. Nose: No nasal discharge. Throat: Oral cavity and pharynx dry. No inflammation, swelling, exudate or lesions. Neck: Neck supple, nontender without lymphadenopathy, masses or thyromegaly. Cardiac: Normal S1 and S2. No S3, S4 or murmurs. Rhythm is regular and tachycardic. There is no peripheral edema, cyanosis or pallor. Extremities are warm and well perfused. Capillary refill is less than 2 seconds. No carotid bruits. Lungs: Severe bilateral decreased breath sounds with inspiratory and expiratory wheezing, diffuse coarse crackles with moderate rhonchi. Not using accessory muscles at the time of my evaluation. Abdomen: Positive bowel sounds. Soft. Nondistended, nontender. No guarding or rebound. No masses. No hepatosplenomegaly Extremities: No significant deformity or joint abnormality. No edema. Peripheral pulses intact. No varicosities. Neurological: Cranial nerves II through XII grossly intact. Strength and sensation symmetric and intact throughout. Reflexes 2+ throughout. Skin: Skin pale, normal texture and turgor with no lesions or eruptions, warm and dry. Psychiatric: The mental examination revealed the patient was oriented to person , place, and time. The patient was able to demonstrate good judgment on recent , without hallucinations, abnormal affect or abnormal behaviors. Results Laboratory Results: 01/14/18 02:29 Carbonic Acid 2.28 H HCO3/H2CO3 Ratio 19:1 ABG pH 7.38 ABG pCO2 75.7 H* ABG pO2 65.6 L ABG HCO3 44.1 H ABG O2 Saturation 91.6 L ABG Base Excess 16.1 FiO2 40% Impressions: Chest X-Ray 01/14/18 00:34 IMPRESSION: Right apical pleural thickening and nodularity. Fullness in the right hilum suspicious for adenopathy. Underlying emphysema. Findings have progressed from the prior. 2010 [employer]- All Rights Reserved Assessment & Plan - Diagnosis (1) Acute on chronic respiratory failure with hypoxia and hypercapnia Is this a current diagnosis for this admission?: Yes Plan: Patient comes with acute on chronic respiratory failure, his initial oxygen saturation was 70% on room air and his CO2 in the emergency department was elevated to 83 in [facility]. Patient was already on BiPAP on his way to the hospital. We will continue with BiPAP overnight, seems more comfortable. ABG after BiPAP initiation 7.38/70 5.7/65.6, patient CO2 baseline is in between 55-65 as per last ABGs. (2) HCAP (healthcare-associated pneumonia) Is this a current diagnosis for this admission?: Yes Plan: Chest x-ray shows right lung infiltrates, suspicious for pneumonia, will keep the patient on broad-spectrum antibiotic with IV vancomycin, IV Zosyn and IV Levaquin, please follow blood cultures. Incentive spirometry. RT consult. Nebulizer treatments as needed. Solu-Medrol 60 mg every 8 hours. Leukocytosis with white blood cell of 25k (3) COPD with acute exacerbation Is this a current diagnosis for this admission?: Yes Plan: As above (4) Tobacco dependence Is this a current diagnosis for this admission?: Yes Plan: Patient continues to smoke and apparently is smoking more than before, up to 3 packs/day that the was unaware of, patient does not seems to be willing to quit and he will deteriorate really fast. I am placing a consultation for palliative care, patient should be made hospice and DNR. (5) History of laryngeal cancer Is this a current diagnosis for this admission?: Yes (6) Elevated troponin Is this a current diagnosis for this admission?: Yes Plan: Troponins 0.0 87, the patient does not have any clear cardiac symptomatology and I believe the increased troponin is secondary to his severe respiratory distress, will place cardiac markers x3. (7) DVT prophylaxis Is this a current diagnosis for this admission?: Yes Plan: Lovenox - Time Time Spent: 50 to 70 Minutes Smoking Cessation Education: 3 to 10 minutes - Inpatient Certification Based on my medical assessment, after consideration of the patient's comorbidities, presenting symptoms, or acuity I expect that the services needed warrant INPATIENT care.: Yes I certify that my determination is in accordance with my understanding of Medicare's requirements for reasonable and necessary INPATIENT services [42 CFR 412.3e].: Yes Medical Necessity: Risk of Complication if Not Cared For in Hospital - Acute respiratory failure with cardiac arrest or intubation needs
[2018-01-14] MEDS: NORMAL SALINE 1000 ML 1,000 ML IV PRN (05:01)
[2018-01-14 05:06] LABS: HEMATOCRIT 27.2 % (37.9-51.0); HEMOGLOBIN 8.3 g/dL (13.5-17.0); MEAN CORPUSCULAR HEMOGLOBIN 24.8 pg (27.0-33.4); MEAN CORPUSCULAR HGB CONC 30.4 g/dL (32.0-36.0); MEAN CORPUSCULAR VOLUME 82 fl (80-97); PLATELET COUNT 417 10^3/uL (150-450); RED BLOOD COUNT 3.33 10^6/uL (4.35-5.55); RED CELL DISTRIBUTION WIDTH 21.8 % (11.5-14.0); WHITE BLOOD COUNT 18.4 10^3/uL (4.0-10.5)
[2018-01-14 05:28] LABS: BLOOD UREA NITROGEN 17 mg/dL (7-20); CALCIUM 8.7 mg/dL (8.4-10.2); CHLORIDE 90 mmol/L (98-107); GLUCOSE 206 mg/dL (75-110); PHOSPHORUS 3.6 mg/dL (2.5-4.5); POTASSIUM 4.4 mmol/L (3.6-5.0); SODIUM 142.5 mmol/L (137-145)
[2018-01-14] MEDS: IPRATROPIUM/ALBUTEROL 0.5-2.5 MG/3 ML AMPUL NEB SCH ×6 (05:31→19:45)
[2018-01-14 05:36] LABS: ANION GAP 12 (5-19)
[2018-01-14] MEDS: LANSOPRAZOLE 30 MG TAB.RAP.DR PO SCH (05:37)
[2018-01-14] MEDS: LEVOTHYROXINE SODIUM 0.05 MG TABLET PO SCH (05:37)
[2018-01-14] MEDS: BENZONATATE 100 MG CAPSULE PO SCH ×3 (05:37→21:01)
[2018-01-14 05:38] LABS: CARBON DIOXIDE 41 mmol/L (22-30)
[2018-01-14] MEDS: LEVOFLOXACIN 750 MG/D5W RTU 750 MG/150 ML RTUPB IV SCH (05:38)
[2018-01-14 05:46] LABS: ABSOLUTE LYMPHOCYTES# (MANUAL) 1.7 10^3/uL (0.5-4.7); ABSOLUTE MONOCYTES # (MANUAL) 0.9 10^3/uL (0.1-1.4); ABSOLUTE NEUTROPHILS# (MANUAL) 15.8 10^3/uL (1.7-8.2); BASOPHILS % (MANUAL) 0 % (0-2); EOSINOPHILS % (MANUAL) 0 % (0-6); LYMPHOCYTES % (MANUAL) 8 % (13-45); MONOCYTES % (MANUAL) 5 % (3-13); NUCLEATED RED BLOOD CELLS 1 /100 WBC (0); SEGMENTED NEUTROPHILS % (MAN) 86 % (42-78); TOTAL CELLS COUNTED 100
[2018-01-14 05:49] LABS: TOXIC GRANULATION 1+; TOXIC VACUOLATION PRESENT
[2018-01-14 05:50] LABS: ANISOCYTOSIS 3+; PLATELET COMMENT ADEQUATE; POIKILOCYTOSIS 3+; POLYCHROMASIA 1+; STOMATOCYTES 3+
[2018-01-14] MEDS ORDERED: METHYLPREDNISOLONE INJ 125 MG/2 ML SDV IV SCH ×2 (06:00→18:00)
[2018-01-14 06:46] LABS: ARTERIAL BLOOD BASE EXCESS 17.6 mmol/L; ARTERIAL BLOOD HCO3 46.5 mmol/L (20-24); ARTERIAL BLOOD O2 SATURATION 96.8 % (94-98); ARTERIAL BLOOD PH 7.33 (7.35-7.45); ARTERIAL BLOOD PO2 100.9 mmHg (80-100); ARTERIAL BLOOD TOTAL CO2 49.3 mmol/L (23-27)
[2018-01-14 06:47] LABS: ARTERIAL BLOOD FIO2 40%
[2018-01-14 06:48] LABS: ARTERIAL BLOOD PCO2 89.6 mmHg (35-45)
[2018-01-14 07:35] LABS: CREATINE KINASE MB 9.31 ng/mL (<4.55); TROPONIN I 0.507 ng/mL
[2018-01-14] MEDS: BUDESONIDE NEB 0.5 MG/2 ML AMPUL NEB SCH ×2 (07:46→19:45)
[2018-01-14] MEDS: FENOFIBRATE NANOCRYSTALLIZED 145 MG TABLET PO SCH (09:52)
[2018-01-14] MEDS: NICOTINE 21 MG/24 HR PATCH.TD24 TD SCH (09:52)
[2018-01-14] MEDS: ENOXAPARIN SODIUM INJ 40 MG/0.4 ML DISP.SYRIN SUBCUT SCH (09:52)
[2018-01-14] MEDS: CETIRIZINE 10 MG TABLET PO SCH (09:52)
[2018-01-14] MEDS: PIPERACILLIN SODIUM/TAZOBACTAM 3.375 GM in NORMAL SALINE 100 ML IV SCH ×3 (09:53→20:03)
[2018-01-14] MEDS ORDERED: (PENDING PHARMACY ID) (Tiotropium Br/Olodaterol Hcl [Stiolto Respimat Inhal Spray] 2 PUFF) IH SCH (10:00)
[2018-01-14] MEDS: METHYLPREDNISOLONE INJ 40 MG/1 ML SDV IV SCH ×3 (13:31→23:22)
[2018-01-14] MEDS: VANCOMYCIN HCL 750 MG in DEXTROSE 5%-WATER 250 ML IV SCH ×2 (13:36→23:23)
[2018-01-14 15:24] LABS: CREATINE KINASE MB 6.44 ng/mL (<4.55); TROPONIN I 0.455 ng/mL
[2018-01-14 16:48] LABS: ARTERIAL BLOOD BASE EXCESS 19.7 mmol/L; ARTERIAL BLOOD H2CO3 1.95 mmol/L (1.05-1.35); ARTERIAL BLOOD HCO3 45.9 mmol/L (20-24); ARTERIAL BLOOD O2 SATURATION 91.9 % (94-98); ARTERIAL BLOOD PCO2 64.8 mmHg (35-45); ARTERIAL BLOOD PH 7.47 (7.35-7.45); ARTERIAL BLOOD PO2 61.2 mmHg (80-100); ARTERIAL BLOOD TOTAL CO2 47.9 mmol/L (23-27)
[2018-01-14 16:49] LABS: ARTERIAL BLOOD FIO2 30%
[2018-01-14] MEDS: SIMVASTATIN 40 MG TABLET PO SCH (17:25)
[2018-01-14 18:07] LABS: A TYPE INFLUENZA AG NEGATIVE (NEGATIVE); B INFLUENZA AG NEGATIVE (NEGATIVE)
[2018-01-14 19:21] LABS: CREATINE KINASE MB 5.83 ng/mL (<4.55)
[2018-01-14 19:30] LABS: TROPONIN I 0.475 ng/mL
[2018-01-15] MEDS: IPRATROPIUM/ALBUTEROL 0.5-2.5 MG/3 ML AMPUL NEB SCH ×7 (00:02→19:38)
[2018-01-15] MEDS: PIPERACILLIN SODIUM/TAZOBACTAM 3.375 GM in NORMAL SALINE 100 ML IV SCH ×4 (02:07→20:00)
[2018-01-15] MEDS: NORMAL SALINE 1000 ML 1,000 ML IV PRN (05:39)
[2018-01-15] MEDS: LEVOTHYROXINE SODIUM 0.05 MG TABLET PO SCH (05:40)
[2018-01-15] MEDS: LANSOPRAZOLE 30 MG TAB.RAP.DR PO SCH (05:40)
[2018-01-15] MEDS: BENZONATATE 100 MG CAPSULE PO SCH ×3 (05:40→21:46)
[2018-01-15] MEDS: LEVOFLOXACIN 750 MG/D5W RTU 750 MG/150 ML RTUPB IV SCH (05:41)
[2018-01-15] MEDS: METHYLPREDNISOLONE INJ 40 MG/1 ML SDV IV SCH ×4 (05:49→23:52)
[2018-01-15 06:05] LABS: HEMATOCRIT 28.1 % (37.9-51.0); HEMOGLOBIN 8.2 g/dL (13.5-17.0); MEAN CORPUSCULAR HEMOGLOBIN 23.6 pg (27.0-33.4); MEAN CORPUSCULAR HGB CONC 29.3 g/dL (32.0-36.0); MEAN CORPUSCULAR VOLUME 81 fl (80-97); PLATELET COUNT 394 10^3/uL (150-450); RED BLOOD COUNT 3.48 10^6/uL (4.35-5.55); RED CELL DISTRIBUTION WIDTH 22.1 % (11.5-14.0); WHITE BLOOD COUNT 11.7 10^3/uL (4.0-10.5)
[2018-01-15 06:27] LABS: BLOOD UREA NITROGEN 23 mg/dL (7-20); CALCIUM 8.9 mg/dL (8.4-10.2); CHLORIDE 92 mmol/L (98-107); GLUCOSE 160 mg/dL (75-110); PHOSPHORUS 3.8 mg/dL (2.5-4.5); POTASSIUM 4.6 mmol/L (3.6-5.0); SODIUM 144.9 mmol/L (137-145)
[2018-01-15 06:46] LABS: ANION GAP 11 (5-19)
[2018-01-15 06:53] LABS: ARTERIAL BLOOD BASE EXCESS 6.9 mmol/L; ARTERIAL BLOOD H2CO3 1.72 mmol/L (1.05-1.35); ARTERIAL BLOOD HCO3 33.1 mmol/L (20-24); ARTERIAL BLOOD O2 SATURATION 94.2 % (94-98); ARTERIAL BLOOD PCO2 57.1 mmHg (35-45); ARTERIAL BLOOD PH 7.38 (7.35-7.45); ARTERIAL BLOOD PO2 73.7 mmHg (80-100); ARTERIAL BLOOD TOTAL CO2 34.8 mmol/L (23-27)
[2018-01-15 06:57] LABS: ARTERIAL BLOOD FIO2 40%
[2018-01-15] MEDS: BUDESONIDE NEB 0.5 MG/2 ML AMPUL NEB SCH ×2 (08:11→19:34)
[2018-01-15] MEDS: CETIRIZINE 10 MG TABLET PO SCH (09:14)
[2018-01-15] MEDS: NICOTINE 21 MG/24 HR PATCH.TD24 TD SCH (09:14)
[2018-01-15] MEDS: FENOFIBRATE NANOCRYSTALLIZED 145 MG TABLET PO SCH (09:14)
[2018-01-15] MEDS: ENOXAPARIN SODIUM INJ 40 MG/0.4 ML DISP.SYRIN SUBCUT SCH (09:17)
--- NOTE | 2018-01-15 10:30 | PDOC PROGRESS REPORT ---
Subjective Progress Note for:: 01/15/18 Subjective:: Patient responded well to BiPAP. His PCO2 decreased from 89-57. He was actually off BiPAP and even off oxygen when I interviewed him. He took the BiPAP off to eat breakfast. He says he is much improved and he looks a lot better than when I saw him yesterday. Reason For Visit: COPD EXACERBATION Physical Exam Vital Signs: Temp Pulse Resp BP Pulse Ox 98.3 F 102 H 18 129/57 H 100 01/15/18 08:32 01/15/18 08:32 01/15/18 08:32 01/15/18 08:32 01/15/18 08:32 Intake & Output 01/14/18 01/15/18 01/16/18 06:59 06:59 06:59 Intake Total 1000 2050 150 Output Total 300 Balance 1000 1750 150 Weight 165 lb 9.074 oz 169 lb 1.513 oz General appearance: PRESENT: no acute distress, cooperative Head exam: PRESENT: atraumatic, normocephalic Eye exam: PRESENT: EOMI, PERRLA Mouth exam: PRESENT: neck supple, tongue midline Respiratory exam: PRESENT: decreased breath sounds, prolonged expiratory phas. ABSENT: accessory muscle use Cardiovascular exam: PRESENT: RRR. ABSENT: diastolic murmur, systolic murmur Pulses: PRESENT: normal radial pulses GI/Abdominal exam: PRESENT: normal bowel sounds, soft. ABSENT: ascites, tenderness Extremities exam: ABSENT: clubbing, pedal edema Neurological exam: PRESENT: alert, altered, awake, oriented to person, oriented to place, oriented to time, oriented to situation Results Laboratory Results: 01/15/18 05:18 01/15/18 05:18 01/14/18 01/15/18 01/15/18 16:30 05:18 05:18 WBC 11.7 H RBC 3.48 L Hgb 8.2 L Hct 28.1 L MCV 81 MCH 23.6 L MCHC 29.3 L RDW 22.1 H Plt Count 394 Carbonic Acid 1.95 H HCO3/H2CO3 Ratio 23:1 ABG pH 7.47 H ABG pCO2 64.8 H ABG pO2 61.2 L ABG HCO3 45.9 H ABG O2 Saturation 91.9 L ABG Base Excess 19.7 FiO2 30% Sodium 144.9 Potassium 4.6 Chloride 92 L Carbon Dioxide 42 H* Anion Gap 11 BUN 23 H Creatinine 0.78 Est GFR ( Amer) > 60 Est GFR (Non-Af Amer) > 60 Glucose 160 H Calcium 8.9 Phosphorus 3.8 01/15/18 06:25 WBC RBC Hgb Hct MCV MCH MCHC RDW Plt Count Carbonic Acid 1.72 H HCO3/H2CO3 Ratio 19:1 ABG pH 7.38 ABG pCO2 57.1 H ABG pO2 73.7 L ABG HCO3 33.1 H ABG O2 Saturation 94.2 ABG Base Excess 6.9 FiO2 40% Sodium Potassium Chloride Carbon Dioxide Anion Gap BUN Creatinine Est GFR ( Amer) Est GFR (Non-Af Amer) Glucose Calcium Phosphorus 01/14/18 01/14/18 01/14/18 04:45 06:44 06:44 Creatine Kinase 292 H CK-MB (CK-2) 9.31 H Troponin I 0.438 0.507 01/14/18 01/14/18 01/14/18 14:20 14:20 18:00 Creatine Kinase 225 H 212 H CK-MB (CK-2) 6.44 H Troponin I 0.455 01/14/18 18:00 Creatine Kinase CK-MB (CK-2) 5.83 H Troponin I 0.475 Impressions: Chest X-Ray 01/14/18 00:34 IMPRESSION: Right apical pleural thickening and nodularity. Fullness in the right hilum suspicious for adenopathy. Underlying emphysema. Findings have progressed from the prior. 2010 [employer]- All Rights Reserved Assessment & Plan - Diagnosis (1) Acute on chronic respiratory failure with hypoxia and hypercapnia Is this a current diagnosis for this admission?: Yes Plan: Improved significantly on BiPAP Continue BiPAP as needed and at night Check ABG tomorrow (2) COPD with acute exacerbation Is this a current diagnosis for this admission?: Yes Plan: Continue IV Solu-Medrol Continue aggressive pulmonary toilet and inhaled treatments (3) Tobacco dependence Is this a current diagnosis for this admission?: Yes Plan: Patient was counseled about tobacco cessation aggressively (4) Anemia Qualifiers: Other causes of anemia: chronic disease, other Is this a current diagnosis for this admission?: Yes Plan: Check iron studies reticulocyte count Monitor hemoglobin and hematocrit and transfuse if needed (5) Bacteremia Is this a current diagnosis for this admission?: Yes Plan: Blood cultures positive for gram-positive cocci in clusters Patient is already on vancomycin which we will continue Follow-up final culture results (6) Hyperlipidemia Is this a current diagnosis for this admission?: Yes Plan: Continue simvastatin (7) Hypothyroidism Is this a current diagnosis for this admission?: Yes Plan: Continue levothyroxine and check TSH (8) Leukocytosis Qualifiers: Leukocytosis type: leukemoid reaction Qualified Code(s): D72.823 - Leukemoid reaction Is this a current diagnosis for this admission?: Yes Plan: Improving from 25,000-11,000 today Continue vancomycin and Zosyn and stop Levaquin Blood cultures positive for gram-positive cocci in clusters, follow final culture results Chest x-ray shows apical pleural thickness and nodularity, will check a CT scan of the chest (9) Vocal cord dysfunction Is this a current diagnosis for this admission?: Yes Plan: Status post surgery in the past
[2018-01-15 10:46] LABS: ABSOLUTE RETICS # 0.165 10^6/uL (0.028-0.122); RETICULOCYTE COUNT (AUTO) 4.77 % (0.66-2.85)
[2018-01-15 11:12] LABS: IRON(TIBC) 48.6 ug/dL (49-181)
[2018-01-15 12:20] LABS: FOLATE 6.22 ng/mL (>2.76)
[2018-01-15] MEDS: VANCOMYCIN HCL 750 MG in DEXTROSE 5%-WATER 250 ML IV SCH (12:28)
[2018-01-15 12:40] LABS: VANCOMYCIN,TROUGH 10.4 ug/mL (5.0-20.0)
--- NOTE | 2018-01-15 14:38 | RADIOLOGY REPORT (SQ) ---
EXAM DESCRIPTION: CT CHEST WITHOUT COMPLETED DATE/TIME: 01/15/2018 10:53 am REASON FOR STUDY: abnormal CXR COMPARISON: CTA of chest 11/22/2017. TECHNIQUE: CT scan performed of the chest without intravenous contrast. Images reviewed with lung, soft tissue and bone windows. Reconstructed coronal and sagittal MPR images reviewed. All images st ored on PACS. All CT scanners at this facility use dose modulation, iterative reconstruction, and/or weight based d osing when appropriate to reduce radiation dose to as low as reasonably achievable (ALARA). [facility]: Dose Right [facility]: CareDose [facility]: Dose Right [facility]: Teradose 4D [facility]: Smart Delta ID RADIATION DOSE: CT Rad equipment meets quality standard of care and radiation dose reduction techniq ues were employed. CTDIvol: 10.5 mGy. DLP: 415 mGy-cm. mGy. LIMITATIONS: No technical limitations. FINDINGS: LUNGS AND PLEURA: Paraseptal emphysema. Extensive right apical pleural scarring and cons olidation. There is left apical pleural thickening and consolidation. 5 mm pulmonary nodule right m iddle lobe (image number 30/67 series 3) abutting the oblique fissure. Intrapulmonary note not exclu ded. There are multiple areas of consolidationin the left lower lobe with some improved aeration. Improved aeration right lower lobe and left lower lobe. . Small bilateral pleural effusions. HILAR AND MEDIASTINAL STRUCTURES: Small anterior mediastinal nodes. Some borderline enlarged pretrac heal node measuring 1.2 cm. Borderline enlarged sub- carinal node measuring 1.4 cm. Small right par atracheal node measuring 1.1 cm HEART AND VASCULAR STRUCTURES: Borderline cardiac size. Atherosclerotic coronary artery calcificatio n. UPPER ABDOMEN: The liver, spleen, adrenals demonstrate no abnormality. THYROID AND OTHER SOFT TISSUES: No abnormality. BONES: Old healed left anterolateral 9th and 10th rib fractures. No osteoblastic or osteolytic lesio ns seen IMPRESSION: There is evidence of bilateral apical pleural thickening most prominent on the right wit h increasing consolidation within the right upper lobe. Interval decrease in consolidation previousl y noted in the lower lobes. Small residual pleural effusions. TECHNICAL DOCUMENTATION: JOB ID: [id number] SC-69 Quality ID # [id number]: Final reports with documentation of one or more dose reduction techniques (e.g., Au tomated exposure control, adjustment of the mA and/or kV according to patient size, use of iterative reconstruction technique) 2010 [email or web address]- All Rights Reserved Reading location - IP/workstation name: [email or web address]
[2018-01-15] MEDS: SIMVASTATIN 40 MG TABLET PO SCH (17:19)
[2018-01-15] MEDS: VANCOMYCIN HCL 1,000 MG in DEXTROSE 5%-WATER 250 ML IV SCH (21:46)
[2018-01-16] MEDS: IPRATROPIUM/ALBUTEROL 0.5-2.5 MG/3 ML AMPUL NEB SCH ×6 (00:20→19:43)
[2018-01-16] MEDS: PIPERACILLIN SODIUM/TAZOBACTAM 3.375 GM in NORMAL SALINE 100 ML IV SCH ×4 (04:08→21:14)
[2018-01-16] MEDS: METHYLPREDNISOLONE INJ 40 MG/1 ML SDV IV SCH ×3 (05:30→17:09)
[2018-01-16] MEDS: BENZONATATE 100 MG CAPSULE PO SCH ×3 (05:31→22:27)
[2018-01-16] MEDS: LEVOTHYROXINE SODIUM 0.05 MG TABLET PO SCH (05:31)
[2018-01-16] MEDS: LANSOPRAZOLE 30 MG TAB.RAP.DR PO SCH (05:31)
[2018-01-16 06:44] LABS: HEMATOCRIT 25.5 % (37.9-51.0); MEAN CORPUSCULAR HEMOGLOBIN 24.6 pg (27.0-33.4); MEAN CORPUSCULAR VOLUME 80 fl (80-97); PLATELET COUNT 360 10^3/uL (150-450); RED CELL DISTRIBUTION WIDTH 22.3 % (11.5-14.0); WHITE BLOOD COUNT 10.1 10^3/uL (4.0-10.5)
[2018-01-16 06:47] LABS: ARTERIAL BLOOD BASE EXCESS 12.5 mmol/L; ARTERIAL BLOOD FIO2 36%; ARTERIAL BLOOD H2CO3 2.04 mmol/L (1.05-1.35); ARTERIAL BLOOD HCO3 39.2 mmol/L (20-24); ARTERIAL BLOOD O2 SATURATION 95.5 % (94-98); ARTERIAL BLOOD PCO2 67.7 mmHg (35-45); ARTERIAL BLOOD PH 7.38 (7.35-7.45); ARTERIAL BLOOD PO2 82.5 mmHg (80-100); ARTERIAL BLOOD TOTAL CO2 41.3 mmol/L (23-27)
[2018-01-16 07:06] LABS: ALANINE AMINOTRANSFERASE 24 U/L (21-72); ALBUMIN 2.5 g/dL (3.5-5.0); ALKALINE PHOSPHATASE 78 U/L (38-126); ASPARTATE AMINO TRANSFERASE 31 U/L (17-59); BILIRUBIN,DIRECT 0.2 mg/dL (0.0-0.4); BILIRUBIN,TOTAL 0.2 mg/dL (0.2-1.3); BLOOD UREA NITROGEN 24 mg/dL (7-20); CALCIUM 8.2 mg/dL (8.4-10.2); CHLORIDE 93 mmol/L (98-107); GLUCOSE 142 mg/dL (75-110); POTASSIUM 4.4 mmol/L (3.6-5.0); TOTAL PROTEIN 6.2 g/dL (6.3-8.2)
[2018-01-16 07:22] LABS: HEMOGLOBIN 7.9 g/dL (13.5-17.0)
[2018-01-16 07:26] LABS: ABSOLUTE LYMPHOCYTES# (MANUAL) 0.8 10^3/uL (0.5-4.7); ABSOLUTE MONOCYTES # (MANUAL) 0.4 10^3/uL (0.1-1.4); ABSOLUTE NEUTROPHILS# (MANUAL) 8.9 10^3/uL (1.7-8.2); BASOPHILS % (MANUAL) 0 % (0-2); EOSINOPHILS % (MANUAL) 0 % (0-6); LYMPHOCYTES % (MANUAL) 8 % (13-45); METAMYELOCYTES % (MANUAL) 1 % (0); MONOCYTES % (MANUAL) 4 % (3-13); NUCLEATED RED BLOOD CELLS 1 /100 WBC (0); SEGMENTED NEUTROPHILS % (MAN) 87 % (42-78); TOTAL CELLS COUNTED 100
[2018-01-16 07:28] LABS: ANION GAP 8 (5-19)
[2018-01-16 07:29] LABS: ANISOCYTOSIS 2+; CARBON DIOXIDE 42 mmol/L (22-30); HYPOCHROMASIA 2+; PLATELET COMMENT ADEQUATE; POLYCHROMASIA 2+; TOXIC GRANULATION 1+
[2018-01-16] MEDS: BUDESONIDE NEB 0.5 MG/2 ML AMPUL NEB SCH ×2 (08:11→19:39)
[2018-01-16] MEDS: NORMAL SALINE 1000 ML 1,000 ML IV PRN (08:29)
[2018-01-16] MEDS: ENOXAPARIN SODIUM INJ 40 MG/0.4 ML DISP.SYRIN SUBCUT SCH (09:17)
[2018-01-16] MEDS: FENOFIBRATE NANOCRYSTALLIZED 145 MG TABLET PO SCH (09:17)
[2018-01-16] MEDS: NICOTINE 21 MG/24 HR PATCH.TD24 TD SCH (09:17)
[2018-01-16] MEDS: VANCOMYCIN HCL 1,000 MG in DEXTROSE 5%-WATER 250 ML IV SCH ×2 (09:18→22:27)
[2018-01-16] MEDS: CETIRIZINE 10 MG TABLET PO SCH (09:18)
[2018-01-16 09:52] LABS: CARBON DIOXIDE 42 mmol/L (22-30)
--- NOTE | 2018-01-16 10:26 | PDOC PROGRESS REPORT ---
Subjective Progress Note for:: 01/16/18 Subjective:: Patient responded well to BiPAP. He is currently off BiPAP and eating breakfast. He continues to use BiPAP as needed and at night. He improved clinically. He says he is coughing but not producing any sputum. Reason For Visit: COPD EXACERBATION Physical Exam Vital Signs: Temp Pulse Resp BP Pulse Ox 98.1 F 89 16 135/74 H 98 01/16/18 07:47 01/16/18 08:10 01/16/18 08:10 01/16/18 07:47 01/16/18 08:10 Intake & Output 01/15/18 01/16/18 01/17/18 06:59 06:59 06:59 Intake Total 2050 3534 100 Output Total 300 875 Balance 1750 2659 100 Weight 169 lb 1.513 oz 167 lb 8.821 oz General appearance: PRESENT: no acute distress, cooperative Head exam: PRESENT: atraumatic, normocephalic Eye exam: PRESENT: EOMI, PERRLA Mouth exam: PRESENT: neck supple, tongue midline Neck exam: ABSENT: meningismus, tenderness, tracheostomy Respiratory exam: PRESENT: prolonged expiratory phas, wheezes. ABSENT: accessory muscle use Cardiovascular exam: PRESENT: RRR. ABSENT: diastolic murmur, systolic murmur Pulses: PRESENT: normal radial pulses GI/Abdominal exam: PRESENT: normal bowel sounds, soft. ABSENT: ascites, tenderness Rectal exam: PRESENT: deferred Extremities exam: ABSENT: joint swelling, pedal edema Neurological exam: PRESENT: alert, altered, awake, oriented to person, oriented to place, oriented to time, oriented to situation Psychiatric exam: ABSENT: agitated, anxious, homicidal ideation, suicidal ideation Results Laboratory Results: 01/16/18 04:59 01/16/18 04:59 01/15/18 01/15/18 01/15/18 05:18 05:18 05:18 WBC RBC Hgb Hct MCV MCH MCHC RDW Plt Count Seg Neutrophils % Lymphocytes % Monocytes % Eosinophils % Basophils % Absolute Neutrophils Absolute Lymphocytes Absolute Monocytes Absolute Eosinophils Absolute Basophils Retic Count (auto) 4.77 H Absolute Retic 0.165 H Carbonic Acid HCO3/H2CO3 Ratio ABG pH ABG pCO2 ABG pO2 ABG HCO3 ABG O2 Saturation ABG Base Excess FiO2 Sodium Potassium Chloride Carbon Dioxide 42 H* Anion Gap BUN Creatinine Est GFR ( Amer) Est GFR (Non-Af Amer) Glucose Calcium Iron 48.6 L TIBC 256 % Saturation 19 Ferritin 351.00 Total Bilirubin AST ALT Alkaline Phosphatase Total Protein Albumin Vitamin B12 672.0 Folate 6.22 TSH 01/15/18 01/16/18 01/16/18 05:18 04:59 04:59 WBC 10.1 RBC 3.20 L Hgb 7.9 L Hct 25.5 L MCV 80 MCH 24.6 L MCHC 31.0 L RDW 22.3 H Plt Count 360 Seg Neutrophils % Not Reportable Lymphocytes % Not Reportable Monocytes % Not Reportable Eosinophils % Not Reportable Basophils % Not Reportable Absolute Neutrophils Not Reportable Absolute Lymphocytes Not Reportable Absolute Monocytes Not Reportable Absolute Eosinophils Not Reportable Absolute Basophils Not Reportable Retic Count (auto) Absolute Retic Carbonic Acid HCO3/H2CO3 Ratio ABG pH ABG pCO2 ABG pO2 ABG HCO3 ABG O2 Saturation ABG Base Excess FiO2 Sodium 143.0 Potassium 4.4 Chloride 93 L Carbon Dioxide 42 H* Anion Gap 8 BUN 24 H Creatinine 0.80 Est GFR ( Amer) > 60 Est GFR (Non-Af Amer) > 60 Glucose 142 H Calcium 8.2 L Iron TIBC % Saturation Ferritin Total Bilirubin 0.2 AST 31 ALT 24 Alkaline Phosphatase 78 Total Protein 6.2 L Albumin 2.5 L Vitamin B12 Folate TSH 0.58 01/16/18 06:35 WBC RBC Hgb Hct MCV MCH MCHC RDW Plt Count Seg Neutrophils % Lymphocytes % Monocytes % Eosinophils % Basophils % Absolute Neutrophils Absolute Lymphocytes Absolute Monocytes Absolute Eosinophils Absolute Basophils Retic Count (auto) Absolute Retic Carbonic Acid 2.04 H HCO3/H2CO3 Ratio 19:1 ABG pH 7.38 ABG pCO2 67.7 H ABG pO2 82.5 ABG HCO3 39.2 H ABG O2 Saturation 95.5 ABG Base Excess 12.5 FiO2 36% Sodium Potassium Chloride Carbon Dioxide Anion Gap BUN Creatinine Est GFR ( Amer) Est GFR (Non-Af Amer) Glucose Calcium Iron TIBC % Saturation Ferritin Total Bilirubin AST ALT Alkaline Phosphatase Total Protein Albumin Vitamin B12 Folate TSH 01/14/18 01/14/18 01/14/18 04:45 06:44 06:44 Creatine Kinase 292 H CK-MB (CK-2) 9.31 H Troponin I 0.438 0.507 01/14/18 01/14/18 01/14/18 14:20 14:20 18:00 Creatine Kinase 225 H 212 H CK-MB (CK-2) 6.44 H Troponin I 0.455 01/14/18 18:00 Creatine Kinase CK-MB (CK-2) 5.83 H Troponin I 0.475 Impressions: Chest X-Ray 01/14/18 00:34 IMPRESSION: Right apical pleural thickening and nodularity. Fullness in the right hilum suspicious for adenopathy. Underlying emphysema. Findings have progressed from the prior. 2010 [employer]- All Rights Reserved Chest CT 01/15/18 00:00 IMPRESSION: There is evidence of bilateral apical pleural thickening most prominent on the right with increasing consolidation within the right upper lobe. Interval decrease in consolidation previously noted in the lower lobes. Small residual pleural effusions. Assessment & Plan - Diagnosis (1) Acute on chronic respiratory failure with hypoxia and hypercapnia Is this a current diagnosis for this admission?: Yes Plan: Improved significantly on BiPAP Continue BiPAP as needed and at night Probably need to upgrade his CPAP machine to BiPAP on discharge (2) COPD with acute exacerbation Is this a current diagnosis for this admission?: Yes Plan: Continue IV Solu-Medrol, decrease dose to 40 mg IV every 6 hours Continue aggressive pulmonary toilet and inhaled treatments (3) Tobacco dependence Is this a current diagnosis for this admission?: Yes Plan: Patient was counseled about tobacco cessation aggressively (4) Anemia Qualifiers: Other causes of anemia: chronic disease, other Is this a current diagnosis for this admission?: Yes Plan: Ferritin is 351, reticulocyte count 4.7 cm percent Anemia of chronic disease Monitor hemoglobin and hematocrit and transfuse if needed (5) Bacteremia Is this a current diagnosis for this admission?: Yes Plan: Blood cultures positive for gram-positive cocci in clusters Patient is already on vancomycin which we will continue Follow-up final culture results (6) Hyperlipidemia Is this a current diagnosis for this admission?: Yes Plan: Continue simvastatin (7) Hypothyroidism Is this a current diagnosis for this admission?: Yes Plan: Continue levothyroxine TSH is 0.58 (8) Leukocytosis Qualifiers: Leukocytosis type: leukemoid reaction Qualified Code(s): D72.823 - Leukemoid reaction Is this a current diagnosis for this admission?: Yes Plan: Now resolved Continue vancomycin and Zosyn Levaquin stopped January 15, 2018 Blood cultures positive for gram-positive cocci in clusters, follow final culture results (9) Vocal cord dysfunction Is this a current diagnosis for this admission?: Yes Plan: Status post surgery in the past (10) Pleural thickening Is this a current diagnosis for this admission?: Yes Plan: CT scan of the chest positive for bilateral apical pleural thickening mostly prominent on the right with increasing consolidation within the right upper lobe Continue IV vancomycin and Zosyn Pulmonary inbound sales consultant and the patient tells me he saw Dr. Bedolla yesterday and they talked about biopsy
[2018-01-16] MEDS: GUAIFENESIN 600 MG TABLET.SA PO SCH ×2 (10:50→17:09)
[2018-01-16] MEDS ORDERED: METHYLPREDNISOLONE INJ 40 MG/1 ML SDV IV SCH (12:00)
[2018-01-16] MEDS: SIMVASTATIN 40 MG TABLET PO SCH (17:09)
[2018-01-16] MEDS: LORAZEPAM INJ 2 MG/1 ML VIAL IV PRN (19:33)
[2018-01-17] MEDS: IPRATROPIUM/ALBUTEROL 0.5-2.5 MG/3 ML AMPUL NEB SCH ×6 (00:17→19:45)
[2018-01-17] MEDS: METHYLPREDNISOLONE INJ 40 MG/1 ML SDV IV SCH ×5 (00:42→23:27)
[2018-01-17] MEDS: PIPERACILLIN SODIUM/TAZOBACTAM 3.375 GM in NORMAL SALINE 100 ML IV SCH ×4 (02:23→21:01)
[2018-01-17] MEDS: NORMAL SALINE 1000 ML 1,000 ML IV PRN ×2 (03:24→21:00)
[2018-01-17 04:58] LABS: HEMATOCRIT 25.2 % (37.9-51.0); MEAN CORPUSCULAR HEMOGLOBIN 24.3 pg (27.0-33.4); MEAN CORPUSCULAR HGB CONC 30.3 g/dL (32.0-36.0); MEAN CORPUSCULAR VOLUME 80 fl (80-97); PLATELET COUNT 317 10^3/uL (150-450); RED BLOOD COUNT 3.14 10^6/uL (4.35-5.55); RED CELL DISTRIBUTION WIDTH 21.5 % (11.5-14.0); WHITE BLOOD COUNT 10.5 10^3/uL (4.0-10.5)
[2018-01-17] MEDS: LANSOPRAZOLE 30 MG TAB.RAP.DR PO SCH (05:09)
[2018-01-17] MEDS: LEVOTHYROXINE SODIUM 0.05 MG TABLET PO SCH (05:09)
[2018-01-17] MEDS: BENZONATATE 100 MG CAPSULE PO SCH ×3 (05:09→21:00)
[2018-01-17 05:19] LABS: HEMOGLOBIN 7.6 g/dL (13.5-17.0)
[2018-01-17 05:20] LABS: BLOOD UREA NITROGEN 17 mg/dL (7-20); CALCIUM 8.4 mg/dL (8.4-10.2); CHLORIDE 96 mmol/L (98-107); GLUCOSE 162 mg/dL (75-110); POTASSIUM 4.5 mmol/L (3.6-5.0); SODIUM 143.7 mmol/L (137-145)
[2018-01-17 05:30] LABS: ANION GAP 7 (5-19)
[2018-01-17 05:33] LABS: CARBON DIOXIDE 41 mmol/L (22-30)
[2018-01-17] MEDS: BUDESONIDE NEB 0.5 MG/2 ML AMPUL NEB SCH ×2 (08:45→19:45)
[2018-01-17] MEDS: FENOFIBRATE NANOCRYSTALLIZED 145 MG TABLET PO SCH (09:35)
[2018-01-17] MEDS: GUAIFENESIN 600 MG TABLET.SA PO SCH ×2 (09:35→17:32)
[2018-01-17] MEDS: ENOXAPARIN SODIUM INJ 40 MG/0.4 ML DISP.SYRIN SUBCUT SCH (09:35)
[2018-01-17] MEDS: NICOTINE 21 MG/24 HR PATCH.TD24 TD SCH (09:36)
[2018-01-17] MEDS: CETIRIZINE 10 MG TABLET PO SCH (09:36)
[2018-01-17 11:07] LABS: VANCOMYCIN,TROUGH 11.4 ug/mL (5.0-20.0)
--- NOTE | 2018-01-17 11:16 | PDOC PROGRESS REPORT ---
Subjective Progress Note for:: 01/17/18 Subjective:: Patient responded well to BiPAP. He is currently off BiPAP and and only uses it at night now. He is feeling much better and his pain walking in his room to the door back and forth. His hemoglobin dropped slightly to 7.6 today but there is no signs of bleeding. Reason For Visit: COPD EXACERBATION Physical Exam Vital Signs: Temp Pulse Resp BP Pulse Ox 98.1 F 99 24 H 124/74 76 L 01/17/18 08:23 01/17/18 08:46 01/17/18 08:46 01/17/18 08:23 01/17/18 08:46 Intake & Output 01/16/18 01/17/18 01/18/18 06:59 06:59 06:59 Intake Total 3534 3095 Output Total 875 1075 Balance 2659 2020 Weight 167 lb 8.821 oz 167 lb 8.821 oz General appearance: PRESENT: no acute distress, cooperative Head exam: PRESENT: atraumatic, normocephalic Eye exam: PRESENT: EOMI Ear exam: ABSENT: bleeding, drainage Mouth exam: PRESENT: neck supple, tongue midline Neck exam: ABSENT: meningismus, tracheostomy Respiratory exam: PRESENT: decreased breath sounds, prolonged expiratory phas. ABSENT: accessory muscle use Cardiovascular exam: PRESENT: RRR. ABSENT: diastolic murmur, systolic murmur Pulses: PRESENT: normal radial pulses GI/Abdominal exam: PRESENT: normal bowel sounds, soft. ABSENT: ascites, tenderness Rectal exam: PRESENT: deferred Neurological exam: PRESENT: alert, awake, oriented to person, oriented to place , oriented to time, oriented to situation Psychiatric exam: PRESENT: homicidal ideation, suicidal ideation. ABSENT: agitated, anxious Results Laboratory Results: 01/17/18 04:27 01/17/18 04:27 01/17/18 01/17/18 04:27 04:27 WBC 10.5 RBC 3.14 L Hgb 7.6 L Hct 25.2 L MCV 80 MCH 24.3 L MCHC 30.3 L RDW 21.5 H Plt Count 317 Sodium 143.7 Potassium 4.5 Chloride 96 L Carbon Dioxide 41 H* Anion Gap 7 BUN 17 Creatinine 0.62 Est GFR ( Amer) > 60 Est GFR (Non-Af Amer) > 60 Glucose 162 H Calcium 8.4 01/14/18 01/14/18 01/14/18 04:45 06:44 06:44 Creatine Kinase 292 H CK-MB (CK-2) 9.31 H Troponin I 0.438 0.507 01/14/18 01/14/18 01/14/18 14:20 14:20 18:00 Creatine Kinase 225 H 212 H CK-MB (CK-2) 6.44 H Troponin I 0.455 01/14/18 18:00 Creatine Kinase CK-MB (CK-2) 5.83 H Troponin I 0.475 Impressions: Chest X-Ray 01/14/18 00:34 IMPRESSION: Right apical pleural thickening and nodularity. Fullness in the right hilum suspicious for adenopathy. Underlying emphysema. Findings have progressed from the prior. 2010 [employer]- All Rights Reserved Chest CT 01/15/18 00:00 IMPRESSION: There is evidence of bilateral apical pleural thickening most prominent on the right with increasing consolidation within the right upper lobe. Interval decrease in consolidation previously noted in the lower lobes. Small residual pleural effusions. Assessment & Plan - Diagnosis (1) Acute on chronic respiratory failure with hypoxia and hypercapnia Is this a current diagnosis for this admission?: Yes Plan: Improved significantly on BiPAP Continue BiPAP as needed and at night Probably need to upgrade his CPAP machine to BiPAP on discharge (2) COPD with acute exacerbation Is this a current diagnosis for this admission?: Yes Plan: Continue IV Solu-Medrol 40 mg IV every 6 hours Continue aggressive pulmonary toilet and inhaled treatments Blood culture and sputum culture are both positive for gram-positive cocci in clusters Continue IV vancomycin, continue Zosyn (3) Tobacco dependence Is this a current diagnosis for this admission?: Yes Plan: Patient was counseled about tobacco cessation aggressively (4) Anemia Qualifiers: Other causes of anemia: chronic disease, other Is this a current diagnosis for this admission?: Yes Plan: Ferritin is 351, reticulocyte count 4.7 cm percent Anemia of chronic disease Monitor hemoglobin and hematocrit and transfuse if needed (5) Bacteremia Is this a current diagnosis for this admission?: Yes Plan: Blood cultures positive for gram-positive cocci in clusters Patient is already on vancomycin which we will continue Follow-up final culture results (6) Hyperlipidemia Is this a current diagnosis for this admission?: Yes Plan: Continue simvastatin (7) Hypothyroidism Is this a current diagnosis for this admission?: Yes Plan: Continue levothyroxine TSH is 0.58 (8) Leukocytosis Qualifiers: Leukocytosis type: leukemoid reaction Qualified Code(s): D72.823 - Leukemoid reaction Is this a current diagnosis for this admission?: Yes Plan: Now resolved Continue vancomycin and Zosyn Levaquin stopped January 15, 2018 Blood cultures and sputum culture positive for gram-positive cocci in clusters, follow final culture results (9) Vocal cord dysfunction Is this a current diagnosis for this admission?: Yes Plan: Status post surgery in the past (10) Pleural thickening Is this a current diagnosis for this admission?: Yes Plan: CT scan of the chest positive for bilateral apical pleural thickening mostly prominent on the right with increasing consolidation within the right upper lobe Continue IV vancomycin and Zosyn Patient tells me he saw Dr. Bedolla yesterday and they talked about biopsy After the patient discussed with his , they want to consult with Dr. Brunson
[2018-01-17] MEDS: VANCOMYCIN HCL 1,000 MG in DEXTROSE 5%-WATER 250 ML IV SCH (11:30)
--- NOTE | 2018-01-17 15:57 | CONSULTATION REPORT E ---
Consultation Report NAME: MARTY SANTOS : 1960 AGE: 57Y DATE: 314 A TO: GRETTA TRIPATHI M.D. FROM: KENNY HUITRON M.D. Requesting Physician HISTORY OF PRESENT ILLNESS: The patient is a 57-year-old white male who came in with a past medical history of chronic respiratory failure, on home O2 and BiPAP therapy; vocal cord cancer, status post radiation; smoking history. The patient was admitted yesterday, 01/14/2018, because of increasing shortness of breath and respiratory distress. The patient was noted at home to be saturating to 70% despite on BiPAP machine. The patient still smokes about 3 packs per day. Complains about increasing cough with purulent sputum production over the last few days. No hemoptysis noted. No fever and no chills. No chest pain. The patient was brought to the emergency room and was admitted. Consulted because of pjklb-wz-[id number] respiratory failure. Currently, the patient is feeling better. The sputum appeared to be less purulent and less productive. No vomiting. No diarrhea. No spike in temperature. Leukocytosis also appeared to be resolving. PAST MEDICAL HISTORY: 1. Hyperlipidemia. 2. COPD on oxygen at 4 L at night and 6 L on ambulation. 3. History of pneumonia. 4. History of respiratory failure requiring invasive mechanical ventilation. PAST SURGICAL HISTORY: Vocal cord biopsy. SOCIAL HISTORY: He smokes 3 packs per day. Denies any illicit drug abuse. FAMILY HISTORY: Reviewed, but not pertinent. MEDICATIONS: Home medications include: 1. Albuterol inhaler. 2. Zyrtec. 3. Fenofibrate. 4. Flonase nasal spray. 5. Synthroid. 6. Prilosec. 7. Zocor. 8. Theophylline inhaler. 9. Budesonide. 10. Ipratropium. 11. Nicotine. 12. Penicillin. ALLERGIES: BEE STINGS. No known drug allergies. REVIEW OF SYSTEMS: As described above in the HPI, otherwise negative. PHYSICAL EXAMINATION: GENERAL: The patient appeared awake, oriented x3, coherent, afebrile, not in apparent respiratory distress. VITAL SIGNS: Temperature of 98.3, with a T-max of 98.4, the heart rate of 102, blood pressure of 129/57, respiratory rate of 20, saturation was 99% on 4 L on FiO2 of 40%. EYES: No jaundice or pallor. EARS, NOSE, AND THROAT: No ear drainage noted. No nasal discharge. HEAD AND NECK: No scalp swelling. No neck tenderness. CHEST AND LUNGS: No wheezing. No rhonchi. No coarse crackles. CARDIOVASCULAR: S1 and S2 distinct. Normal rate, regular rhythm. ABDOMEN: Flabby. Positive bowel sounds. Soft, nondistended, nontender. EXTREMITIES: No joint swelling or cellulitis. LABORATORY DATA: CBC done on admission 01/14/2018 at 12:35 a.m. showed white count of 25.4, hemoglobin is 8.7, the hematocrit is 29.4, platelet count is 538. Today, 01/15/2018, at 5:00 p.m. showed white count going down to 11.7, hemoglobin is 8.2, hematocrit is 28.1, and platelet count is 294. Chemistry done today showed sodium is 144, potassium 4.6, chloride 92, CO2 is 42, BUN is 23, creatinine is 0.78, glucose 160, and calcium is 8.9, phosphorus 3.8. IMAGING STUDIES: Chest CT scan done today showed an infiltrate involving the left lower lobe, most likely inflammatory. They were not present on the previous chest CT scan which was done on 11/23/2007. PLAN/RECOMMENDATIONS: 1. Pigmh-[id number]-[id number] respiratory failure requiring BiPAP therapy, appears to be improving. The patient tolerating nasal cannula. May require BiPAP during sleep. The patient needs a sleep study to determine optimal BiPAP therapy or BiPAP ST or BiPAP AVAPS therapy. 2. May taper the Solu-Medrol dose and convert patient to oral prednisone. If sputum culture is inconclusive, may consider changing patient to oral antibiotic therapy, possibly Levaquin 500 or 750 mg 1 tablet daily or doxycycline oral or cephalosporin or azithromycin. Recommend continuation of inhalers, LAMA/LABA, and ICS. If you have any questions, please feel free to call me. The patient will follow up with Dr. Brunson, his mirror inspector, upon hospital discharge. DICTATING PHYSICIAN: GRETTA TRIPATHI MD,CAITY,MPH [id number] PHY#: [id number] ID: [id number] JOB#: [id number] ACCT: [id number] cc:GRETTA TRIPATHI M.D. > [facility]
[2018-01-17] MEDS: SIMVASTATIN 40 MG TABLET PO SCH (17:32)
[2018-01-17] MEDS ORDERED: NORMAL SALINE 250 ML IV PRN (19:45)
[2018-01-17] MEDS: LORAZEPAM INJ 2 MG/1 ML VIAL IV PRN (21:00)
[2018-01-17] MEDS: VANCOMYCIN HCL 1,250 MG in DEXTROSE 5%-WATER 250 ML IV SCH (21:01)
[2018-01-18] MEDS: IPRATROPIUM/ALBUTEROL 0.5-2.5 MG/3 ML AMPUL NEB SCH ×5 (00:32→20:54)
[2018-01-18] MEDS: PIPERACILLIN SODIUM/TAZOBACTAM 3.375 GM in NORMAL SALINE 100 ML IV SCH ×2 (03:09→09:05)
[2018-01-18 05:14] LABS: HEMATOCRIT 28.9 % (37.9-51.0); HEMOGLOBIN 8.8 g/dL (13.5-17.0); MEAN CORPUSCULAR HEMOGLOBIN 24.4 pg (27.0-33.4); MEAN CORPUSCULAR HGB CONC 30.4 g/dL (32.0-36.0); MEAN CORPUSCULAR VOLUME 80 fl (80-97); PLATELET COUNT 292 10^3/uL (150-450); RED BLOOD COUNT 3.61 10^6/uL (4.35-5.55); RED CELL DISTRIBUTION WIDTH 21.1 % (11.5-14.0); WHITE BLOOD COUNT 9.9 10^3/uL (4.0-10.5)
[2018-01-18 05:38] LABS: BLOOD UREA NITROGEN 22 mg/dL (7-20); CALCIUM 8.4 mg/dL (8.4-10.2); CHLORIDE 94 mmol/L (98-107); GLUCOSE 265 mg/dL (75-110); POTASSIUM 5.3 mmol/L (3.6-5.0); SODIUM 141.7 mmol/L (137-145)
[2018-01-18 05:45] LABS: ANION GAP 10 (5-19)
[2018-01-18 05:49] LABS: CARBON DIOXIDE 38 mmol/L (22-30)
[2018-01-18] MEDS: BENZONATATE 100 MG CAPSULE PO SCH ×2 (06:38→13:17)
[2018-01-18] MEDS: LANSOPRAZOLE 30 MG TAB.RAP.DR PO SCH (06:38)
[2018-01-18] MEDS: LEVOTHYROXINE SODIUM 0.05 MG TABLET PO SCH (06:38)
[2018-01-18] MEDS: METHYLPREDNISOLONE INJ 40 MG/1 ML SDV IV SCH ×3 (06:38→21:27)
[2018-01-18] MEDS: BUDESONIDE NEB 0.5 MG/2 ML AMPUL NEB SCH ×2 (09:01→20:54)
[2018-01-18] MEDS: CETIRIZINE 10 MG TABLET PO SCH (09:05)
[2018-01-18] MEDS: ENOXAPARIN SODIUM INJ 40 MG/0.4 ML DISP.SYRIN SUBCUT SCH (09:05)
[2018-01-18] MEDS: NICOTINE 21 MG/24 HR PATCH.TD24 TD SCH (09:05)
[2018-01-18] MEDS: GUAIFENESIN 600 MG TABLET.SA PO SCH ×2 (09:05→17:43)
[2018-01-18] MEDS: FENOFIBRATE NANOCRYSTALLIZED 145 MG TABLET PO SCH (09:05)
[2018-01-18] MEDS: VANCOMYCIN HCL 1,250 MG in DEXTROSE 5%-WATER 250 ML IV SCH (10:35)
[2018-01-18] MEDS: ROPINIROLE HCL 1 MG TABLET PO SCH ×2 (11:02→21:27)
[2018-01-18] MEDS ORDERED: BENZONATATE 100 MG CAPSULE PO PRN (14:40)
--- NOTE | 2018-01-18 14:57 | PDOC PROGRESS REPORT ---
Subjective Progress Note for:: 01/18/18 Subjective:: The patient is a 57-year-old male with a past medical history of COPD, chronic respiratory failure (O2 dependent at home 4-6 L), vocal cord cancer post radiation, polycythemia, and tobacco abuse with concurrent use who was admitted 01/14/2018 for acute on chronic respiratory failure with hypoxia and hypercapnia secondary to H CAP and COPD exacerbation. The patient was seen on morning rounds. He was found sitting up to the edge of his bed on supplemental oxygen at 4.5 LPM following return from the restroom. He ambulated independently and denies increased dyspnea during activity. He reports continued increased shortness of breath compared to his baseline, wheezing, and productive cough. He reports feeling fatigued following 1 unit PRBC transfusion this morning. He denies manage hematachezia or melena. He does complain of loose stools which he relates to antibiotic use; denies abdominal discomfort, nausea, vomiting. He further denies fever, chills, headache, dizziness, chest pain, palpitations, orthopnea. He has no questions or concerns at this time. No concerns per nursing. Reason For Visit: COPD EXACERBATION Physical Exam Vital Signs: Temp Pulse Resp BP Pulse Ox 98.3 F 105 H 17 156/81 H 97 01/18/18 12:10 01/18/18 12:10 01/18/18 12:10 01/18/18 12:10 01/18/18 12:10 Intake & Output 01/17/18 01/18/18 01/19/18 06:59 06:59 06:59 Intake Total 3095 4031 705 Output Total 1075 950 200 Balance 2019 3081 505 Weight 76 kg General appearance: PRESENT: no acute distress, cooperative, well-developed, well-nourished Head exam: PRESENT: atraumatic, normocephalic Eye exam: PRESENT: conjunctiva pink, EOMI, PERRLA. ABSENT: scleral icterus Ear exam: PRESENT: normal external ear exam Mouth exam: PRESENT: moist, tongue midline Neck exam: ABSENT: carotid bruit, JVD, lymphadenopathy, thyromegaly Respiratory exam: PRESENT: clear to auscultation maximus, decreased breath sounds, prolonged expiratory phas, symmetrical, unlabored. ABSENT: rales, rhonchi, wheezes Cardiovascular exam: PRESENT: RRR. ABSENT: diastolic murmur, rubs, systolic murmur Pulses: PRESENT: normal dorsalis pedis pul Vascular exam: PRESENT: normal capillary refill GI/Abdominal exam: PRESENT: normal bowel sounds, soft. ABSENT: distended, guarding, mass, organolmegaly, rebound, tenderness Rectal exam: PRESENT: deferred Extremities exam: PRESENT: full ROM. ABSENT: calf tenderness, clubbing, pedal edema Neurological exam: PRESENT: alert, awake, oriented to person, oriented to place , oriented to time, oriented to situation, CN II-XII grossly intact. ABSENT: motor sensory deficit Psychiatric exam: PRESENT: appropriate affect, normal mood. ABSENT: homicidal ideation, suicidal ideation Skin exam: PRESENT: dry, intact, warm. ABSENT: cyanosis, rash Results Laboratory Results: 01/18/18 04:54 01/18/18 04:54 01/17/18 01/18/18 01/18/18 21:10 04:54 04:54 WBC 9.9 RBC 3.61 L Hgb 8.8 L Hct 28.9 L MCV 80 MCH 24.4 L MCHC 30.4 L RDW 21.1 H Plt Count 292 Sodium 141.7 Potassium 5.3 H Chloride 94 L Carbon Dioxide 38 H Anion Gap 10 BUN 22 H Creatinine 0.76 Est GFR ( Amer) > 60 Est GFR (Non-Af Amer) > 60 Glucose 265 H Calcium 8.4 Blood Type O POSITIVE Antibody Screen NEGATIVE 01/14/18 04:40 Sputum Gram Stain - Final 01/14/18 04:40 Sputum Sputum Culture - Final Staphylococcus Aureus Normal Fanny 01/14/18 01/14/18 01/14/18 04:45 06:44 06:44 Creatine Kinase 292 H CK-MB (CK-2) 9.31 H Troponin I 0.438 0.507 01/14/18 01/14/18 01/14/18 14:20 14:20 18:00 Creatine Kinase 225 H 212 H CK-MB (CK-2) 6.44 H Troponin I 0.455 01/14/18 18:00 Creatine Kinase CK-MB (CK-2) 5.83 H Troponin I 0.475 Impressions: Chest X-Ray 01/14/18 00:34 IMPRESSION: Right apical pleural thickening and nodularity. Fullness in the right hilum suspicious for adenopathy. Underlying emphysema. Findings have progressed from the prior. 2010 [employer]- All Rights Reserved Chest CT 01/15/18 00:00 IMPRESSION: There is evidence of bilateral apical pleural thickening most prominent on the right with increasing consolidation within the right upper lobe. Interval decrease in consolidation previously noted in the lower lobes. Small residual pleural effusions. Assessment & Plan - Diagnosis (1) Acute on chronic respiratory failure with hypoxia and hypercapnia Is this a current diagnosis for this admission?: Yes Plan: Secondary to COPD exacerbation. Appears to be improving. Patient is admitted to [facility] on continuous cardiac telemetry. He is provided supplemental oxygen and BiPAP as needed to maintain oxygen saturations greater than 89%. He utilizes 4-6 L via nasal cannula at home. Pulmonology is consulted; appreciate Dr. Brunson's evaluation recommendations. (2) COPD with acute exacerbation Is this a current diagnosis for this admission?: Yes Plan: COPD exacerbation with right upper lobe pneumonia. Improving; the patient remains afebrile, leukocytosis has resolved, now ambulatory on 4.5 L/min with minimal worsening of symptoms. Blood cultures (one set) positive for staph epidermidis and staph hominis; likely contaminants. Sputum culture positive for pansensitive staph aureus. Continue supplemental oxygen with BiPAP to maintain saturations greater than 89% . Will begin weaning Solu-Medrol today. Scheduled and as needed nebulizer treatments; will begin weaning scheduled treatments. Twice daily Pulmicort nebulizer treatments. Mucinex twice daily. Tessalon Perles every 8 hours as needed. IV vancomycin and Zosyn are discontinued; transition to p.o. Augmentin for right upper lobe pneumonia. Incentive spirometry and flutter valve to bedside. (3) Pneumonia Qualifiers: Pneumonia type: due to methicillin-sensitive Staphylococcus aureus (MSSA) Laterality: bilateral Lung location: unspecified part of lung Qualified Code (s): J15.211 - Pneumonia due to Methicillin susceptible Staphylococcus aureus Is this a current diagnosis for this admission?: Yes Plan: The patient was admitted with acute on chronic respiratory failure. He was noted to have WBCs of 18.4. Pt has remained afebrile. CT of the Chest revealed multifocal consolidations (RUL increased consolidation , improved bilateral basilar consolidations), multiple lung nodules, and apical pleural thickening. Initial blood cultures were contaminated with staph hominis and staph epidermidis. Repeat blood cultures are pending. Sputum culture positive for pansensitive staph aureus. Patient was empirically placed on IV vancomycin and Zosyn. Will transition to p.o. Augmentin today. Remaining plan as outlined above. (4) Tobacco dependence Is this a current diagnosis for this admission?: Yes Plan: Smoking cessation was encouraged; nicotine replacement therapy is provided. (5) Anemia Qualifiers: Other causes of anemia: chronic disease, other Is this a current diagnosis for this admission?: Yes Plan: Anemia of chronic disease; now s/p 1 unit PRBC. Patient was admitted with a hemoglobin of 8.7; baseline of 12. Anemia panel revealed ferritin of 351 with reticulocyte count of 4.7. Occult stool pending. Will begin daily multivitamin and ferrous sulfate replacement. Continue to monitor CBC and transfuse as necessary. (6) Bacteremia Is this a current diagnosis for this admission?: Yes Plan: 1 set blood cultures (one set-2/4 bottles) were positive for staph epidermidis and staph prominence; determined to be contaminant. Patient remains afebrile and leukocytosis is resolved. Repeat blood cultures are pending. The patient was empirically placed on IV vancomycin and Zosyn; these have been discontinued. He has been transitioned to p.o. Augmentin for continued treatment of right upper lobe pneumonia. (7) Hyperlipidemia Is this a current diagnosis for this admission?: Yes Plan: Continue home dose simvastatin. (8) Hypothyroidism Is this a current diagnosis for this admission?: Yes Plan: TSH 0.58. Continue home dose levothyroxine. (9) Vocal cord dysfunction Is this a current diagnosis for this admission?: Yes Plan: Chronic; related to remote surgery/radiation treatment for management of vocal cord cancer. (10) Pleural thickening Is this a current diagnosis for this admission?: Yes Plan: CT scan of the chest positive for bilateral apical pleural thickening mostly prominent on the right with increasing consolidation within the right upper lobe Dr. brown was consulted; the patient has requested that a consult be placed to his established university professor, Dr. Brunson. Spoke with Dr. Brunson today who agrees to see the patient; recommends continued management of COPD exacerbation and treatment of right upper lobe pneumonia. Patient should have follow-up imaging in 4-6 weeks and discuss potential need for biopsies of lung nodules at that time. (11) Leukocytosis Qualifiers: Leukocytosis type: leukemoid reaction Qualified Code(s): D72.823 - Leukemoid reaction Is this a current diagnosis for this admission?: Yes Plan: Resolved. - Time Time Spent with patient: 15-24 minutes Medications reviewed and adjusted accordingly: Yes Anticipated discharge: Home Within: within 72 hours - Plan Summary Plan Summary: Continue weaning glucocorticoids, scheduled nebs, and oxygen back to his baseline requirements. Anticipate stable for discharge within the next 2-3 days.
[2018-01-18] MEDS: SIMVASTATIN 40 MG TABLET PO SCH (17:43)
[2018-01-18] MEDS: AMOXICILLIN TR/POT CLAVULANATE 500-125 MG TAB PO SCH (21:27)
[2018-01-18] MEDS: LORAZEPAM INJ 2 MG/1 ML VIAL IV PRN (21:27)
[2018-01-19] MEDS: IPRATROPIUM/ALBUTEROL 0.5-2.5 MG/3 ML AMPUL NEB SCH ×4 (02:01→20:27)
[2018-01-19 05:05] LABS: HEMATOCRIT 28.8 % (37.9-51.0); HEMOGLOBIN 8.8 g/dL (13.5-17.0); MEAN CORPUSCULAR HEMOGLOBIN 24.7 pg (27.0-33.4); MEAN CORPUSCULAR HGB CONC 30.6 g/dL (32.0-36.0); MEAN CORPUSCULAR VOLUME 81 fl (80-97); PLATELET COUNT 281 10^3/uL (150-450); RED BLOOD COUNT 3.57 10^6/uL (4.35-5.55); RED CELL DISTRIBUTION WIDTH 22.1 % (11.5-14.0); WHITE BLOOD COUNT 11.1 10^3/uL (4.0-10.5)
[2018-01-19 05:28] LABS: BLOOD UREA NITROGEN 19 mg/dL (7-20); CALCIUM 8.6 mg/dL (8.4-10.2); CHLORIDE 92 mmol/L (98-107); GLUCOSE 155 mg/dL (75-110); SODIUM 140.1 mmol/L (137-145)
[2018-01-19] MEDS: LEVOTHYROXINE SODIUM 0.05 MG TABLET PO SCH (05:39)
[2018-01-19] MEDS: LANSOPRAZOLE 30 MG TAB.RAP.DR PO SCH (05:39)
[2018-01-19] MEDS: AMOXICILLIN TR/POT CLAVULANATE 500-125 MG TAB PO SCH ×3 (05:39→22:21)
[2018-01-19] MEDS: METHYLPREDNISOLONE INJ 40 MG/1 ML SDV IV SCH ×3 (05:40→22:20)
[2018-01-19 05:48] LABS: ANION GAP 4 (5-19); CARBON DIOXIDE 44 mmol/L (22-30)
[2018-01-19] MEDS ORDERED: PROMETHAZINE HCL INJ 25 MG/1 ML VIAL IV PRN (07:30)
[2018-01-19] MEDS: BUDESONIDE NEB 0.5 MG/2 ML AMPUL NEB SCH ×2 (08:28→20:27)
[2018-01-19] MEDS: CETIRIZINE 10 MG TABLET PO SCH (09:27)
[2018-01-19] MEDS: FENOFIBRATE NANOCRYSTALLIZED 145 MG TABLET PO SCH (09:27)
[2018-01-19] MEDS: FERROUS SULFATE 325 MG TABLET PO SCH (09:27)
[2018-01-19] MEDS: MULTIVITAMIN TABLET PO SCH (09:27)
[2018-01-19] MEDS: GUAIFENESIN 600 MG TABLET.SA PO SCH ×2 (09:28→22:20)
[2018-01-19] MEDS: NICOTINE 21 MG/24 HR PATCH.TD24 TD SCH (09:28)
[2018-01-19] MEDS: ENOXAPARIN SODIUM INJ 40 MG/0.4 ML DISP.SYRIN SUBCUT SCH (09:28)
[2018-01-19 10:36] LABS: VANCOMYCIN,TROUGH 8.2 ug/mL (5.0-20.0)
--- NOTE | 2018-01-19 16:27 | PDOC PROGRESS REPORT ---
Subjective Progress Note for:: 01/19/18 Subjective:: The patient is a 57-year-old male with a past medical history of COPD, chronic respiratory failure (O2 dependent at home 4-6 L), vocal cord cancer post radiation, polycythemia, and tobacco abuse with concurrent use who was admitted 01/14/2018 for acute on chronic respiratory failure with hypoxia and hypercapnia secondary to H CAP and COPD exacerbation. The patient was seen on morning rounds. He was found sitting up to the edge of his bed on supplemental oxygen at 4 LPM. He ambulated independently and denies increased dyspnea during activity. He reports continued improvement in dyspnea , wheezing, and cough. He denies hematachezia or melena. He does complain of loose stools which he relates to antibiotic use; though this is also improved He further denies fever, chills, headache, dizziness, chest pain, palpitations, orthopnea, abdominal pain, nausea and vomiting. He has no questions or concerns at this time; is hopeful to be discharged to home tomorrow. No concerns per nursing. Reason For Visit: COPD EXACERBATION Physical Exam Vital Signs: Temp Pulse Resp BP Pulse Ox 98.0 F 98 16 134/92 H 95 01/19/18 08:01 01/19/18 14:00 01/19/18 13:58 01/19/18 11:55 01/19/18 13:58 Intake & Output 01/18/18 01/19/18 01/20/18 06:59 06:59 06:59 Intake Total 4031 2149 233 Output Total 950 1725 225 Balance 3081 424 8 Weight 76 kg General appearance: PRESENT: no acute distress, well-developed, well-nourished Head exam: PRESENT: atraumatic, normocephalic Eye exam: PRESENT: conjunctiva pink, EOMI, PERRLA. ABSENT: scleral icterus Ear exam: PRESENT: normal external ear exam Mouth exam: PRESENT: moist, tongue midline Neck exam: ABSENT: carotid bruit, JVD, lymphadenopathy, thyromegaly Respiratory exam: PRESENT: decreased breath sounds - Bibasilar, prolonged expiratory phas, symmetrical, unlabored, wheezes - Occasional, other - Supplemental oxygen at 4 L/min. ABSENT: rales, rhonchi Cardiovascular exam: PRESENT: RRR. ABSENT: diastolic murmur, rubs, systolic murmur Pulses: PRESENT: normal dorsalis pedis pul Vascular exam: PRESENT: normal capillary refill GI/Abdominal exam: PRESENT: normal bowel sounds, soft. ABSENT: distended, guarding, mass, organolmegaly, rebound, tenderness Rectal exam: PRESENT: deferred Extremities exam: PRESENT: full ROM. ABSENT: calf tenderness, clubbing, pedal edema Neurological exam: PRESENT: alert, awake, oriented to person, oriented to place , oriented to time, oriented to situation, CN II-XII grossly intact. ABSENT: motor sensory deficit Psychiatric exam: PRESENT: appropriate affect, normal mood. ABSENT: homicidal ideation, suicidal ideation Skin exam: PRESENT: dry, intact, warm. ABSENT: cyanosis, rash Results Laboratory Results: 01/19/18 04:30 01/19/18 04:30 01/19/18 01/19/18 01/19/18 04:30 04:30 12:10 WBC 11.1 H RBC 3.57 L Hgb 8.8 L Hct 28.8 L MCV 81 MCH 24.7 L MCHC 30.6 L RDW 22.1 H Plt Count 281 Sodium 140.1 Potassium 5.0 Chloride 92 L Carbon Dioxide 44 H* Anion Gap 4 L BUN 19 Creatinine 0.65 Est GFR ( Amer) > 60 Est GFR (Non-Af Amer) > 60 Glucose 155 H Calcium 8.6 Stool Occult Blood POSITIVE 01/14/18 04:40 Sputum Gram Stain - Final 01/14/18 04:40 Sputum Sputum Culture - Final Staphylococcus Aureus Normal Fanny 01/14/18 01/14/18 01/14/18 04:45 06:44 06:44 Creatine Kinase 292 H CK-MB (CK-2) 9.31 H Troponin I 0.438 0.507 01/14/18 01/14/18 01/14/18 14:20 14:20 18:00 Creatine Kinase 225 H 212 H CK-MB (CK-2) 6.44 H Troponin I 0.455 01/14/18 18:00 Creatine Kinase CK-MB (CK-2) 5.83 H Troponin I 0.475 Impressions: Chest X-Ray 01/14/18 00:34 IMPRESSION: Right apical pleural thickening and nodularity. Fullness in the right hilum suspicious for adenopathy. Underlying emphysema. Findings have progressed from the prior. 2010 [employer]- All Rights Reserved Chest CT 01/15/18 00:00 IMPRESSION: There is evidence of bilateral apical pleural thickening most prominent on the right with increasing consolidation within the right upper lobe. Interval decrease in consolidation previously noted in the lower lobes. Small residual pleural effusions. Assessment & Plan - Diagnosis (1) Acute on chronic respiratory failure with hypoxia and hypercapnia Is this a current diagnosis for this admission?: Yes Plan: Secondary to COPD exacerbation. Continues to improve. Patient is admitted to [facility] on continuous cardiac telemetry. He is provided supplemental oxygen and BiPAP as needed to maintain oxygen saturations greater than 89%. He utilizes 4-6 L via nasal cannula at home. Pulmonology is consulted; appreciate Dr. Brunson's evaluation recommendations. (2) COPD with acute exacerbation Is this a current diagnosis for this admission?: Yes Plan: COPD exacerbation with right upper lobe pneumonia. Improving; the patient remains afebrile, leukocytosis is improved, now ambulatory on his baseline oxygen requirement with minimal worsening of symptoms. Blood cultures (one set) positive for staph epidermidis and staph hominis; likely contaminants. Repeat blood cultures with no growth at 24 hours. Sputum culture positive for pansensitive staph aureus. Continue supplemental oxygen with BiPAP to maintain saturations greater than 89% . Continue weaning Solu-Medrol. Scheduled and as needed nebulizer treatments; continue weaning scheduled treatments. Twice daily Pulmicort nebulizer treatments. Mucinex twice daily. Tessalon Perles every 8 hours as needed. IV vancomycin and Zosyn are discontinued; transition to p.o. Augmentin for right upper lobe pneumonia. Incentive spirometry and flutter valve to bedside. (3) Pneumonia Qualifiers: Pneumonia type: due to methicillin-sensitive Staphylococcus aureus (MSSA) Laterality: bilateral Lung location: unspecified part of lung Qualified Code (s): J15.211 - Pneumonia due to Methicillin susceptible Staphylococcus aureus Is this a current diagnosis for this admission?: Yes Plan: The patient was admitted with acute on chronic respiratory failure. He was noted to have WBCs of 18.4. Pt has remained afebrile. CT of the Chest revealed multifocal consolidations (RUL increased consolidation , improved bilateral basilar consolidations), multiple lung nodules, and apical pleural thickening. Initial blood cultures were contaminated with staph hominis and staph epidermidis. Repeat blood cultures are negative at 24 hours he. Sputum culture positive for pansensitive staph aureus. Patient was empirically placed on IV vancomycin and Zosyn; transitioned to Augmentin yesterday. Remains afebrile, WBCs 11.1 today. Remaining plan as outlined above. (4) Tobacco dependence Is this a current diagnosis for this admission?: Yes Plan: Smoking cessation was encouraged; nicotine replacement therapy is provided. (5) Anemia Qualifiers: Other causes of anemia: chronic disease, other Is this a current diagnosis for this admission?: Yes Plan: Anemia of chronic disease; now s/p 1 unit PRBC. Patient was admitted with a hemoglobin of 8.7; baseline of 12. Anemia panel revealed ferritin of 351 with reticulocyte count of 4.7. Occult stool positive. Patient denies, hematochezia, melena. Hold Lovenox; patient is ambulating in hallways several times daily. Continue daily multivitamin and ferrous sulfate replacement. Hemoglobin is stable; will continue to monitor CBC. If hemoglobin remains 8.8 or greater, will discharge with close GI follow-up for colonoscopy. (6) Bacteremia Is this a current diagnosis for this admission?: Yes Plan: 1 set blood cultures (one set-2/4 bottles) were positive for staph epidermidis and staph prominence; determined to be contaminant. Patient remains afebrile and leukocytosis has improved. Repeat blood cultures are negative at 24 hours. The patient was empirically placed on IV vancomycin and Zosyn; these have been discontinued. He has been transitioned to p.o. Augmentin for continued treatment of right upper lobe pneumonia. (7) Hyperlipidemia Is this a current diagnosis for this admission?: Yes Plan: Continue home dose simvastatin. (8) Hypothyroidism Is this a current diagnosis for this admission?: Yes Plan: TSH 0.58. Continue home dose levothyroxine. (9) Vocal cord dysfunction Is this a current diagnosis for this admission?: Yes Plan: Chronic; related to remote surgery/radiation treatment for management of vocal cord cancer. (10) Pleural thickening Is this a current diagnosis for this admission?: Yes Plan: CT scan of the chest positive for bilateral apical pleural thickening mostly prominent on the right with increasing consolidation within the right upper lobe The patient has requested that a consult be placed to his established logistics associate, Dr. Brunson. Spoke with Dr. Brunson; recommends continued management of COPD exacerbation and treatment of right upper lobe pneumonia. Patient should have follow-up imaging in 4-6 weeks and discuss potential need for biopsies of lung nodules at that time. (11) Leukocytosis Qualifiers: Leukocytosis type: leukemoid reaction Qualified Code(s): D72.823 - Leukemoid reaction Is this a current diagnosis for this admission?: Yes Plan: Improved; WBC 25.4--> 9.9--> 11.1 Cultures and antibiotics as above. - Time Time Spent with patient: 15-24 minutes Medications reviewed and adjusted accordingly: Yes Anticipated discharge: Home Within: within 24 hours - If Hgb remains stable.
[2018-01-19] MEDS: SIMVASTATIN 40 MG TABLET PO SCH (17:44)
[2018-01-19] MEDS: ROPINIROLE HCL 1 MG TABLET PO SCH (22:21)
[2018-01-20] MEDS: IPRATROPIUM/ALBUTEROL 0.5-2.5 MG/3 ML AMPUL NEB SCH ×2 (02:01→07:44)
[2018-01-20 05:13] LABS: HEMATOCRIT 29.3 % (37.9-51.0); HEMOGLOBIN 9.1 g/dL (13.5-17.0); MEAN CORPUSCULAR HEMOGLOBIN 24.7 pg (27.0-33.4); MEAN CORPUSCULAR HGB CONC 30.9 g/dL (32.0-36.0); MEAN CORPUSCULAR VOLUME 80 fl (80-97); PLATELET COUNT 272 10^3/uL (150-450); RED BLOOD COUNT 3.67 10^6/uL (4.35-5.55); RED CELL DISTRIBUTION WIDTH 22.5 % (11.5-14.0); WHITE BLOOD COUNT 11.1 10^3/uL (4.0-10.5)
[2018-01-20 05:45] LABS: BLOOD UREA NITROGEN 22 mg/dL (7-20); CALCIUM 8.6 mg/dL (8.4-10.2); CHLORIDE 90 mmol/L (98-107); GLUCOSE 163 mg/dL (75-110); POTASSIUM 4.9 mmol/L (3.6-5.0)
[2018-01-20 05:52] LABS: ANION GAP 5 (5-19)
[2018-01-20 05:54] LABS: CARBON DIOXIDE 45 mmol/L (22-30)
[2018-01-20] MEDS: METHYLPREDNISOLONE INJ 40 MG/1 ML SDV IV SCH (06:28)
[2018-01-20] MEDS: LANSOPRAZOLE 30 MG TAB.RAP.DR PO SCH (06:29)
[2018-01-20] MEDS: AMOXICILLIN TR/POT CLAVULANATE 500-125 MG TAB PO SCH (06:29)
[2018-01-20] MEDS: LEVOTHYROXINE SODIUM 0.05 MG TABLET PO SCH (06:29)
[2018-01-20] MEDS: BUDESONIDE NEB 0.5 MG/2 ML AMPUL NEB SCH (07:44)
[2018-01-20] MEDS: FENOFIBRATE NANOCRYSTALLIZED 145 MG TABLET PO SCH (09:27)
[2018-01-20] MEDS: FERROUS SULFATE 325 MG TABLET PO SCH (09:27)
[2018-01-20] MEDS: GUAIFENESIN 600 MG TABLET.SA PO SCH (09:27)
[2018-01-20] MEDS: NICOTINE 21 MG/24 HR PATCH.TD24 TD SCH (09:27)
[2018-01-20] MEDS: CETIRIZINE 10 MG TABLET PO SCH (09:27)
[2018-01-20] MEDS: MULTIVITAMIN TABLET PO SCH (09:27)
[2018-01-20] MEDS ORDERED: PREDNISONE 20 MG TABLET PO ONE (10:03)
[2018-01-20 11:37] VITALS: BP 166/78
--- NOTE | 2018-01-21 16:16 | PDOC DISCHARGE SUMMARY ---
General - Admit/Disc Date/PCP Admission Date/Primary Care Provider: 01/14/18 01:57 TORSTEN ROSS, Discharge Date: 01/20/18 - Discharge Diagnosis (1) Acute on chronic respiratory failure with hypoxia and hypercapnia Is this a current diagnosis for this admission?: Yes Summary: Acute exacerbation has resolved; patient has returned to his baseline oxygen requirement of 4-6 L via nasal cannula. He is now maintaining oxygen saturations while ambulatory on his baseline oxygen without worsening dyspnea. Secondary to COPD exacerbation. (2) COPD with acute exacerbation Is this a current diagnosis for this admission?: Yes Summary: Improved. Patient remains afebrile, leukocytosis has improved, and no ambulatory on his baseline oxygen requirement without worsening symptoms. Blood cultures (one set) positive for staph epidermidis and staph hominis; likely contaminants. Repeat blood cultures with no growth at 72 hours. Sputum culture positive for pansensitive staph aureus. The patient was admitted to [facility] on continuous cardiac telemetry and provided supplemental oxygen with BiPAP to maintain saturations greater than 89%. He was placed on IV Solu-Medrol and provided twice daily Pulmicort nebulizer treatments, scheduled DuoNeb treatments and as needed albuterol treatments. He was empirically placed on IV vancomycin and Zosyn at time of admission. He has been transitioned to p.o. Augmentin for right upper lobe pneumonia. (3) Pneumonia Is this a current diagnosis for this admission?: Yes Summary: He was noted to have WBCs of 18.[address] of the Chest revealed multifocal consolidations (RUL increased consolidation , improved bilateral basilar consolidations), multiple lung nodules, and apical pleural thickening. Initial blood cultures were contaminated with staph hominis and staph epidermidis. Repeat blood cultures are negative at 72 hours. Sputum culture positive for pansensitive staph aureus. Is empirically placed on IV vancomycin and Zosyn; transition to p.o. Augmentin once blood cultures revealed contaminants. He is discharged home with a prescription to complete a full course of antibiotic therapy. (4) Tobacco dependence Is this a current diagnosis for this admission?: Yes Summary: Smoking cessation was encouraged, nicotine or placement therapies were provided. (5) Anemia Is this a current diagnosis for this admission?: Yes Summary: Anemia of chronic disease; now s/p 1 unit PRBC. Patient was admitted with a hemoglobin of 8.7; baseline of 12. Anemia panel revealed ferritin of 351 with reticulocyte count of 4.7. Occult stool positive. Patient denies, hematochezia, melena. His DVT prophylactic Lovenox was held. He was encouraged to continue daily multivitamin and ferrous sulfate replacement. We will continue to monitor his hemoglobin which is now trending up; 9.1 at discharge. Discussed with patient; recommend close follow-up with egg candler for routine colonoscopy. The patient is educated on warning signs and will return to the emergency department for development of melena, hematochezia, or jodi blood per rectum. (6) Bacteremia Is this a current diagnosis for this admission?: Yes Summary: Ruled out; determined to be contaminant. Repeat blood cultures are negative at 72 hours. (7) Hyperlipidemia Is this a current diagnosis for this admission?: Yes Summary: Continue home dose statin. (8) Hypothyroidism Is this a current diagnosis for this admission?: Yes Summary: TSH 0.58. Continue home dose levothyroxine. (9) Vocal cord dysfunction Is this a current diagnosis for this admission?: Yes Summary: Chronic; related to remote surgery/radiation treatment for management of vocal cord cancer. (10) Pleural thickening Is this a current diagnosis for this admission?: Yes Summary: CT scan of the chest positive for bilateral apical pleural thickening mostly prominent on the right with increasing consolidation within the right upper lobe The patient's established threading machine setter, Dr. Brunson, was consulted. Recommends continued management of COPD exacerbation and treatment of right upper lobe pneumonia. Patient should have follow-up imaging in 4-6 weeks and discuss potential need for biopsies of lung nodules at that time. (11) Leukocytosis Is this a current diagnosis for this admission?: Yes Summary: Improved; secondary to #3 and steroid therapy. - Additional Information Discharge Diet: Cardiac, Diabetic Discharge Activity: Activity As Tolerated, Balance Activity w/Rest Prescriptions: Amox Tr/Potassium Clavulanate [Augmentin 875-125 mg Tablet] 1 tab PO BID #10 tablet Ferrous Sulfate [Feosol 325 mg Tablet] 325 mg PO DAILY #30 tablet Guaifenesin [Mucinex Sr 600 mg Tablet.sa] 600 mg PO Q12 #28 tablet.sa Ipratropium/Albuterol Sulfate [Duoneb 3 ml Ampul] 3 ml NEB RTQ6 #120 vial.neb Multivitamin [Tab-A-Taniya (Multiple Vitamin) Tablet] 1 tab PO DAILY #30 tablet Nicotine [Nicoderm 21 mg/24 Hr Transderm Patch] 1 each TD DAILY #30 patch.td24 Prednisone [Deltasone] 60 mg PO DAILY #12 tablet Ropinirole HCl [Requip] 1 mg PO QHS #30 tablet Home Medications: Albuterol Sulfate [Proair HFA Inhalation Aerosol 8.5 gm MDI] 2 puff IH Q6HP PRN 11/18/17 Cetirizine HCl [Zyrtec 10 mg Tablet] 10 mg PO DAILY 11/18/17 Fenofibrate 160 mg PO DAILY 11/18/17 Fluticasone Propionate [Flonase Nasal [place] 50 Mcg/[place] 16 gm] 2 spray NASL DAILY 11/18/17 Levothyroxine Sodium [Synthroid 0.05 mg Tablet] 0.05 mg PO Q6AM 11/18/17 Omeprazole 40 mg PO DAILY 11/18/17 Simvastatin [Zocor 40 mg Tablet] 40 mg PO QPM 11/18/17 Tiotropium Br/Olodaterol HCl [Stiolto Respimat Inhal [place]] 2 puff IH DAILY Budesonide [Pulmicort Neb 0.5 mg/2 ml Ampul] 0.5 mg NEB RTQ12 #5 ampul.neb 12/06 Benzonatate [Tessalon Perles 100 mg Capsule] 100 mg PO Q8HP PRN MDD filled 01/06 for 10 day supply 01/14/18 Epinephrine [Epipen 2-Bandar] 0.3 mg IJ ASDIR PRN 01/14/18 Insulin Aspart [Novolog Insulin (Aspart) 100 unit/mL] 0 unit SUBCUT .SLD SCALE 01/14/18 Metformin HCl [Glucophage 500 mg Tablet] 500 mg PO DAILY 01/14/18 Acetaminophen [Tylenol 325 mg Tablet] 650 mg PO Q4HP PRN tablet 01/20/18 Amox Tr/Potassium Clavulanate [Augmentin 875-125 mg Tablet] 1 tab PO BID #10 tablet 01/20/18 Ferrous Sulfate [Feosol 325 mg Tablet] 325 mg PO DAILY #30 tablet 01/20/18 Guaifenesin [Mucinex Sr 600 mg Tablet.sa] 600 mg PO Q12 #28 tablet.sa 01/20/18 Ipratropium/Albuterol Sulfate [Duoneb 3 ml Ampul] 3 ml NEB RTQ6 #120 vial.neb Multivitamin [Tab-A-Taniya (Multiple Vitamin) Tablet] 1 tab PO DAILY #30 tablet Nicotine [Nicoderm 21 mg/24 Hr Transderm Patch] 1 each TD DAILY #30 patch.td24 01/20/18 Prednisone [Deltasone] 60 mg PO DAILY #12 tablet 01/20/18 Ropinirole HCl [Requip] 1 mg PO QHS #30 tablet 01/20/18 History of Present Illness History of Present Illness: Per H&P by Dr. Jean: MARTY SANTOS is a 57 year old male with medical history remarkable for chronic respiratory failure secondary to COPD on home oxygen, 4 L at rest and 6 L when ambulating, vocal cord cancer status post radiation, polycythemia, actively smoker of 3 packs/day. Presented to the emergency department complaining of respiratory distress. The patient has been discharged from our facility on December 06 after being hospitalized for several days, that time patient was intubated and placed on mechanical ventilator. He was sent home with oxygen and a trilogy. His common-law is at the bedside and tells me that initially he was doing well but after few days he started worsening again, he cannot is live with a trilogy but he is using this most of the time during the day, he uses oxygen 4 L when he is a sleeping, unfortunately he is a still is smoking 3 packs/day and, denies sore throat or runny nose. Denies fever, chills, chest pain, abdominal pain, changes in his bowel or urine. Today when his came back from work he was sitting on the couch after taking a nap laying his body to the right side with the oxygen on his hand gasping for air, partner call EMS, upon arrival patient was saturating 70% on his home BiPAP machine, was tachypneic with a labored breathing. In route given nebulizer treatments and steroids. At the time of arrival to the ED was a still with labored breathing and was continue on BiPAP. His oxygen saturation is usually 88-90% on 4 L oxygen Chest x-ray notable for possible right lower lobe infiltrates and has been a started on broad-spectrum antibiotics. Physical Exam Vital Signs: Temp Pulse Resp BP Pulse Ox 97.8 F 95 20 166/78 H 97 11/22/18 11:27 01/20/18 11:27 01/20/18 11:27 01/20/18 11:27 01/20/18 11:27 Intake & Output 01/20/18 01/21/18 01/22/18 06:59 06:59 06:59 Intake Total 913 991 Output Total 1800 200 Balance -887 791 General appearance: PRESENT: no acute distress, well-developed, well-nourished Head exam: PRESENT: atraumatic, normocephalic Eye exam: PRESENT: conjunctiva pink, EOMI, PERRLA. ABSENT: scleral icterus Ear exam: PRESENT: normal external ear exam Mouth exam: PRESENT: moist, tongue midline Neck exam: ABSENT: carotid bruit, JVD, lymphadenopathy, thyromegaly Respiratory exam: PRESENT: clear to auscultation maximus, prolonged expiratory phas , symmetrical, unlabored, other - Supplemental oxygen requirement. ABSENT: rales, rhonchi, wheezes Cardiovascular exam: PRESENT: RRR. ABSENT: diastolic murmur, rubs, systolic murmur Pulses: PRESENT: normal dorsalis pedis pul Vascular exam: PRESENT: normal capillary refill GI/Abdominal exam: PRESENT: normal bowel sounds, soft. ABSENT: distended, guarding, mass, organolmegaly, rebound, tenderness Rectal exam: PRESENT: deferred Extremities exam: PRESENT: full ROM. ABSENT: calf tenderness, clubbing, pedal edema Neurological exam: PRESENT: alert, awake, oriented to person, oriented to place , oriented to time, oriented to situation, CN II-XII grossly intact. ABSENT: motor sensory deficit Psychiatric exam: PRESENT: appropriate affect, normal mood. ABSENT: homicidal ideation, suicidal ideation Skin exam: PRESENT: dry, intact, warm. ABSENT: cyanosis, rash Results Laboratory Results: 01/20/18 04:30 01/20/18 04:30 01/14/18 01/14/18 01/14/18 04:45 06:44 06:44 Creatine Kinase 292 H CK-MB (CK-2) 9.31 H Troponin I 0.438 0.507 01/14/18 01/14/18 01/14/18 14:20 14:20 18:00 Creatine Kinase 225 H 212 H CK-MB (CK-2) 6.44 H Troponin I 0.455 01/14/18 18:00 Creatine Kinase CK-MB (CK-2) 5.83 H Troponin I 0.475 Impressions: Chest X-Ray 01/14/18 00:34 IMPRESSION: Right apical pleural thickening and nodularity. Fullness in the right hilum suspicious for adenopathy. Underlying emphysema. Findings have progressed from the prior. 2010 [employer]- All Rights Reserved Chest CT 01/15/18 00:00 IMPRESSION: There is evidence of bilateral apical pleural thickening most prominent on the right with increasing consolidation within the right upper lobe. Interval decrease in consolidation previously noted in the lower lobes. Small residual pleural effusions. Qualifiers - * PATIENT BEING DISCHARGED WITH ANY OF THE FOLLOWING DIAGNOSIS: No Plan Discharge Plan: Discharge to home. Follow-up with primary care provider within 1 week. Follow-up with Dr. Jay, gastroenterology, within 4-6 weeks for colon screening. Follow-up with Dr. Brunson, pulmonology, within 4-6 weeks for repeat chest imaging Return to the emergency department as needed for concerning symptoms. Time Spent: Less than 30 Minutes
--- NOTE | 2018-01-24 13:53 | PDOC CONSULTATION ---
Consultation Consult Date: 01/17/18 Attending physician:: JOSE RAMON SHARMA Consult reason:: Acute on chronic respiratory failure/pneumonia History of Present Illness Admission Date/PCP: 01/14/18 01:57 TORSTEN ROSS DO History of Present Illness: MARTY SANTOS is a 57 year old male, 37-year-old male well known to [facility] for chronic respiratory failure he is at home on a trilogy after recent discharge during which time he was intubated he also suffers from COPD as well as vocal cord cancer. He has difficulty tolerating his noninvasive positive pressure ventilation at home and radiographically appears that he has a pneumonia at this time currently on BiPAP with an FiO2 of 70% of hemoptysis unfortunately continues to smoke Past Medical History Cardiac Medical History: Reports: Hyperlipidema Denies: Congestive Heart Failure, Coronary Artery Disease, Myocardial Infarction, Hypertension Pulmonary Medical History: Reports: Bronchitis, Chronic Obstructive Pulmonary Disease (COPD) - has O2 4l at night/6 L ambulating, Intubation, Pneumonia Denies: Asthma, Tuberculosis EENT Medical History: Reports: Throat Neurological Medical History: Denies: Seizures Renal/ Medical History: Denies: Chronic Kidney Disease Malignancy Medical History: Reports: Other - Laryngeal cancer GI Medical History: Denies: Cirrhosis, Crohn's Disease, Ulcerative Colitis Musculoskeltal Medical History: Denies: Arthritis Psychiatric Medical History: Reports: Tobacco Dependency Denies: Depression Traumatic Medical History: Denies: Traumatic Brain Injury Hematology: Denies: Anemia, Sickle Cell Disease Infectious Medical History: Denies: Hepatitis B, Hepatitis C, HIV Past Surgical History Past Surgical History: Reports: Other - Vocal cord biopsy Denies: Pacemaker Social History Information Source: Patient, Friend, [facility] Records 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 Lives with: Spouse/Significant other Smoking Status: Current Every Day Smoker - 3 packs/day Cigarettes Packs Per Day: 3 Number of Years Smokin Last Time Smoked: 01/12/2018 Passive smoke exposure as: Both Frequency of Alcohol Use: Occasional Hx Recreational Drug Use: No Drugs: None Hx Prescription Drug Abuse: No Do you have pets?: No Have you had any respiratory illnesses as a child?: No Have you been exposed to any sick contacts recently?: No Have you had any recent respiratory illnesses?: No Have you travelled outside of [place] in the past 12 months?: No Family History Family History: CAD, COPD Parental Family History Reviewed: Yes Children Family History Reviewed: Yes Sibling(s) Family History Reviewed.: Yes Medication/Allergy Home Medications: Albuterol Sulfate [Proair HFA Inhalation Aerosol 8.5 gm MDI] 2 puff IH Q6HP PRN 11/18/17 Cetirizine HCl [Zyrtec 10 mg Tablet] 10 mg PO DAILY 11/18/17 Fenofibrate 160 mg PO DAILY 11/18/17 Fluticasone Propionate [Flonase Nasal Grant 50 Mcg/Grant 16 gm] 2 spray NASL DAILY 11/18/17 Levothyroxine Sodium [Synthroid 0.05 mg Tablet] 0.05 mg PO Q6AM 11/18/17 Omeprazole 40 mg PO DAILY 11/18/17 Simvastatin [Zocor 40 mg Tablet] 40 mg PO QPM 11/18/17 Tiotropium Br/Olodaterol HCl [Stiolto Respimat Inhal Grant] 2 puff IH DAILY Budesonide [Pulmicort Neb 0.5 mg/2 ml Ampul] 0.5 mg NEB RTQ12 #5 ampul.neb 12/06 Benzonatate [Tessalon Perles 100 mg Capsule] 100 mg PO Q8HP PRN MDD filled 01/06 for 10 day supply 01/14/18 Epinephrine [Epipen 2-Bandar] 0.3 mg IJ ASDIR PRN 01/14/18 Insulin Aspart [Novolog Insulin (Aspart) 100 unit/mL] 0 unit SUBCUT .SLD SCALE 01/14/18 Metformin HCl [Glucophage 500 mg Tablet] 500 mg PO DAILY 01/14/18 Acetaminophen [Tylenol 325 mg Tablet] 650 mg PO Q4HP PRN tablet 01/20/18 Amox Tr/Potassium Clavulanate [Augmentin 875-125 mg Tablet] 1 tab PO BID #10 tablet 01/20/18 Ferrous Sulfate [Feosol 325 mg Tablet] 325 mg PO DAILY #30 tablet 01/20/18 Guaifenesin [Mucinex Sr 600 mg Tablet.sa] 600 mg PO Q12 #28 tablet.sa 01/20/18 Ipratropium/Albuterol Sulfate [Duoneb 3 ml Ampul] 3 ml NEB RTQ6 #120 vial.neb Multivitamin [Tab-A-Taniya (Multiple Vitamin) Tablet] 1 tab PO DAILY #30 tablet Nicotine [Nicoderm 21 mg/24 Hr Transderm Patch] 1 each TD DAILY #30 patch.td24 01/20/18 Prednisone [Deltasone] 60 mg PO DAILY #12 tablet 01/20/18 Ropinirole HCl [Requip] 1 mg PO QHS #30 tablet 01/20/18 Allergies/Adverse Reactions: bee stings Allergy (Severe, Uncoded 11/15/17 11:15) swelling Review of Systems Constitutional: PRESENT: anorexia, chills, fatigue, fever(s), weakness Eyes: ABSENT: visual disturbances Ears: ABSENT: hearing changes Nose, Mouth, and Throat: ABSENT: vertigo Cardiovascular: PRESENT: dyspnea on exertion. ABSENT: orthropnea, palpitations Respiratory: PRESENT: cough, dyspnea, sputum. ABSENT: hemoptysis Gastrointestinal: PRESENT: nausea. ABSENT: coffee ground emesis, hematemesis, hematochezia, melena, vomiting Genitourinary: ABSENT: dysuria, hematuria Musculoskeletal: ABSENT: deformity, joint swelling Integumentary: ABSENT: pruritus, rash Neurological: ABSENT: abnormal movements, abnormal speech, focal weakness, lack of coordination, memory loss Endocrine: ABSENT: cold intolerance, heat intolerance, polydipsia, polyuria Hematologic/Lymphatic: PRESENT: lymphadenopathy Allergic/Immunologic: ABSENT: seasonal rhinorrhea Physical Exam Vital Signs: Temp Pulse Resp BP Pulse Ox 98.4 F 105 H 18 152/67 H 95 01/18/18 07:56 01/18/18 09:02 01/18/18 09:02 01/18/18 07:56 01/18/18 09:02 Intake & Output 01/17/18 01/18/18 01/19/18 06:59 06:59 06:59 Intake Total 3095 4031 Output Total 1075 950 Balance 2019 3081 Weight 76 kg General appearance: PRESENT: no acute distress, cooperative, disheveled Head exam: PRESENT: atraumatic, normocephalic Eye exam: PRESENT: conjunctiva pale, EOMI. ABSENT: nystagmus, periorbital swelling, scleral icterus Mouth exam: PRESENT: dry mucosa, neck supple, tongue midline Neck exam: ABSENT: carotid bruit, JVD, lymphadenopathy, thyromegaly, tracheal deviation, tracheostomy Respiratory exam: PRESENT: decreased breath sounds, prolonged expiratory phas, rhonchi, unlabored, wheezes. ABSENT: retraction, stridor Cardiovascular exam: PRESENT: RRR, +S1, +S2, tachycardia Pulses: PRESENT: normal radial pulses GI/Abdominal exam: PRESENT: soft. ABSENT: tenderness Extremities exam: ABSENT: calf tenderness, clubbing, joint swelling, pedal edema Musculoskeletal exam: ABSENT: deformity, dislocation Neurological exam: PRESENT: alert, awake Psychiatric exam: PRESENT: normal mood Skin exam: PRESENT: dry, warm Results Laboratory Results: 01/18/18 04:54 01/18/18 04:54 01/17/18 01/18/18 01/18/18 21:10 04:54 04:54 WBC 9.9 RBC 3.61 L Hgb 8.8 L Hct 28.9 L MCV 80 MCH 24.4 L MCHC 30.4 L RDW 21.1 H Plt Count 292 Sodium 141.7 Potassium 5.3 H Chloride 94 L Carbon Dioxide 38 H Anion Gap 10 BUN 22 H Creatinine 0.76 Est GFR ( Amer) > 60 Est GFR (Non-Af Amer) > 60 Glucose 265 H Calcium 8.4 Blood Type O POSITIVE Antibody Screen NEGATIVE 01/14/18 01/14/18 01/14/18 04:45 06:44 06:44 Creatine Kinase 292 H CK-MB (CK-2) 9.31 H Troponin I 0.438 0.507 01/14/18 01/14/18 01/14/18 14:20 14:20 18:00 Creatine Kinase 225 H 212 H CK-MB (CK-2) 6.44 H Troponin I 0.455 01/14/18 18:00 Creatine Kinase CK-MB (CK-2) 5.83 H Troponin I 0.475 Impressions: Chest X-Ray 01/14/18 00:34 IMPRESSION: Right apical pleural thickening and nodularity. Fullness in the right hilum suspicious for adenopathy. Underlying emphysema. Findings have progressed from the prior. 2010 [facility] [employer]- All Rights Reserved Chest CT 01/15/18 00:00 IMPRESSION: There is evidence of bilateral apical pleural thickening most prominent on the right with increasing consolidation within the right upper lobe. Interval decrease in consolidation previously noted in the lower lobes. Small residual pleural effusions. Assessment & Plan - Diagnosis (1) Acute on chronic respiratory failure with hypoxia and hypercapnia Is this a current diagnosis for this admission?: Yes Plan: BiPAP balance oxygen need versus hypercapnia (2) HCAP (healthcare-associated pneumonia) Is this a current diagnosis for this admission?: Yes Plan: Continue current antibiotic regimen (3) History of laryngeal cancer Is this a current diagnosis for this admission?: Yes Plan: As per oncology (4) Tobacco dependence Is this a current diagnosis for this admission?: Yes Plan: Despite the above patient continues to smoke discussed at length risk and dangers associated with continued tobacco use
--- NOTE | 2018-01-24 13:57 | PDOC PROGRESS REPORT ---
Subjective Progress Note for:: 01/19/18 Subjective:: Continues to improve Reason For Visit: COPD EXACERBATION Physical Exam Vital Signs: Temp Pulse Resp BP Pulse Ox 98.0 F 92 18 151/84 H 94 01/19/18 08:01 01/19/18 08:29 01/19/18 08:29 01/19/18 08:01 01/19/18 08:29 Intake & Output 01/18/18 01/19/18 01/20/18 06:59 06:59 06:59 Intake Total 4031 2149 Output Total 950 1725 Balance 3081 424 Weight 76 kg General appearance: PRESENT: no acute distress, cooperative, disheveled, well- developed, well-nourished Head exam: PRESENT: atraumatic, normocephalic Eye exam: PRESENT: conjunctiva pale, EOMI. ABSENT: nystagmus, periorbital swelling, scleral icterus Mouth exam: PRESENT: dry mucosa, neck supple, tongue midline Neck exam: PRESENT: lymphadenopathy. ABSENT: carotid bruit, JVD, thyromegaly, tracheal deviation, tracheostomy Respiratory exam: PRESENT: decreased breath sounds, prolonged expiratory phas, rales, rhonchi, unlabored. ABSENT: retraction, stridor Cardiovascular exam: PRESENT: RRR, +S1, +S2 Pulses: PRESENT: normal radial pulses GI/Abdominal exam: PRESENT: soft. ABSENT: tenderness Extremities exam: ABSENT: calf tenderness, clubbing, joint swelling, pedal edema Musculoskeletal exam: ABSENT: deformity, dislocation Neurological exam: PRESENT: alert, awake Psychiatric exam: PRESENT: appropriate affect Skin exam: PRESENT: dry, warm Results Laboratory Results: 01/19/18 04:30 01/19/18 04:30 01/19/18 01/19/18 04:30 04:30 WBC 11.1 H RBC 3.57 L Hgb 8.8 L Hct 28.8 L MCV 81 MCH 24.7 L MCHC 30.6 L RDW 22.1 H Plt Count 281 Sodium 140.1 Potassium 5.0 Chloride 92 L Carbon Dioxide 44 H* Anion Gap 4 L BUN 19 Creatinine 0.65 Est GFR ( Amer) > 60 Est GFR (Non-Af Amer) > 60 Glucose 155 H Calcium 8.6 01/14/18 04:40 Sputum Gram Stain - Final 01/14/18 04:40 Sputum Sputum Culture - Final Staphylococcus Aureus Normal Fanny 01/14/18 01/14/18 01/14/18 04:45 06:44 06:44 Creatine Kinase 292 H CK-MB (CK-2) 9.31 H Troponin I 0.438 0.507 01/14/18 01/14/18 01/14/18 14:20 14:20 18:00 Creatine Kinase 225 H 212 H CK-MB (CK-2) 6.44 H Troponin I 0.455 01/14/18 18:00 Creatine Kinase CK-MB (CK-2) 5.83 H Troponin I 0.475 Impressions: Chest X-Ray 01/14/18 00:34 IMPRESSION: Right apical pleural thickening and nodularity. Fullness in the right hilum suspicious for adenopathy. Underlying emphysema. Findings have progressed from the prior. 2010 [employer]- All Rights Reserved Chest CT 01/15/18 00:00 IMPRESSION: There is evidence of bilateral apical pleural thickening most prominent on the right with increasing consolidation within the right upper lobe. Interval decrease in consolidation previously noted in the lower lobes. Small residual pleural effusions. Assessment & Plan - Diagnosis (1) Acute on chronic respiratory failure with hypoxia and hypercapnia Is this a current diagnosis for this admission?: Yes Plan: BiPAP balance oxygen need versus hypercapnia (2) HCAP (healthcare-associated pneumonia) Is this a current diagnosis for this admission?: Yes Plan: Continue current antibiotic regimen (3) History of laryngeal cancer Is this a current diagnosis for this admission?: Yes Plan: As per oncology (4) Tobacco dependence Is this a current diagnosis for this admission?: Yes Plan: Despite the above patient continues to smoke discussed at length risk and dangers associated with continued tobacco use
== END 2018-01-20 12:11 | disposition home or self-care (01) | DRG 177 ==
LOC: ER 00:27 → EH 01:57 → 3W 03:40
PROVIDERS: ADMIT Internal Medicine; ATTEND Internal Medicine
PROC: 5A09557 Assistance with Respiratory Ventilation, Greater than 96 Consecutive Hours, Continuous Positive Airway Pressure (ICD-10-PCS; 2018-01-14)
PROC: 30233N1 Transfusion of Nonautologous Red Blood Cells into Peripheral Vein, Percutaneous Approach (ICD-10-PCS; principal; 2018-01-18)
DX: J15.211 Pneumonia due to Methicillin susceptible Staphylococcus aureus (principal); J96.21 Acute and chronic respiratory failure with hypoxia; J96.22 Acute and chronic respiratory failure with hypercapnia; J44.1 Chronic obstructive pulmonary disease with (acute) exacerbation; R78.81 Bacteremia; J44.0 Chronic obstructive pulmonary disease with (acute) lower respiratory infection; F17.210 Nicotine dependence, cigarettes, uncomplicated; D63.8 Anemia in other chronic diseases classified elsewhere; E78.5 Hyperlipidemia, unspecified; R74.8 Abnormal levels of other serum enzymes; D64.9 Anemia, unspecified; E03.9 Hypothyroidism, unspecified; D72.823 Leukemoid reaction; D75.1 Secondary polycythemia; J38.3 Other diseases of vocal cords; Z99.81 Dependence on supplemental oxygen; Z85.21 Personal history of malignant neoplasm of larynx; Z92.3 Personal history of irradiation; Z79.899 Other long term (current) drug therapy; Z91.030 Bee allergy status; Z82.49 Family history of ischemic heart disease and other diseases of the circulatory system
CPT/HCPCS: 36415; 36430; 36600; 71045; 71250; 80048; 80053; 80202; 82272; 82550; 82553; 82607; 82728; 82746; 82803; 83540; 83550; 83605; 84100; 84443; 84484; 85025; 85027; 85045; 86850; 86900; 86901; 86920; 87040; 87070; 87077; 87186; 87205; 87804; 94640; 94660; 94667; 94668; 94799; 96360; 99291; J1650; J1956; J2060; J2543; J2920; J2930; J3370; J3490; J7030; J7060; J7512; J7620; P9016

== ENCOUNTER → 2018-02-09 | Outpatient (CLI) | payer MEDICAID ==
--- NOTE | 2018-02-09 15:13 | RADIOLOGY REPORT (SQ) ---
EXAM DESCRIPTION: CHEST PA/LATERAL COMPLETED DATE/TIME: 02/09/2018 3:05 pm REASON FOR STUDY: COUGH COMPARISON: 01/14/2018 EXAM PARAMETERS: NUMBER OF VIEWS: two views TECHNIQUE: Digital Frontal and Lateral radiographic views of the chest acquired. RADIATION DOSE: NA LIMITATIONS: none FINDINGS: LUNGS AND PLEURA: Right apical and right upper lateral pleural thickening is grossly uncha nged. Interstitial markings remain prominent. No effusions. MEDIASTINUM AND HILAR STRUCTURES: No significant interval change. HEART AND VASCULAR STRUCTURES: Heart normal size. No evidence for failure. BONES: No acute findings. HARDWARE: None in the chest. OTHER: No other significant finding. IMPRESSION: No interval change in the chest. Persistent pleural thickening in the right lung apex a nd right upper lateral chest wall. There are prominent interstitial markings bilaterally which are s table as well. TECHNICAL DOCUMENTATION: JOB ID: [id number] [employer]- All Rights Reserved Reading location - IP/workstation name: [email or web address]
[2018-02-09 15:56] LABS: ABSOLUTE BASOPHILS # (AUTO) 0.1 10^3/uL (0.0-0.2); ABSOLUTE EOSINOPHILS # (AUTO) 0.2 10^3/uL (0.0-0.6); ABSOLUTE LYMPHOCYTES (AUTO) 1.4 10^3/uL (0.5-4.7); ABSOLUTE MONOCYTES (AUTO) 0.6 10^3/uL (0.1-1.4); ABSOLUTE NEUT (AUTO) 6.4 10^3/uL (1.7-8.2); BASOPHILS % (AUTO) 0.8 % (0-2); EOSINOPHILS % (AUTO) 2.5 % (0-6); HEMATOCRIT 38.2 % (37.9-51.0); LYMPHOCYTES % (AUTO) 16.5 % (13-45); MEAN CORPUSCULAR HEMOGLOBIN 25.9 pg (27.0-33.4); MEAN CORPUSCULAR HGB CONC 31.3 g/dL (32.0-36.0); MEAN CORPUSCULAR VOLUME 83 fl (80-97); MONOCYTES % (AUTO) 6.8 % (3-13); PLATELET COUNT 281 10^3/uL (150-450); RED BLOOD COUNT 4.62 10^6/uL (4.35-5.55); RED CELL DISTRIBUTION WIDTH 20.4 % (11.5-14.0); SEGMENTED NEUTROPHILS % (AUTO) 73.4 % (42-78); TOTAL CELLS COUNTED % (AUTO) 100 %; WHITE BLOOD COUNT 8.7 10^3/uL (4.0-10.5)
== END ==
LOC: OD 14:47
PROVIDERS: ATTEND Internal Medicine Pulmonary Disease
DX: R05 Cough (principal)
CPT/HCPCS: 36415; 71046; 85025; 87070; 87077; 87186; 87205

== ENCOUNTER 2018-04-05 12:52 | Emergency (ER) | payer MEDICAID ==
[2018-04-05] MEDS ORDERED: IPRATROPIUM/ALBUTEROL 0.5-2.5 MG/3 ML AMPUL NEB ONE (14:11)
--- NOTE | 2018-04-05 14:12 | ER Document Report ---
ED Medical Screen (RME) - General Chief Complaint: Chest Pain > 30 Stated Complaint: CHEST PAIN/DIFFICULTY BREATHING Time Seen by Provider: 04/05/18 14:05 Primary Care Provider: ALYSHA CARLOS MD [Primary Care Provider] - Follow up as needed Notes: 57-year-old male to the emergency department chief complaint of cough, shortness of breath. "I think I have pneumonia". No fever. No chest pain. I have greeted and performed a rapid initial assessment of this patient. A comprehensive ED assessment and evaluation of the patient, analysis of test results and completion of the medical decision making process will be conducted by additional ED providers. TRAVEL OUTSIDE OF THE [place] IN LAST 30 DAYS: No - Related Data Allergies/Adverse Reactions: bee stings Allergy (Severe, Uncoded 04/05/18 12:54) swelling Past Medical History - Social History Family history: Reviewed & Not Pertinent - Past Medical History Cardiac Medical History: Reports: Hx Hypercholesterolemia Denies: Hx Congestive Heart Failure, Hx Coronary Artery Disease, Hx Heart Attack, Hx Hypertension Pulmonary Medical History: Reports: Hx Bronchitis, Hx COPD - has O2 4l at night/6 L ambulating, Hx Pneumonia, Hx Intubation Denies: Hx Asthma, Hx Tuberculosis Neurological Medical History: Denies: Hx Cerebrovascular Accident, Hx Seizures Renal/ Medical History: Denies: Hx Peritoneal Dialysis GI Medical History: Denies: Hx Cirrhosis, Hx Crohn's Disease, Hx Ulcerative Colitis Musculoskeltal Medical History: Denies Hx Arthritis Psychiatric Medical History: Denies: Hx Depression Traumatic Medical History: Reports: Hx Fractures - left collar bone. Denies: Hx Traumatic Brain Injury Infectious Medical History: Denies: Hx HIV Past Surgical History: Reports: Hx Oral Surgery, Other - Vocal cord biopsy. Denies: Hx Pacemaker - Immunizations Hx Diphtheria, Pertussis, Tetanus Vaccination: - not sure Physical Exam - Vital signs Vitals: Temp Pulse Resp BP Pulse Ox 98.1 F 105 H 24 H 139/80 H 86 L 04/05/18 13:13 04/05/18 13:13 04/05/18 13:13 04/05/18 13:13 04/05/18 13:13 Course - Vital Signs Vital signs: Temp Pulse Resp BP Pulse Ox 98.1 F 105 H 24 H 139/80 H 86 L 04/05/18 13:13 04/05/18 13:13 04/05/18 13:13 04/05/18 13:13 04/05/18 13:13 Doctor's Discharge - Discharge Referrals: ALYSHA CARLOS MD [Primary Care Provider] - Follow up as needed
[2018-04-05 14:57] LABS: ABSOLUTE BASOPHILS # (AUTO) 0.1 10^3/uL (0.0-0.2); ABSOLUTE EOSINOPHILS # (AUTO) 0.5 10^3/uL (0.0-0.6); ABSOLUTE LYMPHOCYTES (AUTO) 1.9 10^3/uL (0.5-4.7); ABSOLUTE MONOCYTES (AUTO) 1.1 10^3/uL (0.1-1.4); ABSOLUTE NEUT (AUTO) 7.4 10^3/uL (1.7-8.2); EOSINOPHILS % (AUTO) 4.9 % (0-6); HEMATOCRIT 41.7 % (37.9-51.0); HEMOGLOBIN 13.5 g/dL (13.5-17.0); LYMPHOCYTES % (AUTO) 17.6 % (13-45); MEAN CORPUSCULAR HEMOGLOBIN 26.2 pg (27.0-33.4); MEAN CORPUSCULAR HGB CONC 32.5 g/dL (32.0-36.0); MEAN CORPUSCULAR VOLUME 81 fl (80-97); MONOCYTES % (AUTO) 9.5 % (3-13); PLATELET COUNT 284 10^3/uL (150-450); RED BLOOD COUNT 5.17 10^6/uL (4.35-5.55); RED CELL DISTRIBUTION WIDTH 15.5 % (11.5-14.0); TOTAL CELLS COUNTED % (AUTO) 100 %; WHITE BLOOD COUNT 11.1 10^3/uL (4.0-10.5)
--- NOTE | 2018-04-05 15:18 | RADIOLOGY REPORT (SQ) ---
EXAM DESCRIPTION: CHEST 2 VIEWS COMPLETED DATE/TIME: 04/05/2018 3:04 pm REASON FOR STUDY: sob COMPARISON: 02/09/2018 EXAM PARAMETERS: NUMBER OF VIEWS: two views TECHNIQUE: Digital Frontal and Lateral radiographic views of the chest acquired. RADIATION DOSE: NA LIMITATIONS: none FINDINGS: LUNGS AND PLEURA: Unchanged right apical lateral pleural thickening. Unchanged scarring w ithin the bilateral lung apices. Stable hazy opacification at the right mid lung likely secondary to previously-seen and posterior pleural thickening. No new consolidation. No pleural effusion or pne umothorax. MEDIASTINUM AND HILAR STRUCTURES: No masses or contour abnormalities. HEART AND VASCULAR STRUCTURES: Normal heart size. Atherosclerotic aorta. BONES: No acute findings. HARDWARE: None in the chest. OTHER: No other significant finding. IMPRESSION: Grossly stable chest with persistent right apical pleural thickening and biapical scarri ng. No evidence of superimposed acute cardiopulmonary process TECHNICAL DOCUMENTATION: JOB ID: [id number] [employer]- All Rights Reserved Reading location - IP/workstation name: [email or web address]
--- NOTE | 2018-04-05 15:20 | ER Document Report ---
ED General - General Chief Complaint: Chest Pain > 30 Stated Complaint: CHEST PAIN/DIFFICULTY BREATHING Time Seen by Provider: 04/05/18 14:05 Primary Care Provider: ALYSHA CARLOS MD [ACTIVE STAFF] - Follow up as needed Mode of Arrival: Ambulatory Information source: Patient, Relative, [facility] Records Notes: 57-year-old male with COPD, hyperlipidemia, reflux, continuous tobacco use presents with complaint of left-sided chest pain that started 2 days prior to arrival. Patient states "I think I have pneumonia". When asked why he states that he has had it multiple times before and this feels similar. Patient does report a history of persistent cough. Patient's last admission for pneumonia was December 2017. Patient is on home O2 4 L while sitting, 6 L while active. Patient denies any associated fever, chills. Patient's shortness of breath is reported to be at his baseline. TRAVEL OUTSIDE OF THE [place] IN LAST 30 DAYS: No - HPI Onset: Other Quality of pain: Achy Severity: Mild Associated symptoms: Chest pain, Chills, Productive cough, Shortness of breath - chronic. denies: Fever, Hurts to breath, Leg swelling, Nausea, Vomiting, Sweating Exacerbated by: Coughing Relieved by: Denies Similar symptoms previously: Yes Recently seen / treated by doctor: No - Related Data Allergies/Adverse Reactions: bee stings Allergy (Severe, Uncoded 04/05/18 12:54) swelling Past Medical History - General Information source: Patient, [facility] Records - Social History Smoking Status: Current Every Day Smoker Cigarette use (# per day): Yes - 20 Chew tobacco use (# tins/day): No Smoking Education Provided: Yes - Smoking cessation counseling was provided for 4 minutes at the bedside Frequency of alcohol use: None Drug Abuse: None Lives with: Spouse/Significant other Family History: CAD, COPD Patient has suicidal ideation: No Patient has homicidal ideation: No - Past Medical History Cardiac Medical History: Reports: Hx Hypercholesterolemia Denies: Hx Congestive Heart Failure, Hx Coronary Artery Disease, Hx Heart Attack, Hx Hypertension Pulmonary Medical History: Reports: Hx Bronchitis, Hx COPD - has O2 4l at night/6 L ambulating, Hx Pneumonia, Hx Intubation Denies: Hx Asthma, Hx Tuberculosis Neurological Medical History: Denies: Hx Cerebrovascular Accident, Hx Seizures Renal/ Medical History: Denies: Hx Peritoneal Dialysis GI Medical History: Denies: Hx Cirrhosis, Hx Crohn's Disease, Hx Ulcerative C olitis Musculoskeletal Medical History: Denies Hx Arthritis Psychiatric Medical History: Denies: Hx Depression Traumatic Medical History: Reports: Hx Fractures - left collar bone. Denies: Hx Traumatic Brain Injury Infectious Medical History: Denies: Hx HIV Past Surgical History: Reports: Hx Oral Surgery, Other - Vocal cord biopsy. Denies: Hx Pacemaker - Immunizations Hx Diphtheria, Pertussis, Tetanus Vaccination: - not sure Hx Pneumococcal Vaccination: 10/23/11 Review of Systems - Review of Systems Notes: REVIEW OF SYSTEMS: CONSTITUTIONAL : Denies fever, chills, or sweats. Denies recent illness. Denies weight loss, recent hospitalizations. EENT: Denies visual changes, eye pain. Denies sore throat, oral lesions, difficulty swallowing. CARDIOVASCULAR: . Denies palpitations. Denies lower extremity edema. RESPIRATORY: Denies wheezing. GASTROINTESTINAL: Denies abdominal pain or distention. Denies nausea, vomiting, or diarrhea. Denies blood in vomitus, stools, or per rectum. Denies black, tarry stools. Denies constipation. GENITOURINARY: Denies difficulty urinating, painful urination, frequency, blood in urine, testicular pain or penile discharge. MUSCULOSKELETAL: Denies back or neck pain or stiffness. Denies joint pain or swelling. SKIN: Denies rash, lesions or sores. HEMATOLOGIC : Denies easy bruising or bleeding. LYMPHATIC: Denies swollen glands. NEUROLOGICAL: Denies confusion or altered mental status. Denies loss of consciousness. Denies dizziness or lightheadedness. Denies headache. Denies weakness or paralysis. Denies problems difficulty with ambulation, slurred speech. Denies sensory loss, numbness, or tingling. Denies seizures. PSYCHIATRIC: Denies anxiety or stress. Denies depression, suicidal ideation, or Physical Exam - Vital signs Vitals: Temp Pulse Resp BP Pulse Ox 98.1 F 105 H 24 H 139/80 H 86 L 04/05/18 13:13 04/05/18 13:13 04/05/18 13:13 04/05/18 13:13 04/05/18 13:13 - Notes Notes: PHYSICAL EXAMINATION: GENERAL: Well-appearing, well-nourished and in no acute distress. HEAD: Atraumatic, normocephalic. EYES: Pupils equal round and reactive to light, extraocular movements intact, sclera anicteric, conjunctiva are normal. ENT: Nares patent, oropharynx clear without exudates. Moist mucous membranes. NECK: Normal range of motion, supple without lymphadenopathy LUNGS: Diminished breath sounds in jenkins bilaterally, no wheezes rales or rhonchi. HEART: Regular rate and rhythm without murmurs ABDOMEN: Soft, nontender, nondistended abdomen. No guarding, no rebound. No masses appreciated. Musculoskeletal: Normal range of motion, no pitting or edema. No cyanosis. NEUROLOGICAL: Cranial nerves grossly intact. Normal speech, normal gait. Normal sensory, motor exams PSYCH: Normal mood, normal affect. SKIN: Warm, Dry, normal turgor, no rashes or lesions noted. Course - Re-evaluation Re-evalutation: 04/06/18 00:45 Laboratory 04/05/18 04/05/18 04/05/18 14:37 14:37 14:37 WBC 11.1 H RBC 5.17 Hgb 13.5 Hct 41.7 MCV 81 MCH 26.2 L MCHC 32.5 RDW 15.5 H Plt Count 284 Seg Neutrophils % 67.0 Lymphocytes % 17.6 Monocytes % 9.5 Eosinophils % 4.9 Basophils % 1.0 Absolute Neutrophils 7.4 Absolute Lymphocytes 1.9 Absolute Monocytes 1.1 Absolute Eosinophils 0.5 Absolute Basophils 0.1 D-Dimer Sodium 144.5 Potassium 4.4 Chloride 100 Carbon Dioxide 35 H Anion Gap 10 BUN 6 L Creatinine 0.76 Est GFR ( Amer) > 60 Est GFR (Non-Af Amer) > 60 Glucose 87 Lactic Acid Calcium 9.7 Total Bilirubin 0.3 Direct Bilirubin 0.3 Neonat Total Bilirubin Not Reportable Neonat Direct Bilirubin Not Reportable Neonat Indirect Bili Not Reportable AST 16 L ALT 7 L Alkaline Phosphatase 87 Troponin I < 0.012 NT-Pro-B Natriuret Pep 147 Total Protein 8.1 Albumin 4.3 04/05/18 04/05/18 14:37 14:37 WBC RBC Hgb Hct MCV MCH MCHC RDW Plt Count Seg Neutrophils % Lymphocytes % Monocytes % Eosinophils % Basophils % Absolute Neutrophils Absolute Lymphocytes Absolute Monocytes Absolute Eosinophils Absolute Basophils D-Dimer 1.58 H Sodium Potassium Chloride Carbon Dioxide Anion Gap BUN Creatinine Est GFR ( Amer) Est GFR (Non-Af Amer) Glucose Lactic Acid 1.0 Calcium Total Bilirubin Direct Bilirubin Neonat Total Bilirubin Neonat Direct Bilirubin Neonat Indirect Bili AST ALT Alkaline Phosphatase Troponin I NT-Pro-B Natriuret Pep Total Protein Albumin Chest/Abdomen CTA 04/05/18 00:00 IMPRESSION: 1. No PE. 2. COPD. Chronic pleural and parenchymal scarring. 3. Chronic mild adenopathy, likely reactive. Chest X-Ray 04/05/18 14:11 IMPRESSION: Grossly stable chest with persistent right apical pleural thickening and biapical scarring. No evidence of superimposed acute cardiopulmonary process Temp Pulse Resp BP Pulse Ox 98.1 F 105 H 22 H 123/73 92 04/05/18 13:13 04/05/18 13:13 04/05/18 16:00 04/05/18 16:54 04/05/18 16:00 57-year-old male with COPD, hyperlipidemia, reflux, continuous tobacco use presents with complaint of left-sided chest pain that started 2 days prior to arrival. Patient states "I think I have pneumonia". When asked why he states that he has had it multiple times before and this feels similar. Patient does r eport a history of persistent cough. Patient's last admission for pneumonia was December 2017. Patient is on home O2 4 L while sitting, 6 L while active. Patient denies any associated fever, chills. Patient's shortness of breath is reported to be at his baseline. Vital signs reviewed upon arrival. Patient does not appear toxic or dehydrated. He is in no acute distress. Patient is satting normally for him on 2 L of oxygen. CBC, CMP, cardiac enzymes are unremarkable. D-dimer was found to be elevated so CTA was obtained which showed no evidence of pulmonary embolism, COPD with chronic pleural and parenchymal scarring. Patient did receive a breathing treatment, prednisone, doxycycline during his ED course. Patient will be discharged home with doxycycline due to his COPD history and report of increased sputum production. Patient was evaluated and treated as appropriate for the patient's presenting symptoms and complaint, with consideration of any critical or life threatening conditions that may be associated with their obtained history and exam as noted above. All results were discussed with patient and his who is at the bedside. Patient provided the opportunity to ask questions, and express concerns. Patient was educated on treatments based on their presumed diagnosis as noted above. At this time we will discharge the patient with return precautions and follow-up recommendations. Verbal discharge instructions given a the bedside. Medication warnings reviewed. Patient is in agreement with this plan and has verbalized understanding of return precautions. After careful consideration I feel that that patient can be safely discharged from the emergency department, they were advised to followup with a primary care physician in 2-3 days. Dictation on this chart was performed using voice recognition software and may result in unintended grammatical, spelling, syntax or errors. - Vital Signs Vital signs: Temp Pulse Resp BP Pulse Ox 98.1 F 105 H 22 H 123/73 92 04/05/18 13:13 04/05/18 13:13 04/05/18 16:00 04/05/18 16:54 04/05/18 16:00 - Laboratory Result Diagrams: 04/05/18 14:37 04/05/18 14:37 Laboratory results interpreted by me: 04/05/18 04/05/18 04/05/18 14:37 14:37 14:37 WBC 11.1 H MCH 26.2 L RDW 15.5 H D-Dimer 1.58 H Carbon Dioxide 35 H BUN 6 L AST 16 L ALT 7 L - Diagnostic Test Radiology reviewed: Image reviewed, Reports reviewed - EKG Interpretation by Me EKG shows normal: Sinus rhythm Rate: Tachycardia Rhythm: NSR When compared to previous EKG there are: No significant change Discharge - Discharge Clinical Impression: Cough, COPD with acute exacerbation, Pleural thickening, Tobacco dependence Chest pain Qualifiers: Chest pain type: unspecified Qualified Code(s): R07.9 - Chest pain, unspecified Condition: Good Disposition: HOME, SELF-CARE Instructions: Chronic Obstructive Lung Disease ([facility]) Prescriptions: Doxycycline Hyclate 100 mg PO BID #14 capsule Prednisolone Sod Phosphate 15 mg PO DAILY 3 Days #15 ml Forms: Elevated Blood Pressure, Smoking Cessation Education Referrals: ALYSHA CARLOS MD [ACTIVE STAFF] - Follow up as needed
[2018-04-05 15:22] LABS: ALANINE AMINOTRANSFERASE 7 U/L (21-72); ALBUMIN 4.3 g/dL (3.5-5.0); ALKALINE PHOSPHATASE 87 U/L (38-126); ANION GAP 10 (5-19); ASPARTATE AMINO TRANSFERASE 16 U/L (17-59); BILIRUBIN,DIRECT 0.3 mg/dL (0.0-0.4); BILIRUBIN,TOTAL 0.3 mg/dL (0.2-1.3); BLOOD UREA NITROGEN 6 mg/dL (7-20); CALCIUM 9.7 mg/dL (8.4-10.2); CARBON DIOXIDE 35 mmol/L (22-30); CHLORIDE 100 mmol/L (98-107); GLUCOSE 87 mg/dL (75-110); POTASSIUM 4.4 mmol/L (3.6-5.0); SODIUM 144.5 mmol/L (137-145); TOTAL PROTEIN 8.1 g/dL (6.3-8.2)
[2018-04-05 15:33] LABS: NT PRO BNP 147 pg/mL (5-900)
[2018-04-05 15:34] LABS: TROPONIN I < 0.012 ng/mL
--- NOTE | 2018-04-05 16:35 | RADIOLOGY REPORT (SQ) ---
EXAM DESCRIPTION: CTA CHEST COMPLETED DATE/TIME: 04/05/2018 4:18 pm REASON FOR STUDY: elevated d-dimer COMPARISON: 01/15/2018 TECHNIQUE: CT scan of the chest performed using helical scanning technique with dynamic intravenous contrast injection. Images reviewed with lung, soft tissue and bone windows. Reconstructed coronal and sagittal MPR images reviewed. Additional 3 dimensional post-processing performed to develop Maximal Intensity Projection images (NC P). All images stored on PACS. All CT scanners at this facility use dose modulation, iterative reconstruction, and/or weight based d osing when appropriate to reduce radiation dose to as low as reasonably achievable (ALARA). [facility]: Dose Right [facility]: CareDose [facility]: Dose Right [facility]: Teradose 4D [facility]: [facility] CONTRAST TYPE AND DOSE: contrast/concentration: Isovue 350.00 mg/ml; Total Contrast Delivered: 74.0 ml; Total Saline Delivered: 75.0 ml Contrast bolus adequate for pulmonary arteries and aorta. RENAL FUNCTION: GFR > 60. RADIATION DOSE: CT Rad equipment meets quality standard of care and radiation dose reduction techniq ues were employed. CTDIvol: 9.9 - 17.2 mGy. DLP: 689 mGy-cm. . LIMITATIONS: None. FINDINGS: LUNGS AND PLEURA: Stable emphysematous changes in the upper lobes. Chronic posterior apic al pleural thickening, right greater than left. Chronic subpleural scarring left lower lobe. No eff usions. AORTA AND GREAT VESSELS: No aneurysm. No dissection. HEART: No pericardial effusion. PULMONARY ARTERIES: No emboli visualized in the main pulmonary arteries or the segmental branches. HILAR AND MEDIASTINAL STRUCTURES: Chronic mildly enlarged mediastinal and right hilar nodes measuring up to 1 cm in short axis. No bulky adenopathy. HARDWARE: None in the chest. UPPER ABDOMEN: No significant findings. Limited exam. THYROID AND OTHER SOFT TISSUES: No masses. No adenopathy. BONES: No acute or significant finding. 3D MIPS: Confirm above findings. OTHER: No other significant finding. IMPRESSION: 1. No PE. 2. COPD. Chronic pleural and parenchymal scarring. 3. Chronic mild adenopathy, likely reactive. COMMENT: Quality ID # [id number]: Final reports with documentation of one or more dose reduction techniques (e.g., Automated exposure control, adjustment of the mA and/or kV according to patient size, use of iterative reconstruction technique) TECHNICAL DOCUMENTATION: JOB ID: [id number] [employer]- All Rights Reserved Reading location - IP/workstation name: [email or web address]
[2018-04-05] MEDS ORDERED: DOXYCYCLINE HYCLATE 100 MG TABLET PO ONE (16:49)
[2018-04-05] MEDS ORDERED: PREDNISONE 20 MG TABLET PO ONE (16:49)
[2018-04-05 16:56] VITALS: BP 123/73
--- NOTE | 2018-04-05 21:25 | EKG REPORT ---
SEVERITY:- OTHERWISE NORMAL ECG - SINUS TACHYCARDIA : Confirmed by: Yeyo Enamorado 05-Apr-2018 21:24:44
== END 2018-04-05 17:02 | disposition home or self-care (01) ==
LOC: ER 12:52
DX: J44.1 Chronic obstructive pulmonary disease with (acute) exacerbation (principal); J92.9 Pleural plaque without asbestos; Z99.81 Dependence on supplemental oxygen; R79.1 Abnormal coagulation profile; R07.9 Chest pain, unspecified; R00.0 Tachycardia, unspecified; R59.9 Enlarged lymph nodes, unspecified; R05 Cough; R68.83 Chills (without fever); R06.02 Shortness of breath; F17.210 Nicotine dependence, cigarettes, uncomplicated; Z71.6 Tobacco abuse counseling; Z87.01 Personal history of pneumonia (recurrent); Z91.030 Bee allergy status
CPT/HCPCS: 93005; 94640; 99285; 36415; 87040; 83605; 85025; 80053; 84484; 85379; 83880; 71046; 71275; 93010; J3490; J7512; J7620

== ENCOUNTER → 2019-05-30 | Outpatient (CLI) | payer MEDICAID ==
[2019-05-30 10:48] LABS: ARTERIAL BLOOD BASE EXCESS 5.5 mmol/L; ARTERIAL BLOOD H2CO3 1.78 mmol/L (1.05-1.35); ARTERIAL BLOOD HCO3 32.7 mmol/L (20-24); ARTERIAL BLOOD O2 SATURATION 80.4 % (94-98); ARTERIAL BLOOD PCO2 59.1 mmHg (35-45); ARTERIAL BLOOD PH 7.36 (7.35-7.45); ARTERIAL BLOOD PO2 47.1 mmHg (80-100); ARTERIAL BLOOD TOTAL CO2 34.5 mmol/L (23-27)
[2019-05-30 10:53] LABS: ARTERIAL BLOOD FIO2 ROOM AIR
== END ==
LOC: OD 09:53
PROVIDERS: ATTEND Internal Medicine Pulmonary Disease
DX: J43.8 Other emphysema (principal)
CPT/HCPCS: 82803

== ENCOUNTER → 2019-05-30 | Outpatient (CLI) | payer MEDICAID ==
--- NOTE | 2019-05-30 10:08 | RADIOLOGY REPORT (SQ) ---
EXAM DESCRIPTION: CT CHEST WITHOUT IMAGES COMPLETED DATE/TIME: 05/30/2019 9:41 am REASON FOR STUDY: (R91.1)SOLITARY PULMONARY NODULE R91.1 SOLITARY PULMONARY NODULE COMPARISON: 04/05/2018, 01/15/2018 TECHNIQUE: CT scan performed of the chest without intravenous contrast. Images reviewed with lung, soft tissue and bone windows. Reconstructed coronal and sagittal MPR images reviewed. All images st ored on PACS. All CT scanners at this facility use dose modulation, iterative reconstruction, and/or weight based d osing when appropriate to reduce radiation dose to as low as reasonably achievable (ALARA). [facility]: Dose Right [facility]: CareDose [facility]: Dose Right [facility]: Teradose 4D [facility]: [employer] RADIATION DOSE: CT Rad equipment meets quality standard of care and radiation dose reduction techniq ues were employed. CTDIvol: 12.1 mGy. DLP: 521 mGy-cm. mGy. LIMITATIONS: No technical limitations. FINDINGS: LUNGS AND PLEURA: Stable chronic bilateral pleural and parenchymal changes with scarring i n both lung apices. Bilateral subpleural blebs most marked in the upper lobes. No suspicious pulmon marjorie nodules. HILAR AND MEDIASTINAL STRUCTURES: Stable mediastinal hilar and subcarinal adenopathy most likely reac tive. HEART AND VASCULAR STRUCTURES: No aneurysm. No pericardial effusion. UPPER ABDOMEN: No significant findings. Limited exam. THYROID AND OTHER SOFT TISSUES: No masses. No adenopathy. BONES: No significant finding. HARDWARE: None in the chest. OTHER: No other significant findings. IMPRESSION: Chronic bilateral pleural and parenchymal changes with subpleural scarring and biapical scarring. Stable mediastinal adenopathy most likely reactive. No suspicious pulmonary nodules. TECHNICAL DOCUMENTATION: JOB ID: [id number] Quality ID # [id number]: Final reports with documentation of one or more dose reduction techniques (e.g., Au tomated exposure control, adjustment of the mA and/or kV according to patient size, use of iterative reconstruction technique) 2010 [employer]- All Rights Reserved Reading location - IP/workstation name: [email or web address]
== END ==
LOC: RAD 09:15
PROVIDERS: ATTEND Internal Medicine Pulmonary Disease
DX: R91.1 Solitary pulmonary nodule (principal)
CPT/HCPCS: 71250